=== PATIENT | male | born 1965 | race Caucasian/White ===

== ENCOUNTER → 2016-11-04 | Outpatient (REF) | payer MEDICARE ==
[~2016-11-04] MED LIST: /FENT25PA TD; /ONDA4TA OR; /ONDA4TA PO; /ONDA4TA SL; /PANT40TA PO; ALBU17IN2 IN; ALBU83IN INH; ALBUPOW9 INH; ALBUTEROL INH; DEXALANT PO; DIAZ10TA2 PO; LITH300T11 PO; METO10TA2 OR; METO5TAB2 PO; MORP15TA4 OR; MS C30TA2 OR; No Historical Meds; OXYC-208 PO; PERC5TAB8 OR; PERC5TAB8 PO; PERCOCET PO; PRED10TA2 PO; PRIL20CA OR; PRIL40CA OR; PRIL40CA PO; REGL10TA6 PO; TRAM50TA2 OR; TRAZ50TA2 PO; TUMS500C PO; VENTAER IN; XANA0.25 OR; ZYPR10TA PO
== END ==
LOC: M SMT 16:45
PROVIDERS: ATTEND Urology
DX: Z85.51 Personal history of malignant neoplasm of bladder (principal)

== ENCOUNTER 2017-04-18 12:23 | Emergency (ER) | payer MEDICARE ==
[~2017-04-18] VITALS: Ht 175.3 cm; Wt 77.4 kg
[2017-04-18] MEDS ORDERED: INVE234I IM (12:35)
[2017-04-18] MEDS ORDERED: NS 500 ML IV ONE (13:45)
[2017-04-18] MEDS ORDERED: ONDANSETRON 4MG/2ML VIAL (J2405) IV ONE (13:45)
[2017-04-18] MEDS ORDERED: MORPHINE 2 MG/ML 1ML SYRINGE IV PRN (13:45)
[2017-04-18] MEDS ORDERED: ALPRAZolam 0.25 MG TAB PO ONE (14:00)
[2017-04-18] MEDS ORDERED: IPRATROPIUM 0.5MG/ALBUTEROL 2.5MG INH SOL UD 3ML (DUONEB)(J7620) NEB ONE (14:30)
[2017-04-18 14:34] LABS: BASO # 0.1 K/mm3 (0.0-0.2); BASO % 0.5 % (0.0-1.0); EOS # 0.2 K/mm3 (0.0-0.50); EOS % 1.3 % (0.0-3.0); LARGE UNSTAINED CELL # 0.3 K/mm3 (0.0-0.4); LARGE UNSTAINED CELL % 2.2 % (0.0-4.0); LYMPH # 3.3 K/mm3 (1.5-4.5); LYMPH % 24.7 % (24.0-44.0); MEAN CORPUSCULAR HEMOGLOBIN 33.1 pg (27.0-33.0); MEAN CORPUSCULAR HGB CONC 36.3 g/dl (32.0-36.5); MEAN CORPUSCULAR VOLUME 91.2 fl (80.0-96.0); MONO # 0.7 K/mm3 (0.0-0.8); MONO % 5.4 % (0.0-5.0); PLATELET COUNT, AUTOMATED 334 k/mm3 (150-450); WHITE BLOOD COUNT 12.1 K/mm3 (4.0-10.0)
[2017-04-18 14:48] LABS: INR 1.07
[2017-04-18 14:54] LABS: ALBUMIN/GLOBULIN RATIO 1.08 (1.00-1.93); ALKALINE PHOSPHATASE 91 U/L (45-117); ALT/SGPT 42 U/L (12-78); AMYLASE 45 U/L (25-115); ANION GAP 9 MEQ/L (8-16); AST/SGOT 25 U/L (15-37); BILIRUBIN,DIRECT 0.2 MG/DL (0.0-0.2); BLOOD UREA NITROGEN 30 MG/DL (7-18); CALCIUM LEVEL 10.6 MG/DL (8.5-10.1); CARBON DIOXIDE LEVEL 31 MEQ/L (21-32); CHLORIDE LEVEL 89 MEQ/L (98-107); GLOMERULAR FILTRATION RATE > 60.0 (>60); GLUCOSE, FASTING 103 MG/DL (70-105); POTASSIUM SERUM 3.9 MEQ/L (3.5-5.1); SODIUM LEVEL 129 MEQ/L (136-145); TOTAL PROTEIN 7.7 GM/DL (6.4-8.2)
[2017-04-18 15:44] VITALS: BP 117/71
[2017-04-18] MEDS ORDERED: XANA0.25 PO (15:46)
[2017-04-18] MEDS ORDERED: ZOFR4TAB3 PO (15:46)
[2017-04-19] MEDS ORDERED: PROM50TA4 PO (12:35)
== END 2017-04-18 16:17 | disposition home or self-care (01) ==
LOC: M ED 12:23
DX: F41.9 Anxiety disorder, unspecified (principal); R10.84 Generalized abdominal pain; R11.2 Nausea with vomiting, unspecified; F17.210 Nicotine dependence, cigarettes, uncomplicated
CPT/HCPCS: 80048; 80076; 81001; 82150; 83690; 85025; 85610; 85730; 94640; 96374; 96375; 99283; J2405

== ENCOUNTER 2017-04-19 09:38 | Emergency (ER) | payer MEDICARE ==
[~2017-04-19] VITALS: Ht 175.3 cm; Wt 77.3 kg
[~2017-04-19 09:38] MED LIST changes: +INVE234I IM; +XANA0.25 PO; +ZOFR4TAB3 PO
[2017-04-19] MEDS ORDERED: NS 1,000 ML IV ONE (10:15)
[2017-04-19] MEDS ORDERED: FAMOTIDINE IV BAG 20 MG in APPROPRIATE DILUENT 1 EA IV ONE (10:15)
[2017-04-19] MEDS ORDERED: PROMETHAZINE INJ 25 MG/ML VIAL (J2550) IV ONE (10:15)
[2017-04-19] MEDS ORDERED: IPRATROPIUM 0.5MG/ALBUTEROL 2.5MG INH SOL UD 3ML (DUONEB)(J7620) NEB ONE (10:30)
[2017-04-19 10:34] LABS: BASO % 0.4 % (0.0-1.0); EOS # 0.1 K/mm3 (0.0-0.50); EOS % 1.1 % (0.0-3.0); LARGE UNSTAINED CELL # 0.3 K/mm3 (0.0-0.4); LARGE UNSTAINED CELL % 2.3 % (0.0-4.0); LYMPH # 2.4 K/mm3 (1.5-4.5); MEAN CORPUSCULAR HEMOGLOBIN 32.5 pg (27.0-33.0); MEAN CORPUSCULAR HGB CONC 35.9 g/dl (32.0-36.5); MEAN CORPUSCULAR VOLUME 90.8 fl (80.0-96.0); MONO # 0.7 K/mm3 (0.0-0.8); MONO % 6.6 % (0.0-5.0); NEUTROPHILS # 7.2 K/mm3 (1.8-7.7); NEUTROPHILS % 67.6 % (36.0-66.0); PLATELET COUNT, AUTOMATED 343 k/mm3 (150-450); RED CELL DISTRIBUTION WIDTH 12.5 % (11.5-14.5); WHITE BLOOD COUNT 10.7 K/mm3 (4.0-10.0)
[2017-04-19 10:57] LABS: ALBUMIN 4.1 GM/DL (3.2-5.2); ALBUMIN/GLOBULIN RATIO 1.28 (1.00-1.93); ALKALINE PHOSPHATASE 95 U/L (45-117); ALT/SGPT 39 U/L (12-78); ANION GAP 11 MEQ/L (8-16); AST/SGOT 20 U/L (15-37); BILIRUBIN,DIRECT 0.3 MG/DL (0.0-0.2); BILIRUBIN,TOTAL 1.2 MG/DL (0.2-1.0); BLOOD UREA NITROGEN 24 MG/DL (7-18); CALCIUM LEVEL 10.4 MG/DL (8.5-10.1); CARBON DIOXIDE LEVEL 32 MEQ/L (21-32); CHLORIDE LEVEL 83 MEQ/L (98-107); CREATININE FOR GFR 1.25 MG/DL (0.70-1.30); GLOMERULAR FILTRATION RATE > 60.0 (>60); GLUCOSE, FASTING 111 MG/DL (70-105); POTASSIUM SERUM 3.5 MEQ/L (3.5-5.1); SODIUM LEVEL 126 MEQ/L (136-145); TOTAL PROTEIN 7.3 GM/DL (6.4-8.2)
[2017-04-19] MEDS ORDERED: PROM50TA4 PO (12:35)
--- NOTE | 2017-04-19 12:48 | REP ---
Clinical: Nausea and vomiting. Technique: Real time callahan scale ultrasound examination using curved array transducer. Findings: The liver is increased in echogenicity with poor through transmission suggesting fatty infiltration. Visualized portions of the pancreas are normal. The patient is status post cholecystectomy and the common bile duct is within normal limits at 7.4 mm diameter. The right kidney is normal in reniform shape without hydronephrosis and measures 11.8 x 4.8 x 4.5 cm. No ascites. Impression: Normal post cholecystectomy right upper quadrant ultrasound. Signed by Omar Lee MD 04/19/2017 12:40 P
[2017-04-19 13:52] VITALS: BP 137/92
--- NOTE | 2017-04-19 18:12 | ECGEPIP ---
Stationary ECG Study [facility] - ED Test Date: 2017-04-19 Pat Name: MELINDA DOYLE Department: Room: - Gender: M Dispatch Coordinator: jose antonio : 1965 Requested By: Saige Hull Order Number: [id number] Reading MD: Saige Hull Measurements Intervals Win[place] Rate: 95 P: 74 ND: 157 QRS: 73 QRSD: 97 T: 68 QT: 354 QTc: 445 Interpretive Statements SINUS RHYTHM INCREASED RATE 03/05/12 Electronically Signed On 04-19-2017 18:12:17 EDT by Saige Hull
== END 2017-04-19 13:53 | disposition home or self-care (01) ==
LOC: M ED 10:05
DX: F41.9 Anxiety disorder, unspecified (principal)

== ENCOUNTER 2017-04-21 06:17 | Emergency (ER) | payer MEDICARE ==
[~2017-04-21] VITALS: Ht 175.3 cm; Wt 77.3 kg
[~2017-04-21 06:17] MED LIST changes: +PROM50TA4 PO
[2017-04-21] MEDS ORDERED: TRIMETHOBENZAMIDE HCL INJ 200 MG/2 ML VIAL (J3250) IM ONE (07:30)
[2017-04-21 10:19] VITALS: BP 150/92
== END 2017-04-21 10:34 | disposition home or self-care (01) ==
LOC: EDBD 06:17 → M ED 06:17
DX: F41.9 Anxiety disorder, unspecified (principal); F17.210 Nicotine dependence, cigarettes, uncomplicated
CPT/HCPCS: 96372; 99284; J3250

== ENCOUNTER → 2017-05-13 | Outpatient (CLI) | payer MEDICARE ==
[2017-05-13 17:59] LABS: ALBUMIN 4.2 GM/DL (3.2-5.2); ALBUMIN/GLOBULIN RATIO 1.24 (1.00-1.93); ALKALINE PHOSPHATASE 87 U/L (45-117); ALT/SGPT 44 U/L (12-78); ANION GAP 9 MEQ/L (8-16); AST/SGOT 15 U/L (15-37); BILIRUBIN,DIRECT 0.2 MG/DL (0.0-0.2); BILIRUBIN,TOTAL 0.6 MG/DL (0.2-1.0); BLOOD UREA NITROGEN 3 MG/DL (7-18); CALCIUM LEVEL 10.4 MG/DL (8.5-10.1); CARBON DIOXIDE LEVEL 34 MEQ/L (21-32); CHLORIDE LEVEL 92 MEQ/L (98-107); CREATININE FOR GFR 0.79 MG/DL (0.70-1.30); GLOMERULAR FILTRATION RATE > 60.0 (>60); GLUCOSE, FASTING 107 MG/DL (70-105); POTASSIUM SERUM 3.3 MEQ/L (3.5-5.1); SODIUM LEVEL 135 MEQ/L (136-145); TOTAL PROTEIN 7.6 GM/DL (6.4-8.2)
[2017-05-13 18:54] LABS: BASO % 0.4 % (0.0-1.0); EOS # 0.1 K/mm3 (0.0-0.50); EOS % 0.9 % (0.0-3.0); LYMPH # 2.4 K/mm3 (1.5-4.5); LYMPH % 23.1 % (24.0-44.0); MEAN CORPUSCULAR HEMOGLOBIN 32.3 pg (27.0-33.0); MEAN CORPUSCULAR HGB CONC 34.9 g/dl (32.0-36.5); MEAN CORPUSCULAR VOLUME 92.6 fl (80.0-96.0); MONO # 0.5 K/mm3 (0.0-0.8); NEUTROPHILS # 7.2 K/mm3 (1.8-7.7); NEUTROPHILS % 68.7 % (36.0-66.0); RED CELL DISTRIBUTION WIDTH 12.8 % (11.5-14.5); WHITE BLOOD COUNT 10.5 K/mm3 (4.0-10.0)
== END ==
LOC: M WUC 14:45
PROVIDERS: ATTEND Internal Medicine Gastroenterology
DX: R11.2 Nausea with vomiting, unspecified (principal)

== ENCOUNTER → 2017-05-31 | Outpatient (CLI) | payer MEDICARE ==
--- NOTE | 2017-06-02 10:00 | REP ---
MRCP: Multiple heavily T2-weighted sequences are obtained in the axial and coronal planes with MIP reconstruction images. Comparison made with prior MRCP 11/11/[address] 10/07/2016. Study is somewhat limited due to patient motion. There appears to be mild intrahepatic biliary dilatation. The common bile duct is dilated up to 14 mm. Diameter on the recent CT in September 2016 was 12 mm. There is again abrupt change in caliber at the distal end of the common bile duct. The pancreas duct is not dilated. Maximum diameter is 3 mm. No discrete filling defect is seen in the dilated common bile duct. Patient has had a prior cholecystectomy. No adenopathy is seen. No free fluid is seen in the visualized abdomen. IMPRESSION: Status post cholecystectomy. There is once again evidence of mild intrahepatic biliary dilatation. There is dilatation of the common bile duct up to 14 mm without a discrete filling defect. There is again abrupt change in caliber at the distal end of common bile duct. Current diameter is 14 mm, on the prior CT of 10/07/2016 it was 12 mm. Pancreatic duct is normal in caliber. Signed by Emil Davis MD 06/02/2017 12:49 P
== END ==
LOC: M RAD 08:55
PROVIDERS: ATTEND Internal Medicine Gastroenterology
DX: R11.2 Nausea with vomiting, unspecified (principal)

== ENCOUNTER → 2017-07-21 | Outpatient (REF) | LOC: M LAB 09:46 | PROVIDERS: ATTEND Nurse Practitioner Adult Health | DX: Z02.89 Encounter for other administrative examinations (principal) ==

== ENCOUNTER → 2018-01-19 | Outpatient (CLI) | payer MEDICARE | LOC: M RAD 10:17 | DX: N62 Hypertrophy of breast (principal); N63.0 Unspecified lump in unspecified breast | CPT/HCPCS: 77066 ==

== ENCOUNTER 2018-02-12 04:56 | Emergency (ER) | payer MEDICARE, MEDICAID ==
[2018-02-12] MEDS: NS 1,000 ML IV (06:30)
[2018-02-12] MEDS: METOCLOPRAMIDE INJ 10MG/2ML VIAL (J2765) IV ×2 (06:30)
[2018-02-12] MEDS: KETOROLAC 30 MG/ML VIAL (J1885) IV (06:30)
[2018-02-12] MEDS: GASTROGRAFIN SOLUTION 30ML PO ×2 (07:44→08:14)
[2018-02-12 07:52] LABS: BASO % 0.2 % (0.0-1.0); EOS % 0.2 % (0.0-3.0); HEMATOCRIT 39.8 % (42.0-52.0); HEMOGLOBIN 14.5 g/dl (13.5-17.5); IMMATURE GRANULOCYTE % 0.7 % (0-3.0); LYMPH # 2.5 10^3/uL (1.5-4.5); MEAN CORPUSCULAR HEMOGLOBIN 32.4 pg (27.0-33.0); MEAN CORPUSCULAR HGB CONC 36.4 g/dl (32.0-36.5); MEAN CORPUSCULAR VOLUME 88.8 fl (80.0-96.0); MONO # 1.1 10^3/uL (0.0-0.8); MONO % 6.2 % (0.0-5.0); NEUTROPHILS # 13.1 10^3/uL (1.8-7.7); NEUTROPHILS % 77.7 % (36.0-66.0); PLATELET COUNT, AUTOMATED 358 10^3/uL (150-450); RED BLOOD COUNT 4.48 10^6/uL (4.30-6.10); RED CELL DISTRIBUTION WIDTH 12.5 % (11.5-14.5); WHITE BLOOD COUNT 16.8 10^3/uL (4.0-10.0)
[2018-02-12 08:06] LABS: APPEARANCE, URINE CLEAR (CLEAR); BACTERIA, URINE AUTO NEGATIVE (NEGATIVE); BILIRUBIN, URINE AUTO NEGATIVE (NEGATIVE); BLOOD, URINE BLOOD 2+ (NEGATIVE); COLOR, URINE YELLOW (YELLOW); GLUCOSE, URINE (UA) AUTO 1+ mg/dL (NEGATIVE); KETONE, URINE AUTO NEGATIVE (NEGATIVE); LEUKOCYTE ESTERASE, URINE AUTO NEGATIVE (NEGATIVE); MUCUS, URINE SMALL (NEGATIVE); NITRITE, URINE AUTO NEGATIVE (NEGATIVE); PROTEIN, URINE AUTO NEGATIVE (NEGATIVE); RBC, URINE AUTO 21 /HPF (0-3); SPECIFIC GRAVITY URINE AUTO 1.011 (1.002-1.035); SQUAMOUS EPITHELIAL CELL UR AU 0 /HPF (0-6); UROBILINOGEN, URINE AUTO 0.2 mg/dL (0.0-2.0); WBC, URINE AUTO 3 /HPF (0-3)
[2018-02-12 08:20] LABS: ALBUMIN 3.5 GM/DL (3.2-5.2); ALBUMIN/GLOBULIN RATIO 1.13 (1.00-1.93); ALKALINE PHOSPHATASE 88 U/L (45-117); ALT/SGPT 31 U/L (12-78); ANION GAP 8 MEQ/L (8-16); AST/SGOT 17 U/L (7-37); BILIRUBIN,DIRECT 0.2 MG/DL (0.0-0.2); BILIRUBIN,TOTAL 0.6 MG/DL (0.2-1.0); BLOOD UREA NITROGEN 8 MG/DL (7-18); C REACTIVE PROTEIN QUANTITATIV 0.94 MG/DL (0.00-0.30); CARBON DIOXIDE LEVEL 31 MEQ/L (21-32); CHLORIDE LEVEL 97 MEQ/L (98-107); CREATININE FOR GFR 0.78 MG/DL (0.70-1.30); GAMMA GLUTAMYLTRANSPEPTIDASE 65 U/L (15-85); GLOMERULAR FILTRATION RATE > 60.0 (>56); GLUCOSE, FASTING 120 MG/DL (70-100); LIPASE 110 U/L (73-393); POTASSIUM SERUM 2.9 MEQ/L (3.5-5.1); SODIUM LEVEL 136 MEQ/L (136-145); TOTAL PROTEIN 6.6 GM/DL (6.4-8.2)
[2018-02-12] MEDS ORDERED: KCL 10MEQ/100ML SWI (KRUN) 10 MEQ in APPROPRIATE DILUENT 1 EA IV (08:30)
[2018-02-12] MEDS: KCL 10MEQ/100ML SWI (KRUN) 10 MEQ in APPROPRIATE DILUENT 1 EA IV (08:40)
[2018-02-12] MEDS: POTASSIUM CHLORIDE 10 MEQ SR TABLET PO (08:40)
[2018-02-12] MEDS: NORCO, ANEXSIA 5/325MG TABLET (HYDROcodone/ACETAMINOPHEN) PO (08:42)
[2018-02-12] MEDS ORDERED: ISOVUE-370 76% 100ML VIAL (Q9967) As Ordered (09:45)
[2018-02-12 10:32] LABS: ANION GAP 9 MEQ/L (8-16); BLOOD UREA NITROGEN 7 MG/DL (7-18); CALCIUM LEVEL 8.3 MG/DL (8.5-10.1); CARBON DIOXIDE LEVEL 28 MEQ/L (21-32); CHLORIDE LEVEL 96 MEQ/L (98-107); CREATININE FOR GFR 0.73 MG/DL (0.70-1.30); GLOMERULAR FILTRATION RATE > 60.0 (>56); GLUCOSE, FASTING 101 MG/DL (70-100); POTASSIUM SERUM 3.2 MEQ/L (3.5-5.1); SODIUM LEVEL 133 MEQ/L (136-145)
== END 2018-02-12 11:27 | disposition home or self-care (01) ==
LOC: M ED 04:56
DX: K52.9 Noninfective gastroenteritis and colitis, unspecified (principal); R10.84 Generalized abdominal pain; K57.90 Diverticulosis of intestine, part unspecified, without perforation or abscess without bleeding; K21.9 Gastro-esophageal reflux disease without esophagitis; Z86.73 Personal history of transient ischemic attack (TIA), and cerebral infarction without residual deficits; J44.9 Chronic obstructive pulmonary disease, unspecified; F41.9 Anxiety disorder, unspecified; F32.9 Major depressive disorder, single episode, unspecified; F31.9 Bipolar disorder, unspecified; F17.200 Nicotine dependence, unspecified, uncomplicated; K76.0 Fatty (change of) liver, not elsewhere classified; Z88.1 Allergy status to other antibiotic agents
CPT/HCPCS: Q9963

== ENCOUNTER 2018-03-04 14:25 | Inpatient (IN) | payer MEDICARE, MEDICAID ==
[2018-03-04] MEDS: FOLIC ACID 1 MG TAB PO (09:00)
[2018-03-04] MEDS: MULTIVITAMINS/MINERALS THERAP 1 TAB PO (09:00)
[2018-03-04] MEDS: NICOTINE 14 MG/24 HR TRANSDERMAL TD (09:00)
[2018-03-04] MEDS: THIAMINE 100 MG TAB PO (09:00)
[2018-03-04] MEDS: NS 1,000 ML IV ×2 (16:07→17:08)
[2018-03-04] MEDS: METOCLOPRAMIDE INJ 10MG/2ML VIAL (J2765) IV (16:08)
[2018-03-04 16:12] LABS: BASO # 0.1 10^3/uL (0.0-0.2); BASO % 0.4 % (0.0-1.0); EOS # 0.1 10^3/uL (0.0-0.50); EOS % 0.8 % (0.0-3.0); HEMATOCRIT 43.9 % (42.0-52.0); HEMOGLOBIN 16.2 g/dl (13.5-17.5); IMMATURE GRANULOCYTE % 0.5 % (0-3.0); LYMPH # 4.3 10^3/uL (1.5-4.5); MEAN CORPUSCULAR HEMOGLOBIN 32.2 pg (27.0-33.0); MEAN CORPUSCULAR VOLUME 87.3 fl (80.0-96.0); MONO # 1.2 10^3/uL (0.0-0.8); NEUTROPHILS # 10.8 10^3/uL (1.8-7.7); NEUTROPHILS % 65.3 % (36.0-66.0); PLATELET COUNT, AUTOMATED 441 10^3/uL (150-450); RED BLOOD COUNT 5.03 10^6/uL (4.30-6.10); RED CELL DISTRIBUTION WIDTH 12.1 % (11.5-14.5); WHITE BLOOD COUNT 16.6 10^3/uL (4.0-10.0)
[2018-03-04 16:15] LABS: MEAN CORPUSCULAR HGB CONC 36.9 g/dl (32.0-36.5)
[2018-03-04] MEDS: FAMOTIDINE IV BAG 20 MG in APPROPRIATE DILUENT 1 EA IV (16:25)
[2018-03-04 16:40] LABS: ALBUMIN 4.3 GM/DL (3.2-5.2); ALBUMIN/GLOBULIN RATIO 1.13 (1.00-1.93); ALKALINE PHOSPHATASE 120 U/L (45-117); ALT/SGPT 77 U/L (12-78); ANION GAP 11 MEQ/L (8-16); AST/SGOT 35 U/L (7-37); BILIRUBIN,DIRECT 0.5 MG/DL (0.0-0.2); BILIRUBIN,TOTAL 2.5 MG/DL (0.2-1.0); BLOOD UREA NITROGEN 19 MG/DL (7-18); CALCIUM LEVEL 10.4 MG/DL (8.5-10.1); CARBON DIOXIDE LEVEL 32 MEQ/L (21-32); CHLORIDE LEVEL 80 MEQ/L (98-107); CREATININE FOR GFR 1.35 MG/DL (0.70-1.30); GLOMERULAR FILTRATION RATE 59.6 (>56); GLUCOSE, FASTING 116 MG/DL (70-100); LIPASE 86 U/L (73-393); SODIUM LEVEL 123 MEQ/L (136-145); TOTAL PROTEIN 8.1 GM/DL (6.4-8.2)
[2018-03-04 16:47] LABS: POTASSIUM SERUM 2.9 MEQ/L (3.5-5.1)
[2018-03-04] MEDS: POTASSIUM CHLORIDE 10 MEQ SR TABLET PO (17:22)
[2018-03-04] MEDS: KCL 10MEQ/100ML SWI (KRUN) 10 MEQ in APPROPRIATE DILUENT 1 EA IV ×2 (18:45→20:00)
[2018-03-04] MEDS ORDERED: METOCLOPRAMIDE INJ 10MG/2ML VIAL (J2765) IV (19:45)
[2018-03-04] MEDS: SYMBICORT 160/4.5MCG INHALER 6GM INH (20:00)
[2018-03-04 20:38] LABS: OSMOLALITY URINE 135 MOSM/KG (500-800)
[2018-03-04 20:42] LABS: APPEARANCE, URINE CLEAR (CLEAR); BACTERIA, URINE AUTO NEGATIVE (NEGATIVE); BILIRUBIN, URINE AUTO NEGATIVE (NEGATIVE); BLOOD, URINE BLOOD 2+ (NEGATIVE); COLOR, URINE STRAW (YELLOW); GLUCOSE, URINE (UA) AUTO NEGATIVE (NEGATIVE); KETONE, URINE AUTO NEGATIVE (NEGATIVE); LEUKOCYTE ESTERASE, URINE AUTO NEGATIVE (NEGATIVE); NITRITE, URINE AUTO NEGATIVE (NEGATIVE); PROTEIN, URINE AUTO NEGATIVE (NEGATIVE); RBC, URINE AUTO 2 /HPF (0-3); SPECIFIC GRAVITY URINE AUTO 1.002 (1.002-1.035); SQUAMOUS EPITHELIAL CELL UR AU 0 /HPF (0-6); UROBILINOGEN, URINE AUTO 0.2 mg/dL (0.0-2.0); WBC, URINE AUTO 1 /HPF (0-3)
[2018-03-04 20:45] LABS: INR 1.02; PROTHROMBIN TIME 13.5 SECONDS (12.4-14.5)
[2018-03-04] MEDS ORDERED: ACETAMINOPHEN TAB 650MG DOSE (2X325MG) PO (20:45)
[2018-03-04 20:46] LABS: PARTIAL THROMBOPLASTIN TIME 30.9 SECONDS (26.8-37.9)
[2018-03-04 20:47] LABS: OSMOLALITY SERUM 263 MOSM/KG (275-295)
[2018-03-04 20:54] LABS: ANION GAP 8 MEQ/L (8-16); BLOOD UREA NITROGEN 16 MG/DL (7-18); CARBON DIOXIDE LEVEL 30 MEQ/L (21-32); CHLORIDE LEVEL 92 MEQ/L (98-107); CREATININE FOR GFR 0.91 MG/DL (0.70-1.30); GLOMERULAR FILTRATION RATE > 60.0 (>56); GLUCOSE, FASTING 107 MG/DL (70-100); MAGNESIUM LEVEL 2.2 MG/DL (1.8-2.4); NT-PRO BNP 65 PG/ML (<125)
[2018-03-04 20:59] LABS: GAMMA GLUTAMYLTRANSPEPTIDASE 96 U/L (15-85)
[2018-03-04 21:05] LABS: AMPHETAMINES LEVEL URINE NEGATIVE (NEGATIVE); BARBITURATES URINE NEGATIVE (NEGATIVE); BENZODIAZEPINES URINE NEGATIVE (NEGATIVE); CANNABINOIDS URINE POSITIVE (NEGATIVE); COCAINE METABOLITE URINE NEGATIVE (NEGATIVE); CREATININE,RANDOM URINE 33.5 MG/DL; METHADONE URINE NEGATIVE (NEGATIVE); OPIATES URINE NEGATIVE (NEGATIVE); PHENCYCLIDINE URINE NEGATIVE (NEGATIVE); SODIUM,RANDOM URINE 11 MEQ/L
[2018-03-04 21:07] LABS: SODIUM LEVEL 130 MEQ/L (136-145)
[2018-03-04 21:08] LABS: CALCIUM LEVEL 8.7 MG/DL (8.5-10.1); POTASSIUM SERUM 2.9 MEQ/L (3.5-5.1)
[2018-03-04] MEDS: KCL 40MEQ in NS 1000ML 1,000 ML IV (21:15)
[2018-03-04] MEDS: IPRATROPIUM 0.5MG/ALBUTEROL 2.5MG INH SOL UD 3ML (DUONEB)(J7620) NEB (21:23)
[2018-03-04] MEDS: GI COCKTAIL 50ML BTL(HYOSCYAMINE/MAALOX/LIDOCAINE VISCOUS)(1:3:1) PO (21:26)
[2018-03-04] MEDS: MORPHINE 4 MG/ML 1ML VIAL/SYRINGE (J2270) IV (21:26)
[2018-03-04] MEDS: SUCRALFATE SUSP 1GM/10ML UD PO (21:27)
[2018-03-04] MEDS: ENOXAPARIN 40 MG/0.4 ML SYRINGE (J1650) SC (21:27)
[2018-03-04] MEDS: PANTOPRAZOLE 40MG INJ (PROTONIX) (C9113) IV (21:27)
[2018-03-05] MEDS: ONDANSETRON 4MG/2ML VIAL (J2405) IV (00:03)
[2018-03-05] MEDS: MORPHINE 4 MG/ML 1ML VIAL/SYRINGE (J2270) IV ×2 (01:33→05:27)
[2018-03-05] MEDS: IPRATROPIUM 0.5MG/ALBUTEROL 2.5MG INH SOL UD 3ML (DUONEB)(J7620) NEB ×3 (02:00→08:00)
[2018-03-05 07:21] LABS: BASO # 0.1 10^3/uL (0.0-0.2); BASO % 0.6 % (0.0-1.0); EOS # 0.1 10^3/uL (0.0-0.50); EOS % 0.9 % (0.0-3.0); HEMATOCRIT 37.2 % (42.0-52.0); IMMATURE GRANULOCYTE % 0.6 % (0-3.0); LYMPH # 2.7 10^3/uL (1.5-4.5); LYMPH % 30.5 % (24.0-44.0); MEAN CORPUSCULAR HEMOGLOBIN 31.8 pg (27.0-33.0); MEAN CORPUSCULAR HGB CONC 35.8 g/dl (32.0-36.5); MONO # 0.8 10^3/uL (0.0-0.8); MONO % 8.8 % (0.0-5.0); NEUTROPHILS # 5.1 10^3/uL (1.8-7.7); NEUTROPHILS % 58.6 % (36.0-66.0); PLATELET COUNT, AUTOMATED 345 10^3/uL (150-450); RED BLOOD COUNT 4.18 10^6/uL (4.30-6.10); RED CELL DISTRIBUTION WIDTH 12.3 % (11.5-14.5); WHITE BLOOD COUNT 8.8 10^3/uL (4.0-10.0)
[2018-03-05 07:24] LABS: HEMOGLOBIN 13.3 g/dl (13.5-17.5)
[2018-03-05] MEDS: SUCRALFATE SUSP 1GM/10ML UD PO (07:30)
[2018-03-05 07:42] LABS: ANION GAP 9 MEQ/L (8-16); BLOOD UREA NITROGEN 12 MG/DL (7-18); CALCIUM LEVEL 8.8 MG/DL (8.5-10.1); CARBON DIOXIDE LEVEL 27 MEQ/L (21-32); CHLORIDE LEVEL 95 MEQ/L (98-107); CREATININE FOR GFR 1.01 MG/DL (0.70-1.30); GLOMERULAR FILTRATION RATE > 60.0 (>56); GLUCOSE, FASTING 103 MG/DL (70-100); POTASSIUM SERUM 3.1 MEQ/L (3.5-5.1); SODIUM LEVEL 131 MEQ/L (136-145)
[2018-03-05] MEDS: KCL 40MEQ in NS 1000ML 1,000 ML IV (07:52)
[2018-03-05] MEDS: SYMBICORT 160/4.5MCG INHALER 6GM INH (08:00)
[2018-03-05] MEDS: KCL 10MEQ IN D5/0.45NS 1000ML 1,000 ML IV (08:45)
[2018-03-05] MEDS: NICOTINE 14 MG/24 HR TRANSDERMAL TD (09:00)
[2018-03-05] MEDS: FOLIC ACID 1 MG TAB PO (09:00)
[2018-03-05] MEDS: MULTIVITAMINS/MINERALS THERAP 1 TAB PO (09:00)
[2018-03-05] MEDS: THIAMINE 100 MG TAB PO (09:00)
[2018-03-05] MEDS: POTASSIUM CHLORIDE 10 MEQ SR TABLET PO (09:21)
== END 2018-03-05 09:58 | disposition left against medical advice (07) | DRG 684 ==
LOC: M ED 14:25 → M ED INP 20:25 → M PCU 23:34
DX: N17.9 Acute kidney failure, unspecified (principal); R11.2 Nausea with vomiting, unspecified; F17.210 Nicotine dependence, cigarettes, uncomplicated; F31.9 Bipolar disorder, unspecified; J45.909 Unspecified asthma, uncomplicated; E87.8 Other disorders of electrolyte and fluid balance, not elsewhere classified; F12.90 Cannabis use, unspecified, uncomplicated; Z88.1 Allergy status to other antibiotic agents; Z88.8 Allergy status to other drugs, medicaments and biological substances; Z90.49 Acquired absence of other specified parts of digestive tract; Z85.51 Personal history of malignant neoplasm of bladder

== ENCOUNTER 2018-03-28 15:40 | Inpatient (IN) | payer MEDICARE, MEDICAID ==
[2018-03-28] MEDS: ONDANSETRON 4MG/2ML VIAL (J2405) IV (16:30)
[2018-03-28 16:36] LABS: BASO % 0.3 % (0.0-1.0); EOS # 0.1 10^3/uL (0.0-0.50); HEMATOCRIT 40.8 % (42.0-52.0); HEMOGLOBIN 14.8 g/dl (13.5-17.5); IMMATURE GRANULOCYTE % 0.4 % (0-3.0); LYMPH # 3.8 10^3/uL (1.5-4.5); LYMPH % 28.2 % (24.0-44.0); MEAN CORPUSCULAR HEMOGLOBIN 32.3 pg (27.0-33.0); MEAN CORPUSCULAR HGB CONC 36.3 g/dl (32.0-36.5); MEAN CORPUSCULAR VOLUME 89.1 fl (80.0-96.0); MONO # 0.9 10^3/uL (0.0-0.8); MONO % 6.9 % (0.0-5.0); NEUTROPHILS # 8.5 10^3/uL (1.8-7.7); NEUTROPHILS % 63.2 % (36.0-66.0); PLATELET COUNT, AUTOMATED 430 10^3/uL (150-450); RED BLOOD COUNT 4.58 10^6/uL (4.30-6.10); RED CELL DISTRIBUTION WIDTH 13.1 % (11.5-14.5); WHITE BLOOD COUNT 13.4 10^3/uL (4.0-10.0)
[2018-03-28 16:46] LABS: ALBUMIN/GLOBULIN RATIO 1.14 (1.00-1.93); ALKALINE PHOSPHATASE 94 U/L (45-117); ALT/SGPT 75 U/L (12-78); ANION GAP 11 MEQ/L (8-16); AST/SGOT 37 U/L (7-37); BILIRUBIN,DIRECT 0.3 MG/DL (0.0-0.2); BILIRUBIN,TOTAL 0.9 MG/DL (0.2-1.0); BLOOD UREA NITROGEN 12 MG/DL (7-18); CALCIUM LEVEL 11.1 MG/DL (8.5-10.1); CARBON DIOXIDE LEVEL 32 MEQ/L (21-32); CHLORIDE LEVEL 88 MEQ/L (98-107); CREATININE FOR GFR 1.09 MG/DL (0.70-1.30); GLOMERULAR FILTRATION RATE > 60.0 (>56); GLUCOSE, FASTING 104 MG/DL (70-100); LIPASE 133 U/L (73-393); POTASSIUM SERUM 2.8 MEQ/L (3.5-5.1); SODIUM LEVEL 131 MEQ/L (136-145); TOTAL PROTEIN 7.5 GM/DL (6.4-8.2)
[2018-03-28] MEDS: POTASSIUM CHLORIDE 10% LIQ 20 MEQ/15 ML UDC PO (17:15)
[2018-03-28 17:32] LABS: LACTIC ACID SEPSIS PROTOCOL 2.8 MMOL/L (0.4-2.0)
[2018-03-28] MEDS ORDERED: ISOVUE-370 76% 100ML VIAL (Q9967) As Ordered (17:37)
[2018-03-28] MEDS: NS 1,000 ML IV ×2 (17:45→22:15)
[2018-03-28] MEDS: KCL 10MEQ/100ML SWI (KRUN) 10 MEQ in APPROPRIATE DILUENT 1 EA IV (18:00)
[2018-03-28] MEDS: MORPHINE 2 MG/ML 1ML SYRINGE (J2270) IV (18:15)
[2018-03-28] MEDS: PANTOPRAZOLE 40MG INJ (PROTONIX) (C9113) IV (18:30)
[2018-03-28] MEDS: METOCLOPRAMIDE INJ 10MG/2ML VIAL (J2765) IV (22:15)
[2018-03-28] MEDS ORDERED: ACETAMINOPHEN TAB 650MG DOSE (2X325MG) PO (23:30)
[2018-03-28] MEDS ORDERED: METOCLOPRAMIDE 10 MG TAB PO (23:30)
[2018-03-28] MEDS ORDERED: ONDANSETRON 4MG/2ML VIAL (J2405) IV (23:30)
[2018-03-28] MEDS: MORPHINE 4 MG/ML 1ML VIAL/SYRINGE (J2270) IV (23:30)
[2018-03-29] MEDS: NS 1,000 ML IV (01:02)
[2018-03-29] MEDS: KCL 10MEQ/100ML SWI (KRUN) 10 MEQ in APPROPRIATE DILUENT 1 EA IV ×3 (01:37→03:38)
[2018-03-29] MEDS: IPRATROPIUM 0.5MG/ALBUTEROL 2.5MG INH SOL UD 3ML (DUONEB)(J7620) INH ×2 (01:42→07:52)
[2018-03-29] MEDS: MAG SULF 1GM/100ML (MAG RUN) 1 GM in APPROPRIATE DILUENT 1 EA IV (02:11)
[2018-03-29] MEDS: KCL 40MEQ in NS 1000ML 1,000 ML IV ×2 (03:37→10:46)
[2018-03-29 04:48] LABS: BASO # 0.1 10^3/uL (0.0-0.2); BASO % 0.5 % (0.0-1.0); EOS # 0.2 10^3/uL (0.0-0.50); EOS % 1.6 % (0.0-3.0); HEMATOCRIT 35.2 % (42.0-52.0); IMMATURE GRANULOCYTE % 0.5 % (0-3.0); LYMPH # 4.1 10^3/uL (1.5-4.5); MEAN CORPUSCULAR HEMOGLOBIN 32.3 pg (27.0-33.0); MEAN CORPUSCULAR HGB CONC 35.2 g/dl (32.0-36.5); MEAN CORPUSCULAR VOLUME 91.7 fl (80.0-96.0); MONO # 0.7 10^3/uL (0.0-0.8); MONO % 6.5 % (0.0-5.0); NEUTROPHILS # 5.7 10^3/uL (1.8-7.7); NEUTROPHILS % 52.9 % (36.0-66.0); PLATELET COUNT, AUTOMATED 388 10^3/uL (150-450); RED BLOOD COUNT 3.84 10^6/uL (4.30-6.10); RED CELL DISTRIBUTION WIDTH 13.4 % (11.5-14.5); WHITE BLOOD COUNT 10.7 10^3/uL (4.0-10.0)
[2018-03-29 04:49] LABS: HEMOGLOBIN 12.4 g/dl (13.5-17.5)
[2018-03-29 04:53] LABS: ALBUMIN 2.9 GM/DL (3.2-5.2); ALBUMIN/GLOBULIN RATIO 0.97 (1.00-1.93); ALKALINE PHOSPHATASE 73 U/L (45-117); ALT/SGPT 61 U/L (12-78); ANION GAP 7 MEQ/L (8-16); AST/SGOT 35 U/L (7-37); BILIRUBIN,TOTAL 0.9 MG/DL (0.2-1.0); BLOOD UREA NITROGEN 9 MG/DL (7-18); CALCIUM LEVEL 9.1 MG/DL (8.5-10.1); CARBON DIOXIDE LEVEL 30 MEQ/L (21-32); CHLORIDE LEVEL 97 MEQ/L (98-107); CREATININE FOR GFR 0.64 MG/DL (0.70-1.30); GLOMERULAR FILTRATION RATE > 60.0 (>56); GLUCOSE, FASTING 89 MG/DL (70-100); POTASSIUM SERUM 3.4 MEQ/L (3.5-5.1); SODIUM LEVEL 134 MEQ/L (136-145); TOTAL PROTEIN 5.9 GM/DL (6.4-8.2)
[2018-03-29] MEDS: TIOTROPIUM INHALER/CAPSULE (SPIRIVA) INH (07:53)
[2018-03-29 09:42] LABS: ANION GAP 3 MEQ/L (8-16); BLOOD UREA NITROGEN 10 MG/DL (7-18); CALCIUM LEVEL 8.9 MG/DL (8.5-10.1); CARBON DIOXIDE LEVEL 33 MEQ/L (21-32); CHLORIDE LEVEL 100 MEQ/L (98-107); CREATININE FOR GFR 0.63 MG/DL (0.70-1.30); GLOMERULAR FILTRATION RATE > 60.0 (>56); GLUCOSE, FASTING 95 MG/DL (70-100); POTASSIUM SERUM 4.1 MEQ/L (3.5-5.1); SODIUM LEVEL 136 MEQ/L (136-145)
[2018-03-29] MEDS: ENOXAPARIN 40 MG/0.4 ML SYRINGE (J1650) SC (10:49)
[2018-03-29] MEDS: PANTOPRAZOLE 40MG INJ (PROTONIX) (C9113) IV (10:50)
[2018-03-29] MEDS: NICOTINE 21MG/24HR 1 EA TRANSDERMAL TD (10:54)
[2018-03-29 11:22] LABS: AMPHETAMINES URINE REFLEX NEGATIVE (NEGATIVE); BARBITURATES URINE REFLEX NEGATIVE (NEGATIVE); BENZODIAZEPINES URINE REFLEX NEGATIVE (NEGATIVE); COCAINE METABOLITE URINE REFLE NEGATIVE (NEGATIVE); METHADONE URINE REFLEX NEGATIVE (NEGATIVE); PHENCYCLIDINE URINE REFLEX NEGATIVE (NEGATIVE)
[2018-03-29 11:24] LABS: CANNABINOIDS URINE REFLEX PENDING CONFIRMATION (NEGATIVE); OPIATES URINE REFLEX PENDING CONFIRMATION (NEGATIVE)
[2018-03-30 08:41] LABS: PTH INTACT 58.1 PG/ML (18.5-88.0)
== END 2018-03-29 13:50 | disposition left against medical advice (07) | DRG 392 ==
LOC: M PCU 03-29 00:56 → M ED 15:40 → M ED INP 23:23
DX: R11.2 Nausea with vomiting, unspecified (principal); E87.2 Acidosis; K86.1 Other chronic pancreatitis; E86.0 Dehydration; E87.6 Hypokalemia; E83.52 Hypercalcemia; F31.9 Bipolar disorder, unspecified; F17.210 Nicotine dependence, cigarettes, uncomplicated; J45.909 Unspecified asthma, uncomplicated; K31.89 Other diseases of stomach and duodenum; K86.89 Other specified diseases of pancreas; Z85.51 Personal history of malignant neoplasm of bladder; Z79.899 Other long term (current) drug therapy; Z88.1 Allergy status to other antibiotic agents; Z88.5 Allergy status to narcotic agent; Z90.49 Acquired absence of other specified parts of digestive tract; Z91.5 Personal history of self-harm

== ENCOUNTER 2018-04-03 15:39 | Emergency (ER) | payer MEDICARE, MEDICAID ==
[2018-04-03] MEDS: NS 1,000 ML IV ×2 (16:00→18:11)
[2018-04-03 16:34] LABS: BASO % 0.1 % (0.0-1.0); EOS % 0.1 % (0.0-3.0); HEMATOCRIT 39.7 % (42.0-52.0); HEMOGLOBIN 14.1 g/dl (13.5-17.5); IMMATURE GRANULOCYTE % 0.4 % (0-3.0); LYMPH # 2.2 10^3/uL (1.5-4.5); MEAN CORPUSCULAR HEMOGLOBIN 32.2 pg (27.0-33.0); MEAN CORPUSCULAR HGB CONC 35.5 g/dl (32.0-36.5); MEAN CORPUSCULAR VOLUME 90.6 fl (80.0-96.0); MONO # 0.7 10^3/uL (0.0-0.8); MONO % 4.6 % (0.0-5.0); NEUTROPHILS # 11.7 10^3/uL (1.8-7.7); NEUTROPHILS % 79.8 % (36.0-66.0); PLATELET COUNT, AUTOMATED 453 10^3/uL (150-450); RED BLOOD COUNT 4.38 10^6/uL (4.30-6.10); RED CELL DISTRIBUTION WIDTH 13.2 % (11.5-14.5); WHITE BLOOD COUNT 14.6 10^3/uL (4.0-10.0)
[2018-04-03 16:47] LABS: ALBUMIN 3.8 GM/DL (3.2-5.2); ALBUMIN/GLOBULIN RATIO 1.23 (1.00-1.93); ALKALINE PHOSPHATASE 87 U/L (45-117); ALT/SGPT 55 U/L (12-78); ANION GAP 14 MEQ/L (8-16); AST/SGOT 20 U/L (7-37); BILIRUBIN,DIRECT 0.3 MG/DL (0.0-0.2); BILIRUBIN,TOTAL 0.9 MG/DL (0.2-1.0); BLOOD UREA NITROGEN 12 MG/DL (7-18); CALCIUM LEVEL 10.5 MG/DL (8.5-10.1); CARBON DIOXIDE LEVEL 26 MEQ/L (21-32); CHLORIDE LEVEL 97 MEQ/L (98-107); CREATININE FOR GFR 1.84 MG/DL (0.70-1.30); GLOMERULAR FILTRATION RATE 41.7 (>56); GLUCOSE, FASTING 167 MG/DL (70-100); LIPASE 143 U/L (73-393); POTASSIUM SERUM 3.3 MEQ/L (3.5-5.1); SODIUM LEVEL 137 MEQ/L (136-145); TOTAL PROTEIN 6.9 GM/DL (6.4-8.2)
[2018-04-03] MEDS: MORPHINE 4 MG/ML 1ML VIAL/SYRINGE (J2270) IV (17:10)
[2018-04-03] MEDS: PANTOPRAZOLE 40MG INJ (PROTONIX) (C9113) IV (17:10)
[2018-04-03] MEDS: ONDANSETRON 4MG/2ML VIAL (J2405) IV (17:10)
[2018-04-03 17:54] LABS: LACTIC ACID SEPSIS PROTOCOL 3.1 MMOL/L (0.4-2.0)
[2018-04-03] MEDS: HALOPERIDOL 5 MG/ML VIAL (J1630) IM (19:04)
[2018-04-03] MEDS: diphenhydrAMINE INJ 50MG/ML VIAL (J1200) IV (19:04)
[2018-04-03 20:53] LABS: LACTIC ACID SEPSIS PROTOCOL 1.3 MMOL/L (0.4-2.0)
== END 2018-04-03 22:43 | disposition home or self-care (01) ==
LOC: M ED 15:39
DX: R10.9 Unspecified abdominal pain (principal); G43.A0 Cyclical vomiting, in migraine, not intractable; M54.9 Dorsalgia, unspecified; J45.909 Unspecified asthma, uncomplicated; K57.32 Diverticulitis of large intestine without perforation or abscess without bleeding; Z72.0 Tobacco use; F12.10 Cannabis abuse, uncomplicated; K76.0 Fatty (change of) liver, not elsewhere classified; M51.37 Other intervertebral disc degeneration, lumbosacral region; Z88.1 Allergy status to other antibiotic agents; Z88.5 Allergy status to narcotic agent
CPT/HCPCS: C9113

== ENCOUNTER 2018-04-07 14:30 | Emergency (ER) | payer MEDICARE, MEDICAID ==
[2018-04-07] MEDS: HALOPERIDOL 5 MG/ML VIAL (J1630) IM (15:57)
[2018-04-07] MEDS: diphenhydrAMINE INJ 50MG/ML VIAL (J1200) IM (15:57)
[2018-04-07 16:07] LABS: BASO % 0.3 % (0.0-1.0); EOS # 0.3 10^3/uL (0.0-0.50); EOS % 2.8 % (0.0-3.0); HEMATOCRIT 40.3 % (42.0-52.0); HEMOGLOBIN 14.6 g/dl (13.5-17.5); IMMATURE GRANULOCYTE % 0.4 % (0-3.0); LYMPH # 3.3 10^3/uL (1.5-4.5); LYMPH % 26.9 % (24.0-44.0); MEAN CORPUSCULAR HEMOGLOBIN 32.9 pg (27.0-33.0); MEAN CORPUSCULAR HGB CONC 36.2 g/dl (32.0-36.5); MEAN CORPUSCULAR VOLUME 90.8 fl (80.0-96.0); MONO # 0.8 10^3/uL (0.0-0.8); MONO % 6.7 % (0.0-5.0); NEUTROPHILS # 7.7 10^3/uL (1.8-7.7); NEUTROPHILS % 62.9 % (36.0-66.0); PLATELET COUNT, AUTOMATED 439 10^3/uL (150-450); RED BLOOD COUNT 4.44 10^6/uL (4.30-6.10); RED CELL DISTRIBUTION WIDTH 13.1 % (11.5-14.5); WHITE BLOOD COUNT 12.2 10^3/uL (4.0-10.0)
[2018-04-07 16:36] LABS: ETHYL ALCOHOL (ETHANOL) < 0.003 % (0.000-0.010); SALICYLATE LEVEL < 1.7 MG/DL (5.0-30.0)
[2018-04-07 16:43] LABS: ACETAMINOPHEN LEVEL < 2.0 UG/ML (10.0-30.0)
[2018-04-07 17:42] LABS: AMPHETAMINES LEVEL URINE NEGATIVE (NEGATIVE); BARBITURATES URINE NEGATIVE (NEGATIVE); BENZODIAZEPINES URINE NEGATIVE (NEGATIVE); CANNABINOIDS URINE POSITIVE (NEGATIVE); COCAINE METABOLITE URINE NEGATIVE (NEGATIVE); METHADONE URINE NEGATIVE (NEGATIVE); OPIATES URINE NEGATIVE (NEGATIVE); PHENCYCLIDINE URINE NEGATIVE (NEGATIVE)
[2018-04-07 18:57] LABS: ALBUMIN 3.8 GM/DL (3.2-5.2); ALBUMIN/GLOBULIN RATIO 1.15 (1.00-1.93); ALKALINE PHOSPHATASE 96 U/L (45-117); ALT/SGPT 47 U/L (12-78); ANION GAP 12 MEQ/L (8-16); AST/SGOT 23 U/L (7-37); BILIRUBIN,DIRECT 0.2 MG/DL (0.0-0.2); BLOOD UREA NITROGEN 3 MG/DL (7-18); CALCIUM LEVEL 10.3 MG/DL (8.5-10.1); CARBON DIOXIDE LEVEL 26 MEQ/L (21-32); CHLORIDE LEVEL 100 MEQ/L (98-107); CREATININE FOR GFR 0.65 MG/DL (0.70-1.30); GLOMERULAR FILTRATION RATE > 60.0 (>56); GLUCOSE, FASTING 108 MG/DL (70-100); LIPASE 355 U/L (73-393); POTASSIUM SERUM 3.6 MEQ/L (3.5-5.1); SODIUM LEVEL 138 MEQ/L (136-145); TOTAL PROTEIN 7.1 GM/DL (6.4-8.2)
== END 2018-04-07 19:14 | disposition home or self-care (01) ==
LOC: M ED 14:30
DX: R10.9 Unspecified abdominal pain (principal); G89.29 Other chronic pain; R11.0 Nausea; F31.9 Bipolar disorder, unspecified; F19.10 Other psychoactive substance abuse, uncomplicated; F17.200 Nicotine dependence, unspecified, uncomplicated
CPT/HCPCS: J1200

== ENCOUNTER 2018-04-16 16:12 | Observation (INO) | payer MEDICARE, MEDICAID ==
[2018-04-16] MEDS: NS 1,000 ML IV ×3 (16:52→23:14)
[2018-04-16] MEDS: ONDANSETRON 4MG/2ML VIAL (J2405) IV ×2 (16:53→19:43)
[2018-04-16] MEDS: MORPHINE 4 MG/ML 1ML VIAL/SYRINGE (J2270) IV (16:53)
[2018-04-16 17:06] LABS: BASO % 0.2 % (0.0-1.0); EOS # 0.2 10^3/uL (0.0-0.50); EOS % 1.6 % (0.0-3.0); HEMATOCRIT 44.5 % (42.0-52.0); HEMOGLOBIN 15.7 g/dl (13.5-17.5); IMMATURE GRANULOCYTE % 0.2 % (0-3.0); LYMPH # 2.4 10^3/uL (1.5-4.5); LYMPH % 18.4 % (24.0-44.0); MEAN CORPUSCULAR HEMOGLOBIN 32.7 pg (27.0-33.0); MEAN CORPUSCULAR HGB CONC 35.3 g/dl (32.0-36.5); MEAN CORPUSCULAR VOLUME 92.7 fl (80.0-96.0); MONO # 0.6 10^3/uL (0.0-0.8); NEUTROPHILS # 9.6 10^3/uL (1.8-7.7); NEUTROPHILS % 74.6 % (36.0-66.0); PLATELET COUNT, AUTOMATED 459 10^3/uL (150-450); RED CELL DISTRIBUTION WIDTH 13.4 % (11.5-14.5); WHITE BLOOD COUNT 12.8 10^3/uL (4.0-10.0)
[2018-04-16 17:30] LABS: ALBUMIN 4.2 GM/DL (3.2-5.2); ALKALINE PHOSPHATASE 112 U/L (45-117); ALT/SGPT 44 U/L (12-78); AMYLASE 106 U/L (25-115); ANION GAP 12 MEQ/L (8-16); AST/SGOT 19 U/L (7-37); BILIRUBIN,DIRECT 0.2 MG/DL (0.0-0.2); BILIRUBIN,TOTAL 0.7 MG/DL (0.2-1.0); BLOOD UREA NITROGEN 6 MG/DL (7-18); CALCIUM LEVEL 11.2 MG/DL (8.5-10.1); CARBON DIOXIDE LEVEL 23 MEQ/L (21-32); CHLORIDE LEVEL 104 MEQ/L (98-107); CREATININE FOR GFR 0.95 MG/DL (0.70-1.30); GLOMERULAR FILTRATION RATE > 60.0 (>56); GLUCOSE, FASTING 117 MG/DL (70-100); LIPASE 558 U/L (73-393); POTASSIUM SERUM 3.9 MEQ/L (3.5-5.1); SODIUM LEVEL 139 MEQ/L (136-145); TOTAL PROTEIN 8.4 GM/DL (6.4-8.2)
[2018-04-16] MEDS ORDERED: ISOVUE-370 76% 100ML VIAL (Q9967) As Ordered (17:50)
[2018-04-16] MEDS: HYDROmorphone HCL 1 MG/ML SYRINGE (J1170) IV (17:59)
[2018-04-16 18:03] LABS: LACTIC ACID SEPSIS PROTOCOL 3.2 MMOL/L (0.4-2.0)
[2018-04-16] MEDS ORDERED: ACETAMINOPHEN TAB 650MG DOSE (2X325MG) PO (19:45)
[2018-04-16] MEDS ORDERED: METOCLOPRAMIDE 10 MG TAB PO (19:45)
[2018-04-16] MEDS: PANTOPRAZOLE 40MG INJ (PROTONIX) (C9113) IV (22:09)
[2018-04-16] MEDS: ENOXAPARIN 40 MG/0.4 ML SYRINGE (J1650) SC (22:10)
[2018-04-17] MEDS: ONDANSETRON 4MG/2ML VIAL (J2405) IV (00:24)
[2018-04-17] MEDS: IPRATROPIUM 0.5MG/ALBUTEROL 2.5MG INH SOL UD 3ML (DUONEB)(J7620) INH (01:18)
== END 2018-04-17 02:18 | disposition left against medical advice (07) ==
LOC: M ED 16:12 → M ED INP 19:50 → M PCU 21:25
DX: G43.A0 Cyclical vomiting, in migraine, not intractable (principal); R74.8 Abnormal levels of other serum enzymes; R10.9 Unspecified abdominal pain; J44.9 Chronic obstructive pulmonary disease, unspecified; K21.9 Gastro-esophageal reflux disease without esophagitis; F31.9 Bipolar disorder, unspecified; R63.0 Anorexia; K83.8 Other specified diseases of biliary tract; K57.92 Diverticulitis of intestine, part unspecified, without perforation or abscess without bleeding; M54.9 Dorsalgia, unspecified; F17.200 Nicotine dependence, unspecified, uncomplicated; F12.10 Cannabis abuse, uncomplicated; Z88.1 Allergy status to other antibiotic agents; Z88.5 Allergy status to narcotic agent
CPT/HCPCS: C9113

== ENCOUNTER → 2018-05-01 | Day surgery (SDC) | payer MEDICARE, MEDICAID ==
[~2018-05-01] MED LIST changes: -/FENT25PA TD; -/ONDA4TA OR; -/ONDA4TA PO; -/ONDA4TA SL; -/PANT40TA PO; -ALBU17IN2 IN; -ALBU83IN INH; -ALBUPOW9 INH; -ALBUTEROL INH; -DEXALANT PO; -DIAZ10TA2 PO; -INVE234I IM; +LIDOCAINE 2% INJ 100 MG/5 ML SDV (FOR ANES.) As Ordered; -LITH300T11 PO; -METO10TA2 OR; -METO5TAB2 PO; -MORP15TA4 OR; -MS C30TA2 OR; +NS 1,000 ML IV; -No Historical Meds; -OXYC-208 PO; -PERC5TAB8 OR; -PERC5TAB8 PO; -PERCOCET PO; -PRED10TA2 PO; -PRIL20CA OR; -PRIL40CA OR; -PRIL40CA PO; -PROM50TA4 PO; +PROPOFOL 200 MG/20 ML VIAL As Ordered; -REGL10TA6 PO; -TRAM50TA2 OR; -TRAZ50TA2 PO; -TUMS500C PO; -VENTAER IN; -XANA0.25 OR; -XANA0.25 PO; -ZOFR4TAB3 PO; -ZYPR10TA PO
== END | disposition home or self-care (01) ==
LOC: M OPP 09:57
DX: R11.2 Nausea with vomiting, unspecified (principal); Z53.9 Procedure and treatment not carried out, unspecified reason

== ENCOUNTER 2018-05-19 06:58 | Day surgery (SDC) | payer MEDICARE, MEDICAID ==
[2018-05-19] MEDS ORDERED: CETACAINE SPRAY 5GM As Ordered (07:09)
[2018-05-19] MEDS ORDERED: fentaNYL 100 MCG/2 ML INJECTION (J3010) As Ordered ×2 (07:10→08:14)
[2018-05-19] MEDS: NS 1,000 ML IV (07:12)
[2018-05-19] MEDS ORDERED: MIDAZOLAM INJ 2 MG/2 ML VIAL (J2250) As Ordered ×2 (07:15→08:01)
== END 2018-05-19 09:13 | disposition home or self-care (01) ==
LOC: M OPP 06:58
DX: R63.4 Abnormal weight loss (principal); K64.8 Other hemorrhoids; D12.3 Benign neoplasm of transverse colon; D12.5 Benign neoplasm of sigmoid colon; K57.30 Diverticulosis of large intestine without perforation or abscess without bleeding; R11.10 Vomiting, unspecified; K29.80 Duodenitis without bleeding; K29.70 Gastritis, unspecified, without bleeding; J44.9 Chronic obstructive pulmonary disease, unspecified; F31.2 Bipolar disorder, current episode manic severe with psychotic features; Z79.899 Other long term (current) drug therapy; Z87.891 Personal history of nicotine dependence; Z85.51 Personal history of malignant neoplasm of bladder
CPT/HCPCS: 45385

== ENCOUNTER 2018-07-31 01:58 | Emergency (ER) | payer MEDICARE, MEDICAID ==
[2018-07-31 02:29] LABS: BASO # 0.1 10^3/uL (0.0-0.2); BASO % 0.5 % (0.0-1.0); EOS # 0.3 10^3/uL (0.0-0.50); EOS % 2.4 % (0.0-3.0); HEMATOCRIT 40.6 % (42.0-52.0); HEMOGLOBIN 13.6 g/dl (13.5-17.5); IMMATURE GRANULOCYTE % 0.2 % (0-3.0); LYMPH # 3.9 10^3/uL (1.5-4.5); LYMPH % 34.9 % (24.0-44.0); MEAN CORPUSCULAR HEMOGLOBIN 31.6 pg (27.0-33.0); MEAN CORPUSCULAR HGB CONC 33.5 g/dl (32.0-36.5); MEAN CORPUSCULAR VOLUME 94.2 fl (80.0-96.0); MONO # 0.7 10^3/uL (0.0-0.8); MONO % 6.7 % (0.0-5.0); NEUTROPHILS # 6.1 10^3/uL (1.8-7.7); NEUTROPHILS % 55.3 % (36.0-66.0); PLATELET COUNT, AUTOMATED 416 10^3/uL (150-450); RED BLOOD COUNT 4.31 10^6/uL (4.30-6.10); WHITE BLOOD COUNT 11.1 10^3/uL (4.0-10.0)
[2018-07-31] MEDS: LORazepam 2 MG/ML VIAL (J2060) IV (02:33)
[2018-07-31 02:48] LABS: OSMOLALITY SERUM 289 MOSM/KG (275-295)
[2018-07-31] MEDS: IPRATROPIUM 0.5MG/ALBUTEROL 2.5MG INH SOL UD 3ML (DUONEB)(J7620) NEB (03:00)
[2018-07-31 03:14] LABS: AMPHETAMINES LEVEL URINE NEGATIVE (NEGATIVE); BARBITURATES URINE NEGATIVE (NEGATIVE); BENZODIAZEPINES URINE NEGATIVE (NEGATIVE); CANNABINOIDS URINE POSITIVE (NEGATIVE); COCAINE METABOLITE URINE NEGATIVE (NEGATIVE); METHADONE URINE NEGATIVE (NEGATIVE); OPIATES URINE NEGATIVE (NEGATIVE); PHENCYCLIDINE URINE NEGATIVE (NEGATIVE)
[2018-07-31 03:15] LABS: ALBUMIN 3.5 GM/DL (3.2-5.2); ALKALINE PHOSPHATASE 144 U/L (45-117); ALT/SGPT 26 U/L (12-78); ANION GAP 8 MEQ/L (8-16); AST/SGOT 25 U/L (7-37); BILIRUBIN,DIRECT 0.2 MG/DL (0.0-0.2); BILIRUBIN,TOTAL 0.8 MG/DL (0.2-1.0); BLOOD UREA NITROGEN 11 MG/DL (7-18); CALCIUM LEVEL 8.9 MG/DL (8.5-10.1); CARBON DIOXIDE LEVEL 25 MEQ/L (21-32); CHLORIDE LEVEL 106 MEQ/L (98-107); CPK CREATINE PHOSPHOKINASE 327 U/L (39-308); CREATININE FOR GFR 0.96 MG/DL (0.70-1.30); ETHYL ALCOHOL (ETHANOL) < 0.003 % (0.000-0.010); GLOMERULAR FILTRATION RATE > 60.0 (>56); GLUCOSE, FASTING 118 MG/DL (70-100); MB/CK RELATIVE INDEX 1.53 (< OR =4); POTASSIUM SERUM 3.8 MEQ/L (3.5-5.1); SALICYLATE LEVEL 2.3 MG/DL (5.0-30.0); SODIUM LEVEL 139 MEQ/L (136-145); TOTAL PROTEIN 7.4 GM/DL (6.4-8.2); TROPONIN I < 0.02 NG/ML (< 0.10)
[2018-07-31 03:16] LABS: ACETAMINOPHEN LEVEL < 2.0 UG/ML (10.0-30.0)
[2018-07-31 04:34] LABS: AMMONIA 23 uMOL/L (<32)
[2018-07-31 04:37] LABS: LACTIC ACID SEPSIS PROTOCOL 0.8 MMOL/L (0.4-2.0)
== END 2018-07-31 08:52 | disposition home or self-care (01) ==
LOC: M ED 01:58
DX: F31.9 Bipolar disorder, unspecified (principal); F19.11 Other psychoactive substance abuse, in remission; Z88.1 Allergy status to other antibiotic agents; Z88.5 Allergy status to narcotic agent
CPT/HCPCS: J2060

== ENCOUNTER 2018-08-19 01:33 | Inpatient (IN) | payer MEDICARE ==
[2018-08-19 02:56] LABS: HEMATOCRIT 39.5 % (42.0-52.0); HEMOGLOBIN 13.4 g/dl (13.5-17.5); MEAN CORPUSCULAR HEMOGLOBIN 31.8 pg (27.0-33.0); MEAN CORPUSCULAR HGB CONC 33.9 g/dl (32.0-36.5); MEAN CORPUSCULAR VOLUME 93.8 fl (80.0-96.0); PLATELET COUNT, AUTOMATED 359 10^3/uL (150-450); RED BLOOD COUNT 4.21 10^6/uL (4.30-6.10); RED CELL DISTRIBUTION WIDTH 13.2 % (11.5-14.5); WHITE BLOOD COUNT 12.2 10^3/uL (4.0-10.0)
[2018-08-19 03:31] LABS: ACETAMINOPHEN LEVEL < 2.0 UG/ML (10.0-30.0); ALBUMIN 3.8 GM/DL (3.2-5.2); ALBUMIN/GLOBULIN RATIO 1.27 (1.00-1.93); ALKALINE PHOSPHATASE 159 U/L (45-117); ALT/SGPT 26 U/L (12-78); ANION GAP 8 MEQ/L (8-16); AST/SGOT 32 U/L (7-37); BILIRUBIN,DIRECT 0.1 MG/DL (0.0-0.2); BILIRUBIN,TOTAL 0.5 MG/DL (0.2-1.0); BLOOD UREA NITROGEN 10 MG/DL (7-18); CALCIUM LEVEL 9.5 MG/DL (8.5-10.1); CARBON DIOXIDE LEVEL 25 MEQ/L (21-32); CHLORIDE LEVEL 109 MEQ/L (98-107); CREATININE FOR GFR 0.61 MG/DL (0.70-1.30); ETHYL ALCOHOL (ETHANOL) < 0.003 % (0.000-0.010); GLOMERULAR FILTRATION RATE > 60.0 (>56); GLUCOSE, FASTING 111 MG/DL (70-100); POTASSIUM SERUM 3.9 MEQ/L (3.5-5.1); SALICYLATE LEVEL 2.9 MG/DL (5.0-30.0); SODIUM LEVEL 142 MEQ/L (136-145); TOTAL PROTEIN 6.8 GM/DL (6.4-8.2)
[2018-08-19] MEDS ORDERED: LORazepam 2 MG/ML VIAL (J2060) As Ordered (04:12)
[2018-08-19] MEDS ORDERED: diphenhydrAMINE INJ 50MG/ML VIAL (J1200) As Ordered (04:12)
[2018-08-19] MEDS ORDERED: HALOPERIDOL 5 MG/ML VIAL (J1630) As Ordered (04:12)
[2018-08-19] MEDS: diphenhydrAMINE INJ 50MG/ML VIAL (J1200) IM ×2 (04:36→12:11)
[2018-08-19] MEDS: LORazepam 2 MG/ML VIAL (J2060) IM ×2 (04:36→12:11)
[2018-08-19] MEDS: HALOPERIDOL 5 MG/ML VIAL (J1630) IM (04:36)
[2018-08-19 06:03] LABS: AMPHETAMINES LEVEL URINE NEGATIVE (NEGATIVE); BARBITURATES URINE NEGATIVE (NEGATIVE); BENZODIAZEPINES URINE NEGATIVE (NEGATIVE); CANNABINOIDS URINE POSITIVE (NEGATIVE); COCAINE METABOLITE URINE NEGATIVE (NEGATIVE); METHADONE URINE NEGATIVE (NEGATIVE); OPIATES URINE NEGATIVE (NEGATIVE); PHENCYCLIDINE URINE NEGATIVE (NEGATIVE)
[2018-08-19] MEDS: PANTOPRAZOLE 40MG TAB (PROTONIX) PO (09:00)
[2018-08-19] MEDS: NICOTINE 21MG/24HR 1 EA TRANSDERMAL TD (09:00)
[2018-08-19] MEDS: ALBUTEROL 90 MCG/ACT 8GM HFA INHALER INH ×3 (10:30→23:29)
[2018-08-19] MEDS ORDERED: MOM 30ML SUSPENSION UDC PO (11:30)
[2018-08-19] MEDS: chlorproMAZINE INJ 50MG/2ML AMP (J3230) IM (12:11)
[2018-08-19] MEDS: traZODone 50 MG TAB PO (21:29)
[2018-08-20] MEDS ORDERED: diphenhydrAMINE INJ 50MG/ML VIAL (J1200) As Ordered (00:20)
[2018-08-20] MEDS: diphenhydrAMINE INJ 50MG/ML VIAL (J1200) IM ×2 (00:24→22:59)
[2018-08-20] MEDS: LORazepam 2 MG/ML VIAL (J2060) IM ×2 (00:24→22:59)
[2018-08-20] MEDS: chlorproMAZINE INJ 50MG/2ML AMP (J3230) IM ×3 (00:29→22:59)
[2018-08-20] MEDS: LORazepam 2 MG TAB PO (04:20)
[2018-08-20] MEDS: OLANZapine ORAL DISINTEGRATING TAB 5MG PO (04:20)
[2018-08-20] MEDS: OLANZapine INTRAMUSCULAR 10 MG VIAL (S0166) IM (04:30)
[2018-08-20] MEDS: NICOTINE 21MG/24HR 1 EA TRANSDERMAL TD (09:00)
[2018-08-20] MEDS: PANTOPRAZOLE 40MG TAB (PROTONIX) PO (09:00)
[2018-08-20] MEDS: ALBUTEROL 90 MCG/ACT 8GM HFA INHALER INH (18:07)
[2018-08-21] MEDS: ACETAMINOPHEN TAB 650MG DOSE (2X325MG) PO (05:17)
[2018-08-21 07:24] LABS: HEMATOCRIT 38.8 % (42.0-52.0); HEMOGLOBIN 13.2 g/dl (13.5-17.5); MEAN CORPUSCULAR HEMOGLOBIN 31.6 pg (27.0-33.0); MEAN CORPUSCULAR VOLUME 92.8 fl (80.0-96.0); PLATELET COUNT, AUTOMATED 352 10^3/uL (150-450); RED BLOOD COUNT 4.18 10^6/uL (4.30-6.10); RED CELL DISTRIBUTION WIDTH 13.2 % (11.5-14.5); WHITE BLOOD COUNT 21.6 10^3/uL (4.0-10.0)
[2018-08-21] MEDS ORDERED: ALBUTEROL SULFATE 2.5 MG/0.5 ML INH NEB SOLN INH (08:45)
[2018-08-21] MEDS: PANTOPRAZOLE 40MG TAB (PROTONIX) PO (09:00)
[2018-08-21] MEDS: NICOTINE 21MG/24HR 1 EA TRANSDERMAL TD (09:00)
[2018-08-21] MEDS: OLANZapine ORAL DISINTEGRATING TAB 5MG PO ×2 (09:14→23:59)
[2018-08-21] MEDS: LITHIUM CARBONATE 300 MG CAP PO ×2 (10:10→17:43)
[2018-08-21] MEDS: ACYCLOVIR 5% OINT 15GM TOP ×3 (10:11→17:04)
[2018-08-21 10:12] LABS: ALBUMIN 3.7 GM/DL (3.2-5.2); ALBUMIN/GLOBULIN RATIO 1.19 (1.00-1.93); ALKALINE PHOSPHATASE 142 U/L (45-117); ALT/SGPT 32 U/L (12-78); ANION GAP 11 MEQ/L (8-16); AST/SGOT 70 U/L (7-37); BILIRUBIN,TOTAL 0.7 MG/DL (0.2-1.0); BLOOD UREA NITROGEN 17 MG/DL (7-18); CALCIUM LEVEL 9.8 MG/DL (8.5-10.1); CARBON DIOXIDE LEVEL 23 MEQ/L (21-32); CHLORIDE LEVEL 103 MEQ/L (98-107); CREATININE FOR GFR 0.75 MG/DL (0.70-1.30); GLOMERULAR FILTRATION RATE > 60.0 (>56); GLUCOSE, FASTING 108 MG/DL (70-100); POTASSIUM SERUM 3.8 MEQ/L (3.5-5.1); SODIUM LEVEL 137 MEQ/L (136-145); TOTAL PROTEIN 6.8 GM/DL (6.4-8.2)
[2018-08-21 14:16] LABS: HEPATITIS B SURFACE ANTIGEN NEGATIVE (NEGATIVE)
[2018-08-21 14:36] LABS: SLIDE REVIEW Report; SOURCE PERIPHERAL SMEAR
[2018-08-21 14:44] LABS: HEPATITIS B CORE ANTIBODY IGM NEGATIVE (NEGATIVE); HEPATITIS C VIRUS ABY INDEX < 0.0 INDEX (<0.8)
[2018-08-21 14:46] LABS: HEPATITIS A ANTIBODY IGM NEGATIVE (NEGATIVE)
[2018-08-21 15:45] LABS: KETONE, URINE AUTO RFX NEGATIVE (NEGATIVE); LEUKOCYTE ESTERASE UR AUTO RFX NEGATIVE (NEGATIVE); NITRITE, URINE AUTO RFX NEGATIVE (NEGATIVE); RBC, URINE AUTO RFX 2 /HPF (0-3); SPECIFIC GRAVITY UR AUTO RFX 1.009 (1.002-1.035); SQUAM EPITHELIAL CELL UR AURFX 0 /HPF (0-6); WBC, URINE AUTO RFX 1 /HPF (0-3)
[2018-08-21] MEDS: LORazepam 2 MG TAB PO ×2 (16:16→23:58)
[2018-08-21] MEDS: ALBUTEROL 90 MCG/ACT 8GM HFA INHALER INH (18:57)
[2018-08-21] MEDS: traZODone 50 MG TAB PO (23:58)
[2018-08-22] MEDS: ACYCLOVIR 5% OINT 15GM TOP ×4 (00:03→16:53)
[2018-08-22] MEDS: diphenhydrAMINE INJ 50MG/ML VIAL (J1200) IM (03:51)
[2018-08-22] MEDS: LORazepam 2 MG/ML VIAL (J2060) IM (03:51)
[2018-08-22] MEDS: HALOPERIDOL 5 MG/ML VIAL (J1630) IM (03:51)
[2018-08-22] MEDS: LITHIUM CARBONATE 300 MG CAP PO (08:51)
[2018-08-22] MEDS: OLANZapine ORAL DISINTEGRATING TAB 5MG PO (08:51)
[2018-08-22] MEDS: PANTOPRAZOLE 40MG TAB (PROTONIX) PO (08:51)
[2018-08-22] MEDS: NICOTINE 21MG/24HR 1 EA TRANSDERMAL TD (08:56)
[2018-08-22] MEDS: MAALOX 30 ML SUSP *UDC PO (11:18)
[2018-08-22] MEDS: ONDANSETRON 4 MG ORAL DISINTEGRATING TAB (Q0162 PER 1MG) PO (15:21)
[2018-08-22 15:31] LABS: HEMOGLOBIN 14.1 g/dl (13.5-17.5); MEAN CORPUSCULAR HEMOGLOBIN 31.8 pg (27.0-33.0); MEAN CORPUSCULAR HGB CONC 33.6 g/dl (32.0-36.5); MEAN CORPUSCULAR VOLUME 94.8 fl (80.0-96.0); PLATELET COUNT, AUTOMATED 350 10^3/uL (150-450); RED BLOOD COUNT 4.43 10^6/uL (4.30-6.10); RED CELL DISTRIBUTION WIDTH 13.2 % (11.5-14.5); WHITE BLOOD COUNT 14.6 10^3/uL (4.0-10.0)
[2018-08-22 16:57] LABS: LIPASE 58 U/L (73-393)
[2018-08-23] MEDS: ALBUTEROL 90 MCG/ACT 8GM HFA INHALER INH (07:38)
[2018-08-23] MEDS: NICOTINE 21MG/24HR 1 EA TRANSDERMAL TD (09:00)
[2018-08-23] MEDS: ACYCLOVIR 5% OINT 15GM TOP ×5 (09:00→21:00)
[2018-08-23] MEDS: PANTOPRAZOLE 40MG TAB (PROTONIX) PO (09:00)
[2018-08-23] MEDS: OLANZapine ORAL DISINTEGRATING TAB 5MG PO ×2 (10:00→21:00)
[2018-08-23] MEDS: LITHIUM CARBONATE 300 MG CAP PO ×2 (10:00→17:02)
[2018-08-23 11:29] LABS: HEMATOCRIT 40.4 % (42.0-52.0); HEMOGLOBIN 13.7 g/dl (13.5-17.5); MEAN CORPUSCULAR HEMOGLOBIN 31.8 pg (27.0-33.0); MEAN CORPUSCULAR HGB CONC 33.9 g/dl (32.0-36.5); MEAN CORPUSCULAR VOLUME 93.7 fl (80.0-96.0); PLATELET COUNT, AUTOMATED 401 10^3/uL (150-450); RED BLOOD COUNT 4.31 10^6/uL (4.30-6.10); WHITE BLOOD COUNT 13.1 10^3/uL (4.0-10.0)
[2018-08-23] MEDS: LORazepam 2 MG TAB PO (17:52)
[2018-08-24] MEDS: OLANZapine ORAL DISINTEGRATING TAB 5MG PO ×2 (09:00→21:00)
[2018-08-24] MEDS: NICOTINE 21MG/24HR 1 EA TRANSDERMAL TD (09:00)
[2018-08-24] MEDS: PANTOPRAZOLE 40MG TAB (PROTONIX) PO (09:00)
[2018-08-24] MEDS: LITHIUM CARBONATE 300 MG CAP PO (09:11)
[2018-08-24] MEDS: ACYCLOVIR 5% OINT 15GM TOP ×4 (09:12→21:00)
[2018-08-24] MEDS: LORazepam 2 MG TAB PO ×2 (09:58→15:55)
[2018-08-24] MEDS: LACTOBACILLUS ACIDOPHILUS CAP (BACID) PO ×2 (09:58→17:41)
[2018-08-24] MEDS: LITHIUM CARBONATE 600 MG CAP PO (21:00)
[2018-08-25] MEDS: LORazepam 2 MG TAB PO ×2 (00:03→08:48)
[2018-08-25] MEDS: ALBUTEROL 90 MCG/ACT 8GM HFA INHALER INH ×2 (05:15→10:11)
[2018-08-25 07:15] LABS: HEMATOCRIT 43.3 % (42.0-52.0); HEMOGLOBIN 14.5 g/dl (13.5-17.5); MEAN CORPUSCULAR HEMOGLOBIN 31.4 pg (27.0-33.0); MEAN CORPUSCULAR HGB CONC 33.5 g/dl (32.0-36.5); MEAN CORPUSCULAR VOLUME 93.7 fl (80.0-96.0); PLATELET COUNT, AUTOMATED 431 10^3/uL (150-450); RED BLOOD COUNT 4.62 10^6/uL (4.30-6.10); RED CELL DISTRIBUTION WIDTH 12.8 % (11.5-14.5); WHITE BLOOD COUNT 9.4 10^3/uL (4.0-10.0)
[2018-08-25 07:44] LABS: ALBUMIN 3.7 GM/DL (3.2-5.2); ALBUMIN/GLOBULIN RATIO 1.06 (1.00-1.93); ALKALINE PHOSPHATASE 142 U/L (45-117); ALT/SGPT 33 U/L (12-78); ANION GAP 8 MEQ/L (8-16); AST/SGOT 30 U/L (7-37); BILIRUBIN,TOTAL 0.8 MG/DL (0.2-1.0); BLOOD UREA NITROGEN 14 MG/DL (7-18); CALCIUM LEVEL 10.1 MG/DL (8.5-10.1); CARBON DIOXIDE LEVEL 26 MEQ/L (21-32); CHLORIDE LEVEL 103 MEQ/L (98-107); CREATININE FOR GFR 0.71 MG/DL (0.70-1.30); GLOMERULAR FILTRATION RATE > 60.0 (>56); GLUCOSE, FASTING 121 MG/DL (70-100); POTASSIUM SERUM 4.8 MEQ/L (3.5-5.1); SODIUM LEVEL 137 MEQ/L (136-145); TOTAL PROTEIN 7.2 GM/DL (6.4-8.2)
[2018-08-25] MEDS: LACTOBACILLUS ACIDOPHILUS CAP (BACID) PO ×2 (08:00→17:03)
[2018-08-25] MEDS: LITHIUM CARBONATE 300 MG CAP PO (08:48)
[2018-08-25] MEDS: NICOTINE 21MG/24HR 1 EA TRANSDERMAL TD (08:50)
[2018-08-25] MEDS: PANTOPRAZOLE 40MG TAB (PROTONIX) PO (08:50)
[2018-08-25] MEDS: OLANZapine ORAL DISINTEGRATING TAB 5MG PO ×3 (08:50→21:59)
[2018-08-25] MEDS: ACYCLOVIR 5% OINT 15GM TOP (10:13)
[2018-08-25] MEDS ORDERED: HALOPERIDOL 5 MG TAB PO (10:30)
[2018-08-25] MEDS: HALOPERIDOL 5 MG/ML VIAL (J1630) IM (12:27)
[2018-08-25] MEDS: diphenhydrAMINE INJ 50MG/ML VIAL (J1200) IM (12:27)
[2018-08-25] MEDS ORDERED: HALOPERIDOL 10 MG TAB As Ordered (12:29)
[2018-08-25] MEDS ORDERED: HALOPERIDOL 5 MG/ML VIAL (J1630) As Ordered (12:29)
[2018-08-25] MEDS ORDERED: diphenhydrAMINE INJ 50MG/ML VIAL (J1200) As Ordered (12:30)
[2018-08-25] MEDS: LITHIUM CARBONATE 600 MG CAP PO (21:59)
[2018-08-25] MEDS: diphenhydrAMINE 50 MG CAP PO (22:45)
[2018-08-25] MEDS: traZODone 50 MG TAB PO (23:34)
[2018-08-26] MEDS: LACTOBACILLUS ACIDOPHILUS CAP (BACID) PO ×2 (08:00→18:42)
[2018-08-26] MEDS: LITHIUM CARBONATE 300 MG CAP PO (08:56)
[2018-08-26] MEDS: PANTOPRAZOLE 40MG TAB (PROTONIX) PO (08:57)
[2018-08-26] MEDS: NICOTINE 21MG/24HR 1 EA TRANSDERMAL TD (08:57)
[2018-08-26] MEDS: OLANZapine ORAL DISINTEGRATING TAB 5MG PO ×2 (08:57→21:00)
[2018-08-26] MEDS: ALBUTEROL 90 MCG/ACT 8GM HFA INHALER INH (12:03)
[2018-08-26] MEDS: LITHIUM CARBONATE 600 MG CAP PO (21:33)
[2018-08-27] MEDS: LITHIUM CARBONATE 300 MG CAP PO (08:00)
[2018-08-27] MEDS: LACTOBACILLUS ACIDOPHILUS CAP (BACID) PO ×2 (08:00→17:49)
[2018-08-27] MEDS: PANTOPRAZOLE 40MG TAB (PROTONIX) PO (08:02)
[2018-08-27] MEDS: OLANZapine ORAL DISINTEGRATING TAB 5MG PO ×2 (08:02→21:00)
[2018-08-27] MEDS: NICOTINE 21MG/24HR 1 EA TRANSDERMAL TD (08:02)
[2018-08-27] MEDS: ALBUTEROL 90 MCG/ACT 8GM HFA INHALER INH (16:29)
[2018-08-27] MEDS: LITHIUM CARBONATE 600 MG CAP PO (21:00)
[2018-08-28] MEDS: LACTOBACILLUS ACIDOPHILUS CAP (BACID) PO ×2 (08:00→08:56)
[2018-08-28] MEDS: PANTOPRAZOLE 40MG TAB (PROTONIX) PO (08:13)
[2018-08-28] MEDS: NICOTINE 21MG/24HR 1 EA TRANSDERMAL TD (08:13)
[2018-08-28] MEDS: LITHIUM CARBONATE 300 MG CAP PO (08:55)
[2018-08-28] MEDS: OLANZapine ORAL DISINTEGRATING TAB 5MG PO (08:56)
== END 2018-08-28 12:30 | disposition home or self-care (01) | DRG 885 ==
LOC: M ED 01:33 → M ED INP 11:23 → M PSY 11:54
DX: F25.9 Schizoaffective disorder, unspecified (principal); J45.909 Unspecified asthma, uncomplicated; R11.2 Nausea with vomiting, unspecified; F17.200 Nicotine dependence, unspecified, uncomplicated; Z79.51 Long term (current) use of inhaled steroids; Z79.899 Other long term (current) drug therapy; Z88.1 Allergy status to other antibiotic agents; Z88.5 Allergy status to narcotic agent; Z90.49 Acquired absence of other specified parts of digestive tract; Z85.51 Personal history of malignant neoplasm of bladder

== ENCOUNTER 2018-09-08 12:10 | Emergency (ER) | payer OTHER, MEDICARE ==
[2018-09-08 12:54] LABS: BASO % 0.2 % (0.0-1.0); HEMATOCRIT 43.2 % (42.0-52.0); HEMOGLOBIN 14.8 g/dl (13.5-17.5); IMMATURE GRANULOCYTE % 0.5 % (0-3.0); LYMPH # 1.1 10^3/uL (1.5-4.5); LYMPH % 6.7 % (24.0-44.0); MEAN CORPUSCULAR HEMOGLOBIN 32.2 pg (27.0-33.0); MEAN CORPUSCULAR HGB CONC 34.3 g/dl (32.0-36.5); MEAN CORPUSCULAR VOLUME 94.1 fl (80.0-96.0); MONO # 0.8 10^3/uL (0.0-0.8); MONO % 4.8 % (0.0-5.0); NEUTROPHILS # 14.6 10^3/uL (1.8-7.7); NEUTROPHILS % 87.8 % (36.0-66.0); PLATELET COUNT, AUTOMATED 484 10^3/uL (150-450); RED BLOOD COUNT 4.59 10^6/uL (4.30-6.10); RED CELL DISTRIBUTION WIDTH 13.9 % (11.5-14.5); WHITE BLOOD COUNT 16.6 10^3/uL (4.0-10.0)
[2018-09-08] MEDS: PROMETHAZINE INJ 25 MG/ML VIAL (J2550) IM (13:00)
[2018-09-08 13:24] LABS: ALBUMIN 3.5 GM/DL (3.2-5.2); ALBUMIN/GLOBULIN RATIO 1.03 (1.00-1.93); ALKALINE PHOSPHATASE 159 U/L (45-117); ALT/SGPT 44 U/L (12-78); ANION GAP 10 MEQ/L (8-16); AST/SGOT 31 U/L (7-37); BILIRUBIN,DIRECT 0.3 MG/DL (0.0-0.2); BILIRUBIN,TOTAL 1.1 MG/DL (0.2-1.0); BLOOD UREA NITROGEN 13 MG/DL (7-18); CALCIUM LEVEL 9.6 MG/DL (8.5-10.1); CARBON DIOXIDE LEVEL 28 MEQ/L (21-32); CHLORIDE LEVEL 101 MEQ/L (98-107); CREATININE FOR GFR 0.58 MG/DL (0.70-1.30); GLOMERULAR FILTRATION RATE > 60.0 (>56); GLUCOSE, FASTING 117 MG/DL (70-100); LIPASE 69 U/L (73-393); POTASSIUM SERUM 4.4 MEQ/L (3.5-5.1); SODIUM LEVEL 139 MEQ/L (136-145); TOTAL PROTEIN 6.9 GM/DL (6.4-8.2)
[2018-09-08] MEDS: GI COCKTAIL 50ML BTL(HYOSCYAMINE/MAALOX/LIDOCAINE VISCOUS)(1:3:1) PO (13:45)
[2018-09-08] MEDS: METOCLOPRAMIDE INJ 10MG/2ML VIAL (J2765) IV (14:35)
== END 2018-09-08 14:59 | disposition home or self-care (01) ==
LOC: M ED 12:10
DX: K29.50 Unspecified chronic gastritis without bleeding (principal); F31.9 Bipolar disorder, unspecified; F19.10 Other psychoactive substance abuse, uncomplicated; F17.200 Nicotine dependence, unspecified, uncomplicated; Z88.1 Allergy status to other antibiotic agents; Z88.5 Allergy status to narcotic agent; Z79.899 Other long term (current) drug therapy
CPT/HCPCS: J2765

== ENCOUNTER 2018-11-10 20:36 | Inpatient (IN) | payer MEDICARE, OTHER ==
[~2018-11-10] VITALS: Ht 175.3 cm; Wt 68.2 kg
[~2018-11-10 20:36] MED LIST changes: +/FENT25PA TD; +/ONDA4TA OR; +/ONDA4TA PO; +/ONDA4TA SL; +/PANT40TA PO; +ACET30TAB PO; +ALBU17IN2 IN; +ALBU83IN INH; +ALBUPOW9 INH; +ALBUTEROL INH; +CARB10TACH PO; +CIPR-249 PO; +DEXALANT PO; +DIAZ10TA2 PO; +DIVA250T7; +DIVA500T9 PO; +FLAG500T PO; +INVE234I IM; +IPRA0.00 INH; -LIDOCAINE 2% INJ 100 MG/5 ML SDV (FOR ANES.) As Ordered; +LITH300C PO; +LITH300T11 PO; +LITH600C PO; +METO10TA2 OR; +METO5TAB2 PO; +MORP15TA4 OR; +MS C30TA2 OR; -NS 1,000 ML IV; +No Historical Meds; +ONDA4TAB6 PO; +OXYC-208 PO; +PANT40TA3 PO; +PERC5TAB8 OR; +PERC5TAB8 PO; +PERCOCET PO; +PRED10TA2 PO; +PRIL20CA OR; +PRIL40CA OR; +PRIL40CA PO; +PROM50TA4 PO; -PROPOFOL 200 MG/20 ML VIAL As Ordered; +REGL10TA6 PO; +REGL5TAB2 PO; +TRAM50TA2 OR; +TRAZ50TA2 PO; +TUMS500C PO; +VENTAER IN; +VENTAER INH; +XANA0.25 OR; +XANA0.25 PO; +ZOFR4TAB14 PO; +ZYPR10TA PO
[2018-11-10 21:15] LABS: HEMATOCRIT 38.7 % (42.0-52.0); MEAN CORPUSCULAR HEMOGLOBIN 31.7 pg (27.0-33.0); MEAN CORPUSCULAR HGB CONC 33.6 g/dl (32.0-36.5); MEAN CORPUSCULAR VOLUME 94.4 fl (80.0-96.0); PLATELET COUNT, AUTOMATED 382 10^3/uL (150-450); WHITE BLOOD COUNT 11.5 10^3/uL (4.0-10.0)
[2018-11-10 21:35] LABS: AMPHETAMINES LEVEL URINE NEGATIVE (NEGATIVE); BARBITURATES URINE NEGATIVE (NEGATIVE); BENZODIAZEPINES URINE NEGATIVE (NEGATIVE); CANNABINOIDS URINE POSITIVE (NEGATIVE); COCAINE METABOLITE URINE NEGATIVE (NEGATIVE); METHADONE URINE NEGATIVE (NEGATIVE); OPIATES URINE NEGATIVE (NEGATIVE); PHENCYCLIDINE URINE NEGATIVE (NEGATIVE)
[2018-11-10 21:54] LABS: ACETAMINOPHEN LEVEL < 2.0 UG/ML (10.0-30.0); ALBUMIN 3.9 GM/DL (3.2-5.2); ALT/SGPT 19 U/L (12-78); BILIRUBIN,DIRECT 0.2 MG/DL (0.0-0.2); BILIRUBIN,TOTAL 0.8 MG/DL (0.2-1.0); BLOOD UREA NITROGEN 5 MG/DL (7-18); CALCIUM LEVEL 9.1 MG/DL (8.5-10.1); CARBON DIOXIDE LEVEL 25 MEQ/L (21-32); CHLORIDE LEVEL 105 MEQ/L (98-107); CREATININE FOR GFR 0.75 MG/DL (0.70-1.30); ETHYL ALCOHOL (ETHANOL) < 0.003 % (0.000-0.010); GLOMERULAR FILTRATION RATE > 60.0 (>56); GLUCOSE, FASTING 103 MG/DL (70-100); POTASSIUM SERUM 3.6 MEQ/L (3.5-5.1); SALICYLATE LEVEL 3.2 MG/DL (5.0-30.0); SODIUM LEVEL 139 MEQ/L (136-145); TOTAL PROTEIN 7.1 GM/DL (6.4-8.2)
[2018-11-11] MEDS ORDERED: HALOPERIDOL 5 MG/ML VIAL (J1630) As Ordered ONE (06:49)
[2018-11-11] MEDS ORDERED: diphenhydrAMINE INJ 50MG/ML VIAL (J1200) As Ordered ONE (06:49)
[2018-11-11] MEDS ORDERED: LORazepam 2 MG/ML VIAL (J2060) As Ordered ONE (06:50)
[2018-11-11] MEDS ORDERED: LORazepam 2 MG/ML VIAL (J2060) IM ONE (07:00)
[2018-11-11] MEDS ORDERED: diphenhydrAMINE INJ 50MG/ML VIAL (J1200) IM ONE (07:00)
[2018-11-11] MEDS ORDERED: HALOPERIDOL 5 MG/ML VIAL (J1630) IM ONE (07:00)
[2018-11-11] MEDS ORDERED: traZODone 50 MG TAB PO PRN (13:30)
[2018-11-11] MEDS ORDERED: MOM 30ML SUSPENSION UDC PO PRN (13:30)
[2018-11-11] MEDS ORDERED: MAALOX 30 ML SUSP *UDC PO PRN (13:30)
[2018-11-11] MEDS ORDERED: OLANZapine ORAL DISINTEGRATING TAB 5MG PO PRN (13:30)
[2018-11-11] MEDS ORDERED: ACETAMINOPHEN TAB 650MG DOSE (2X325MG) PO PRN (13:30)
[2018-11-11 13:55] VITALS: BP 117/74
[2018-11-11] MEDS ORDERED: IPRATROPIUM 0.5MG/ALBUTEROL 2.5MG INH SOL UD 3ML (DUONEB)(J7620) NEB PRN (14:30)
[2018-11-11] MEDS: ALBUTEROL 90 MCG/ACT 8GM HFA INHALER INH PRN (15:14)
[2018-11-12] MEDS: ALBUTEROL 90 MCG/ACT 8GM HFA INHALER INH PRN (02:57)
[2018-11-12] MEDS: LORazepam 1 MG TAB PO PRN (02:57)
[2018-11-12 06:47] VITALS: BP 115/59
[2018-11-12] MEDS: OLANZapine ORAL DISINTEGRATING TAB 5MG PO SCH ×2 (09:00→21:00)
[2018-11-12] MEDS: LITHIUM CARBONATE 450 MG **CR** TAB PO SCH ×2 (09:00→21:00)
[2018-11-12] MEDS: TRIAMCINOLONE ACETONIDE 0.025 % 80 GM CREAM TOP SCH ×2 (09:00→21:00)
--- NOTE | 2018-11-12 10:28 | HPEPDOC ---
[facility] Medical History & Physical Date of Admission Nov 11, 2018 History and Physical PCP: JOSEPHINE ATTENDING: Dr. Sasha Royal HPI: 53yoM admitted to [facility] for schizophrenia, being medically examined today. The patient had apparently been brought to the emergency department as per the police department after the patient had attempted to break the gas line in his apartment and wanted to burn his apartment building down. The patient reports no medical complaints today. He is agitated at times and provides limited history. Denies any fevers, chills, weakness, fatigue, TRIVEDI, CP, SOB, cough, palpitations, abdominal pain, N/V/D or changes in bowel or bladder habits. PAST MEDICAL HISTORY: Anxiety Depression Bipolar disorder H/O Polysubstance abuse. History of SI/HI Asthma. Left kidney tumor, status post removal. H/O Bladder cancer. Biliary spasm, had dilation of ampulla and stent placement. PAST SURGICAL HISTORY: Cholecystectomy. Removal of the tumor on the left kidney in 2010. Biliary Stent in 2011. SOCIAL HISTORY: Lives alone. smoker Admits to use of marijuana. Denies ETOH. ROS: As noted in HPI, otherwise 11pt ROS of systems reviewed and unremarkable. PE: GEN: 53 yo M, appears stated age. Well-nourished, well developed. No acute distress. Alert and oriented x 3. Agitated at times. HEENT: Normocephalic, atraumatic. Pupils are equal, round, and reactive to light. Extraocular movements are intact. No nystagmus appreciated. Sclera are nonicteric. Conjunctiva without injection. Nose midline. Nasal turbinates without bogginess. EACs both patent BL. TMs both visualized and callahan with good cone of light, no bulging or erythema. No facial asymmetry. Moist mucous membranes. Dentition poor. Pharynx pink and moist, no cobblestoning. Neck supple, trachea midline. No lymphadenopathy or thyromegaly appreciated. CHEST: Regular rate and rhythm, +S1, +S2 LUNGS: Clear to auscultation bilaterally. No wheezes, rales, or rhonchi. Breathing appears symmetric and easy. Patient is speaking in full sentences. No accessory muscle use. ABD: Round, soft, non-tender, non-distended. +Bowel sounds throughout. No rebound or guarding. No costovertebral angle tenderness. EXT: Pulses 2+ bilaterally dorsalis pedis and radial. No lower extremity edema appreciated. SKIN: [place], dry, warm. Capillary refill <2sec. No rashes. NEURO: Alert and oriented x 3. Cranial nerves III-XII are intact. No focal deficits appreciated. EKG: SINUS RHYTHM SIMILAR TO 04/19/17 Electronically Signed On 03-04-2018 23:13:18 EDT by Mio Dougherty A&P: 53yoM admitted to [facility] for schizophrenia 1. Psych. Plan per Psychiatry. EKG on file. 2. Nicotine dependence. Patch available. 3. Leukocytosis. Patient is afebrile. Asymptomatic. Recheck CBC. 4. Follow up with PCP on discharge. 5. Substance abuse. Withdrawal per psychiatry. Continue with MVI, Thiamine, and Folic Acid supplementation. 6. Poor dentition. No issues currently. Arrange dental appt at discharge. 7. Staff member Alfredo present throughout exam. Vital Signs Vital Signs Date Time Temp Pulse Resp B/P (MAP) Pulse Ox O2 Delivery O2 Flow Rate FiO2 11/12/18 06:47 97.8 101 20 115/59 (77) Room Air 11/11/18 13:55 92 Laboratory Data Labs 24H Item Value Date Time White Blood Count 11.5 10^3/uL H 11/10/182100 Red Blood Count 4.10 10^6/uL L 11/10/182100 Hemoglobin 13.0 g/dl L 11/10/182100 Hematocrit 38.7 % L 11/10/182100 Mean Corpuscular Volume 94.4 fl 11/10/182100 Mean Corpuscular Hemoglobin 31.7 pg 11/10/182100 Mean Corpuscular Hemoglobin Concent 33.6 g/dl 11/10/182100 Red Cell Distribution Width 13.6 % 11/10/182100 Platelet Count 382 10^3/uL 11/10/182100 Sodium Level 139 MEQ/L 11/10/182100 Potassium Level 3.6 MEQ/L 11/10/182100 Chloride Level 105 MEQ/L 11/10/182100 Carbon Dioxide Level 25 MEQ/L 11/10/182100 Anion Gap 9 MEQ/L 11/10/182100 Blood Urea Nitrogen 5 MG/DL L 11/10/182100 Creatinine 0.75 MG/DL 11/10/182100 Glomerular Filtration Rate > 60.0 11/10/182100 Fasting Glucose 103 MG/DL H 11/10/182100 Calcium Level 9.1 MG/DL 11/10/182100 Total Bilirubin 0.8 MG/DL 11/10/182100 Direct Bilirubin 0.2 MG/DL 11/10/182100 Aspartate Amino Transf (AST/SGOT) 19 U/L 11/10/182100 Alanine Aminotransferase (ALT/SGPT) 19 U/L 11/10/182100 Alkaline Phosphatase 186 U/L H 11/10/182100 Total Protein 7.1 GM/DL 11/10/182100 Albumin 3.9 GM/DL 11/10/182100 Albumin/Globulin Ratio .11/10/182100 Thyroid Stimulating Hormone (TSH) 1.830 uIU/ML 11/10/182100 Salicylates Level 3.2 MG/DL L 11/10/182100 Urine Opiates Screen NEGATIVE 11/10/182100 Urine Methadone Screen NEGATIVE 11/10/182100 Acetaminophen Level < 2.0 UG/ML L 11/10/182100 Urine Barbiturates Screen NEGATIVE 11/10/182100 Urine Phencyclidine Screen NEGATIVE 11/10/182100 Urine Amphetamines Screen NEGATIVE 11/10/182100 Urine Benzodiazepines Screen NEGATIVE 11/10/182100 Urine Cocaine Metabolite Screen NEGATIVE 11/10/182100 Urine Cannabinoids Screen POSITIVE H 11/10/182100 Ethyl Alcohol Level < 0.003 % 11/10/182100 Home Medications Scheduled PRN Albuterol Sulfate (Ventolin Hfa) 108 Mcg/Act Aer, 2 PUFFS INH Q4H PRN for SHORTNESS OF BREATH Albuterol/Ipratropium (Ipratropium [place]/Albut 0.5-2.5 (3) mg/3Ml) 1 Jacquelyn Jacquelyn, 1 NEB INH Q4H PRN for SHORTNESS OF BREATH Allergies Coded Allergies: Azithromycin (Verified Adverse Reaction, Mild, N/V, 09/08/18) Clarithromycin (Verified Adverse Reaction, Mild, N/V, 09/08/18) Erythromycin (Verified Adverse Reaction, Mild, N/V, 09/08/18) Tramadol (Unverified Adverse Reaction, Mild, N/V, 09/08/18) Lizbet Friedman Nov 12, 2018 10:28
--- NOTE | 2018-11-12 11:47 | MHHPEPDOC ---
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 Per police in ED, pt has kick in a protion of the wall and moved the stove in his attempts to get to the gas line. Pt's ex-girlfriend called in the ED who stated by has been noncompliant on his medication for weeks, is delusional and psychotic, believes the [place] is following him, attempted to hang himself 2 days ago. In the ED pt demanding to leave stating it was all a misunderstanding. He was rambling, delusional, and agitated. Pt seen today unable to really participate in interview as believes he doesn't need to be here, doesn't need medicine "b/c there's nothing wrong with the papers I'm writing... would you call a genius manic." He is delusional, grandiose, defensive, hostile, manic, hyperverbal, easily agitated, illogical, tangential, paranoid that the police are following me. He states he'll take "zydis" but then states he won't b/c he wants out and nothings wrong with him. Sign right to release. Insight and judgement are extremely poor. Psychiatric Review of Systems Depression (2 or more weeks): denies Juan R (4 or more days of): irritable/elevated mood, expansive mood, grandiosity, decreased need for sleep, talkativity, pressured, flight of ideas, distractibility, goal-directed activities, engages in risky behavior Psychosis: delusions, paranoia, disorganization PTSD: denies Anxiety: situational anxiety, stressor related anxiety Anxiety/ 6 months or more of: restlessness, keyed up, difficulty concentrating, irritability, muscle tension, sleep disturbance Past Psychiatric History Previous Psychiatric Diagnosis: Bipolar d/o with psychosis Previous Psychiatric Admissions: d/c [facility] 08/28/18 for juan r w/psychosis Suicide Attempts: none known Psychiatric Follow-up: [facility] noncompliant. Psychiatric medications: lithium noncompliant Past Medical History Medical Problems pancreatitis, COPD Head Injury: No Seizures: No Hospitalizations: Yes Surgeries: Yes (bladder tumor and rt ridney tumor removal 07/2012) Family Medical/Psychiatric HX Medical Problems unable to assess Psychiatric Disorders: No Addiction: No Suicide Attemps/Completions: No Addiction History nicotine, other (utox pos cannabis) Social History Unable to fully asses as pt currently manic and psychotic, very illogical Childhood: unknown Abuse/Trauma:unknown Current Living Situation: lives in an apt in [place] Education: unknown Employment: disability Social Support: family Legal: none known Marital: single, no kids Mental Status Examination General Appearance: unkempt, disheveled, appears stated age, hospital scubs/clothing Build: average Demeanor: mistrustful, preoccupied, guarded Eye Contact: fair Activity: agitated, anxious, hostile Behavior: uncooperative, resistant, agitated, hyperactive, restless Speech: rapid, pressured Mood: anxious, angry, euphoric, irritable, hypomanic Mood "I'm fine" Affect: labile, incongruent, hostile, disorganized Thought Process: tangential, associative, flight of ideas, racing, derailment Thought Content (Delusions): grandiose, bizarre, denies SI, HI, AVH, paranoia (police keep following me for no reason), delusions Thought Content (Other): preoccupied, obsessional, guarded, ideas of reference, appears paranoid Thought Content (Aggressive): none reported Perception (Hallucinations): none reported Perception (Other): none reported Cognition (Impairment of): attention/concentration, unable to assess Cognition(Intelligence Est.): average Oriented: Awake, Alert, Oriented times three Judgment: Poor Psychosis: Associations, Psychotic Perceptions Diagnoses bipolar d/o mre juan r with psychosis Assessment Pt manic, psychotic, delusional, paranoid, agitated due to medication noncompliance. Initial Treatment Plan 1. Patient was admitted on a 9.39 status. 2. Complete history was obtained. 3. With patients permission, family will be contacted and database will be expanded. 4. Patients medication regimen will be reviewed and changed accordingly. 5. Patient will be provided with protected environment. 6. Patient will be treated with individual, group, and milieu therapies. 7. Patient will receive supportive psych-education. 8. Discharge planning will commence immediately. 9. Outpatient follow-up treatment will be strongly recommended. 10. The initial treatment plan will focus initially on: * Depression. * Risk for suicide. * Substance abuse. 11. zyprexa zydis 5mg qam and 10mg qhs. [place] 450mg bid ESTIMATED LENGTH OF STAY: 7-9 DAYS. TIME SPENT COUNSELING AND COORDINATING INITIAL CARE: 60 minutes. Vital Signs Vital Signs Date Time Temp Pulse Resp B/P (MAP) Pulse Ox O2 Delivery O2 Flow Rate FiO2 11/12/18 06:47 97.8 101 20 115/59 (77) Room Air 11/11/18 13:55 92 Medications Scheduled PRN Albuterol Sulfate (Ventolin Hfa) 108 Mcg/Act Aer, 2 PUFFS INH Q4H PRN for SHORTNESS OF BREATH, (Reported) Albuterol/Ipratropium (Ipratropium [place]/Albut 0.5-2.5 (3) mg/3Ml) 1 Jacquelyn Jacquelyn, 1 NEB INH Q4H PRN for SHORTNESS OF BREATH, (Reported) Allergies Coded Allergies: Azithromycin (Verified Adverse Reaction, Mild, N/V, 09/08/18) Clarithromycin (Verified Adverse Reaction, Mild, N/V, 09/08/18) Erythromycin (Verified Adverse Reaction, Mild, N/V, 09/08/18) Tramadol (Unverified Adverse Reaction, Mild, N/V, 09/08/18) KALLIE HARMAN DO Nov 12, 2018 11:47 am
[2018-11-12] MEDS ORDERED: LORazepam 2 MG/ML VIAL (J2060) IM STA (13:58)
[2018-11-12] MEDS ORDERED: OLANZapine INTRAMUSCULAR 10 MG VIAL (S0166) IM ONE (14:00)
[2018-11-12 18:00] VITALS: BP 109/73
[2018-11-13] MEDS: LORazepam 1 MG TAB PO PRN ×2 (05:24→15:26)
[2018-11-13] MEDS: ALBUTEROL 90 MCG/ACT 8GM HFA INHALER INH PRN (05:30)
[2018-11-13 06:41] VITALS: BP 104/62
[2018-11-13] MEDS: OLANZapine ORAL DISINTEGRATING TAB 5MG PO SCH (08:33)
[2018-11-13] MEDS: TRIAMCINOLONE ACETONIDE 0.025 % 80 GM CREAM TOP SCH ×2 (08:34→21:00)
[2018-11-13] MEDS: LITHIUM CARBONATE 450 MG **CR** TAB PO SCH (08:34)
[2018-11-13] MEDS ORDERED: FLUBLOK(EGG FREE)(QUAD)INFLUENZA VACC 0.5ML SYRINGE (90682)18YRS&OLDER IM ONE (09:00)
--- NOTE | 2018-11-13 09:12 | MHIPNPDOC ---
[facility] Progress Note Progress Note DATE OF SERVICE: 11/13/18 HISTORY: Patient is a 53 -year-old , male, with a history of juan r, psychosis, agitation who was admitted after police were called to pt's apt b/c pt was attempting to break the gas line in it b/c he wanted to burn the building down and everyone in it. Per police in ED, pt has kick in a protion of the wall and moved the stove in his attempts to get to the gas line. Pt's ex-girlfriend called in the ED who stated by has been noncompliant on his medication for weeks, is delusional and psychotic, believes the [place] is following him, attempted to hang himself 2 days ago. In the ED pt demanding to leave stating it was all a misunderstanding. He was rambling, delusional, and agitated. Pt seen today unable to really participate in interview as believes he doesn't need to be here, doesn't need medicine "b/c there's nothing wrong with the papers I'm writing... would you call a genius manic." He is delusional, g randiose, defensive, hostile, manic, hyperverbal, easily agitated, illogical, tangential, paranoid that the police are following me. He states he'll take "zydis" but then states he won't b/c he wants out and nothings wrong with him. Sign right to release. Insight and judgement are extremely poor. VITAL SIGNS: See below. NEW TEST RESULTS: See below. CURRENT MEDICATIONS: See below. MENTAL STATUS EXAMINATION: General Appearance: unkempt, disheveled, appears stated age, hospital scr ubs/clothing Build: average Demeanor: mistrustful, preoccupied, guarded Eye Contact: fair Activity: anxious, Behavior: cooperative Speech: rapid, pressured Mood: anxious, manic Mood "better" Affect: calmer but reactive, manic Thought Process: tangential, associative, flight of ideas, racing, derailment Thought Content (Delusions): grandiose, bizarre, denies SI, HI, AVH, paranoia (police keep following me for no reason), delusions Thought Content (Other): preoccupied, obsessional, guarded, ideas of reference, appears paranoid Thought Content (Aggressive): none reported Perception (Hallucinations): none reported Perception (Other): none reported Cognition (Impairment of): attention/concentration, unable to assess Cognition(Intelligence Est.): average Oriented: Awake, Alert, Oriented times three Judgment: Poor Psychosis: Associations, Psychotic Perceptions DIAGNOSES: 1. bipolar d/o mre juan r with psychosis ASSESSMENT:Pt seen and states he took his meds this morning and notices he's feeling better. Per med rec pt did take his zyprexa and lithiuim ordered. Appe ars to be beneficial for him too as is no longer agitated, defensive, aggressive. States he slept last night with was beneficial for him. Pt continues to be delusional, paranoid, talking about past events and finally realizing their meaning now with plan to resolve them. Talking of belief he knows people are invading his life so he does things to get them to react and show themselves. Won't say who put has a history of believing [place] and police following him. Did talk about his son and his mother that he really seems to care for. He remains manic, tangential, hyperverbal, and reactive. Endorsed visual hallucinations of seeing a bike in various places with associated belief that it means something relating to his past. Feels he is tolerating his medica tions and they're beneficial. He is attending groups and finding them helpful. He denies SI/HI. Pt feels safe here. MANAGEMENT PLAN: continue current treatment. Medications: zyprexa zydis 5mg qam and 10mg qhs [place] 450mg bid TIME SPENT: 30 minutes. Vital Signs Vital Signs Date Time Temp Pulse Resp B/P (MAP) Pulse Ox O2 Delivery O2 Flow Rate FiO2 11/13/18 06:41 98.9 79 16 104/62 (76) 11/12/18 06:47 Room Air 11/11/18 13:55 92 Current Medications Current Medications Acetaminophen (Tylenol Tab) 650 mg Q6HP PRN PO HEADACHE or DISCOMFORT; Start 11/11/18 at 13:30 Al Hydrox/Mg Hydrox/Simethicone (Mylanta) 30 ml Q4HP PRN PO HEARTBURN /INDIGESTION; Start 11/11/18 at 13:30 Albuterol Sulfate (Proventil, Ventolin Hfa) 2 puff Q4HP PRN INH SHORTNESS OF BREATH Last administered on 11/13/18at 05:30; Start 11/11/18 at 14:30 Albuterol/ Ipratropium (Duoneb (Ipr 0.5mg/Alb 2.5mg)) 3 ml Q4HP PRN NEB SOB/WHEEZING; Start 11/11/18 at 14:30 Home Med (Med Rec Complete!) ASDIRECTED XX ; Start 11/11/18 at 12:45; Stop 11/11/18 at 13:00; Status DC [place] Carbonate (Eskalith-Cr) 450 mg BID PO Last administered on 11/13/18 08:34; Start 11/12/18 at 09:00 Lorazepam (Ativan) 1 mg Q6HP PRN PO ANXIETY/AGITATION Last administered on 11/13/18 05:24; Start 11/11/18 at 13:30 Lorazepam (Ativan) 2 mg NOW STAT IM Last administered on 11/12/18at 14:16; Start 11/12/18 at 13:58; Stop 11/12/18 at 14:04; Status DC Magnesium Hydroxide (Milk Of Magnesia) 30 ml DAILYPRN PRN PO CONSTIPATION; Start 11/11/18 at 13:30 Olanzapine (ZyPREXA ZYDIS) 5 mg DAILY PO Last administered on 11/13/18at 08:33; Start 11/12/18 at 09:00 Olanzapine (ZyPREXA ZYDIS) 5 mg Q4HP PRN PO AGITATION; Start 11/11/18 at 13:30 Olanzapine (ZyPREXA ZYDIS) 10 mg QHS PO ; Start 11/12/18 at 21:00 Trazodone HCl (Desyrel) 50 mg QHSP PRN PO INSOMNIA; Start 11/11/18 at 13:30 Triamcinolone Acetonide (Kenalog 0.025% Cream) apply to hands b/l x 7 d... BID TOP Last administered on 11/13/18at 08:34; Start 11/12/18 at 09:00; Stop 11/18/18 at 21:01 Allergies Coded Allergies: Azithromycin (Verified Adverse Reaction, Mild, N/V, 09/08/18) Clarithromycin (Verified Adverse Reaction, Mild, N/V, 09/08/18) Erythromycin (Verified Adverse Reaction, Mild, N/V, 09/08/18) Tramadol (Unverified Adverse Reaction, Mild, N/V, 09/08/18) KALLIE HARMAN DO Nov 13, 2018 9:12 am
[2018-11-13] MEDS ORDERED: OLANZapine INTRAMUSCULAR 10 MG VIAL (S0166) IM ONE (10:00)
[2018-11-13] MEDS ORDERED: LORazepam 2 MG/ML VIAL (J2060) IM ONE (10:00)
[2018-11-13 18:22] VITALS: BP 121/72
[2018-11-14] MEDS: LITHIUM CARBONATE 450 MG **CR** TAB PO SCH ×3 (00:09→23:18)
[2018-11-14] MEDS: OLANZapine ORAL DISINTEGRATING TAB 5MG PO SCH ×3 (00:10→21:00)
[2018-11-14] MEDS: LORazepam 1 MG TAB PO PRN ×2 (01:13→13:59)
[2018-11-14 06:14] VITALS: BP 124/72
[2018-11-14] MEDS: TRIAMCINOLONE ACETONIDE 0.025 % 80 GM CREAM TOP SCH ×2 (08:47→21:00)
[2018-11-14 18:00] VITALS: BP 118/72
--- NOTE | 2018-11-14 22:28 | MHIPNPDOC ---
[facility] Progress Note Progress Note DATE OF SERVICE: 11/14/18 HISTORY: Patient is a 53 -year-old , male, with a history of juan r, psychosis, agitation who was admitted after police were called to pt's apt b/c pt was attempting to break the gas line in it b/c he wanted to burn the building down and everyone in it. Per police in ED, pt has kick in a protion of the wall and moved the stove in his attempts to get to the gas line. Pt's ex-girlfriend called in the ED who stated by has been noncompliant on his medication for weeks, is delusional and psychotic, believes the [employer] is following him, attempted to hang himself 2 days ago. In the ED pt demanding to leave stating it was all a misunderstanding. He was rambling, delusional, and agitated. Pt seen today unable to really participate in interview as believes he doesn't need to be here, doesn't need medicine "b/c there's nothing wrong with the papers I'm writing... would you call a genius manic." He is delusional, g randiose, defensive, hostile, manic, hyperverbal, easily agitated, illogical, tangential, paranoid that the police are following me. He states he'll take "zydis" but then states he won't b/c he wants out and nothings wrong with him. Sign right to release. Insight and judgement are extremely poor. VITAL SIGNS: See below. NEW TEST RESULTS: See below. CURRENT MEDICATIONS: See below. MENTAL STATUS EXAMINATION: General Appearance: unkempt, disheveled, appears stated age, hospital scr ubs/clothing Build: average Demeanor: guarded, mistrustful Eye Contact: fair Activity: anxious, Behavior: cooperative Speech: rapid, pressured Mood: irritable, anxious Mood "fine" Affect: calmer but reactive, manic Thought Process: tangential, associative, flight of ideas, racing, derailment Thought Content (Delusions): bizarre and paranoid delusions Thought Content (Other): preoccupied, obsessional, guarded, ideas of reference, appears paranoid Thought Content (Aggressive): none reported Perception (Hallucinations): none reported Perception (Other): none reported Cognition (Impairment of): attention/concentration, unable to assess Cognition(Intelligence Est.): average Oriented: Awake, Alert, Oriented times three Judgment: Poor Psychosis: Associations, Psychotic Perceptions DIAGNOSES: 1. bipolar d/o mre juan r with psychosis ASSESSMENT: Patient has been seen in the unit, walking in the hallways, looking guarded, although less than he was yesterday. Today he has not been seen as aggressive as he was yesterday, has not been yelling at other patients but refused to me because he said that he didn't want to leave the group because he was working on "[employer]". Will continue to monitor. MANAGEMENT PLAN: continue current treatment as per Dr. Ya Medications: zyprexa zydis 5mg qam and 10mg qhs [place] 450mg bid TIME SPENT: 30 minutes. Vital Signs Vital Signs Date Time Temp Pulse Resp B/P (MAP) Pulse Ox O2 Delivery O2 Flow Rate FiO2 11/14/18 18:00 97.8 78 18 118/72 (87) 11/12/18 06:47 Room Air 11/11/18 13:55 92 Current Medications Current Medications Acetaminophen (Tylenol Tab) 650 mg Q6HP PRN PO HEADACHE or DISCOMFORT; Start 11/11/18 at 13:30 Al Hydrox/Mg Hydrox/Simethicone (Mylanta) 30 ml Q4HP PRN PO HEARTBURN/INDIGESTION; Start 11/11/18 at 13:30 Albuterol Sulfate (Proventil, Ventolin Hfa) 2 puff Q4HP PRN INH SHORTNESS OF BREATH Last administered on 11/13/18at 05:30; Start 11/11/18 at 14:30 Albuterol/ Ipratropium (Duoneb (Ipr 0.5mg/Alb 2.5mg)) 3 ml Q4HP PRN NEB SOB/WHEEZING; Start 11/11/18 at 14:30 Home Med (Med Rec Complete!) ASDIRECTED XX ; Start 11/11/18 at 12:45; Stop 11/11/18 at 13:00; Status DC [place] Carbonate (Eskalith-Cr) 450 mg BID PO Last administered on 11/14/18at 08:46; Start 11/12/18 at 09:00 Lorazepam (Ativan) 1 mg Q6HP PRN PO ANXIETY/AGITATION Last administered on 11/14/18at 13:59; Start 11/11/18 at 13:30 Lorazepam (Ativan) 2 mg NOW STAT IM Last administered on 11/12/18at 14:16; Start 11/12/18 at 13:58; Stop 11/12/18 at 14:04; Status DC Magnesium Hydroxide (Milk Of Magnesia) 30 ml DAILYPRN PRN PO CONSTIPATION; Start 11/11/18 at 13:30 Olanzapine (ZyPREXA ZYDIS) 5 mg DAILY PO Last administered on 11/14/18at 08:46; Start 11/12/18 at 09:00 Olanzapine (ZyPREXA ZYDIS) 5 mg Q4HP PRN PO AGITATION; Start 11/11/18 at 13:30 Olanzapine (ZyPREXA ZYDIS) 10 mg QHS PO Last administered on 11/14/18at 00:10; Start 11/12/18 at 21:00 Trazodone HCl (Desyrel) 50 mg QHSP PRN PO INSOMNIA; Start 11/11/18 at 13:30 Triamcinolone Acetonide (Kenalog 0.025% Cream) apply to hands b/l x 7 d... BID TOP Last administered on 11/14/18at 08:47; Start 11/12/18 at 09:00; Stop 11/18/18 at 21:01 Allergies Coded Allergies: Azithromycin (Verified Adverse Reaction, Mild, N/V, 09/08/18) Clarithromycin (Verified Adverse Reaction, Mild, N/V, 09/08/18) Erythromycin (Verified Adverse Reaction, Mild, N/V, 09/08/18) Tramadol (Unverified Adverse Reaction, Mild, N/V, 09/08/18) IBIS PABON MD Nov 14, 2018 22:28
[2018-11-15] MEDS: LORazepam 1 MG TAB PO PRN ×2 (04:50→11:59)
[2018-11-15 06:33] VITALS: BP 136/66
[2018-11-15] MEDS: TRIAMCINOLONE ACETONIDE 0.025 % 80 GM CREAM TOP SCH ×2 (09:00→21:00)
[2018-11-15] MEDS: OLANZapine ORAL DISINTEGRATING TAB 5MG PO SCH (09:04)
[2018-11-15] MEDS: LITHIUM CARBONATE 450 MG **CR** TAB PO SCH (09:04)
--- NOTE | 2018-11-15 13:25 | MHIPNPDOC ---
[facility] Progress Note Progress Note DATE OF SERVICE: 11/15/18 HISTORY: Patient is a 53 -year-old , male, with a history of juan r, psychosis, agitation who was admitted after police were called to pt's apt b/c pt was attempting to break the gas line in it b/c he wanted to burn the building down and everyone in it. Per police in ED, pt has kick in a protion of the wall and moved the stove in his attempts to get to the gas line. Pt's ex-girlfriend called in the ED who stated by has been noncompliant on his medication for weeks, is delusional and psychotic, believes the [place] is following him, attempted to hang himself 2 days ago. In the ED pt demanding to leave stating it was all a misunderstanding. He was rambling, delusional, and agitated. Pt seen today unable to really participate in interview as believes he doesn't need to be here, doesn't need medicine "b/c there's nothing wrong with the papers I'm writing... would you call a genius manic." He is delusional, g randiose, defensive, hostile, manic, hyperverbal, easily agitated, illogical, tangential, paranoid that the police are following me. He states he'll take "zydis" but then states he won't b/c he wants out and nothings wrong with him. Sign right to release. Insight and judgement are extremely poor. VITAL SIGNS: See below. NEW TEST RESULTS: See below. CURRENT MEDICATIONS: See below. MENTAL STATUS EXAMINATION: General Appearance: unkempt, disheveled, appears stated age, hospital scr ubs/clothing Build: average Demeanor: guarded, paranoid, uncooperative, mistrustful Eye Contact: fair Activity: anxious, angry, irritable Behavior: uncooperative Speech: rapid, pressured, loud Mood: irritable, anxious, angry Affect: manic, angry, irritable, anxious Thought Process: tangential, associative, flight of ideas, racing, derailment Thought Content (Delusions): bizarre and paranoid delusions Thought Content (Other): preoccupied, obsessional, guarded, ideas of reference, appears paranoid Thought Content (Aggressive): none reported Perception (Hallucinations): none reported Perception (Other): none reported Cognition (Impairment of): attention/concentration, unable to assess Cognition(Intelligence Est.): average Oriented: Awake, Alert, Oriented times three Judgment: Poor Psychosis: Associations, Psychotic Perceptions DIAGNOSES: 1. bipolar d/o mre juan r with psychosis ASSESSMENT: Patient is being loud today, paces the hallways yelling. He is loud and profane, tires to intimidate staff and patients. Refusing some of his medications. The medication nurse tried to convince him to take his Zyprexa but he refused, however he accepted to take his Ativan. I went to the [facility] nd tried to talk to him. At that moment he dropped the sugar, the creamer, etc., by turning upside down the container. I approached him and asked him to speak with me, he didn't answer. I asked him how was he feeling and he answered: "Please don't ask me that question once again, I'm not going to answer." I persevered and asked if I could do something to make him feel better and he remained silent, looked the other way and ignored me. MANAGEMENT PLAN: continue current treatment as per Dr. Ya Medications: zyprexa zydis 5mg qam and 10mg qhs [place] 450mg bid TIME SPENT: 30 minutes. Vital Signs Vital Signs Date Time Temp Pulse Resp B/P (MAP) Pulse Ox O2 Delivery O2 Flow Rate FiO2 11/15/18 06:33 97.4 63 20 136/66 (89) Room Air 11/11/18 13:55 92 Current Medications Current Medications Acetaminophen (Tylenol Tab) 650 mg Q6HP PRN PO HEADACHE or DISCOMFORT; Start 11/11/18 at 13:30 Al Hydrox/Mg Hydrox/Simethicone (Mylanta) 30 ml Q4HP PRN PO HEARTBURN/INDIGESTION; Start 11/11/18 at 13:30 Albuterol Sulfate (Proventil, Ventolin Hfa) 2 puff Q4HP PRN INH SHORTNESS OF BREATH Last administered on 11/13/18at 05:30; Start 11/11/18 at 14:30 Albuterol/ Ipratropium (Duoneb (Ipr 0.5mg/Alb 2.5mg)) 3 ml Q4HP PRN NEB SOB/WHEEZING; Start 11/11/18 at 14:30 Home Med (Med Rec Complete!) ASDIRECTED XX ; Start 11/11/18 at 12:45; Stop 11/11/18 at 13:00; Status DC [place] Carbonate (Eskalith-Cr) 450 mg BID PO Last administered on 11/15/18at 09:04; Start 11/12/18 at 09:00 Lorazepam (Ativan) 1 mg Q6HP PRN PO ANXIETY/AGITATION Last administered on 11/15/18at 11:59; Start 11/11/18 at 13:30 Lorazepam (Ativan) 2 mg NOW STAT IM Last administered on 11/12/18at 14:16; Start 11/12/18 at 13:58; Stop 11/12/18 at 14:04; Status DC Magnesium Hydroxide (Milk Of Magnesia) 30 ml DAILYPRN PRN PO CONSTIPATION; Start 11/11/18 at 13:30 Olanzapine (ZyPREXA ZYDIS) 5 mg DAILY PO Last administered on 11/15/18at 09:04; Start 11/12/18 at 09:00 Olanzapine (ZyPREXA ZYDIS) 5 mg Q4HP PRN PO AGITATION; Start 11/11/18 at 13:30 Olanzapine (ZyPREXA ZYDIS) 10 mg QHS PO Last administered on 11/14/18at 21:00; Start 11/12/18 at 21:00 Trazodone HCl (Desyrel) 50 mg QHSP PRN PO INSOMNIA; Start 11/11/18 at 13:30 Triamcinolone Acetonide (Kenalog 0.025% Cream) apply to hands b/l x 7 d... BID TOP Last administered on 11/14/18at 08:47; Start 11/12/18 at 09:00; Stop 11/18/18 at 21:01 Allergies Coded Allergies: Azithromycin (Verified Adverse Reaction, Mild, N/V, 09/08/18) Clarithromycin (Verified Adverse Reaction, Mild, N/V, 09/08/18) Erythromycin (Verified Adverse Reaction, Mild, N/V, 09/08/18) Tramadol (Unverified Adverse Reaction, Mild, N/V, 09/08/18) IBIS PABON MD Nov 15, 2018 13:25
[2018-11-16] MEDS: LITHIUM CARBONATE 450 MG **CR** TAB PO SCH ×3 (02:51→21:25)
[2018-11-16] MEDS: OLANZapine ORAL DISINTEGRATING TAB 5MG PO SCH ×3 (02:52→21:25)
[2018-11-16] MEDS: ALBUTEROL 90 MCG/ACT 8GM HFA INHALER INH PRN (02:55)
[2018-11-16] MEDS: LORazepam 1 MG TAB PO PRN ×2 (04:03→10:28)
[2018-11-16 06:00] VITALS: BP_SYST 122; BP_SYST 123; BP_DIAS 69; BP_DIAS 74
[2018-11-16] MEDS: BENZTROPINE 1 MG TAB PO SCH ×2 (09:00→21:00)
[2018-11-16] MEDS: TRIAMCINOLONE ACETONIDE 0.025 % 80 GM CREAM TOP SCH ×3 (09:00→21:00)
--- NOTE | 2018-11-16 10:16 | MHIPNPDOC ---
[facility] Progress Note Progress Note DATE OF SERVICE: 11/16/18 HISTORY: Patient is a 53 -year-old , male, with a history of juan r, psychosis, agitation who was admitted after police were called to pt's apt b/c pt was attempting to break the gas line in it b/c he wanted to burn the building down and everyone in it. Per police in ED, pt has kick in a protion of the wall and moved the stove in his attempts to get to the gas line. Pt's ex-girlfriend called in the ED who stated by has been noncompliant on his medication for weeks, is delusional and psychotic, believes the [place] is following him, attempted to hang himself 2 days ago. In the ED pt demanding to leave stating it was all a misunderstanding. He was rambling, delusional, and agitated. Pt seen today unable to really participate in interview as believes he doesn't need to be here, doesn't need medicine "b/c there's nothing wrong with the papers I'm writing... would you call a genius manic." He is delusional, g randiose, defensive, hostile, manic, hyperverbal, easily agitated, illogical, tangential, paranoid that the police are following me. He states he'll take "zydis" but then states he won't b/c he wants out and nothings wrong with him. Sign right to release. Insight and judgement are extremely poor. VITAL SIGNS: See below. NEW TEST RESULTS: See below. CURRENT MEDICATIONS: See below. MENTAL STATUS EXAMINATION: General Appearance: unkempt, disheveled, appears stated age, hospital scr ubs/clothing Build: average Demeanor: guarded, paranoid, cooperative, mistrustful Eye Contact: fair Activity: irritable, defensive, angry not being discharged today Behavior: cooperative Speech: pressured, loud Mood: irritable, anxious, angry Affect: less manic, angry, irritable, anxious Thought Process: tangential, associative, flight of ideas, racing, derailment, paranoid stating he wants to go in front of a car carder (just b/c) and have his story put on record regarding what the FBI and police are doing to him. Won't go into detail as to what that is. Thought Content (Delusions): bizarre and paranoid delusions Thought Content (Other): preoccupied, obsessional, guarded, ideas of reference, appears paranoid Thought Content (Aggressive): none reported Perception (Hallucinations): none reported Perception (Other): none reported Cognition (Impairment of): attention/concentration, unable to assess Cognition(Intelligence Est.): average Oriented: Awake, Alert, Oriented times three Judgment: Poor Psychosis: Associations, Psychotic Perceptions DIAGNOSES: 1. bipolar d/o mre juan r with psychosis ASSESSMENT: Patient seen in office today asking if he can be discharged. Per Dr. Neely, pt was loud, paces the hallways yelling, trying to intimidate staff and patients, refusing some of his medications. Pt states he's doing fine and wants to go home today. Attempted to discuss pt's reason's for admission (attempt to get to gas pipes in building to blow it up with residents in it) and doesn't want to discuss, states the police are making up stories about him and are going to "put me thru this shit the rest of my life" b/c they have some vendetta against him. He's paranoid stating he wants to go in front of a car carder (just b/c) and have his story put on record regarding what the FBI and police are doing to him. Won't go into detail as to what that is.He remains delusional with poor insight and judgement. He is more calm and cooperative when seen today though. He has not taken his medication yet and is encouraged to do so if he wants to be discharged soon once psychosis and juan r are improved. Will start prolixin bid for psychosis with plan to initiat prolixin decanoate for compliance once d/c as pt has a history of noncompliance with meds and treatment. Will give cogentin 1mg bid for eps. MANAGEMENT PLAN: continue current plan. Start Prolixin and cogentin. Medications: zyprexa zydis 5mg qam and 10mg qhs prolixin 5mg bid [place] 450mg bid cogentin 1mg bid TIME SPENT: 30 minutes Vital Signs Vital Signs Date Time Temp Pulse Resp B/P (MAP) Pulse Ox O2 Delivery O2 Flow Rate FiO2 11/16/18 06:00 99.6 85 18 122/69 (86) Room Air 11/11/18 13:55 92 Current Medications Current Medications Acetaminophen (Tylenol Tab) 650 mg Q6HP PRN PO HEADACHE or DISCOMFORT; Start 11/11/18 at 13:30 Al Hydrox/Mg Hydrox/Simethicone (Mylanta) 30 ml Q4HP PRN PO HEARTBURN/INDIGE STION; Start 11/11/18 at 13:30 Albuterol Sulfate (Proventil, Ventolin Hfa) 2 puff Q4HP PRN INH SHORTNESS OF BREATH Last administered on 11/16/18at 02:55; Start 11/11/18 at 14:30 Albuterol/ Ipratropium (Duoneb (Ipr 0.5mg/Alb 2.5mg)) 3 ml Q4HP PRN NEB SOB/W HEEZING; Start 11/11/18 at 14:30 Home Med (Med Rec Complete!) ASDIRECTED XX ; Start 11/11/18 at 12:45; Stop 11/11/18 at 13:00; Status DC [place] Carbonate (Eskalith-Cr) 450 mg BID PO Last administered on 11/16/18at 09:36; Start 11/12/18 at 09:00 Lorazepam (Ativan) 1 mg Q6HP PRN PO ANXIETY/AGITATION Last administered on 11/16/18at 04:03; Start 11/11/18 at 13:30 Lorazepam (Ativan) 2 mg NOW STAT IM Last administered on 11/12/18at 14:16; Start 11/12/18 at 13:58; Stop 11/12/18 at 14:04; Status DC Magnesium Hydroxide (Milk Of Magnesia) 30 ml DAILYPRN PRN PO CONSTIPATION; Start 11/11/18 at 13:30 Olanzapine (ZyPREXA ZYDIS) 5 mg DAILY PO Last administered on 11/16/18at 09:36; Start 11/12/18 at 09:00 Olanzapine (ZyPREXA ZYDIS) 5 mg Q4HP PRN PO AGITATION; Start 11/11/18 at 13:30 Olanzapine (ZyPREXA ZYDIS) 10 mg QHS PO Last administered on 11/16/18at 02:52; Start 11/12/18 at 21:00 Trazodone HCl (Desyrel) 50 mg QHSP PRN PO INSOMNIA; Start 11/11/18 at 13:30 Triamcinolone Acetonide (Kenalog 0.025% Cream) apply to hands b/l x 7 d... BID TOP Last administered on 11/14/18at 08:47; Start 11/12/18 at 09:00; Stop 11/18/18 at 21:01 Allergies Coded Allergies: Azithromycin (Verified Adverse Reaction, Mild, N/V, 09/08/18) Clarithromycin (Verified Adverse Reaction, Mild, N/V, 09/08/18) Erythromycin (Verified Adverse Reaction, Mild, N/V, 09/08/18) Tramadol (Unverified Adverse Reaction, Mild, N/V, 09/08/18) KALLIE HARMAN DO Nov 16, 2018 10:16 am
[2018-11-17] MEDS: ALBUTEROL 90 MCG/ACT 8GM HFA INHALER INH PRN (03:59)
[2018-11-17] MEDS: LORazepam 1 MG TAB PO PRN (03:59)
[2018-11-17 06:46] VITALS: BP 125/78
[2018-11-17] MEDS: TRIAMCINOLONE ACETONIDE 0.025 % 80 GM CREAM TOP SCH ×2 (09:00→22:08)
[2018-11-17] MEDS: BENZTROPINE 1 MG TAB PO SCH ×2 (09:00→22:08)
[2018-11-17] MEDS: LITHIUM CARBONATE 450 MG **CR** TAB PO SCH ×2 (09:38→22:06)
[2018-11-17] MEDS: OLANZapine ORAL DISINTEGRATING TAB 5MG PO SCH ×2 (09:38→22:07)
--- NOTE | 2018-11-17 10:05 | MHIPNPDOC ---
[facility] Progress Note Progress Note DATE OF SERVICE: 11/17/18 HISTORY:Patient is a 53 -year-old , male, with a history of juan r, psychosis, agitation who was admitted after police were called to pt's apt b/c pt was attempting to break the gas line in it b/c he wanted to burn the building down and everyone in it. Per police in ED, pt has kick in a protion of the wall and moved the stove in his attempts to get to the gas line. Pt's ex-girlfriend called in the ED who stated by has been noncompliant on his medication for weeks, is delusional and psychotic, believes the [place] is following him, attempted to hang himself 2 days ago. In the ED pt demanding to leave stating it was all a misunderstanding. He was rambling, delusional, and agitated. Pt seen today unable to really participate in interview as believes he doesn't need to be here, doesn't need medicine "b/c there's nothing wrong with the papers I'm writing... would you call a genius manic." He is delusional, gr andiose, defensive, hostile, manic, hyperverbal, easily agitated, illogical, tangential, paranoid that the police are following me. He states he'll take "zydis" but then states he won't b/c he wants out and nothings wrong with him. Sign right to release. Insight and judgement are extremely poor. VITAL SIGNS: See below. NEW TEST RESULTS: See below. CURRENT MEDICATIONS: See below. MENTAL STATUS EXAMINATION: General Appearance: unkempt, disheveled, appears stated age, hospital scru bs/clothing Build: average Demeanor: guarded, paranoid, cooperative, mistrustful Eye Contact: fair Activity: irritable, defensive, angry not being discharged today Behavior: cooperative Speech: pressured, loud Mood: irritable, anxious, angry Affect: less manic, angry, irritable, anxious Thought Process: tangential, associative, flight of ideas, racing, derailment, paranoid stating he wants to go in front of a bus and trolley inspecting dispatcher (just b/c) and have his story put on record regarding what the FBI and police are doing to him. Won't go into detail as to what that is. Thought Content (Delusions): bizarre and paranoid delusions Thought Content (Other): preoccupied, obsessional, guarded, ideas of reference, appears paranoid Thought Content (Aggressive): none reported Perception (Hallucinations): none reported Perception (Other): none reported Cognition (Impairment of): attention/concentration, unable to assess Cognition(Intelligence Est.): average Oriented: Awake, Alert, Oriented times three Judgment: Poor Psychosis: Associations, Psychotic Perceptions DIAGNOSES: 1. bipolar d/o mre juan r with psychosis ASSESSMENT: Patient seen in office today asking if he can be discharged again today. Pt states he's doing fine and wants to go home today. States he has a "fixed delusion" regarding the police and FBI being after him, telling lies about him and knows meds won't help that. Agreed with pt stating that fixed delusions are difficult to treat with medicine but explained to pt he has not always had this delusion to this degree and that in the past when he was here the delusion/paranoia/bizarre/dangerous behavior improved with medication. Pt did not take his prolixin this am and encouraged to take it so as he could be given prolixin decanoate with tolerance of oral for compliance as he's routinely noncompliant on his meds after d/c. Pt agreed to take prolixin oral and decanoate. Per yesterday's note: "Attempted to discuss pt's reason's for admission (attempt to get to gas pipes in building to blow it up with residents in it) and doesn't want to discuss, states the police are making up stories about him and are going to "put me thru this shit the rest of my life" b/c they have some vendetta against him. He's paranoid stating he wants to go in front of a bus and trolley inspecting dispatcher (just b/c) and have his story put on record regarding what the FBI and police are doing to him. Won't go into detail as to what that is.He remains delusional with poor insight and judgement." He is more calm and cooperative when seen today, less tangential and demanding. Took in zyprexa and lithium this am.. Tolerating and feels they're beneficial. Denies eps. MANAGEMENT PLAN: continue current plan. Give prolixin dec for compliance. [place] level today Medications: zyprexa zydis 5mg qam and 10mg qhs prolixin 5mg bid [place] 450mg bid cogentin 1mg bid prolixin dec 50mg im q28d TIME SPENT: 30 minutes Vital Signs Vital Signs Date Time Temp Pulse Resp B/P (MAP) Pulse Ox O2 Delivery O2 Flow Rate FiO2 11/17/18 06:46 98.2 80 18 125/78 (94) 11/16/18 06:00 Room Air 11/11/18 13:55 92 Laboratory Data 24H Labs Laboratory Tests 2 11/16/18 10:35: [place] Level 0.58L Current Medications Current Medications Acetaminophen (Tylenol Tab) 650 mg Q6HP PRN PO HEADACHE or DISCOMFORT; Start 11/11/18 at 13:30 Al Hydrox/Mg Hydrox/Simethicone (Mylanta) 30 ml Q4HP PRN PO HEARTBURN/INDIGESTION; Start 11/11/18 at 13:30 Albuterol Sulfate (Proventil, Ventolin Hfa) 2 puff Q4HP PRN INH SHORTNESS OF BREATH Last administered on 11/17/18at 03:59; Start 11/11/18 at 14:30 Albuterol/ Ipratropium (Duoneb (Ipr 0.5mg/Alb 2.5mg)) 3 ml Q4HP PRN NEB SOB/WHEEZING; Start 11/11/18 at 14:30 Benztropine Mesylate (Cogentin) 1 mg BID PO ; Start 11/16/18 at 09:00 Fluphenazine HCl (Prolixin) 5 mg BID PO Last administered on 11/17/18at 09:49; Start 11/16/18 at 09:00 Home Med (Med Rec Complete!) ASDIRECTED XX ; Start 11/11/18 at 12:45; Stop 11/11/18 at 13:00; Status DC [place] Carbonate (Eskalith-Cr) 450 mg BID PO Last administered on 11/17/18at 09:38; Start 11/12/18 at 09:00 Lorazepam (Ativan) 1 mg Q6HP PRN PO ANXIETY/AGITATION Last administered on 11/17/18at 03:59; Start 11/11/18 at 13:30 Lorazepam (Ativan) 2 mg NOW STAT IM Last administered on 11/12/18at 14:16; Start 11/12/18 at 13:58; Stop 11/12/18 at 14:04; Status DC Magnesium Hydroxide (Milk Of Magnesia) 30 ml DAILYPRN PRN PO CONSTIPATION; Start 11/11/18 at 13:30 Olanzapine (ZyPREXA ZYDIS) 5 mg DAILY PO Last administered on 11/17/18at 09:38; Start 11/12/18 at 09:00 Olanzapine (ZyPREXA ZYDIS) 5 mg Q4HP PRN PO AGITATION; Start 11/11/18 at 13:30 Olanzapine (ZyPREXA ZYDIS) 10 mg QHS PO Last administered on 11/16/18at 21:25; Start 11/12/18 at 21:00 Trazodone HCl (Desyrel) 50 mg QHSP PRN PO INSOMNIA; Start 11/11/18 at 13:30 Triamcinolone Acetonide (Kenalog 0.025% Cream) apply to hands b/l x 7 d... BID TOP Last administered on 11/16/18at 11:44; Start 11/12/18 at 09:00; Stop 11/18/18 at 21:01 Allergies Coded Allergies: Azithromycin (Verified Adverse Reaction, Mild, N/V, 09/08/18) Clarithromycin (Verified Adverse Reaction, Mild, N/V, 09/08/18) Erythromycin (Verified Adverse Reaction, Mild, N/V, 09/08/18) Tramadol (Unverified Adverse Reaction, Mild, N/V, 09/08/18) KALLIE HARMAN DO Nov 17, 2018 10:05 am
[2018-11-17] MEDS ORDERED: fluPHENAZine DECAN 25MG/ML 5ML VIAL (J2680) IM SCH (12:00)
[2018-11-17 18:00] VITALS: BP 106/53
[2018-11-18 06:49] VITALS: BP 119/72
[2018-11-18] MEDS: BENZTROPINE 1 MG TAB PO SCH ×2 (09:00→21:00)
[2018-11-18] MEDS: OLANZapine ORAL DISINTEGRATING TAB 5MG PO SCH ×2 (09:00→21:00)
[2018-11-18] MEDS: TRIAMCINOLONE ACETONIDE 0.025 % 80 GM CREAM TOP SCH ×3 (09:00→21:00)
[2018-11-18] MEDS: LORazepam 1 MG TAB PO PRN ×2 (09:23→16:16)
[2018-11-18] MEDS: LITHIUM CARBONATE 300 MG **CR** TAB PO SCH ×2 (09:23→21:00)
[2018-11-18] MEDS: ALBUTEROL 90 MCG/ACT 8GM HFA INHALER INH PRN (09:24)
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
[2018-11-19 06:58] VITALS: BP 132/88
[2018-11-19] MEDS: LITHIUM CARBONATE 300 MG **CR** TAB PO SCH (08:45)
[2018-11-19] MEDS: OLANZapine ORAL DISINTEGRATING TAB 5MG PO SCH (08:45)
[2018-11-19] MEDS: BENZTROPINE 1 MG TAB PO SCH (08:45)
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
[2018-11-19] MEDS ORDERED: LITH1TAB PO (09:04)
[2018-11-19] MEDS ORDERED: TRAZO50TA PO (09:04)
[2018-11-19] MEDS ORDERED: FLUP25VL IM (09:04)
[2018-11-19] MEDS ORDERED: ZYPR10TA PO (09:04)
[2018-11-19] MEDS ORDERED: ZYPR5TAB2 PO (09:04)
== END 2018-11-19 11:05 | disposition home or self-care (01) | DRG 885 ==
LOC: M ED 20:36 → M ED INP 11-11 13:22 → M PSY 11-11 13:49
PROVIDERS: ADMIT Psychiatry & Neurology Psychiatry; ATTEND Psychiatry & Neurology Psychiatry
DX: F30.2 Manic episode, severe with psychotic symptoms (principal); F17.200 Nicotine dependence, unspecified, uncomplicated; Z91.14 Patient's other noncompliance with medication regimen; Z79.899 Other long term (current) drug therapy; Z88.1 Allergy status to other antibiotic agents; Z88.5 Allergy status to narcotic agent; J45.909 Unspecified asthma, uncomplicated; Z85.51 Personal history of malignant neoplasm of bladder

== ENCOUNTER 2018-11-27 07:04 | Emergency (ER) | payer MEDICARE ==
[~2018-11-27] VITALS: Ht 175.3 cm; Wt 67.4 kg
[~2018-11-27 07:04] MED LIST changes: +FLUP25VL IM; +LITH1TAB PO; +TRAZO50TA PO; +ZYPR5TAB2 PO
[2018-11-27] MEDS ORDERED: OLAN10TA2 (07:14)
[2018-11-27] MEDS ORDERED: TRAZ-160 (07:14)
[2018-11-27] MEDS ORDERED: OLAN5TAB (07:14)
[2018-11-27] MEDS: IPRATROPIUM 0.5MG/ALBUTEROL 2.5MG INH SOL UD 3ML (DUONEB)(J7620) NEB SCH ×2 (08:14→08:29)
[2018-11-27] MEDS ORDERED: ADV250INH INH (08:52)
[2018-11-27] MEDS ORDERED: IPRA0.00 NEB (08:52)
[2018-11-27 09:15] VITALS: BP 140/70
== END 2018-11-27 09:19 | disposition home or self-care (01) ==
LOC: M ED 07:04
DX: Z76.0 Encounter for issue of repeat prescription (principal); J44.9 Chronic obstructive pulmonary disease, unspecified; J45.909 Unspecified asthma, uncomplicated; Z87.01 Personal history of pneumonia (recurrent); Z72.0 Tobacco use; K21.9 Gastro-esophageal reflux disease without esophagitis; K57.30 Diverticulosis of large intestine without perforation or abscess without bleeding; M54.9 Dorsalgia, unspecified; F41.9 Anxiety disorder, unspecified; F32.9 Major depressive disorder, single episode, unspecified; Z79.899 Other long term (current) drug therapy; Z88.0 Allergy status to penicillin; Z88.1 Allergy status to other antibiotic agents; Z88.5 Allergy status to narcotic agent

== ENCOUNTER 2018-11-29 12:55 | Emergency (ER) | payer MEDICARE ==
[~2018-11-29] VITALS: Ht 175.3 cm; Wt 67.4 kg
[~2018-11-29 12:55] MED LIST changes: +ADV250INH INH; +IPRA0.00 NEB; +OLAN10TA2; +OLAN5TAB; +TRAZ-160
[2018-11-29 13:26] LABS: HEMATOCRIT 42.1 % (42.0-52.0); HEMOGLOBIN 13.7 g/dl (13.5-17.5); MEAN CORPUSCULAR HEMOGLOBIN 31.1 pg (27.0-33.0); MEAN CORPUSCULAR HGB CONC 32.5 g/dl (32.0-36.5); MEAN CORPUSCULAR VOLUME 95.7 fl (80.0-96.0); PLATELET COUNT, AUTOMATED 429 10^3/uL (150-450); WHITE BLOOD COUNT 11.8 10^3/uL (4.0-10.0)
[2018-11-29 13:49] LABS: AMPHETAMINES LEVEL URINE NEGATIVE (NEGATIVE); BARBITURATES URINE NEGATIVE (NEGATIVE); BENZODIAZEPINES URINE NEGATIVE (NEGATIVE); CANNABINOIDS URINE POSITIVE (NEGATIVE); COCAINE METABOLITE URINE NEGATIVE (NEGATIVE); METHADONE URINE NEGATIVE (NEGATIVE); OPIATES URINE NEGATIVE (NEGATIVE); PHENCYCLIDINE URINE NEGATIVE (NEGATIVE)
[2018-11-29 14:09] LABS: ACETAMINOPHEN LEVEL < 2.0 UG/ML (10.0-30.0); ALBUMIN 3.9 GM/DL (3.2-5.2); ALT/SGPT 26 U/L (12-78); BILIRUBIN,DIRECT 0.2 MG/DL (0.0-0.2); BILIRUBIN,TOTAL 0.8 MG/DL (0.2-1.0); BLOOD UREA NITROGEN 7 MG/DL (7-18); CARBON DIOXIDE LEVEL 24 MEQ/L (21-32); CHLORIDE LEVEL 110 MEQ/L (98-107); CREATININE FOR GFR 0.68 MG/DL (0.70-1.30); ETHYL ALCOHOL (ETHANOL) 0.172 % (0.000-0.010); GLOMERULAR FILTRATION RATE > 60.0 (>56); GLUCOSE, FASTING 86 MG/DL (70-100); LITHIUM LEVEL 0.61 MEQ/L (0.60-1.20); POTASSIUM SERUM 3.9 MEQ/L (3.5-5.1); SALICYLATE LEVEL 3.5 MG/DL (5.0-30.0); SODIUM LEVEL 141 MEQ/L (136-145); TOTAL PROTEIN 7.2 GM/DL (6.4-8.2)
[2018-11-29] MEDS ORDERED: HALOPERIDOL 5 MG/ML VIAL (J1630) IM ONE (19:00)
[2018-11-29] MEDS ORDERED: diphenhydrAMINE INJ 50MG/ML VIAL (J1200) IM ONE (19:00)
[2018-11-29] MEDS ORDERED: LORazepam 2 MG/ML VIAL (J2060) IM ONE (19:00)
[2018-11-30] MEDS ORDERED: chlorproMAZINE INJ 50MG/2ML AMP (J3230) IM ONE (06:00)
[2018-11-30] MEDS ORDERED: diphenhydrAMINE INJ 50MG/ML VIAL (J1200) IM ONE (06:00)
[2018-11-30 12:26] VITALS: BP 105/71
== END 2018-11-30 12:28 | disposition home or self-care (01) ==
LOC: M ED 12:55
DX: Z04.6 Encounter for general psychiatric examination, requested by authority (principal); F31.9 Bipolar disorder, unspecified; F20.9 Schizophrenia, unspecified; F17.200 Nicotine dependence, unspecified, uncomplicated; Z79.899 Other long term (current) drug therapy
CPT/HCPCS: 80048; 80076; 80178; 80307; 84443; 85027; 96372; 99285; G0480; J1200; J1630; J2060; J3230

== ENCOUNTER 2018-12-23 11:59 | Emergency (ER) | payer MEDICARE ==
[~2018-12-23] VITALS: Ht 175.3 cm; Wt 67.5 kg
[2018-12-23 12:00] VITALS: BP 129/81
[2018-12-23] MEDS ORDERED: LIDO1SOL7 PO (12:35)
[2018-12-23] MEDS ORDERED: IBUP-1022 PO (12:35)
== END 2018-12-23 12:38 | disposition home or self-care (01) ==
LOC: M ED 11:59
DX: K08.89 Other specified disorders of teeth and supporting structures (principal); J44.9 Chronic obstructive pulmonary disease, unspecified; Z88.1 Allergy status to other antibiotic agents; Z88.5 Allergy status to narcotic agent; F17.210 Nicotine dependence, cigarettes, uncomplicated

== ENCOUNTER 2019-02-08 12:57 | Emergency (ER) | payer MEDICARE ==
[~2019-02-08] VITALS: Ht 175.3 cm; Wt 63.6 kg
[~2019-02-08 12:57] MED LIST changes: -/FENT25PA TD; -/ONDA4TA OR; -/ONDA4TA PO; -/ONDA4TA SL; -/PANT40TA PO; +ACET-716 PO; -ACET30TAB PO; +FENT1DIS14 TD; +IBUP-1022 PO; +LIDO1SOL8 PO; +ONDA-1 OR; +ONDA-1 PO; +ONDA-1 SL; +OXYC1TAB23 PO; -PERCOCET PO; +PROT1TAB2 PO
[2019-02-08] MEDS ORDERED: CEFD1CAP8 (13:07)
[2019-02-08] MEDS ORDERED: PRED10TA2 (13:07)
[2019-02-08] MEDS ORDERED: ALBUTEROL 90 MCG/ACT 8GM HFA INHALER INH ONE (15:30)
[2019-02-08] MEDS ORDERED: IPRATROPIUM 0.5MG/ALBUTEROL 2.5MG INH SOL UD 3ML (DUONEB)(J7620) NEB SCH (15:30)
[2019-02-08 16:17] VITALS: BP 125/90
[2019-02-08] MEDS ORDERED: HYDR1CRE93 TOP (16:18)
[2019-02-08] MEDS ORDERED: TESS100C PO (16:18)
[2019-02-08] MEDS ORDERED: XERE5CRE TOP (16:18)
[2019-02-08] MEDS ORDERED: PRED20TA PO (16:19)
== END 2019-02-08 16:35 | disposition home or self-care (01) ==
LOC: M ED 12:57
DX: R06.9 Unspecified abnormalities of breathing (principal); J40 Bronchitis, not specified as acute or chronic; B00.1 Herpesviral vesicular dermatitis; H61.23 Impacted cerumen, bilateral; J44.9 Chronic obstructive pulmonary disease, unspecified; F31.9 Bipolar disorder, unspecified; F19.10 Other psychoactive substance abuse, uncomplicated; F17.200 Nicotine dependence, unspecified, uncomplicated; Z79.52 Long term (current) use of systemic steroids; Z79.2 Long term (current) use of antibiotics; Z88.1 Allergy status to other antibiotic agents; Z88.5 Allergy status to narcotic agent

== ENCOUNTER 2019-03-28 04:25 | Emergency (ER) | payer MEDICARE ==
[~2019-03-28] VITALS: Ht 175.3 cm; Wt 65.9 kg
[2019-03-28 04:25] VITALS: BP 118/83
[~2019-03-28 04:25] MED LIST changes: +CEFD1CAP8; +HYDR1CRE93 TOP; +PRED10TA2; +PRED20TA PO; +TESS100C PO; -TRAZ-160; +TRAZ-252; +TRAZ1TAB10 PO; -TRAZO50TA PO; +XERE5CRE TOP
[2019-03-28] MEDS ORDERED: LATU1TAB PO ×2 (04:36→04:39)
[2019-03-28] MEDS ORDERED: VENTAER INH (04:36)
[2019-03-28] MEDS ORDERED: LITH600C PO (04:36)
[2019-03-28] MEDS ORDERED: LITH300C PO (04:39)
== END 2019-03-28 04:51 | disposition home or self-care (01) ==
LOC: M ED 04:25
DX: Z76.0 Encounter for issue of repeat prescription (principal); F31.9 Bipolar disorder, unspecified; Z96.89 Presence of other specified functional implants; Z72.0 Tobacco use; Z79.899 Other long term (current) drug therapy; Z88.1 Allergy status to other antibiotic agents; Z88.5 Allergy status to narcotic agent

== ENCOUNTER 2019-04-10 06:11 | Emergency (ER) | payer MEDICARE ==
[~2019-04-10] VITALS: Ht 175.3 cm; Wt 65.9 kg
[~2019-04-10 06:11] MED LIST changes: +LATU1TAB PO
[2019-04-10 06:12] VITALS: BP 129/67
[2019-04-10] MEDS ORDERED: NAPR-837 PO (07:13)
[2019-04-10] MEDS ORDERED: NAPROXEN 250 MG TAB PO ONE (07:15)
--- NOTE | 2019-04-10 08:11 | REP ---
Left ankle four views: There is soft tissue edema laterally. Mineralization and joint spaces are normal. There is no fracture or dislocation. There are no calcifications or foreign bodies. Impression: Soft tissue edema laterally. No fracture. Electronically Signed by Emil Cardoso MD 04/10/2019 08:02 A
[2019-04-28] MEDS ORDERED: LATU1TAB PO (11:50)
[2019-04-28] MEDS ORDERED: BACT800T5 PO (15:59)
== END 2019-04-10 07:21 | disposition home or self-care (01) ==
LOC: M ED 06:11
DX: S93.402A Sprain of unspecified ligament of left ankle, initial encounter (principal); X50.9XXA Other and unspecified overexertion or strenuous movements or postures, initial encounter; Y92.89 Other specified places as the place of occurrence of the external cause; F31.9 Bipolar disorder, unspecified; Z79.899 Other long term (current) drug therapy; Z88.1 Allergy status to other antibiotic agents; Z88.5 Allergy status to narcotic agent

== ENCOUNTER 2019-04-29 16:30 | Emergency (ER) | payer MEDICARE ==
[~2019-04-29] VITALS: Ht 175.3 cm; Wt 65.9 kg
[~2019-04-29 16:30] MED LIST changes: +BACT800T5 PO; +NAPR-837 PO
[2019-04-29] MEDS ORDERED: IPRATROPIUM 0.5MG/ALBUTEROL 2.5MG INH SOL UD 3ML (DUONEB)(J7620) NEB ONE (17:00)
[2019-04-29 17:13] LABS: HEMATOCRIT 36.9 % (42.0-52.0); HEMOGLOBIN 12.2 g/dl (13.5-17.5); MEAN CORPUSCULAR HEMOGLOBIN 31.4 pg (27.0-33.0); MEAN CORPUSCULAR HGB CONC 33.1 g/dl (32.0-36.5); MEAN CORPUSCULAR VOLUME 95.1 fl (80.0-96.0); PLATELET COUNT, AUTOMATED 392 10^3/uL (150-450); RED BLOOD COUNT 3.88 10^6/uL (4.30-6.10); WHITE BLOOD COUNT 10.6 10^3/uL (4.0-10.0)
[2019-04-29 17:44] LABS: ACETAMINOPHEN LEVEL < 2.0 UG/ML (10.0-30.0); ALBUMIN 3.7 GM/DL (3.2-5.2); ALT/SGPT 20 U/L (12-78); BILIRUBIN,DIRECT 0.2 MG/DL (0.0-0.2); BILIRUBIN,TOTAL 0.6 MG/DL (0.2-1.0); BLOOD UREA NITROGEN 11 MG/DL (7-18); CALCIUM LEVEL 9.2 MG/DL (8.5-10.1); CARBON DIOXIDE LEVEL 26 MEQ/L (21-32); CHLORIDE LEVEL 106 MEQ/L (98-107); CREATININE FOR GFR 0.86 MG/DL (0.70-1.30); ETHYL ALCOHOL (ETHANOL) 0.004 % (0.000-0.010); GLOMERULAR FILTRATION RATE > 60.0 (>56); GLUCOSE, FASTING 86 MG/DL (70-100); LITHIUM LEVEL < 0.20 MEQ/L (0.60-1.20); POTASSIUM SERUM 4.1 MEQ/L (3.5-5.1); SALICYLATE LEVEL 3.8 MG/DL (5.0-30.0); SODIUM LEVEL 137 MEQ/L (136-145); TOTAL PROTEIN 6.9 GM/DL (6.4-8.2)
[2019-04-29 17:48] LABS: AMPHETAMINES LEVEL URINE NEGATIVE (NEGATIVE); BARBITURATES URINE NEGATIVE (NEGATIVE); BENZODIAZEPINES URINE NEGATIVE (NEGATIVE); CANNABINOIDS URINE POSITIVE (NEGATIVE); COCAINE METABOLITE URINE NEGATIVE (NEGATIVE); METHADONE URINE NEGATIVE (NEGATIVE); OPIATES URINE NEGATIVE (NEGATIVE); PHENCYCLIDINE URINE NEGATIVE (NEGATIVE)
[2019-04-29] MEDS ORDERED: LURASIDONE 20 MG TAB (LATUDA) PO ONE (19:45)
[2019-04-29] MEDS ORDERED: LITHIUM CARBONATE 600 MG CAP PO ONE (19:45)
[2019-04-29] MEDS ORDERED: LATU1TAB PO (19:48)
[2019-04-29] MEDS ORDERED: LITH600C PO (19:48)
[2019-04-29 20:15] VITALS: BP 131/70
== END 2019-04-29 20:21 | disposition home or self-care (01) ==
LOC: M ED 16:30
DX: Z91.14 Patient's other noncompliance with medication regimen (principal); J45.909 Unspecified asthma, uncomplicated; Z79.899 Other long term (current) drug therapy; Z88.1 Allergy status to other antibiotic agents; Z88.5 Allergy status to narcotic agent; Z88.8 Allergy status to other drugs, medicaments and biological substances
CPT/HCPCS: 80048; 80076; 80178; 80307; 84443; 85027; 94640; 99284; G0480

== ENCOUNTER 2019-04-30 16:50 | Emergency (ER) | payer MEDICARE ==
[~2019-04-30] VITALS: Ht 175.3 cm; Wt 65.9 kg
[2019-04-30 17:38] LABS: HEMATOCRIT 41.6 % (42.0-52.0); HEMOGLOBIN 13.9 g/dl (13.5-17.5); MEAN CORPUSCULAR HEMOGLOBIN 32.6 pg (27.0-33.0); MEAN CORPUSCULAR HGB CONC 33.4 g/dl (32.0-36.5); MEAN CORPUSCULAR VOLUME 97.7 fl (80.0-96.0); PLATELET COUNT, AUTOMATED 385 10^3/uL (150-450); RED BLOOD COUNT 4.26 10^6/uL (4.30-6.10); WHITE BLOOD COUNT 11.9 10^3/uL (4.0-10.0)
[2019-04-30 18:07] LABS: AMPHETAMINES LEVEL URINE NEGATIVE (NEGATIVE); BARBITURATES URINE NEGATIVE (NEGATIVE); BENZODIAZEPINES URINE NEGATIVE (NEGATIVE); CANNABINOIDS URINE POSITIVE (NEGATIVE); COCAINE METABOLITE URINE NEGATIVE (NEGATIVE); METHADONE URINE NEGATIVE (NEGATIVE); OPIATES URINE NEGATIVE (NEGATIVE); PHENCYCLIDINE URINE NEGATIVE (NEGATIVE)
[2019-04-30 18:15] LABS: ACETAMINOPHEN LEVEL < 2.0 UG/ML (10.0-30.0); ALT/SGPT 23 U/L (12-78); BILIRUBIN,DIRECT 0.3 MG/DL (0.0-0.2); BLOOD UREA NITROGEN 9 MG/DL (7-18); CALCIUM LEVEL 9.9 MG/DL (8.5-10.1); CARBON DIOXIDE LEVEL 27 MEQ/L (21-32); CHLORIDE LEVEL 106 MEQ/L (98-107); ETHYL ALCOHOL (ETHANOL) < 0.003 % (0.000-0.010); GLOMERULAR FILTRATION RATE > 60.0 (>56); GLUCOSE, FASTING 78 MG/DL (70-100); POTASSIUM SERUM 4.2 MEQ/L (3.5-5.1); SALICYLATE LEVEL 3.2 MG/DL (5.0-30.0); SODIUM LEVEL 138 MEQ/L (136-145); TOTAL PROTEIN 7.5 GM/DL (6.4-8.2)
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
[2019-04-30] MEDS ORDERED: diphenhydrAMINE INJ 50MG/ML VIAL (J1200) IM ONE (19:00)
[2019-04-30] MEDS ORDERED: LORazepam 2 MG/ML VIAL (J2060) IM ONE (19:00)
[2019-04-30] MEDS ORDERED: HALOPERIDOL 5 MG/ML VIAL (J1630) IM ONE (19:00)
[2019-04-30] MEDS ORDERED: LORazepam 2 MG TAB PO ONE (23:15)
[2019-05-01 02:35] VITALS: BP 102/62
--- NOTE | 2019-05-01 06:58 | ECGEPIP ---
[facility] Test Date: 2019-04-30 Pat Name: MELINDA DOYLE Department: Room: - Gender: Male Protocol Manager: geraldine : 1965 Requested By: CRISTY Brooks Order Number: [id number] Reading MD: Amina Barrett Measurements Intervals [place] Rate: 65 P: 70 MA: 163 QRS: 78 QRSD: 96 T: 65 QT: 406 QTc: 425 Interpretive Statements SINUS RHYTHM STABLE C/W 03/04/18 Electronically Signed on 05-01-2019 6:58:01 EDT by Amina Barrett
== END 2019-05-01 02:43 ==
LOC: M ED 16:50
DX: F29 Unspecified psychosis not due to a substance or known physiological condition (principal); F31.9 Bipolar disorder, unspecified; F41.9 Anxiety disorder, unspecified; F20.9 Schizophrenia, unspecified; Z79.899 Other long term (current) drug therapy; Z88.1 Allergy status to other antibiotic agents; Z88.5 Allergy status to narcotic agent; F17.210 Nicotine dependence, cigarettes, uncomplicated
CPT/HCPCS: 80048; 80076; 80307; 84443; 85027; 93005; 96372; 99285; G0480; J1200; J1630; J2060

== ENCOUNTER 2019-05-24 12:46 | Inpatient (IN) | payer MEDICARE ==
[~2019-05-24] VITALS: Ht 175.3 cm; Wt 69.4 kg
[2019-05-24] MEDS ORDERED: LITH1TAB PO (12:59)
[2019-05-24 14:13] LABS: HEMATOCRIT 42.4 % (42.0-52.0); HEMOGLOBIN 14.1 g/dl (13.5-17.5); MEAN CORPUSCULAR HEMOGLOBIN 32.5 pg (27.0-33.0); MEAN CORPUSCULAR HGB CONC 33.3 g/dl (32.0-36.5); MEAN CORPUSCULAR VOLUME 97.7 fl (80.0-96.0); PLATELET COUNT, AUTOMATED 380 10^3/uL (150-450); RED BLOOD COUNT 4.34 10^6/uL (4.30-6.10)
[2019-05-24 14:28] LABS: AMPHETAMINES LEVEL URINE POSITIVE (NEGATIVE); BARBITURATES URINE NEGATIVE (NEGATIVE); BENZODIAZEPINES URINE NEGATIVE (NEGATIVE); CANNABINOIDS URINE POSITIVE (NEGATIVE); COCAINE METABOLITE URINE NEGATIVE (NEGATIVE); METHADONE URINE NEGATIVE (NEGATIVE); OPIATES URINE NEGATIVE (NEGATIVE); PHENCYCLIDINE URINE NEGATIVE (NEGATIVE)
[2019-05-24 14:38] LABS: ACETAMINOPHEN LEVEL < 2.0 UG/ML (10.0-30.0); ALBUMIN 3.9 GM/DL (3.2-5.2); ALT/SGPT 30 U/L (12-78); BILIRUBIN,DIRECT 0.2 MG/DL (0.0-0.2); BILIRUBIN,TOTAL 0.8 MG/DL (0.2-1.0); BLOOD UREA NITROGEN 14 MG/DL (7-18); CALCIUM LEVEL 9.3 MG/DL (8.5-10.1); CARBON DIOXIDE LEVEL 28 MEQ/L (21-32); CHLORIDE LEVEL 108 MEQ/L (98-107); CREATININE FOR GFR 0.78 MG/DL (0.70-1.30); ETHYL ALCOHOL (ETHANOL) < 0.003 % (0.000-0.010); GLOMERULAR FILTRATION RATE > 60.0 (>56); GLUCOSE, FASTING 93 MG/DL (70-100); POTASSIUM SERUM 4.2 MEQ/L (3.5-5.1); SALICYLATE LEVEL 2.4 MG/DL (5.0-30.0); SODIUM LEVEL 140 MEQ/L (136-145); TOTAL PROTEIN 7.3 GM/DL (6.4-8.2)
[2019-05-24] MEDS ORDERED: LATU1TAB PO (15:10)
[2019-05-24 15:17] LABS: LITHIUM LEVEL 0.54 MEQ/L (0.60-1.20)
[2019-05-24] MEDS ORDERED: ALBUTEROL SULFATE 2.5 MG/0.5 ML INH NEB SOLN NEB ONE (15:45)
[2019-05-24] MEDS ORDERED: LORazepam 2 MG/ML VIAL (J2060) IM STA (17:13)
[2019-05-24] MEDS ORDERED: HALOPERIDOL 5 MG/ML VIAL (J1630) IM STA (17:13)
[2019-05-24] MEDS ORDERED: MAALOX 30 ML SUSP *UDC PO PRN (17:15)
[2019-05-24] MEDS ORDERED: traZODone 50 MG TAB PO PRN (17:15)
[2019-05-24] MEDS ORDERED: MOM 30ML SUSPENSION UDC PO PRN (17:15)
[2019-05-24] MEDS ORDERED: diphenhydrAMINE INJ 50MG/ML VIAL (J1200) IV ONE (17:15)
[2019-05-24] MEDS ORDERED: haloperidoL 5 MG TAB PO STA (19:18)
[2019-05-24] MEDS ORDERED: diphenhydrAMINE 50 MG CAP PO STA (19:18)
[2019-05-24] MEDS ORDERED: LORazepam 2 MG TAB PO STA (19:18)
[2019-05-24 20:26] VITALS: BP 126/72
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
[2019-05-24] MEDS ORDERED: haloperidoL 5 MG TAB PO PRN (23:30)
[2019-05-25] MEDS: chlorproMAZINE 25 MG TAB (Q0161) PO SCH ×3 (09:00→21:00)
[2019-05-25] MEDS: ALBUTEROL 90 MCG/ACT 8GM HFA INHALER INH PRN (10:27)
[2019-05-25] MEDS: LITHIUM CARBONATE 300 MG **CR** TAB PO SCH ×2 (10:45→21:11)
[2019-05-25] MEDS ORDERED: chlorproMAZINE 25 MG TAB (Q0161) PO PRN (10:45)
[2019-05-25] MEDS: LORazepam 2 MG TAB PO PRN (12:10)
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
[2019-05-25] MEDS: COMBIVENT RESPIMAT 100-20MCG INHALER 4GM INH SCH (16:00)
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
[2019-05-25 18:00] VITALS: BP 140/85
[2019-05-25] MEDS: PALIPERIDONE 3 MG ER TAB (INVEGA) PO SCH (21:00)
[2019-05-25] MEDS: LURASIDONE 20 MG TAB (LATUDA) PO SCH (21:12)
[2019-05-26] MEDS: LORazepam 2 MG TAB PO PRN ×3 (00:42→13:46)
[2019-05-26] MEDS: ALBUTEROL 90 MCG/ACT 8GM HFA INHALER INH PRN ×2 (00:44→07:48)
[2019-05-26] MEDS: COMBIVENT RESPIMAT 100-20MCG INHALER 4GM INH SCH ×2 (00:44→07:51)
[2019-05-26] MEDS: LITHIUM CARBONATE 300 MG **CR** TAB PO SCH ×2 (07:48→22:00)
[2019-05-26] MEDS: chlorproMAZINE 25 MG TAB (Q0161) PO SCH ×3 (08:11→22:00)
--- NOTE | 2019-05-26 09:47 | IPNPDOC ---
Text Note Date of Service The patient was seen on 05/26/19. NOTE Subjective: denies chest pain, denies SOB, states he usually uses albuterol only 4 times a day Objective GENERAL: NAD SKIN : Warm, dry intact HEENT: Atraumatic, normocephalic, PERRL, moist mucous membrane CARDIOVASCULAR: Regular rate and rhythm, S1S2, no JVD, no edema, distal pulses + palpable RESP: CTAB, no accessory muscle use noted ABDOMEN: BS+ non distended non tender MS: no joint deformities NEURO: Alert and oriented x 3, CN2-12 grossly intact PSYCH:no anxiety or agitation Assessment/Plan Asthma -chest x-ray ordered for posterior wheezes declined by patient -exam is normal today -continue Albuterol inhaler QID Nicotine dependence -Counseling and management by primary team Polysubstance abuse -Management per primary team Schizophrenia -With homicidal ideation and extreme agitation -Management per primary team VS,Fishbone, I+O VS, Fishbone, I+O Vital Signs Date Time Temp Pulse Resp B/P (MAP) Pulse Ox O2 Delivery O2 Flow Rate FiO2 05/25/19 18:00 98.9 80 16 140/85 (103) 05/25/19 10:30 Room Air 05/24/19 20:26 95 TELLO PIERRE May 26, 2019 09:47
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
[2019-05-26 10:53] LABS: HEPATITIS B SURFACE ANTIGEN NEGATIVE (NEGATIVE)
[2019-05-26 11:21] LABS: HEPATITIS C VIRUS ABY INDEX 0.1 INDEX (<0.8)
[2019-05-26 11:22] LABS: HEPATITIS B CORE ANTIBODY IGM NEGATIVE (NEGATIVE)
[2019-05-26 11:34] LABS: HEPATITIS A ANTIBODY IGM NEGATIVE (NEGATIVE)
[2019-05-26] MEDS: ALBUTEROL 90 MCG/ACT 8GM HFA INHALER INH SCH ×4 (12:00→22:00)
[2019-05-26 18:00] VITALS: BP 111/71
[2019-05-26] MEDS: LURASIDONE 20 MG TAB (LATUDA) PO SCH (22:00)
[2019-05-26] MEDS: PALIPERIDONE 3 MG ER TAB (INVEGA) PO SCH (22:00)
[2019-05-27] MEDS: ALBUTEROL 90 MCG/ACT 8GM HFA INHALER INH PRN (05:56)
[2019-05-27 06:18] VITALS: BP 151/76
[2019-05-27] MEDS: LITHIUM CARBONATE 300 MG **CR** TAB PO SCH ×2 (10:04→23:32)
[2019-05-27] MEDS: chlorproMAZINE 25 MG TAB (Q0161) PO SCH ×2 (10:04→15:05)
[2019-05-27] MEDS: ALBUTEROL 90 MCG/ACT 8GM HFA INHALER INH SCH ×5 (10:04→23:32)
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
[2019-05-27] MEDS: LURASIDONE 20 MG TAB (LATUDA) PO SCH (23:32)
[2019-05-28 06:45] VITALS: BP 109/59
[2019-05-28] MEDS: LITHIUM CARBONATE 300 MG **CR** TAB PO SCH ×2 (08:19→22:06)
[2019-05-28] MEDS: ALBUTEROL 90 MCG/ACT 8GM HFA INHALER INH SCH ×6 (08:19→22:02)
[2019-05-28] MEDS: ACETAMINOPHEN TAB 650MG DOSE (2X325MG) PO PRN (12:01)
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
[2019-05-28 18:10] VITALS: BP 124/70
[2019-05-28] MEDS ORDERED: LITHIUM CARBONATE 600 MG CAP PO SCH (21:00)
[2019-05-28] MEDS: LURASIDONE 20 MG TAB (LATUDA) PO SCH (22:03)
[2019-05-29] MEDS: ALBUTEROL 90 MCG/ACT 8GM HFA INHALER INH PRN (05:14)
[2019-05-29 05:55] VITALS: BP 164/118
[2019-05-29] MEDS: ACETAMINOPHEN TAB 650MG DOSE (2X325MG) PO PRN ×2 (06:40→17:27)
[2019-05-29 06:50] VITALS: BP 144/72
[2019-05-29 07:05] VITALS: BP 140/76
[2019-05-29] MEDS: ALBUTEROL 90 MCG/ACT 8GM HFA INHALER INH SCH ×4 (08:56→20:00)
[2019-05-29] MEDS: LITHIUM CARBONATE 300 MG **CR** TAB PO SCH ×2 (08:56→21:29)
[2019-05-29 13:41] VITALS: BP 140/76
[2019-05-29 18:00] VITALS: BP 127/80
[2019-05-29] MEDS: LURASIDONE 20 MG TAB (LATUDA) PO SCH (21:30)
[2019-05-30] MEDS: ALBUTEROL 90 MCG/ACT 8GM HFA INHALER INH PRN (05:06)
[2019-05-30 06:37] VITALS: BP 127/62
[2019-05-30] MEDS: ALBUTEROL 90 MCG/ACT 8GM HFA INHALER INH SCH ×4 (08:26→20:00)
[2019-05-30] MEDS: LITHIUM CARBONATE 300 MG **CR** TAB PO SCH ×2 (08:27→21:00)
[2019-05-30] MEDS: ACETAMINOPHEN TAB 650MG DOSE (2X325MG) PO PRN (12:04)
[2019-05-30 14:12] VITALS: BP 127/62
[2019-05-30 18:00] VITALS: BP 134/62
[2019-05-30 20:54] VITALS: BP 134/62
[2019-05-30] MEDS: LURASIDONE 20 MG TAB (LATUDA) PO SCH (21:00)
[2019-05-31] MEDS: ALBUTEROL 90 MCG/ACT 8GM HFA INHALER INH PRN (05:34)
[2019-05-31] MEDS: ACETAMINOPHEN TAB 650MG DOSE (2X325MG) PO PRN (06:13)
[2019-05-31 06:50] VITALS: BP 108/70
[2019-05-31] MEDS: LITHIUM CARBONATE 300 MG **CR** TAB PO SCH ×2 (09:06→21:00)
[2019-05-31] MEDS: ALBUTEROL 90 MCG/ACT 8GM HFA INHALER INH SCH ×4 (09:07→20:00)
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
[2019-05-31] MEDS: LORazepam 2 MG TAB PO PRN (12:06)
[2019-05-31] MEDS ORDERED: LORazepam 2 MG TAB PO PRN (12:15)
[2019-05-31 18:18] VITALS: BP 118/73
[2019-05-31] MEDS: LURASIDONE 20 MG TAB (LATUDA) PO SCH (21:00)
[2019-06-01 06:48] VITALS: BP 117/62
[2019-06-01] MEDS: ALBUTEROL 90 MCG/ACT 8GM HFA INHALER INH SCH ×5 (08:00→20:00)
[2019-06-01] MEDS: LITHIUM CARBONATE 300 MG **CR** TAB PO SCH ×2 (08:43→21:00)
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
[2019-06-01] MEDS ORDERED: PALIPERIDONE PALMITATE 234MG/1.5ML INJ (INVEGA)(J2426)(FREE PSY INPT ONLY) IM ONE (15:30)
[2019-06-01] MEDS: ACETAMINOPHEN TAB 650MG DOSE (2X325MG) PO PRN (17:06)
[2019-06-01 17:53] VITALS: BP 116/63
[2019-06-01 18:00] VITALS: BP 116/63
[2019-06-02 06:54] VITALS: BP 104/53
[2019-06-02] MEDS: ALBUTEROL 90 MCG/ACT 8GM HFA INHALER INH SCH ×4 (07:12→20:00)
[2019-06-02] MEDS: ACETAMINOPHEN TAB 650MG DOSE (2X325MG) PO PRN (07:12)
[2019-06-02] MEDS: LITHIUM CARBONATE 300 MG **CR** TAB PO SCH (09:00)
[2019-06-02] MEDS: **PENDING PPD ENTRY XX SCH (09:00)
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
[2019-06-02 18:00] VITALS: BP 115/61
[2019-06-02] MEDS: ALBUTEROL 90 MCG/ACT 8GM HFA INHALER INH PRN (21:34)
[2019-06-03 06:39] VITALS: BP 94/54
[2019-06-03] MEDS: ALBUTEROL 90 MCG/ACT 8GM HFA INHALER INH PRN ×2 (06:43→22:57)
[2019-06-03] MEDS: ACETAMINOPHEN TAB 650MG DOSE (2X325MG) PO PRN ×2 (06:45→17:42)
[2019-06-03] MEDS: ALBUTEROL 90 MCG/ACT 8GM HFA INHALER INH SCH ×4 (08:00→20:00)
[2019-06-03] MEDS: **PENDING PPD ENTRY XX SCH (09:00)
[2019-06-03] MEDS: LORazepam 2 MG TAB PO PRN (12:16)
[2019-06-03 18:00] VITALS: BP 109/62
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
[2019-06-04] MEDS: ACETAMINOPHEN TAB 650MG DOSE (2X325MG) PO PRN (06:00)
[2019-06-04 06:11] VITALS: BP 132/65
[2019-06-04] MEDS: ALBUTEROL 90 MCG/ACT 8GM HFA INHALER INH SCH ×5 (08:00→20:00)
[2019-06-04] MEDS ORDERED: PALIPERIDONE PALMITATE 156MG/1ML INJ(INVEGA)(J2426)(FREE PSY INPT ONLY) IM ONE (08:00)
[2019-06-04] MEDS ORDERED: PPD DOCUMENTATION ENTRY MISC XX SCH (10:00)
[2019-06-04] MEDS ORDERED: TUBERCULIN PPD 5 UNITS/0.1 ML ID ONE ×2 (12:00→14:00)
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
[2019-06-04] MEDS: ALBUTEROL 90 MCG/ACT 8GM HFA INHALER INH PRN (14:32)
[2019-06-04 18:13] VITALS: BP 133/75
[2019-06-04] MEDS: diphenhydrAMINE 50 MG CAP PO PRN (20:53)
[2019-06-04] MEDS: LORazepam 2 MG TAB PO PRN (20:55)
[2019-06-05] MEDS ORDERED: QUEtiapine FUMARATE 50 MG TAB PO ONE (01:30)
[2019-06-05] MEDS: LORazepam 2 MG TAB PO PRN (02:05)
[2019-06-05 06:00] VITALS: BP 99/71
[2019-06-05] MEDS: ACETAMINOPHEN TAB 650MG DOSE (2X325MG) PO PRN (06:39)
[2019-06-05] MEDS: ALBUTEROL 90 MCG/ACT 8GM HFA INHALER INH SCH ×4 (08:00→20:00)
--- NOTE | 2019-06-05 16:13 | ECGEPIP ---
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 NO SIGNIFICANT CHANGES BUT NOW SLOWER HEART RATE Electronically Signed on 06-05-2019 16:13:46 EDT by Zay Lewis
[2019-06-05 18:03] VITALS: BP 102/58
[2019-06-06] MEDS: ALBUTEROL 90 MCG/ACT 8GM HFA INHALER INH PRN ×2 (04:06→14:10)
[2019-06-06] MEDS: ACETAMINOPHEN TAB 650MG DOSE (2X325MG) PO PRN (06:22)
[2019-06-06 06:52] VITALS: BP 134/82
[2019-06-06] MEDS: ALBUTEROL 90 MCG/ACT 8GM HFA INHALER INH SCH ×4 (08:00→19:32)
[2019-06-06] MEDS ORDERED: PPD DOCUMENTATION ENTRY MISC XX ONE (12:00)
[2019-06-06 18:45] VITALS: BP 145/77
[2019-06-07] MEDS: ALBUTEROL 90 MCG/ACT 8GM HFA INHALER INH PRN (05:48)
[2019-06-07 06:42] VITALS: BP 145/57
[2019-06-07] MEDS: ALBUTEROL 90 MCG/ACT 8GM HFA INHALER INH SCH ×5 (08:51→20:45)
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
[2019-06-07] MEDS: BACTRIM 160MG/800MG DS TAB PO SCH ×2 (10:55→20:43)
[2019-06-07 15:58] VITALS: BP 131/77
[2019-06-07] MEDS: ACETAMINOPHEN TAB 650MG DOSE (2X325MG) PO PRN (16:53)
--- NOTE | 2019-06-07 20:46 | IPN ---
DATE: 06/07/2019 He is a 54-year-old male on the inpatient mental health unit for unspecified psychotic behavior. He requested to be seen for followup on a perirectal abscess he was diagnosed with in April. Nurse Asha and the sitter were present for the exam. He states he had taken an antibiotic; it was better, but he wanted it followed up. He has been afebrile. He states he has moved his bowels without difficulty. He has no pain in the area. OBJECTIVE: The patient is alert and oriented times three. Pupils equal and reactive to light. Pharynx: Tongue and gums pink and moist. Tongue is midline. Neck is supple without lymphadenopathy. Chest is clear to auscultation. Heart is regular. Abdomen: Benign. Bowel sounds are positive. Perianal area has a very small swollen area near the rectum. Slightly reddened, no drainage. Extremities: No cyanosis, clubbing or edema. Peripheral pulses equal and palpable bilaterally. IMPRESSION/PLAN: Perirectal abscess, very small. Will give Bactrim DS one by mouth twice a day for 7 days. If it does not resolve, the patient will need referral for surgical consult. Will monitor closely. Psychiatric plan per psychiatry.
[2019-06-08] MEDS: ALBUTEROL 90 MCG/ACT 8GM HFA INHALER INH PRN (05:34)
[2019-06-08] MEDS: ACETAMINOPHEN TAB 650MG DOSE (2X325MG) PO PRN (05:58)
[2019-06-08 06:46] VITALS: BP 117/72
[2019-06-08] MEDS: ALBUTEROL 90 MCG/ACT 8GM HFA INHALER INH SCH ×4 (08:59→20:00)
[2019-06-08] MEDS: BACTRIM 160MG/800MG DS TAB PO SCH (08:59)
[2019-06-08 16:38] VITALS: BP 120/72
[2019-06-09] MEDS: ALBUTEROL 90 MCG/ACT 8GM HFA INHALER INH PRN (02:24)
[2019-06-09] MEDS: BACTRIM 160MG/800MG DS TAB PO SCH ×3 (02:30→21:13)
[2019-06-09 06:48] VITALS: BP 133/81
[2019-06-09] MEDS: ALBUTEROL 90 MCG/ACT 8GM HFA INHALER INH SCH ×4 (08:35→21:16)
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
[2019-06-09 18:00] VITALS: BP 132/80
[2019-06-10] MEDS: ALBUTEROL 90 MCG/ACT 8GM HFA INHALER INH PRN ×2 (03:23→17:40)
[2019-06-10 06:49] VITALS: BP 127/69
[2019-06-10] MEDS: ALBUTEROL 90 MCG/ACT 8GM HFA INHALER INH SCH ×4 (09:14→20:00)
[2019-06-10] MEDS: BACTRIM 160MG/800MG DS TAB PO SCH ×2 (09:14→20:16)
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
[2019-06-10 18:00] VITALS: BP 133/74
[2019-06-10] MEDS ORDERED: LORazepam 2 MG TAB PO STA (18:56)
[2019-06-10] MEDS ORDERED: diphenhydrAMINE 50 MG CAP PO STA (18:56)
[2019-06-11] MEDS: ALBUTEROL 90 MCG/ACT 8GM HFA INHALER INH PRN (05:47)
[2019-06-11] MEDS: BACTRIM 160MG/800MG DS TAB PO SCH ×3 (08:57→22:04)
[2019-06-11] MEDS: ALBUTEROL 90 MCG/ACT 8GM HFA INHALER INH SCH ×5 (08:57→20:00)
[2019-06-11] MEDS: ACETAMINOPHEN TAB 650MG DOSE (2X325MG) PO PRN (09:08)
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
[2019-06-11 18:33] VITALS: BP 114/65
[2019-06-12] MEDS: ALBUTEROL 90 MCG/ACT 8GM HFA INHALER INH PRN (04:05)
[2019-06-12 06:43] VITALS: BP 138/87
[2019-06-12] MEDS: ALBUTEROL 90 MCG/ACT 8GM HFA INHALER INH SCH ×4 (08:33→20:21)
[2019-06-12] MEDS: BACTRIM 160MG/800MG DS TAB PO SCH ×2 (08:33→20:21)
[2019-06-12] MEDS: ACETAMINOPHEN TAB 650MG DOSE (2X325MG) PO PRN (11:14)
[2019-06-12] MEDS: diphenhydrAMINE 50 MG CAP PO PRN (11:26)
[2019-06-12] MEDS: BENZTROPINE 0.5 MG TAB PO SCH ×2 (12:18→20:21)
[2019-06-12 18:00] VITALS: BP 131/67
[2019-06-13] MEDS: ALBUTEROL 90 MCG/ACT 8GM HFA INHALER INH PRN (05:11)
[2019-06-13 06:49] VITALS: BP 137/79
[2019-06-13] MEDS: ALBUTEROL 90 MCG/ACT 8GM HFA INHALER INH SCH ×4 (07:30→21:21)
[2019-06-13] MEDS: BACTRIM 160MG/800MG DS TAB PO SCH ×2 (08:57→21:21)
[2019-06-13] MEDS: BENZTROPINE 0.5 MG TAB PO SCH (08:57)
[2019-06-13] MEDS: BENZTROPINE 1 MG TAB PO SCH (17:04)
[2019-06-13 18:00] VITALS: BP 127/66
[2019-06-14] VITALS (7 sets, daily range): BP systolic 105–121; BP diastolic 63–80
[2019-06-14] MEDS: BENZTROPINE 1 MG TAB PO SCH (06:17)
[2019-06-14] MEDS: ALBUTEROL 90 MCG/ACT 8GM HFA INHALER INH SCH ×2 (08:00→10:58)
[2019-06-14] MEDS ORDERED: diphenhydrAMINE INJ 50MG/ML VIAL (J1200) IM ONE (10:45)
[2019-06-14] MEDS ORDERED: HALOPERIDOL 5 MG/ML VIAL (J1630) IM ONE (10:45)
[2019-06-14] MEDS ORDERED: LORazepam 2 MG/ML VIAL (J2060) IM ONE (10:45)
[2019-06-14] MEDS ORDERED: INVE156I IM (11:48)
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
== END 2019-06-14 13:15 | disposition home or self-care (01) | DRG 885 ==
LOC: M ED 12:46 → M ED INP 17:15 → M PSY 19:53
PROVIDERS: ADMIT Psychiatry & Neurology Addiction Medicine; ATTEND Psychiatry & Neurology Addiction Medicine
DX: F25.0 Schizoaffective disorder, bipolar type (principal); F15.20 Other stimulant dependence, uncomplicated; K61.1 Rectal abscess; F12.20 Cannabis dependence, uncomplicated; J45.909 Unspecified asthma, uncomplicated; F60.2 Antisocial personality disorder; F17.210 Nicotine dependence, cigarettes, uncomplicated; Z79.899 Other long term (current) drug therapy; Z88.1 Allergy status to other antibiotic agents; Z88.5 Allergy status to narcotic agent; Z85.51 Personal history of malignant neoplasm of bladder; Z90.49 Acquired absence of other specified parts of digestive tract; Z76.5 Malingerer [conscious simulation]

== ENCOUNTER 2019-08-26 12:21 | Emergency (ER) | payer MEDICARE ==
[~2019-08-26] VITALS: Ht 175.3 cm; Wt 68.2 kg
[~2019-08-26 12:21] MED LIST changes: +INVE156I IM
[2019-08-26 13:56] LABS: HEMATOCRIT 40.1 % (42.0-52.0); HEMOGLOBIN 13.1 g/dl (13.5-17.5); MEAN CORPUSCULAR HGB CONC 32.7 g/dl (32.0-36.5); MEAN CORPUSCULAR VOLUME 97.8 fl (80.0-96.0); PLATELET COUNT, AUTOMATED 362 10^3/uL (150-450); WHITE BLOOD COUNT 9.1 10^3/uL (4.0-10.0)
[2019-08-26 14:21] LABS: AMPHETAMINES LEVEL URINE NEGATIVE (NEGATIVE); BARBITURATES URINE NEGATIVE (NEGATIVE); BENZODIAZEPINES URINE NEGATIVE (NEGATIVE); CANNABINOIDS URINE POSITIVE (NEGATIVE); COCAINE METABOLITE URINE NEGATIVE (NEGATIVE); METHADONE URINE NEGATIVE (NEGATIVE); OPIATES URINE NEGATIVE (NEGATIVE); PHENCYCLIDINE URINE NEGATIVE (NEGATIVE)
[2019-08-26 14:29] LABS: ACETAMINOPHEN LEVEL < 2.0 UG/ML (10.0-30.0); ALBUMIN 3.9 GM/DL (3.2-5.2); ALT/SGPT 26 U/L (12-78); BILIRUBIN,DIRECT 0.1 MG/DL (0.0-0.2); BILIRUBIN,TOTAL 0.5 MG/DL (0.2-1.0); BLOOD UREA NITROGEN 8 MG/DL (7-18); CALCIUM LEVEL 9.4 MG/DL (8.5-10.1); CARBON DIOXIDE LEVEL 29 MEQ/L (21-32); CHLORIDE LEVEL 107 MEQ/L (98-107); CREATININE FOR GFR 0.82 MG/DL (0.70-1.30); ETHYL ALCOHOL (ETHANOL) < 0.003 % (0.000-0.010); GLOMERULAR FILTRATION RATE > 60.0 (>56); GLUCOSE, FASTING 128 MG/DL (70-100); POTASSIUM SERUM 4.1 MEQ/L (3.5-5.1); SALICYLATE LEVEL 2.9 MG/DL (5.0-30.0); SODIUM LEVEL 143 MEQ/L (136-145); TOTAL PROTEIN 7.6 GM/DL (6.4-8.2)
[2019-08-26] MEDS ORDERED: PALIPERIDONE PALMITATE 156MG/1ML INJ(INVEGA)(J2426)(FREE PSY INPT ONLY) IM ONE (15:00)
[2019-08-26] MEDS ORDERED: BENZ2TAB5 PO (15:03)
[2019-08-26 15:18] VITALS: BP 168/87
== END 2019-08-26 15:20 | disposition home or self-care (01) ==
LOC: M ED 12:21
DX: Z04.6 Encounter for general psychiatric examination, requested by authority (principal); F99 Mental disorder, not otherwise specified; J44.9 Chronic obstructive pulmonary disease, unspecified; F17.210 Nicotine dependence, cigarettes, uncomplicated; Z88.1 Allergy status to other antibiotic agents; Z88.8 Allergy status to other drugs, medicaments and biological substances; Z79.899 Other long term (current) drug therapy; Z91.14 Patient's other noncompliance with medication regimen
CPT/HCPCS: 80048; 80076; 80307; 84443; 85027; 96372; 99284; G0480; J2426

== ENCOUNTER 2020-01-24 10:08 | Inpatient (IN) | payer MEDICARE ==
[~2020-01-24] VITALS: Ht 175.3 cm; Wt 66.1 kg
[~2020-01-24 10:08] MED LIST changes: +BENZ2TAB5 PO; -LIDO1SOL8 PO; +LIDO2SOL17 PO
[2020-01-24 10:52] LABS: BASO # 0.1 10^3/uL (0.0-0.2); BASO % 0.2 % (0.0-1.0); EOS % 0.1 % (0.0-3.0); HEMATOCRIT 45.3 % (42.0-52.0); LYMPH # 1.5 10^3/uL (1.5-5.0); LYMPH % 6.4 % (24.0-44.0); MEAN CORPUSCULAR HEMOGLOBIN 31.8 pg (27.0-33.0); MEAN CORPUSCULAR VOLUME 84.8 fl (80.0-96.0); MONO # 1.9 10^3/uL (0.0-0.8); MONO % 8.4 % (0.0-5.0); NEUTROPHILS # 18.9 10^3/uL (1.5-8.5); NEUTROPHILS % 83.8 % (36.0-66.0); PLATELET COUNT, AUTOMATED 459 10^3/uL (150-450); RED BLOOD COUNT 5.34 10^6/uL (4.30-6.10); WHITE BLOOD COUNT 22.6 10^3/uL (4.0-10.0)
[2020-01-24 10:53] LABS: MEAN CORPUSCULAR HGB CONC 37.5 g/dl (32.0-36.5)
[2020-01-24] MEDS ORDERED: IPRATROPIUM 0.5MG/ALBUTEROL 2.5MG INH SOL UD 3ML (DUONEB)(J7620) NEB PRN ×2 (11:00→13:30)
[2020-01-24] MEDS ORDERED: methylPREDNISolone INJ 125 MG/2 ML VIAL (J2930) IV ONE (11:00)
--- NOTE | 2020-01-24 11:57 | REP ---
REASON: Cough and dyspnea. FINDINGS: The technique utilized in obtaining the radiograph has magnified the cardiac silhouette and accentuated the interstitial markings. The superior mediastinal structures are midline. The cardiac silhouette is unremarkable in size, shape, and position. The diaphragmatic surfaces of the lungs are regular, and the costophrenic angles are clear. The pulmonary hollins are clear. The imaged osseous structures are intact. IMPRESSION: There is no acute cardiopulmonary disease. Electronically Signed by Chance Abarca DO 01/24/2020 12:05 P
[2020-01-24 11:58] LABS: ALT/SGPT 80 U/L (12-78); BILIRUBIN,DIRECT 0.4 MG/DL (0.0-0.2); BILIRUBIN,TOTAL 2.4 MG/DL (0.2-1.0); BLOOD UREA NITROGEN 119 MG/DL (7-18); CALCIUM LEVEL 9.1 MG/DL (8.5-10.1); CARBON DIOXIDE LEVEL 31 MEQ/L (21-32); CHLORIDE LEVEL 60 MEQ/L (98-107); CK-MB VALUE MASS 39.9 NG/ML (<3.6); CPK CREATINE PHOSPHOKINASE 2499 U/L (39-308); CREATININE FOR GFR 5.97 MG/DL (0.70-1.30); GLOMERULAR FILTRATION RATE 10.6 (>56); GLUCOSE, FASTING 116 MG/DL (70-100); POTASSIUM SERUM 4.6 MEQ/L (3.5-5.1); SODIUM LEVEL 106 MEQ/L (136-145); TOTAL PROTEIN 9.1 GM/DL (6.4-8.2); TROPONIN I < 0.02 NG/ML (< 0.10)
[2020-01-24] MEDS ORDERED: COMBIVENT RESPIMAT 100-20MCG INHALER 4GM INH ONE (12:00)
[2020-01-24] MEDS ORDERED: NS 1,000 ML IV ONE (12:15)
[2020-01-24] MEDS ORDERED: ACETAMINOPHEN TAB 650MG DOSE (2X325MG) PO ONE (12:15)
[2020-01-24] MEDS ORDERED: ACETAMINOPHEN TAB 650MG DOSE (2X325MG) PO PRN (12:45)
[2020-01-24 12:58] LABS: ACETAMINOPHEN LEVEL < 2.0 UG/ML (10.0-30.0); ALT/SGPT 74 U/L (12-78); BILIRUBIN,DIRECT 0.5 MG/DL (0.0-0.2); BILIRUBIN,TOTAL 2.1 MG/DL (0.2-1.0); BLOOD UREA NITROGEN 118 MG/DL (7-18); CALCIUM LEVEL 9.2 MG/DL (8.5-10.1); CARBON DIOXIDE LEVEL 31 MEQ/L (21-32); CHLORIDE LEVEL 60 MEQ/L (98-107); CREATININE FOR GFR 5.85 MG/DL (0.70-1.30); ETHYL ALCOHOL (ETHANOL) < 0.003 % (0.000-0.010); GLOMERULAR FILTRATION RATE 10.9 (>56); GLUCOSE, FASTING 117 MG/DL (70-100); POTASSIUM SERUM 4.6 MEQ/L (3.5-5.1); SALICYLATE LEVEL < 1.7 MG/DL (5.0-30.0); SODIUM LEVEL 107 MEQ/L (136-145)
[2020-01-24 13:16] LABS: OSMOLALITY URINE 324 MOSM/KG (500-800)
[2020-01-24 13:43] LABS: AMPHETAMINES LEVEL URINE NEGATIVE (NEGATIVE); BARBITURATES URINE NEGATIVE (NEGATIVE); BENZODIAZEPINES URINE NEGATIVE (NEGATIVE); CANNABINOIDS URINE NEGATIVE (NEGATIVE); COCAINE METABOLITE URINE NEGATIVE (NEGATIVE); CREATININE,RANDOM URINE 72.7 MG/DL; METHADONE URINE NEGATIVE (NEGATIVE); OPIATES URINE NEGATIVE (NEGATIVE); PHENCYCLIDINE URINE NEGATIVE (NEGATIVE); SODIUM,RANDOM URINE < 10 MEQ/L
[2020-01-24 14:36] LABS: INR 0.99; PROTHROMBIN TIME 12.8 SECONDS (11.8-14.0)
[2020-01-24] MEDS ORDERED: BENZ-52 PO (14:41)
[2020-01-24] MEDS ORDERED: INVE156I IM (14:42)
[2020-01-24] MEDS ORDERED: COMBIVENT RESPIMAT 100-20MCG INHALER 4GM INH PRN (14:45)
[2020-01-24 15:05] VITALS: BP 131/81
[2020-01-24 15:06] LABS: FREE T4 1.67 NG/DL (0.76-1.46); THYROID STIMULATING HORMONE 0.545 uIU/ML (0.358-3.740)
[2020-01-24] MEDS: NS 1,000 ML IV SCH ×2 (15:57→20:33)
[2020-01-24] MEDS ORDERED: IPRATROPIUM 0.5MG/ALBUTEROL 2.5MG INH SOL UD 3ML (DUONEB)(J7620) NEB SCH (16:00)
[2020-01-24] MEDS: COMBIVENT RESPIMAT 100-20MCG INHALER 4GM INH SCH (16:17)
[2020-01-24] MEDS: MAALOX 30 ML SUSP *UDC PO PRN (16:35)
[2020-01-24] MEDS: predniSONE 20 MG TAB PO SCH (17:28)
[2020-01-24 17:39] LABS: BLOOD UREA NITROGEN 123 MG/DL (7-18); CALCIUM LEVEL 8.9 MG/DL (8.5-10.1); CARBON DIOXIDE LEVEL 32 MEQ/L (21-32); CHLORIDE LEVEL 62 MEQ/L (98-107); CK-MB VALUE MASS 25.1 NG/ML (<3.6); CPK CREATINE PHOSPHOKINASE 1647 U/L (39-308); CREATININE FOR GFR 5.73 MG/DL (0.70-1.30); GLOMERULAR FILTRATION RATE 11.1 (>56); GLUCOSE, FASTING 160 MG/DL (70-100); MB/CK RELATIVE INDEX 1.52 (< OR =4); POTASSIUM SERUM 4.6 MEQ/L (3.5-5.1); SODIUM LEVEL 107 MEQ/L (136-145); TROPONIN I < 0.02 NG/ML (< 0.10)
--- NOTE | 2020-01-24 18:45 | CR ---
DATE OF CONSULTATION: 01/24/2020 NEPHROLOGY CONSULTATION FOR: Dr. Babita Mattson REASON FOR CONSULTATION: Acute renal failure and severe hyponatremia. HISTORY OF PRESENT ILLNESS: Mr. Caballero is a 54-year-old gentleman with significant psych issues. He has been admitted with psychosis multiple times. He was brought to the emergency room today with complaints of cough and shortness of breath. He was found to have acute renal failure with BUN 119 and creatinine 5.97. His sodium level was 106. Apparently he did have some diarrhea and vomiting a few days ago. He is not known to have any history of diabetes or hypertension. His prior admissions have been mostly due to psychosis and suicidal issues. PAST MEDICAL AND SURGICAL HISTORY: Significant for psychosis and multiple admissions for the same reason. MEDICATIONS: His home medications included benztropine 1 mg tablet twice a day and Invega injection 156 mg once a month. ALLERGIES: The patient has allergy to ERYTHROMYCIN, TRAMADOL, AZITHROMYCIN. PERSONAL AND SOCIAL HISTORY: The patient has a history of psychosis and noncompliance. FAMILY HISTORY: Noncontributory for this admission. Apparently there is no other family members sick with diarrhea or respiratory symptoms. REVIEW OF SYSTEMS: The patient denies any fever or chills. He reports some diarrhea, which has now resolved. Ears, nose and throat are unremarkable. Cardiovascular system is negative for chest pain, dyspnea or leg edema. Respiratory system is significant for cough. Gastrointestinal (GI) system is as per history of present illness. Genitourinary () system is negative for dysuria or hematuria. Musculoskeletal system is negative for any leg edema or arthritis. Psychosocial system is significant for psychosis and multiple admissions for same problems. Neurological system is negative for seizures or stroke. Skin is negative for rash or ulcers. PHYSICAL EXAMINATION: Temperature is 97.4 degrees Fahrenheit, heart rate 107 per minute and respiratory rate 20 per minute. Blood pressure 135/74 mmHg and oxygen saturation is 90%. His head is atraumatic. Neck: Supple and without jugular venous distention (JVD) or thyroid enlargement. Heart sounds are regular and lungs sound clear to auscultation. Abdomen: Soft and nontender. Bowel sounds are normal. Extremities: Without any cyanosis or clubbing. Skin is without any rash or ulcers. Neurologically, he is awake and without a focal deficit. LABORATORY DATA: Sodium 106, potassium 4.6, chloride 60, CO2 31, BUN 119 and creatinine 5.97. A repeat sodium was 107 and another one is again 107 at 4:40 p.m. today. His chloride is 62, BUN 123 and creatinine 5.73. Glucose is 160 and calcium 8.9. Initial CPK was 2499 and a repeat CPK is 1647. Urine osmolarity is 324 and urine sodium is less than 10. Toxicology showed salicylates less than 1.7 and acetaminophen less than 2.0. Otherwise his toxicology screen was negative. Chest x-ray done in the emergency room was reported negative for any infiltrate or effusion. PROBLEMS: 1. Acute renal failure. Most likely prerenal azotemia, and the patient is being hydrated with IV fluid. In view of severe hyponatremia, we should avoid giving him excess amount of sodium containing fluids. He can be hydrated with half-normal saline in addition to normal saline that he is already receiving at 80 mL per hour. His electrolytes will need to be checked frequently. 2. Hyponatremia. Sodium level remains at 107. He is getting IV normal saline at 80 mL per hour. He is hemodynamically stable and will continue with current IV fluid until his electrolytes are repeated again in 4 hours. Then, we will consider to adjust his normal saline and consider other IV fluids if needed. The patient is without any symptoms at present, and I would hold off on any use of hypertonic saline. Thank you for involving me in the care of your patient. I will follow him along with you.
[2020-01-24] MEDS ORDERED: methylPREDNISolone INJ 125 MG/2 ML VIAL (J2930) IV SCH (19:00)
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
[2020-01-24 20:00] VITALS: BP 141/72
[2020-01-24] MEDS: BENZTROPINE 1 MG TAB PO SCH (20:31)
[2020-01-24 20:39] LABS: CALCIUM LEVEL 8.8 MG/DL (8.5-10.1); CREATININE FOR GFR 5.32 MG/DL (0.70-1.30); GLOMERULAR FILTRATION RATE 12.1 (>56); POTASSIUM SERUM 5.1 MEQ/L (3.5-5.1)
[2020-01-25] VITALS: BP 145/74
[2020-01-25] MEDS: COMBIVENT RESPIMAT 100-20MCG INHALER 4GM INH SCH ×2 (00:49→08:31)
[2020-01-25 01:03] LABS: BLOOD UREA NITROGEN 110 MG/DL (7-18); CALCIUM LEVEL 8.6 MG/DL (8.5-10.1); CARBON DIOXIDE LEVEL 30 MEQ/L (21-32); CHLORIDE LEVEL 69 MEQ/L (98-107); CPK CREATINE PHOSPHOKINASE 1062 U/L (39-308); CREATININE FOR GFR 4.83 MG/DL (0.70-1.30); GLOMERULAR FILTRATION RATE 13.6 (>56); GLUCOSE, FASTING 147 MG/DL (70-100); MB/CK RELATIVE INDEX 1.51 (< OR =4); POTASSIUM SERUM 4.6 MEQ/L (3.5-5.1); SODIUM LEVEL 112 MEQ/L (136-145); TROPONIN I < 0.02 NG/ML (< 0.10)
[2020-01-25 04:00] VITALS: BP 142/70
[2020-01-25 04:49] LABS: HEMATOCRIT 39.8 % (42.0-52.0); MEAN CORPUSCULAR HEMOGLOBIN 31.5 pg (27.0-33.0); MEAN CORPUSCULAR HGB CONC 36.4 g/dl (32.0-36.5); MEAN CORPUSCULAR VOLUME 86.3 fl (80.0-96.0); PLATELET COUNT, AUTOMATED 385 10^3/uL (150-450); RED BLOOD COUNT 4.61 10^6/uL (4.30-6.10); WHITE BLOOD COUNT 15.7 10^3/uL (4.0-10.0)
[2020-01-25 05:00] LABS: HEMOGLOBIN 14.5 g/dl (13.5-17.5)
[2020-01-25 05:10] LABS: CALCIUM LEVEL 8.2 MG/DL (8.5-10.1); CREATININE FOR GFR 4.23 MG/DL (0.70-1.30); GLOMERULAR FILTRATION RATE 15.8 (>56)
[2020-01-25] MEDS: MAALOX 30 ML SUSP *UDC PO PRN (05:27)
[2020-01-25 08:15] VITALS: BP 134/85
[2020-01-25] MEDS: predniSONE 20 MG TAB PO SCH (08:26)
[2020-01-25] MEDS: BENZTROPINE 1 MG TAB PO SCH (08:26)
--- NOTE | 2020-01-25 08:29 | ECGEPIP ---
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
--- NOTE | 2020-01-25 08:30 | ECGEPIP ---
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
[2020-01-25] MEDS ORDERED: FAMOTIDINE 20 MG TAB PO SCH (09:00)
[2020-01-25] MEDS ORDERED: VENTAER INH (13:40)
--- NOTE | 2020-01-25 21:13 | IPNPDOC ---
Date Seen The patient was seen on 01/25/20. Progress Note 01/25/20 I was informed by RN via Vocera text that patient is getting aggressive and threatening to leave AMA; he had also pulled out his IV. I came to the floor to assess the patient, discuss risks of leaving (including ) and benefits of staying, in hopes that he would stay. Upon arrival to the floor, I was notified that the patient had already AMA and refused to wait until I arrived, despite multiple attempts by nursing staff. VS, I&O, 24H, Fishbone Vital Signs/I&O Vital Signs Date Time Temp Pulse Resp B/P (MAP) Pulse Ox O2 Delivery O2 Flow Rate FiO2 01/25/20 08:15 96.8 90 18 134/85 (101) 92 Room Air I&O- Last 24 Hours up to 6 AM 01/25/20 06:00 Intake Total 2630 ml Output Total 2050 ml Balance 580 ml Laboratory Data 24H LABS Laboratory Tests 2 01/25/20 00:16: Anion Gap 13, Glomerular Filtration Rate 13.6L, Calcium Level 8.6, Total Creatine Kinase 1062H, Creatine Kinase MB 16.0H, Creatine Kinase MB Relative Index 1.51, Troponin I < 0.02 01/25/20 04:16: Anion Gap 12, Glomerular Filtration Rate 15.8L, Calcium Level 8.2L, Nucleated Red Blood Cells % (auto) 0.0 CBC/BMP Laboratory Tests 01/25/20 00:16 01/25/20 04:16 Microbiology Microbiology 01/24/20 Coronavirus COVID-19 PCR (KAREN), Received Pending 01/24/20 Respiratory Panel (PCR) - Final, Complete 01/24/20 Blood Culture - Preliminary, Resulted No growth after 24 hours . All specim... RAZIA BEATTY MD Jan 25, 2020 21:13
== END 2020-01-25 09:06 | disposition left against medical advice (07) | DRG 683 ==
LOC: M ED 10:08 → EDBD 10:08 → M ED INP 13:45 → ENRESERV 14:03 → M PCU 15:04
PROVIDERS: ADMIT Internal Medicine; ATTEND Internal Medicine
DX: N17.9 Acute kidney failure, unspecified (principal); E87.1 Hypo-osmolality and hyponatremia; J44.1 Chronic obstructive pulmonary disease with (acute) exacerbation; F25.9 Schizoaffective disorder, unspecified; F15.10 Other stimulant abuse, uncomplicated; F12.10 Cannabis abuse, uncomplicated; K52.9 Noninfective gastroenteritis and colitis, unspecified; R45.6 Violent behavior; R74.0 Nonspecific elevation of levels of transaminase and lactic acid dehydrogenase [LDH]; F60.2 Antisocial personality disorder; F17.200 Nicotine dependence, unspecified, uncomplicated; Z88.1 Allergy status to other antibiotic agents; Z88.5 Allergy status to narcotic agent; Z79.899 Other long term (current) drug therapy; Z91.14 Patient's other noncompliance with medication regimen

== ENCOUNTER 2020-01-25 13:20 | Emergency (ER) | payer MEDICARE ==
[~2020-01-25] VITALS: Ht 175.3 cm; Wt 70.5 kg
[~2020-01-25 13:20] MED LIST changes: +BENZ-52 PO
[2020-01-25] MEDS ORDERED: PALIPERIDONE PALMITATE 156MG/1ML INJ(INVEGA)(FREE PSY INPT ONLY) IM ONE (13:30)
[2020-01-25 13:35] VITALS: BP 141/101
[2020-01-25] MEDS ORDERED: VENTAER INH (13:40)
== END 2020-01-25 14:19 | disposition home or self-care (01) ==
LOC: M ED 13:20
DX: Z76.0 Encounter for issue of repeat prescription (principal); F31.9 Bipolar disorder, unspecified; Z79.899 Other long term (current) drug therapy; Z88.1 Allergy status to other antibiotic agents; Z88.5 Allergy status to narcotic agent; F17.210 Nicotine dependence, cigarettes, uncomplicated
CPT/HCPCS: 96372; 99283; J2426

== ENCOUNTER 2020-02-11 12:06 | Inpatient (IN) | payer MEDICARE ==
[~2020-02-11] VITALS: Ht 175.3 cm; Wt 72.4 kg
[2020-02-11] MEDS ORDERED: MORPHINE 4 MG/ML 1ML VIAL/SYRINGE (J2270) IV ONE (12:45)
[2020-02-11] MEDS ORDERED: PROMETHAZINE INJ 25 MG/ML VIAL (J2550) IV ONE (12:45)
[2020-02-11] MEDS ORDERED: NS 1,000 ML IV ONE (12:45)
[2020-02-11 13:14] LABS: BASO % 0.2 % (0.0-1.0); HEMATOCRIT 44.1 % (42.0-52.0); HEMOGLOBIN 15.9 g/dl (13.5-17.5); LYMPH # 1.4 10^3/uL (1.5-5.0); LYMPH % 8.5 % (24.0-44.0); MEAN CORPUSCULAR HEMOGLOBIN 31.3 pg (27.0-33.0); MEAN CORPUSCULAR HGB CONC 36.1 g/dl (32.0-36.5); MEAN CORPUSCULAR VOLUME 86.8 fl (80.0-96.0); MONO # 1.4 10^3/uL (0.0-0.8); MONO % 8.6 % (0.0-5.0); NEUTROPHILS # 13.2 10^3/uL (1.5-8.5); NEUTROPHILS % 81.8 % (36.0-66.0); PLATELET COUNT, AUTOMATED 368 10^3/uL (150-450); RED BLOOD COUNT 5.08 10^6/uL (4.30-6.10); WHITE BLOOD COUNT 16.1 10^3/uL (4.0-10.0)
[2020-02-11 13:29] LABS: ALBUMIN 4.6 GM/DL (3.2-5.2); ALT/SGPT 37 U/L (12-78); BILIRUBIN,DIRECT 0.3 MG/DL (0.0-0.2); BILIRUBIN,TOTAL 1.5 MG/DL (0.2-1.0); BLOOD UREA NITROGEN 50 MG/DL (7-18); CALCIUM LEVEL 10.3 MG/DL (8.5-10.1); CARBON DIOXIDE LEVEL 27 MEQ/L (21-32); CHLORIDE LEVEL 77 MEQ/L (98-107); CK-MB VALUE MASS 5.1 NG/ML (<3.6); CPK CREATINE PHOSPHOKINASE 285 U/L (39-308); CREATININE FOR GFR 3.22 MG/DL (0.70-1.30); FREE T4 1.76 NG/DL (0.76-1.46); GLOMERULAR FILTRATION RATE 21.7 (>56); GLUCOSE, FASTING 122 MG/DL (70-100); LIPASE 190 U/L (73-393); MAGNESIUM LEVEL 2.1 MG/DL (1.8-2.4); MB/CK RELATIVE INDEX 1.79 (< OR =4); POTASSIUM SERUM 3.8 MEQ/L (3.5-5.1); SODIUM LEVEL 121 MEQ/L (136-145); TOTAL PROTEIN 8.7 GM/DL (6.4-8.2); TROPONIN I < 0.02 NG/ML (< 0.10)
[2020-02-11] MEDS ORDERED: NS 980 ML in IV 1 EA IV ONE (13:45)
[2020-02-11] MEDS ORDERED: PIPERACILLIN/TAZOBACTAM SOD 4.5 GM in D5W MINI-BAG PLUS 50 ML IV ONE (13:45)
[2020-02-11] MEDS ORDERED: ONDANSETRON 4MG/2ML VIAL As Ordered ONE (13:48)
[2020-02-11] MEDS ORDERED: ONDANSETRON 4MG/2ML VIAL IV ONE (14:00)
[2020-02-11 14:03] LABS: ETHYL ALCOHOL (ETHANOL) < 0.003 % (0.000-0.010)
--- NOTE | 2020-02-11 14:07 | ECGEPIP ---
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
[2020-02-11] MEDS ORDERED: MOM 30ML SUSPENSION UDC PO PRN (15:00)
[2020-02-11] MEDS ORDERED: ACETAMINOPHEN TAB 650MG DOSE (2X325MG) PO PRN (15:00)
[2020-02-11 15:15] LABS: OSMOLALITY SERUM 270 MOSM/KG (275-295)
--- NOTE | 2020-02-11 15:49 | HPEPDOC ---
General Date of Admission Feb 11, 2020 at 14:58 Date of Service: Feb 11, 2020 Chief Complaint The patient is a 54-year-old male admitted with a reason for visit of Hyponatremia,Nausea And Vomiting. 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 Patient reports the vomiting began approximately 3 days prior and has not stopped since. He has been averaging 5-7 episodes of vomiting per day. Due to his excessive vomiting, patient has been feeling very weak and dehydrated. He reports that he has syncopized approximately 4 times after getting up from a hot bath. He reports not taking any medications for his symptoms. He states that he has nonspecific stomach pain is well and describes it as a stretching sensation in his abdomen. He says that they are associated with some chills but denies any recent fevers. He denies any recent travel history or sick contacts. Patient reports no chest pain, short of breath, leg swelling. Patient states his last bowel movement was approximately 5 days prior and was normal. Denies any dysuria. Given his symptoms he decided to come to the ER for further evaluation. Upon ER evaluation, patient found to be hyponatremic although improved from prior admission. He was also found to be in acute renal failure L similar to his last admission as well. Patient to be admitted for I abnormalities, renal issues, intractable nausea and vomiting. Home Medications Scheduled Paliperidone Palmitate (Invega Sustenna) 156 Mg/1 Ml Syringe, 156 MG IM QMONTH, (Reported) Allergies Coded Allergies: azithromycin (Verified Adverse Reaction, Mild, N/V, 04/30/19) clarithromycin (Verified Adverse Reaction, Mild, N/V, 04/30/19) erythromycin base (Verified Adverse Reaction, Mild, N/V, 04/30/19) tramadol (Verified Adverse Reaction, Mild, N/V, 04/30/19) Past Medical History Medical History Bipolar disorder, probably stenosis, multiple bouts of pancreatitis, COPD Surgical History Hernia repair Family History Mother from lung cancer and emphysema Father from cardiovascular issues Social History * Smoker: current smoker, greater than 1 pack/day (approximate 1.5 packs per day for the past 30 years) Alcohol: Denies Drugs: marijuana (smokes approximately 2-3 joints per day) Recent Travel/Sick Contacts: Denies: Recent travel, Recent sick contacts Psychosocial History: Bipolar, Mood disorder NOS Currently lives alone in his apartment. He is on disability. A-FIB/CHADSVASC A-FIB History Current/History of A-Fib/PAF?: No Review of Systems Constitutional: Reports: Chills, Weakness, Fatigue; Denies: Fever, Night Sweats Eyes: Denies: Pain, Vision change ENT: Reports: Sore Throat; Denies: Head Aches, Ear Pain, Dysphagia Skin: Denies: Rash, Lesions, Jaundice, Bruising Pulmonary: Denies: Dyspnea, Cough, Pleuritic Chest Pain Cardiovascular: Reports: Lt Headedness; Denies: Chest Pain, Palpitations, Orthopnea, Edema Gastrointestinal: Reports: Nausea, Vomiting, Abdominal Pain; Denies: Diarrhea, Constipation, Melena Genitourinary: Denies: Dysuria, Frequency Hematologic: Denies: Bruising Musculoskeletal: Reports: Back Pain; Denies: Neck Pain Neurological: Denies: Weakness, Numbness, Incoordination, Change in speech, Confusion Psych: Reports: Mood Normal; Denies: Depression, Thoughts of Self Harm, Thoughts of Harming Other, Other Psych Physical Examination General Exam: Positive: Alert, Cooperative, Mild Distress, Other (white male appears stated age. Unkempt. Answers all questions appropriately. Found to be slightly shivering.) Eye Exam: Positive: PERRLA (equal round reactive to light appear to be approximately 3-4 mm in size), Conjunctiva & lids normal, EOMI; Negative: Sclera icteric ENT Exam: Positive: Atraumatic, Tongue Midline; Negative: Mucous membr. moist/pink (oral mucosa is dry) Neck Exam: Positive: Supple; Negative: JVD Chest Exam: Positive: Normal air movement, Wheezing (faint bibasal wheezing appreciated both lung hollins) Heart Exam: Positive: Rate Normal, Tachycardic, Regular Rhythm, Normal S1, Normal S2; Negative: Murmurs Abdomen Exam: Positive: Normal bowel sounds, Soft, Tenderness (minimal tenderness in right upper quadrant); Negative: Hepatospenomegaly, Mass Extremity Exam: Positive: Normal pulses; Negative: Clubbing, Cyanosis, Edema Skin Exam: Positive: Nl turgor and temperature; Negative: Rash Neuro Exam: Positive: Normal Speech, Strength at 5/5 X4 ext, Normal Tone, Sensation Intact, Cranial Nerves 3-12 NL Psych Exam: Positive: Mental status NL, Mood NL, Oriented x 3; Negative: Anxiety Vital Signs Vital Signs Date Time Temp Pulse Resp B/P (MAP) Pulse Ox O2 Delivery O2 Flow Rate FiO2 02/11/20 14:40 89 125/73 (90) 90 128/82 (97) 02/11/20 14:16 18 98 Room Air 02/11/20 13:33 97.3 Laboratory Data Labs 24H Laboratory Tests 2 02/11/20 12:41: Immature Granulocyte % (Auto) 0.9, Neutrophils (%) (Auto) 81.8H, Lymphocytes (%) (Auto) 8.5L, Monocytes (%) (Auto) 8.6H, Eosinophils (%) (Auto) 0.0, Basophils (%) (Auto) 0.2, Neutrophils # (Auto) 13.2H, Lymphocytes # (Auto) 1.4L, Monocytes # (Auto) 1.4H, Eosinophils # (Auto) 0.0, Basophils # (Auto) 0.0, Nucleated Red Blood Cells % (auto) 0.0, Anion Gap 17H, Glomerular Filtration Rate 21.7L, Osmolality 270L, Lactic Acid Level 2.2*H, Calcium Level 10.3H, Magnesium Level 2 .1, Total Bilirubin 1.5H, Direct Bilirubin 0.3H, Aspartate Amino Transf (AST/SGOT) 17, Alanine Aminotransferase (ALT/SGPT) 37, Alkaline Phosphatase 153H, Total Creatine Kinase 285, Creatine Kinase MB 5.1H, Creatine Kinase MB Relative Index 1.79, Troponin I < 0.02, Total Protein 8.7H, Albumin 4.6, Al bumin/Globulin Ratio 1.12, Lipase 190, Thyroid Stimulating Hormone (TSH) 4.260H, Free Thyroxine 1.76H, Ethyl Alcohol Level < 0.003 CBC/BMP Laboratory Tests 02/11/20 12:41 Microbiology Microbiology 02/11/20 Blood Culture, Received Pending 02/11/20 Blood Culture, Received Pending RAD Interpretation STUDY: CT abdomen pelvis Rad Actions: Wet Read Reviewed, Films Reviewed RAD Interpretation: Normal Assessment/Plan 54-year-old male with past medical history of multiple psych issues and pancreatitis presents with intractable nausea and vomiting for the past several days. Patient is to be clinically dehydrated exam and lab work shows that he is hyponatremic. Currently labwork reveals slightly elevated white count 16 which may be reactive. We'll admit patient for further evaluation of hyponatremia as urine studies are still pending. Patient received 2 L of fluid in the ER. Patient's renal function also has not improved over the past month. We suspect that he may be due to his dehydration but further studies are still pending. To be admitted for fluid resuscitation, monitoring of renal function, and correcti on of electrolytes Plan / VTE VTE Prophylaxis Ordered?: Yes Plan Plan Hyponatremia Patient appears to be in a hypovolemic state. ER did not obtain osmolarity of serum and or urine. Patient received 2 L fluid bolus in the ER. We'll repeat labs at approximately 8 PM tonight and see if sodium level has increased. - Follow up urine studies - urine sodium, urine creatinine, urine osmolarity - Follow-up serum osmolarity - Ensure correction is no faster than 8-10 meq o over 24 hours - Hold off on IV fluids until p.m. labs return Syncope likely 2/2 dehydration Patient reports multiple episodes of syncope after getting up. Currently orthostatic negative in the ER after 2 L of fluid were given. EKG shows no arrhythmias. Given patient's history of hyponatremia and intractable vomiting, likely due to dehydrated state. - Monitor for now - Continue with IV hydration as needed as well as by mouth intake Intractable nausea and vomiting likely secondary to gastroenteritis, less likely pancreatitis CT abdomen pelvis reveals no gross abnormalities. Patient does have a white count likely reactive due to constant vomiting. Will continue with supportive care, fluids. - Start clear liquid diet and advance as tolerated - Zofran when necessary - IV fluids when appropriate - Encourage by mouth intake - Pain control with Tylenol and morphine Acute kidney injury Patient's baseline creatinine approximately 4 months prior was normal for age. It is now above 3 for the past month. Likely to be prerenal in cause due to patient's dehydration and persistent vomiting, however labs are still pending at this time. - Follow-up urine studies for FeNa - Continue with IV fluids when appropriate - Avoid nephrotoxic medication and dose medications for reduced GFR - BMP daily to monitor renal function - Follow-up renal ultrasound Bipolar disorder Patient reports mood has been stable. States that he is compliant with his psych iatric medications. Denies any episodes of juan r or depression at this time. - Continue with home psychiatric medications - invega injections monthly - Follow up urine drug screen COPD, undiagnosed Patient does not report any formal COPD diagnosis in the past. However he has a [id number] smoking history. Currently wheezing at this time. - Continue with albuterol BID standing for now - can increase as needed - Supplemental oxygen to maintain saturation greater than 88% if needed - nicotine patch if patient requests IVF: Initiate Diet: Continue Current Activity: Continue Current Medications: Replete Electrolytes IV, Replete Electrolytes PO Diagnostics: Check Labs, Repeat Labs in AM Anticipated Discharge: Home CRISTIAN LANE MD Feb 11, 2020 15:49
[2020-02-11 16:06] VITALS: BP 140/89
[2020-02-11] MEDS: MORPHINE 2 MG/ML 1ML VIAL (J2270) IV PRN (18:19)
[2020-02-11] MEDS: ALBUTEROL 90 MCG/ACT 8GM HFA INHALER INH SCH (19:47)
[2020-02-11 20:25] LABS: CALCIUM LEVEL 9.3 MG/DL (8.5-10.1); CREATININE FOR GFR 2.5 MG/DL (0.70-1.30); POTASSIUM SERUM 3.3 MEQ/L (3.5-5.1)
[2020-02-11] MEDS: DOCUSATE SODIUM 100 MG CAP PO SCH (21:42)
[2020-02-11] MEDS: HEPARIN SOD (PORCINE) 5000UNITS/ML VIAL (J1644 PER 1000UNITS) SC SCH (21:42)
[2020-02-11 22:00] VITALS: BP 133/88
[2020-02-12 00:33] LABS: CALCIUM LEVEL 9.7 MG/DL (8.5-10.1); CREATININE FOR GFR 1.99 MG/DL (0.70-1.30); GLOMERULAR FILTRATION RATE 37.8 (>56); POTASSIUM SERUM 3.4 MEQ/L (3.5-5.1)
[2020-02-12] MEDS: MORPHINE 2 MG/ML 1ML VIAL (J2270) IV PRN ×3 (03:23→23:21)
[2020-02-12 04:45] LABS: HEMATOCRIT 39.6 % (42.0-52.0); MEAN CORPUSCULAR HEMOGLOBIN 31.5 pg (27.0-33.0); MEAN CORPUSCULAR HGB CONC 35.4 g/dl (32.0-36.5); MEAN CORPUSCULAR VOLUME 89.2 fl (80.0-96.0); PLATELET COUNT, AUTOMATED 334 10^3/uL (150-450); RED BLOOD COUNT 4.44 10^6/uL (4.30-6.10); WHITE BLOOD COUNT 16.1 10^3/uL (4.0-10.0)
[2020-02-12 05:24] LABS: ALBUMIN 3.8 GM/DL (3.2-5.2); BILIRUBIN,TOTAL 1.1 MG/DL (0.2-1.0); CALCIUM LEVEL 9.7 MG/DL (8.5-10.1); CREATININE FOR GFR 1.44 MG/DL (0.70-1.30); GLOMERULAR FILTRATION RATE 54.8 (>56); MAGNESIUM LEVEL 2.5 MG/DL (1.8-2.4); POTASSIUM SERUM 3.4 MEQ/L (3.5-5.1); TOTAL PROTEIN 7.4 GM/DL (6.4-8.2)
[2020-02-12] MEDS: NS 1,000 ML IV SCH ×2 (05:58→19:45)
[2020-02-12 06:00] VITALS: BP 129/85
[2020-02-12] MEDS: ALBUTEROL 90 MCG/ACT 8GM HFA INHALER INH SCH (07:23)
--- NOTE | 2020-02-12 07:37 | REP ---
CT ABDOMEN AND PELVIS WITHOUT CONTRAST: CT abdomen and pelvis performed without IV or oral contrast. Sagittal and coronal reconstruction images are performed. Comparison made with a prior study of 08/23/2018. Visualized lung bases demonstrate no infiltrate. There is a small hiatal hernia. No gross liver abnormality is seen. The patient has had a prior cholecystectomy. There is expected prominence of the common bile duct. The spleen is normal in size. The adrenal glands are normal. No gross pancreatic abnormality is seen. The kidneys are grossly unremarkable. The patient has had prior right renal surgery with postsurgical changes posteriorly of the right kidney. There is no nephrolithiasis and no evidence of hydroureteronephrosis. There is mild atherosclerotic calcification without aneurysm. There is no adenopathy. There is no free air or free fluid. There are multiple scattered diverticula of the colon without acute diverticulitis. The appendix is normal. No pelvic mass is seen. Urinary bladder is mildly distended and grossly unremarkable. There are mild degenerative changes of the spine. There is an old mild compression deformity of L1, which is stable. IMPRESSION: No acute abnormalities. Sigmoid diverticulosis without acute diverticulitis. Normal appendix. No free air or free fluid. No evidence of bowel obstruction. Electronically Signed by Emil Davis MD 02/12/2020 09:46 A
--- NOTE | 2020-02-12 08:43 | REP ---
REASON: History of acute renal failure. No priors for comparison. Previous CT scan of the abdomen and pelvis was obtained earlier today and was within normal limits. FINDINGS: Multiple ultrasonographic images of the right kidney show the right kidney to measure 10.7 x 5.8 x 4.4 cm. The renal cortical echotexture is unremarkable. There are no masses. There is good corticomedullary differentiation. There is no hydronephrosis. There are no perinephric fluid collections. Multiple ultrasonographic images of the left kidney show the left kidney to measure 12.1 x 5.4 x 5.7. The renal cortical echotexture is unremarkable. There are no masses. There is good corticomedullary differentiation. There is no hydronephrosis. There are no perinephric fluid collections. Doppler of the urinary bladder was obtained for the purpose of assessing for urojet phenomena at the UV junction bilaterally, which was identified. IMPRESSION: Unremarkable renal ultrasonography. Electronically Signed by Chance Abarca DO 02/14/2020 07:53 A
--- NOTE | 2020-02-12 09:10 | PHACANCOPD ---
PHARMACY VANCOMYCIN DOSING Pt Demographics Demographics Patient Age:54 , Weight:72.400 , Gender: male Adjusted Body Weight Date: 02/12/20, Adjusted Body Weight: Kg Events Past 24 Hours Events Past 24 Hours: YES: Change in CrCl, Elevation in WBC; NO: Dialysis, Diuretic Therapy, Fever, Pending Diagnostics, Pending Procedures, Other Vancomycin Vancomycin indication: g+ cocci bc, r/o endocarditis Vancomycin Target Ranges: 15-20 mcg/ml Vancomycin Load Y/N: Yes Load Dose Date Time Vancomycin Load Dose: 1000mg Date: 02/11 Time: 10:00 Vancomycin Dose Date: 02/12/20. Current Vancomycin Dose: [1g IV q12h @12] Intermittent Dosing?: No Labs Labs Item Value Date Time White Blood Count 16.1 10^3/uL H 02/11/20 1241 White Blood Count 16.1 10^3/uL H 02/12/20 0431 Creatinine 3.22 MG/DL H 02/11/20 1241 Creatinine 1.99 MG/DL H 02/11/20 2332 Creatinine 1.44 MG/DL H 02/12/20 0431 Micro Microbiology 02/11/20 Blood Culture, Received Pending 02/11/20 Blood Culture - Preliminary, Resulted Creatinine Clearance Date:02/12/20. Creatinine Clearance: [~60 ml/min, improving]. Pending Labs Vanco trough scheduled 02/12 @11:00 Assessment and Plan Maintaining Current Dose?: Yes Reason for dose change: No Dose Change Pharmacist Note Pharmacist Note Date: 02/12/20. Pharmacist note: pt has been started on vancomycin for a g+ cocci blood culture, repeat blood culture is pending. WBCs have been elevated, was initially dehydrated on admission, SCr has been improving with fluids. He has not been on vancomycin at our facility in the past. I have started him on vancomycin 1g this morning, followed by 1g IV q12h to begin ~2 hours after the first dose. I have a trough scheduled for tomorrow morning. We will continue to monitor and make adjustments as necessary. Sincere Shepherd Pharm.D. Feb 12, 2020 09:10
[2020-02-12] MEDS: DOCUSATE SODIUM 100 MG CAP PO SCH ×3 (09:20→21:00)
[2020-02-12] MEDS: HEPARIN SOD (PORCINE) 5000UNITS/ML VIAL (J1644 PER 1000UNITS) SC SCH ×2 (09:20→20:18)
[2020-02-12 09:47] LABS: BLOOD UREA NITROGEN 37 MG/DL (7-18); CALCIUM LEVEL 9.3 MG/DL (8.5-10.1); CARBON DIOXIDE LEVEL 33 MEQ/L (21-32); CHLORIDE LEVEL 85 MEQ/L (98-107); CREATININE FOR GFR 1.08 MG/DL (0.70-1.30); GLOMERULAR FILTRATION RATE > 60.0 (>56); GLUCOSE, FASTING 112 MG/DL (70-100); SODIUM LEVEL 127 MEQ/L (136-145)
[2020-02-12] MEDS: ALBUTEROL 90 MCG/ACT 8GM HFA INHALER INH PRN ×2 (09:59→17:15)
[2020-02-12] MEDS ORDERED: VANCOMYCIN HCL 1,000 MG, VIAL MATE ADAPTER 1 EACH in D5W 250 ML IV ONE (10:00)
--- NOTE | 2020-02-12 10:06 | REP ---
CHEST SINGLE VIEW: There is no evidence of acute infiltrate. No pleural effusion is seen. The heart is normal in size. The mediastinal silhouette is unremarkable. The visualized osseous structures are intact. IMPRESSION: No acute pulmonary disease. Electronically Signed by Emil Davis MD 02/12/2020 10:20 A
[2020-02-12] MEDS: POTASSIUM CHLORIDE 10 MEQ SR TABLET PO SCH ×2 (11:19→17:56)
--- NOTE | 2020-02-12 11:38 | IPNPDOC ---
Subjective Date Seen The patient was seen on 02/12/20. Subjective Chief Complaint/HPI Patient seen and examined at bedside this morning. Patient reports that he slept well and is feeling better at this morning. She denies any recent fevers, chills, short of breath, chest pain, abdominal pain, nausea, vomiting. He did report that he did feel somewhat cold but wasn't described as chills. He does still feel weak. Patient admits to using IV drugs this morning. He states that he last injected methamphetamine approximately one month prior when his symptoms to start. Patient was informed that he is bacteremic positive with gram-positive cocci. All questions were answered at bedside. Other systems 10 point review of systems negative except for what is stated above in subjective Objective Physical Examination General Exam: Positive: Alert, Cooperative, No Acute Distress, Other (unkempt white male who appears stated age. More relaxed today) Eye Exam: Positive: PERRLA (equal round reactive to light appear to be approximately 3-4 mm in size), Conjunctiva & lids normal, EOMI; Negative: Sclera icteric ENT Exam: Positive: Atraumatic, Tongue Midline; Negative: Mucous membr. moist/pink (oral mucosa is dry) Neck Exam: Positive: Supple; Negative: JVD Chest Exam: Positive: Normal air movement, Wheezing (faint bibasal wheezing appreciated both lung hollins) Heart Exam: Positive: Rate Normal, Tachycardic, Regular Rhythm, Normal S1, Normal S2; Negative: Murmurs Abdomen Exam: Positive: Normal bowel sounds, Soft, Tenderness (minimal tenderness in right upper quadrant); Negative: Hepatospenomegaly, Mass Extremity Exam: Positive: Normal pulses; Negative: Clubbing, Cyanosis, Edema Skin Exam: Positive: Nl turgor and temperature; Negative: Rash Neuro Exam: Positive: Normal Speech, Strength at 5/5 X4 ext, Normal Tone, Sensation Intact, Cranial Nerves 3-12 NL Psych Exam: Positive: Mental status NL, Mood NL, Oriented x 3; Negative: Anxiety Assessment /Plan Assessment 54-year-old male initially admitted from [facility] now thought to be bacteremic with gram-positive cocci in clusters. Patient with using IV drugs approximately one month prior and states that his symptoms began around that time. Patient was started on vancomycin 1 g every 12 hours with pharmacy to adjust dosing as needed. Echocardiogram has been ordered and will follow with ID consult on Friday. Patient still has elevated white count but has been afebrile here. We'll continue with current treatment plan. Hyponatremia has been resolving and is well as his acute renal failure. Creatinine is now near bas cornelius. Plan/VTE VTE Prophylaxis Ordered?: Yes Plan IVF: Continue Diet: Continue Current Activity: Continue Current Medications: Start Antibiotics Hyponatremia - improving Patient presents with hypotonic hyponatremia and was dehydrated. Currently resolving with IV fluids. Urine studies were not obtained by nursing staff. Still pending at this time. - Follow up urine studies - urine sodium, urine creatinine, urine osmolarityty - Ensure correction is no faster than 8-10 meq o over 24 hours - Continue with normal saline 80 mL per hour Gram-positive bacteremia likely due to IV drug use First of the blood cultures came back with gram-positive cocci and clusters. Patient finally admits to using IV drugs approximately one month prior. Physical exam does reveal multiple track marin which appear fresh however. - Start vancomycin 1 g every 12, pharmacy to dose to keep trough between 15-20 - Urgent TTE with follow-up ARAM if needed - Will call ID consult on Friday - Obtain ESR, CRP daily Syncope likely 2/2 dehydration Patient reports multiple episodes of syncope after getting up. Currently orthostatic negative in the ER after 2 L of fluid were given. EKG shows no arrhythmias. Given patient's history of hyponatremia and intractable vomiting, likely due to dehydrated state. - Monitor for now - Continue with IV hydration as needed as well as by mouth intake Intractable nausea and vomiting likely secondary to gastroenteritis, less likely pancreatitis - resolved CT abdomen pelvis reveals no gross abnormalities. Patient has no further episodes of vomiting or nausea at this time. -Advance diet as tolerated - Zofran when necessary - IV fluids when appropriate - Encourage by mouth intake - Pain control with Tylenol and morphine Acute kidney injury - resolved Renal injury improved with IV fluids alone. Likely prerenal given the circumstances - Continue with IV fluids when appropriate - Avoid nephrotoxic medication and dose medications for reduced GFR - BMP daily to monitor renal function Bipolar disorder Patient reports mood has been stable. States that he is compliant with his psychiatric medications. Denies any episodes of juan r or depression at this time. - Continue with home psychiatric medications - invega injections monthly - Follow up urine drug screen COPD, undiagnosed Patient does not report any formal COPD diagnosis in the past. However he has a 96-[id number]-deot smoking history. Currently wheezing at this time. - Continue with albuterol PRN - Supplemental oxygen to maintain saturation greater than 88% if needed - nicotine patch if patient requests VS, I&O, 24H, [place] Vital Signs/I&O Vital Signs Date Time Temp Pulse Resp B/P (MAP) Pulse Ox O2 Delivery O2 Flow Rate FiO2 02/12/20 06:00 98.7 101 17 129/85 (100) 97 Room Air I&O- Last 24 Hours up to 6 AM 02/12/20 05:59 Intake Total 3920 ml Balance 3920 ml Laboratory Data 24H LABS Laboratory Tests 2 02/11/20 12:41: Immature Granulocyte % (Auto) 0.9, Neutrophils (%) (Auto) 81.8H, Lymphocytes (%) (Auto) 8.5L, Monocytes (%) (Auto) 8.6H, Eosinophils (%) (Auto) 0.0, Basophils (%) (Auto) 0.2, Neutrophils # (Auto) 13.2H, Lymphocytes # (Auto) 1.4L, Monocytes # (Auto) 1.4H, Eosinophils # (Auto) 0.0, Basophils # (Auto) 0.0, Nucleated Red Blood Cells % (auto) 0.0, Anion Gap 17H, Glomerular Filtration Rate 21.7L, Osmolality 270L, Lactic Acid Level 2.2*H, Calcium Level 10.3H, Magnesium Level 2.1, Total Bilirubin 1.5H, Direct Bilirubin 0.3H, Aspartate Amino Transf (AST/SGOT) 17, Alanine Aminotransferase (ALT/SGPT) 37, Alkaline Phosphatase 153H, Total Creatine Kinase 285, Creatine Kinase MB 5.1H, Creatine Kinase MB Relative Index 1.79, Troponin I < 0.02, Total Protein 8.7H, Albumin 4.6, Albumin/Globulin Ratio 1.12, Lipase 190, Thyroid Stimulating Hormone (TSH) 4.260H, Free Thyroxine 1.76H, Ethyl Alcohol Level < 0.003 02/11/20 16:15: Osmolality 283 02/11/20 18:05: Lactic Acid Followup at 4 Hours 1.6 02/11/20 19:47: Anion Gap 11, Glomerular Filtration Rate 29.0L, Calcium Level 9.3 02/11/20 23:32: Anion Gap 11, Glomerular Filtration Rate 37.8L, Calcium Level 9.7 02/12/20 04:31: Anion Gap 10, Glomerular Filtration Rate 54.8L, Calcium Level 9.7, Nucleated Red Blood Cells % (auto) 0.0, Magnesium Level 2.5H, Total Bilirubin 1.1H, Aspartate Amino Transf (AST/SGOT) 16, Alanine Aminotransferase (ALT/SGPT) 31, Alkaline Phosphatase 128H, Total Protein 7.4, Albumin 3.8, Albumin/Globulin Ratio 1.06 02/12/20 09:03: Anion Gap 9, Glomerular Filtration Rate > 60.0, Calcium Level 9.3 CBC/BMP Laboratory Tests 02/11/20 12:41 02/11/20 19:47 02/11/20 23:32 02/12/20 04:31 02/12/20 09:03 Microbiology Microbiology 02/11/20 Blood Culture, Received Pending 02/11/20 Blood Culture - Preliminary, Resulted CRISTIAN LANE MD Feb 12, 2020 11:38
[2020-02-12] MEDS: VANCOMYCIN HCL 1,000 MG, VIAL MATE ADAPTER 1 EACH in D5W 250 ML IV SCH ×2 (12:38→23:20)
[2020-02-12 13:24] LABS: CREATININE,RANDOM URINE 86.6 MG/DL
[2020-02-12 13:25] LABS: AMPHETAMINES LEVEL URINE NEGATIVE (NEGATIVE); BARBITURATES URINE NEGATIVE (NEGATIVE); BENZODIAZEPINES URINE NEGATIVE (NEGATIVE); CANNABINOIDS URINE POSITIVE (NEGATIVE); COCAINE METABOLITE URINE NEGATIVE (NEGATIVE); METHADONE URINE NEGATIVE (NEGATIVE); OPIATES URINE POSITIVE (NEGATIVE); PHENCYCLIDINE URINE NEGATIVE (NEGATIVE)
[2020-02-12 14:00] VITALS: BP 127/84
[2020-02-12] MEDS: MAALOX 30 ML SUSP *UDC PO PRN (17:55)
[2020-02-12] MEDS: ONDANSETRON 4MG/2ML VIAL IV PRN (17:55)
[2020-02-12 22:00] VITALS: BP 137/82
[2020-02-13 06:00] VITALS: BP 130/81
[2020-02-13 06:07] LABS: HEMATOCRIT 36.9 % (42.0-52.0); HEMOGLOBIN 12.7 g/dl (13.5-17.5); MEAN CORPUSCULAR HEMOGLOBIN 31.4 pg (27.0-33.0); MEAN CORPUSCULAR HGB CONC 34.4 g/dl (32.0-36.5); MEAN CORPUSCULAR VOLUME 91.3 fl (80.0-96.0); PLATELET COUNT, AUTOMATED 287 10^3/uL (150-450); RED BLOOD COUNT 4.04 10^6/uL (4.30-6.10); WHITE BLOOD COUNT 7.5 10^3/uL (4.0-10.0)
[2020-02-13 06:33] LABS: ALBUMIN 3.1 GM/DL (3.2-5.2); ALT/SGPT 27 U/L (12-78); BILIRUBIN,TOTAL 1.3 MG/DL (0.2-1.0); BLOOD UREA NITROGEN 16 MG/DL (7-18); CARBON DIOXIDE LEVEL 33 MEQ/L (21-32); CHLORIDE LEVEL 89 MEQ/L (98-107); CREATININE FOR GFR 0.72 MG/DL (0.70-1.30); GLOMERULAR FILTRATION RATE > 60.0 (>56); GLUCOSE, FASTING 103 MG/DL (70-100); MAGNESIUM LEVEL 2.4 MG/DL (1.8-2.4); POTASSIUM SERUM 3.4 MEQ/L (3.5-5.1); SODIUM LEVEL 128 MEQ/L (136-145); TOTAL PROTEIN 6.5 GM/DL (6.4-8.2)
--- NOTE | 2020-02-13 07:08 | ECHO ---
DATE OF SERVICE: 02/12/2020 DATE OF : 1965 AGE: 54 REFERRING PROVIDER: Dr. Glenroy Abrams REASON FOR STUDY: Sepsis due to gram positive bacteremia. MEASUREMENTS 2-D Measurements: IVS: 0.8 cm LV: 4.5 cm LVPW: 0.9 cm LA: 2.7 cm Aorta: 3.4 cm IVC: 1.2 cm Doppler Measurements: Mitral E: 0.39 Mitral A: 0.47 Ratio: 0.8 Peak velocity across the aortic valve: 0.9 m/s Peak velocity across the LVOT: 0.74 m/s 2-D COMMENTS: 1. Normal left ventricular size, wall thickness, and normal global left ventricular systolic function. The estimated global left ventricular systolic ejection fraction is 60-65%. 2. Normal left atrium. 3. Normal right atrium and right ventricle. 4. The atrial septum appeared to be normal without evidence of defect or shunt. 5. Normal aortic root. 6. A small pericardial effusion was noted around the heart, no evidence of cardiac tamponade. 7. Mildly calcified aortic valve with normal leaflet excursion. The mitral valve leaflet motion appeared to be normal, but not well visualized. The tricuspid valve also was not well visualized, but motion seemed to be normal. The pulmonic valve was not visualized. The proximal pulmonary artery branches were not visualized. 8. The inferior vena cava was normal in size, central venous pressure is most likely normal. DOPPLER: No significant valvular abnormalities detected. Abnormal relaxation pattern was noted across the mitral valve leaflets as well as the mitral valve annulus consistent with features of grade 1 left ventricular diastolic dysfunction. IMPRESSION: 1. Normal global left ventricular systolic function. There are some features of left ventricular diastolic dysfunction manifested by abnormal relaxation. 2. Aortic valve sclerosis without stenosis or aortic regurgitation. 3. A small pericardial effusion was noted, no evidence of cardiac tamponade. 4. Cardiac valves were not well visualized. If bacterial endocarditis is suspected, to proceed with a transesophageal echocardiogram. [facility]
[2020-02-13] MEDS: HEPARIN SOD (PORCINE) 5000UNITS/ML VIAL (J1644 PER 1000UNITS) SC SCH ×2 (09:00→20:06)
[2020-02-13] MEDS: DOCUSATE SODIUM 100 MG CAP PO SCH ×2 (09:00→20:06)
[2020-02-13] MEDS: NS 1,000 ML IV SCH ×3 (09:06→20:06)
[2020-02-13] MEDS: MORPHINE 2 MG/ML 1ML VIAL (J2270) IV PRN ×2 (11:06→19:29)
[2020-02-13] MEDS: VANCOMYCIN HCL 1,000 MG, VIAL MATE ADAPTER 1 EACH in D5W 250 ML IV SCH ×2 (12:21→20:06)
[2020-02-13] MEDS: ALBUTEROL 90 MCG/ACT 8GM HFA INHALER INH PRN ×2 (13:14→17:51)
[2020-02-13 14:00] VITALS: BP 128/80
--- NOTE | 2020-02-13 14:34 | IPNPDOC ---
Subjective Date Seen The patient was seen on 02/13/20. Subjective Chief Complaint/HPI Patient seen and examined episode this morning. Currently states that he does not feel well and is still having some stomach discomfort. Patient denies any recent fevers, chills, night sweats, she was of breath, chest pain, palpitations, nausea, vomiting. All patient's questions regarding his condition were discussed at bedside and addressed. Patient has no further complaints at this time. Other systems 10 point review systems is negative except for what is stated above in the subjective Objective Physical Examination General Exam: Positive: Alert, Cooperative, No Acute Distress, Other (unkempt white male who appears stated age. More relaxed today) Eye Exam: Positive: PERRLA (equal round reactive to light appear to be approximately 3-4 mm in size), Conjunctiva & lids normal, EOMI; Negative: Sclera icteric ENT Exam: Positive: Atraumatic, Mucous membr. moist/pink, Tongue Midline Neck Exam: Positive: Supple; Negative: JVD Chest Exam: Positive: Normal air movement, Wheezing (faint bibasal wheezing appreciated both lung hollins) Heart Exam: Positive: Rate Normal, Tachycardic, Regular Rhythm, Normal S1, Normal S2; Negative: Murmurs Abdomen Exam: Positive: Normal bowel sounds, Soft, Tenderness (minimal tenderness in right upper quadrant); Negative: Hepatospenomegaly, Mass Extremity Exam: Positive: Normal pulses; Negative: Clubbing, Cyanosis, Edema Skin Exam: Positive: Nl turgor and temperature; Negative: Rash Neuro Exam: Positive: Normal Speech, Strength at 5/5 X4 ext, Normal Tone, Sensation Intact, Cranial Nerves 3-12 NL Psych Exam: Positive: Mental status NL, Mood NL, Oriented x 3; Negative: Anxiety Assessment /Plan Assessment 54-year-old male initially admitted for hyponatremia and dehydration now thought to be bacteremic with gram-positive cocci in clusters in 1 bottle. Patient with using IV drugs approximately one month prior and states that his symptoms began around that time. Second blood culture was negative to date however she could mean that the first bottle was a contaminant. However, patient's white count defervesced with initiation of antibiotics. He remains afebrile. Renal function is now at baseline and patient's hyponatremia is slowly resolving as well. Follow up with ID tomorrow morning regarding patient's treatment plan. echocardiogram did not show any vegetations. Plan/VTE VTE Prophylaxis Ordered?: Yes Plan IVF: Continue Diet: Continue Current Activity: Continue Current Medications: Start Antibiotics Diagnostics: Check Labs Hyponatremia - improving Patient presents with hypotonic hyponatremia and was dehydrated. Currently resolving with IV fluids. - Ensure correction is no faster than 8-10 meq o over 24 hours - PO intake encouraged and fluids have been discontinued Gram-positive bacteremia likely due to IV drug use First of the blood cultures came back with gram-positive cocci and clusters. Patient finally admits to using IV drugs approximately one month prior. Physical exam does reveal multiple track marin which appear fresh however. Second set of blood cultures however was negative. First set may have been possible contaminant? TTE did not show vegetations -Continue vancomycin 1 g every 12, pharmacy to dose to keep trough between 15-20 - Will call ID consult on Friday - Obtain ESR, CRP daily Syncope likely 2/2 dehydration - resolved Patient reports multiple episodes of syncope after getting up. Currently orthostatic negative in the ER after 2 L of fluid were given. EKG shows no arrhythmias. Given patient's history of hyponatremia and intractable vomiting, likely due to dehydrated state. - Monitor for now - Continue with IV hydration as needed as well as by mouth intake Intractable nausea and vomiting likely secondary to gastroenteritis, less likely pancreatitis - resolved CT abdomen pelvis reveals no gross abnormalities. Patient has no further episodes of vomiting or nausea at this time. -Advance diet as tolerated - Zofran when necessary - IV fluids when appropriate - Encourage by mouth intake - Pain control with Tylenol and morphine Acute kidney injury - resolved Renal injury improved with IV fluids alone. Likely prerenal given the circumstances - Continue with IV fluids when appropriate - Avoid nephrotoxic medication and dose medications for reduced GFR - BMP daily to monitor renal function Bipolar disorder Patient reports mood has been stable. States that he is compliant with his psychiatric medications. Denies any episodes of juan r or depression at this time. - Continue with home psychiatric medications - invega injections monthly COPD, undiagnosed Patient does not report any formal COPD diagnosis in the past. However he has a [id number] smoking history. Currently wheezing at this time. - Continue with albuterol PRN - Supplemental oxygen to maintain saturation greater than 88% if needed - nicotine patch if patient requests VS, I&O, 24H, Fishbone Vital Signs/I&O Vital Signs Date Time Temp Pulse Resp B/P (MAP) Pulse Ox O2 Delivery O2 Flow Rate FiO2 02/13/20 11:16 18 02/13/20 06:00 98.5 90 130/81 (97) 98 Room Air I&O- Last 24 Hours up to 6 AM 02/13/20 05:59 Intake Total 4980 ml Output Total 400 ml Balance 4580 ml Laboratory Data 24H LABS Laboratory Tests 2 02/13/20 05:18: Nucleated Red Blood Cells % (auto) 0.0, Anion Gap 6L, Glomerular Filtration Rate > 60.0, Calcium Level 9.0, Magnesium Level 2.4, Total Bilirubin 1.3H, Aspartate Amino Transf (AST/SGOT) 12, Alanine Aminotransferase (ALT/SGPT) 27, Alkaline Phosphatase 119H, Total Protein 6.5, Albumin 3.1L, Albumin/Globulin Ratio 0.91L 02/13/20 10:58: Vancomycin Level Trough 10.5 CBC/BMP Laboratory Tests 02/13/20 05:18 Microbiology Microbiology 02/11/20 Blood Culture - Preliminary, Resulted No Growth after 48 hours. All Specime... 02/11/20 Blood Culture - Preliminary, Resulted CRISTIAN LANE MD Feb 13, 2020 14:34
[2020-02-13] MEDS: ONDANSETRON 4MG/2ML VIAL IV PRN (19:28)
[2020-02-13] MEDS: ALBUTEROL 90 MCG/ACT 8GM HFA INHALER INH SCH (19:53)
[2020-02-13] MEDS: MAALOX 30 ML SUSP *UDC PO PRN (21:59)
[2020-02-13 22:00] VITALS: BP 127/89
[2020-02-14] MEDS: MORPHINE 2 MG/ML 1ML VIAL (J2270) IV PRN ×3 (03:31→20:22)
[2020-02-14] MEDS: VANCOMYCIN HCL 1,000 MG, VIAL MATE ADAPTER 1 EACH in D5W 250 ML IV SCH (03:32)
[2020-02-14 05:52] LABS: HEMATOCRIT 34.8 % (42.0-52.0); HEMOGLOBIN 12.2 g/dl (13.5-17.5); MEAN CORPUSCULAR HEMOGLOBIN 31.9 pg (27.0-33.0); MEAN CORPUSCULAR HGB CONC 35.1 g/dl (32.0-36.5); MEAN CORPUSCULAR VOLUME 90.9 fl (80.0-96.0); PLATELET COUNT, AUTOMATED 294 10^3/uL (150-450); RED BLOOD COUNT 3.83 10^6/uL (4.30-6.10); WHITE BLOOD COUNT 6.8 10^3/uL (4.0-10.0)
[2020-02-14 06:00] VITALS: BP 128/78
[2020-02-14] MEDS ORDERED: ALBUTEROL SULFATE 2.5 MG/0.5 ML INH NEB SOLN NEB ONE (06:15)
[2020-02-14 06:18] LABS: ALT/SGPT 28 U/L (12-78); BILIRUBIN,TOTAL 1.1 MG/DL (0.2-1.0); BLOOD UREA NITROGEN 9 MG/DL (7-18); CALCIUM LEVEL 9.1 MG/DL (8.5-10.1); CARBON DIOXIDE LEVEL 31 MEQ/L (21-32); CHLORIDE LEVEL 93 MEQ/L (98-107); CREATININE FOR GFR 0.54 MG/DL (0.70-1.30); GLOMERULAR FILTRATION RATE > 60.0 (>56); GLUCOSE, FASTING 100 MG/DL (70-100); MAGNESIUM LEVEL 2.1 MG/DL (1.8-2.4); POTASSIUM SERUM 3.4 MEQ/L (3.5-5.1); SODIUM LEVEL 129 MEQ/L (136-145)
[2020-02-14] MEDS ORDERED: POTASSIUM CHLORIDE 10 MEQ SR TABLET PO ONE (07:15)
[2020-02-14] MEDS ORDERED: MAALOX 30 ML SUSP *UDC PO ONE (08:00)
[2020-02-14] MEDS: ALBUTEROL 90 MCG/ACT 8GM HFA INHALER INH SCH ×2 (08:00→11:55)
[2020-02-14] MEDS: DOCUSATE SODIUM 100 MG CAP PO SCH ×2 (09:12→20:30)
[2020-02-14] MEDS: HEPARIN SOD (PORCINE) 5000UNITS/ML VIAL (J1644 PER 1000UNITS) SC SCH ×2 (09:12→20:21)
[2020-02-14 10:46] LABS: HEPATITIS B SURFACE ANTIBODY NEGATIVE (POSITIVE); HEPATITIS B SURFACE ANTIGEN NEGATIVE (NEGATIVE); HEPATITIS C VIRUS ABY INDEX 0.1 INDEX (<0.8); HIV 1&2 SCREEN CENTAUR NEGATIVE (NEGATIVE)
--- NOTE | 2020-02-14 10:49 | IPNPDOC ---
Subjective Date Seen The patient was seen on 02/14/20. Subjective Chief Complaint/HPI Patient seen and examined at bedside this morning. Patient reports that he is feeling much better today compared to yesterday. She denies any further abdominal pain or malaise. He states that he has been tolerating a liquid diet and would like some solid food starting today. Denies any recent fevers, chills, shortness of breath, chest pain, abdominal pain, nausea, vomiting, tarry diarrhea. All questions regarding patient's current plan of care were discussed at bedside. Patient has no complaints at this time. Other systems 10 point review of systems was negative except for what stated above in the subjective Objective Physical Examination General Exam: Positive: Alert, Cooperative, No Acute Distress Eye Exam: Positive: PERRLA, Conjunctiva & lids normal, EOMI; Negative: Sclera icteric ENT Exam: Positive: Atraumatic, Mucous membr. moist/pink, Tongue Midline Neck Exam: Positive: Supple; Negative: JVD Chest Exam: Positive: Normal air movement, Wheezing (faint bibasal wheezing appreciated both lung hollins) Heart Exam: Positive: Rate Normal, Tachycardic, Regular Rhythm, Normal S1, Normal S2; Negative: Murmurs Abdomen Exam: Positive: Normal bowel sounds, Soft; Negative: Tenderness, Hepatospenomegaly, Mass Extremity Exam: Positive: Normal pulses; Negative: Clubbing, Cyanosis, Edema Skin Exam: Positive: Nl turgor and temperature; Negative: Rash Neuro Exam: Positive: Normal Speech, Strength at 5/5 X4 ext, Normal Tone, Sensation Intact, Cranial Nerves 3-12 NL Psych Exam: Positive: Mental status NL, Mood NL, Oriented x 3; Negative: Anxiety Assessment /Plan Assessment 54-year-old male initially admitted for hyponatremia and dehydration now thought to be bacteremic with gram-positive cocci in clusters in 1 bottle. Cultures are growing staph warneri and hominis which are coagulase negative staph. ID consult was called this morning and will evaluate. Patient's white count has defervesced with vancomycin therapy. Rest of patient's electrolyte abnormalities are also improving in terms of his hyponatremia. Renal function is back to baseline. Plan/VTE VTE Prophylaxis Ordered?: Yes Plan IVF: Continue Diet: Continue Current Activity: Continue Current Medications: Start Antibiotics Diagnostics: Check Labs Hyponatremia - improving Patient presents with hypotonic hyponatremia and was dehydrated. Currently r esolving with IV fluids. - Ensure correction is no faster than 8-10 meq o over 24 hours - PO intake encouraged and fluids have been discontinued Gram-positive bacteremia likely due to IV drug use Coagulase negative staph infection x1 bottle First of the blood cultures came back with gram-positive cocci and clusters. Patient finally admits to using IV drugs approximately one month prior. Physical exam does reveal multiple track marin which appear fresh however. Second set of blood cultures however was negative. First set may have been possible contaminant? TTE did not show vegetations Cultures showing coagulase-negative staph species. ID consult was called with repeat cultures to be drawn today. Will follow ID recommendations once given. -Continue vancomycin 1 g every 12, pharmacy to dose to keep trough between 15-20 -Follow-up ID consult - Obtain ESR, CRP daily COPD, undiagnosed Patient does not report any formal COPD diagnosis in the past. However he has a [id number] smoking history. Currently wheezing at this time. -Albuterol standing with duo nebs as needed - Supplemental oxygen to maintain saturation greater than 88% if needed - nicotine patch if patient requests Syncope likely 2/2 dehydration - resolved Patient reports multiple episodes of syncope after getting up. Currently orthostatic negative in the ER after 2 L of fluid were given. EKG shows no arrhythmias. Given patient's history of hyponatremia and intractable vomiting, likely due to dehydrated state. - Monitor for now - Continue with IV hydration as needed as well as by mouth intake Intractable nausea and vomiting likely secondary to gastroenteritis, less likely pancreatitis - resolved CT abdomen pelvis reveals no gross abnormalities. Patient has no further episodes of vomiting or nausea at this time. -Advance diet as tolerated - Zofran when necessary - IV fluids when appropriate - Encourage by mouth intake - Pain control with Tylenol and morphine Acute kidney injury - resolved Renal injury improved with IV fluids alone. Likely prerenal given the circumstances - Continue with IV fluids when appropriate - Avoid nephrotoxic medication and dose medications for reduced GFR - BMP daily to monitor renal function Bipolar disorder Patient reports mood has been stable. States that he is compliant with his psychiatric medications. Denies any episodes of juan r or depression at this time. - Continue with home psychiatric medications - invega injections monthly VS, I&O, 24H, Fishbone Vital Signs/I&O Vital Signs Date Time Temp Pulse Resp B/P (MAP) Pulse Ox O2 Delivery O2 Flow Rate FiO2 4/27/20 06:00 98.7 89 17 128/78 (95) 96 Room Air I&O- Last 24 Hours up to 6 AM 02/14/20 05:59 Intake Total 3920 ml Output Total 2050 ml Balance 1870 ml Laboratory Data 24H LABS Laboratory Tests 2 02/13/20 10:58: Vancomycin Level Trough 10.5 02/14/20 05:14: 02/14/20 05:16: Nucleated Red Blood Cells % (auto) 0.0, Anion Gap 5L, Glomerular Filtration Rate > 60.0, Calcium Level 9.1, Magnesium Level 2.1, Total Bilirubin 1.1H, Aspartate Amino Transf (AST/SGOT) 16, Alanine Aminotransferase (ALT/SGPT) 28, Alkaline Phosphatase 108, Total Protein 6.0L, Albumin 3.0L, Albumin/Globulin Ratio 1.00 CBC/BMP Laboratory Tests 02/14/20 05:16 Microbiology Microbiology 02/11/20 Blood Culture - Preliminary, Resulted No Growth after 48 hours. All Specime... 02/11/20 Blood Culture - Final, Complete Staphylococcus Warneri Staphylococcus Hominis Ssp Fei CRISTIAN LANE MD Feb 14, 2020 10:49
[2020-02-14 14:00] VITALS: BP 127/78
[2020-02-14] MEDS: IPRATROPIUM 0.5MG/ALBUTEROL 2.5MG INH SOL UD 3ML (DUONEB)(J7620) NEB SCH ×2 (14:02→19:37)
[2020-02-14] MEDS ORDERED: ALBUTEROL SULFATE 2.5 MG/0.5 ML INH NEB SOLN NEB SCH (16:00)
--- NOTE | 2020-02-14 18:00 | CR ---
DATE OF CONSULTATION: 02/14/2020 We were asked to see Mr. Dvaid Caballero for a positive blood culture and concern for bacteremia. HISTORY OF PRESENT ILLNESS: David Caballero reported to the emergency room on 02/11/2020 due to a 3-day history of intractable vomiting. He states he had experienced 6-8 episodes of vomiting a day and was unable to keep any food or liquid down during those 3 days. He also notes feeling very weak and passing out multiple times throughout those 3 days. He also describes generalized abdominal pain and bloating in his abdomen. He endorses chills but denies any fevers. 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 He states he presented to the emergency department because his symptoms were not resolving, and he was feeling very weak. He denied any episodes of diarrhea, chest pain, shortness of breath, coughing. Upon evaluation in the emergency room, he was found to be hyponatremic. He was previously admitted on 01/24/2020 for hyponatremia but left against medical advice (AMA) from that admission. Patient was admitted to the hospital on 02/11/2020 for hyponatremia and acute kidney injury. He was given two liters of IV fluids in the emergency department and started on maintenance IV fluid for correction of the hyponatremia, no faster than 10 mEq over 24 hours. His hyponatremia and acute kidney injury (FLAVIO) have improved since admission, although he still remains somewhat hyponatremic. He was also found to have wheezing despite no known history of chronic obstructive pulmonary disease (COPD) or asthma. This has been treated with as needed albuterol inhalers and nebulizers. His intractable nausea and vomiting have improved, and his diet has been advanced. He is eating a regular diet as of this morning without any recurrent nausea or vomiting, although he says his appetite is still somewhat decreased. On initial evaluation, blood cultures were also drawn for concern of infection. One blood culture drawn on 02/11/2020 has grown Staphylococcus warneri and Staphylococcus hominis species. A second blood culture drawn on 02/11/2020 is negative after 72 hours. Patient initially denied intravenous (IV) drug use on admission, although his urine drug screen was positive for opiates and cannabis. He now admits only to using IV amphetamines about a month ago. REVIEW OF SYSTEMS: A 10-point review of systems was completed and negative other than described in the history of the present illness above. PAST MEDICAL HISTORY: 1. Duodenal papillary stenosis. 2. Bipolar disorder. 3. Recurrent pancreatitis. 4. Tobacco abuse. 5. IV drug abuse. PAST SURGICAL HISTORY: Hernia repair. FAMILY MEDICAL HISTORY: Mother from lung cancer. Father from coronary artery disease. SOCIAL HISTORY: Smokes one pack per day of cigarettes for the past 30 years. Denies any alcohol use. Smokes marijuana 2-3 joints a day. Admits to history of IV braden use, stating last use was 1 month ago. Lives alone in his apartment. HOME MEDICATIONS: - Invega intramuscularly (IM) once a month. ALLERGIES: AZITHROMYCIN, CLARITHROMYCIN, ERYTHROMYCIN, TRAMADOL (all listed as causing nausea and vomiting). PHYSICAL EXAMINATION: Vital signs: Temperature is 98.7 oral, heart rate 88, respiratory rate 19, blood pressure 127/78, pulse oximetry 94% on room air. General: Patient appears alert and comfortable, sitting up in bed, in no acute distress. HEENT: Normocephalic, atraumatic. Sclerae anicteric. Moist mucous membranes. Neck: Supple, no lymphadenopathy. Lungs: Bibasilar wheezing appreciated bilaterally. Equal air entry bilaterally. Cardiac: Regular rate and rhythm. Normal S1 and S2. No murmurs, rubs or gallops appreciated. Abdomen: Soft, nontender, nondistended. No hepatosplenomegaly noted. Bowel sounds present. Skin: No rash or lesions noted. Extremities: Pulses 2+ in radial and dorsalis pedis arteries. No edema, cyanosis, or clubbing. Neurologic: Alert and oriented. No focal deficits appreciated. Psychiatric: Normal mood and affect. LABORATORY DATA: White blood cell count 6.8, hemoglobin 12.2, hematocrit 34.8, platelet count 294. Sodium 129, potassium 3.4, chloride 93, carbon dioxide 31, BUN 9, creatinine 0.54, glucose 100, calcium 9.1, magnesium 2.1, total bilirubin 1.1, AST 16, ALT 28, alkaline phosphatase 108, total protein 6.0, albumin 3.0. Hepatitis B surface antigen negative. Hepatitis B surface antibody negative. Hepatitis B core IgG pending. Hepatitis A antibody pending. Hepatitis C antibody index negative. HIV negative. Microbiology: One blood culture drawn on 02/11/2020 positive for Staphylococcus warneri and Staphylococcus hominis species. One blood culture drawn on 02/11/2020 negative at 72 hours[address] IMAGING: CT of the abdomen and pelvis on 02/11/2020 shows no acute abnormalities, sigmoid diverticulosis without acute diverticulitis, normal appendix, no free air or free fluid. No evidence of bowel obstruction. Renal ultrasound on 02/11/2020: Unremarkable renal ultrasound. Chest x-ray on 02/12/2020: No acute pulmonary disease. IMPRESSION: 1. Single positive blood culture for Staphylococcus warneri and Staphylococcus hominis species, likely contamination considering two organisms in a single culture with a negative culture drawn 20 minutes after. Patient has been on vancomycin for one day for coverage. 2. History of IV drug abuse. Hepatitis C and HIV testing were negative. Hepatitis B and hepatitis A labs remain pending. The patient is not immunized against hepatitis B. Will need to complete immunization. PLAN: Stop vancomycin this morning. Will repeat blood culture tomorrow morning. Will need hepatitis B vaccination, hepatitis A immunity status pending.
[2020-02-14 22:00] VITALS: BP 128/76
[2020-02-15] MEDS: IPRATROPIUM 0.5MG/ALBUTEROL 2.5MG INH SOL UD 3ML (DUONEB)(J7620) NEB SCH (01:11)
[2020-02-15] MEDS ORDERED: KETOROLAC TROMETHAMINE 10 MG TAB PO PRN (02:30)
[2020-02-15] MEDS ORDERED: LIDOCAINE 5% (LIDODERM) PATCH TD ONE (02:30)
[2020-02-15 06:36] LABS: HEPATITIS A IgG TOTAL Negative (Negative); HEPATITIS B CORE ANTIBODY IGG Negative (Negative)
[2020-02-15] MEDS ORDERED: **NOTE PATIENT COMMENT** MISC XX ONE (14:30)
== END 2020-02-15 03:01 | disposition left against medical advice (07) | DRG 683 ==
LOC: M ED 12:06 → M ED INP 14:58 → ENRESERV 15:28 → M MSPAV 16:05
PROVIDERS: ADMIT Internal Medicine; ATTEND Internal Medicine
DX: N17.9 Acute kidney failure, unspecified (principal); E87.1 Hypo-osmolality and hyponatremia; K31.5 Obstruction of duodenum; K86.1 Other chronic pancreatitis; K52.9 Noninfective gastroenteritis and colitis, unspecified; J44.9 Chronic obstructive pulmonary disease, unspecified; F17.210 Nicotine dependence, cigarettes, uncomplicated; R55 Syncope and collapse; F12.10 Cannabis abuse, uncomplicated; F15.10 Other stimulant abuse, uncomplicated; E86.0 Dehydration; F31.9 Bipolar disorder, unspecified; Z79.899 Other long term (current) drug therapy; Z88.1 Allergy status to other antibiotic agents; Z88.5 Allergy status to narcotic agent

== ENCOUNTER → 2020-02-22 | Outpatient (REF) | payer MEDICARE, MEDICAID ==
[2020-02-22 19:01] LABS: BASO # 0.1 10^3/uL (0.0-0.2); BASO % 0.5 % (0.0-1.0); EOS # 0.2 10^3/uL (0.0-0.5); EOS % 1.6 % (0.0-3.0); HEMATOCRIT 36.1 % (42.0-52.0); HEMOGLOBIN 12.3 g/dl (13.5-17.5); LYMPH # 3.7 10^3/uL (1.5-5.0); LYMPH % 26.1 % (24.0-44.0); MEAN CORPUSCULAR HEMOGLOBIN 31.9 pg (27.0-33.0); MEAN CORPUSCULAR HGB CONC 34.1 g/dl (32.0-36.5); MEAN CORPUSCULAR VOLUME 93.8 fl (80.0-96.0); MONO # 0.9 10^3/uL (0.0-0.8); NEUTROPHILS # 8.9 10^3/uL (1.5-8.5); NEUTROPHILS % 63.4 % (36.0-66.0); PLATELET COUNT, AUTOMATED 549 10^3/uL (150-450); RED BLOOD COUNT 3.85 10^6/uL (4.30-6.10); WHITE BLOOD COUNT 14.1 10^3/uL (4.0-10.0)
[2020-02-22 19:03] LABS: ALBUMIN 3.8 GM/DL (3.2-5.2); ALT/SGPT 39 U/L (12-78); BILIRUBIN,TOTAL 0.3 MG/DL (0.2-1.0); BLOOD UREA NITROGEN 12 MG/DL (7-18); CARBON DIOXIDE LEVEL 26 MEQ/L (21-32); CHLORIDE LEVEL 106 MEQ/L (98-107); CREATININE FOR GFR 0.71 MG/DL (0.70-1.30); GLOMERULAR FILTRATION RATE > 60.0 (>56); GLUCOSE, FASTING 103 MG/DL (70-100); POTASSIUM SERUM 3.9 MEQ/L (3.5-5.1); SODIUM LEVEL 139 MEQ/L (136-145); TOTAL PROTEIN 7.1 GM/DL (6.4-8.2)
== END ==
LOC: M LAB REF 18:12
PROVIDERS: ATTEND Nurse Practitioner Family
DX: R11.2 Nausea with vomiting, unspecified (principal); E87.6 Hypokalemia; E87.1 Hypo-osmolality and hyponatremia

== ENCOUNTER 2020-03-12 12:33 | Inpatient (IN) | payer MEDICARE, MEDICAID ==
[~2020-03-12] VITALS: Ht 175.3 cm; Wt 67.3 kg
[2020-03-12] MEDS ORDERED: KETOROLAC 30 MG/ML 1ML VIAL IV ONE (13:00)
[2020-03-12] MEDS ORDERED: NS 1,000 ML IV ONE (13:00)
[2020-03-12] MEDS ORDERED: PANTOPRAZOLE 40MG VIAL (C9113 PER 1) IV ONE (13:00)
[2020-03-12] MEDS ORDERED: ONDANSETRON 4MG/2ML VIAL IV ONE (13:00)
[2020-03-12 13:11] LABS: BASO % 0.2 % (0.0-1.0); HEMATOCRIT 47.3 % (42.0-52.0); HEMOGLOBIN 16.8 g/dl (13.5-17.5); LYMPH # 1.5 10^3/uL (1.5-5.0); LYMPH % 8.2 % (24.0-44.0); MEAN CORPUSCULAR HEMOGLOBIN 31.6 pg (27.0-33.0); MEAN CORPUSCULAR HGB CONC 35.5 g/dl (32.0-36.5); MEAN CORPUSCULAR VOLUME 88.9 fl (80.0-96.0); MONO # 1.1 10^3/uL (0.0-0.8); MONO % 5.7 % (0.0-5.0); NEUTROPHILS # 15.7 10^3/uL (1.5-8.5); NEUTROPHILS % 85.4 % (36.0-66.0); PLATELET COUNT, AUTOMATED 528 10^3/uL (150-450); RED BLOOD COUNT 5.32 10^6/uL (4.30-6.10); WHITE BLOOD COUNT 18.4 10^3/uL (4.0-10.0)
[2020-03-12 13:37] LABS: ALBUMIN 4.9 GM/DL (3.2-5.2); ALT/SGPT 24 U/L (12-78); BILIRUBIN,DIRECT 0.2 MG/DL (0.0-0.2); BILIRUBIN,TOTAL 0.9 MG/DL (0.2-1.0); BLOOD UREA NITROGEN 46 MG/DL (7-18); CALCIUM LEVEL 11.8 MG/DL (8.5-10.1); CARBON DIOXIDE LEVEL 30 MEQ/L (21-32); CHLORIDE LEVEL 77 MEQ/L (98-107); CREATININE FOR GFR 4.99 MG/DL (0.70-1.30); ETHYL ALCOHOL (ETHANOL) < 0.003 % (0.000-0.010); GLOMERULAR FILTRATION RATE 13.1 (>56); GLUCOSE, FASTING 168 MG/DL (70-100); LIPASE 159 U/L (73-393); POTASSIUM SERUM 3.8 MEQ/L (3.5-5.1); SODIUM LEVEL 127 MEQ/L (136-145); TOTAL PROTEIN 9.8 GM/DL (6.4-8.2)
[2020-03-12] MEDS ORDERED: MOM 30ML SUSPENSION UDC PO PRN (14:15)
[2020-03-12] MEDS ORDERED: ACETAMINOPHEN TAB 650MG DOSE (2X325MG) PO PRN (14:15)
[2020-03-12] MEDS ORDERED: NS 1,000 ML IV SCH (14:30)
[2020-03-12] MEDS ORDERED: ONDANSETRON 4MG/2ML VIAL IV PRN (14:45)
[2020-03-12] MEDS ORDERED: MORPHINE 4 MG/ML 1ML VIAL/SYRINGE (J2270) IV ONE (15:00)
[2020-03-12] MEDS: NS 1,000 ML IV SCH ×2 (15:32→23:09)
--- NOTE | 2020-03-12 15:39 | HPEPDOC ---
General Date of Admission March 12, 2020 at 14:07 Date of Service: March 12, 2020 Chief Complaint The patient is a 54-year-old male admitted with a reason for visit of Acute Kidney Failure. Source: Patient, Old records Exam Limitations: No limitations Timing/Duration: Day(s) (3) Severity: Severe Associated Symptoms: Unobtainable History of Present Illness Pt is a 54 year old male who was brought to the [facility] ED by EMS after he had been found laying in his driveway. Reportedly he has been having abdominal pain, nausea and vomiting for 2-3 days now. The pain is constant, 10/10 at its worst and he hasn't been able to keep any food or fluid down. 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 Pt verbalized to me that he wants to be a DNR/DNI. Home Medications Scheduled Paliperidone Palmitate (Invega Sustenna) 156 Mg/1 Ml Syringe, 156 MG IM QMONTH, (Reported) Scheduled PRN [duo nebs] , for SHORTNESS OF BREATH, (Reported) Allergies Coded Allergies: azithromycin (Verified Adverse Reaction, Mild, N/V, 04/30/19) clarithromycin (Verified Adverse Reaction, Mild, N/V, 04/30/19) erythromycin base (Verified Adverse Reaction, Mild, N/V, 04/30/19) tramadol (Verified Adverse Reaction, Mild, N/V, 04/30/19) Past Medical History Medical History History of Pancreatitis Duodenal Papillomatosis COPD Bipolar Disorder Surgical History Hernia repair Family History Significant Family History: Cancer (Mother (dec.) - Lung Ca and Emphysema ), Heart disease Father (sep) - CV disease Social History * Smoker: current smoker (1.5 PPD for 30 years ) Alcohol: Denies Drugs: marijuana A-FIB/CHADSVASC A-FIB History Current/History of A-Fib/PAF?: No Current PO Anticoag Therapy: No Review of Systems Constitutional: Reports: Malaise, Weakness; Denies: Chills, Fever, Night Sweats ENT: Denies: Head Aches Skin: Denies: Rash Pulmonary: Denies: Dyspnea, Cough Cardiovascular: Denies: Chest Pain, Palpitations, Orthopnea, Paroxysmal Noc. Dyspnea, Lt Headedness Gastrointestinal: Reports: Nausea, Vomiting, Abdominal Pain, Diarrhea; Denies: Melena Genitourinary: Denies: Dysuria, Retention Neurological: Denies: Weakness, Numbness, Change in speech, Confusion Psych: Reports: Mood Normal, Depression; Denies: Memory Issues Physical Examination General Exam: Positive: Alert, Mild Distress ( position in bed ) Eye Exam: Positive: PERRLA, Conjunctiva & lids normal; Negative: Sclera icteric ENT Exam: Positive: Atraumatic, Pharynx Normal Neck Exam: Positive: Supple; Negative: thyromegaly Chest Exam: Positive: Clear to auscultation, Normal air movement Heart Exam: Positive: Rate Normal, Regular Rhythm, Normal S1, Normal S2; Negative: Murmurs, Rubs Telemetry: Positive: No significant arrhythmia Abdomen Exam: Positive: BS Hypoactive, Soft, Tenderness (diffuse); Negative: Hepatospenomegaly, Mass Extremity Exam: Positive: Normal pulses; Negative: Clubbing, Cyanosis, Edema, Tenderness, Swelling Skin Exam: Positive: Nl turgor and temperature Neuro Exam: Positive: Normal Speech, Cranial Nerves 3-12 NL Psych Exam: Positive: Mood NL Vital Signs Vital Signs Date Time Temp Pulse Resp B/P (MAP) Pulse Ox O2 Delivery O2 Flow Rate FiO2 03/12/20 14:00 91 18 146/86 (106) 100 Room Air 03/12/20 13:52 97.8 Laboratory Data Labs 24H Laboratory Tests 2 03/12/20 13:03: Immature Granulocyte % (Auto) 0.5, Neutrophils (%) (Auto) 85.4H, Lymphocytes (%) (Auto) 8.2L, Monocytes (%) (Auto) 5.7H, Eosinophils (%) (Auto) 0.0, Basophils (%) (Auto) 0.2, Neutrophils # (Auto) 15.7H, Lymphocytes # (Auto) 1.5, Monocytes # (Auto) 1.1H, Eosinophils # (Auto) 0.0, Basophils # (Auto) 0.0, Nucleated Red Blood Cells % (auto) 0.0, Anion Gap 20H, Glomerular Filtration Rate 13.1L, Calcium Level 11.8H, Total Bilirubin 0.9, Direct Bilirubin 0.2, Aspartate Amino Transf (AST/SGOT) 12, Alanine Aminotransferase (ALT/SGPT) 24, Alkaline Phosphatase 155H, Total Protein 9.8H, Albumin 4.9, Albumin/Globulin Ratio 1.0, Lipase 159, Ethyl Alcohol Level < 0.003 CBC/BMP Laboratory Tests 03/12/20 13:03 Assessment/Plan Pt is a 54 year old male who was brought to the [facility] ED by EMS after he had been found laying in his driveway. Reportedly he has been having abdominal pain, nausea and vomiting for 2-3 days now. The pain is constant, 10/10 at its worst and he hasn't been able to keep any food or fluid down. 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 Pt has a PMHx which includes: History of Pancreatitis, Duodenal Papillomatosis, COPD, Bipolar Disorder 1. Acute Renal Failure - Cr at baseline appears to be <1.1 - likely pre-renal secondary to dehydration from poor PO intake, vomiting and diarrhea. - Pending - urine FeNa - Pt has received 1 L NS bolus in the ED; second started. Reduced flow to 80mls due to hyponatremia - BMP daily - Nephrology consult if no improvement in renal functions on repeat BMP. 2. Hyponatremia - likely chronic, 2/2 dehydration from poor PO intake vomiting and diarrhea - pt is asymptomatic - Pending - Urine FeNa studies and serum osmolarity - Avoid giving excess saline while correcting; second fluid bolus from ED d/c. NS at 80mls with repeat BMP and assessment of electrolytes 3. Severe abdominal pain, nausea and vomiting - Elevated white count with stable VS; likely inflammation from pain and vomiting. - Lipase within normal limits - non-con CT abdomen/pelvis - pending - supportive care to include gentle hydration/pain control/strict bowel rest with clear fluid diet/antiemetics IV prn 4. Bipolar Disorder - Pt currently stable and reportedly compliant with his outpt Invega injections - Not currently due 5. COPD - needs referral for formal assessment and treatment - currently asymptomatic 6. Nicotine dependence - Nicotine patches if requested Plan / VTE VTE Prophylaxis Ordered?: Yes (Heparin ) Attending Note Attending Note - Patient was seen and examined at the bedside by myself - Patient reported his abdominal pain was improving - Physical with some epigastric tenderness - Labs reveal Leukocytosis, Elevated Cr from baseline, Hyponatremia - Will c/w IV fluid hydration and symptomatic control with pain medications and antiemetics - Repeat lab work to ensure a non-rapid rise of Na - If renal function fails to improve will consider consultation with Nephrology LORENA EASON PA-C March 12, 2020 15:39 TORREY ADAM MD March 12, 2020 21:25
[2020-03-12 15:50] VITALS: BP 142/83
[2020-03-12 20:11] LABS: ALBUMIN 3.8 GM/DL (3.2-5.2); BILIRUBIN,TOTAL 0.7 MG/DL (0.2-1.0); CALCIUM LEVEL 10.2 MG/DL (8.5-10.1); CREATININE FOR GFR 3.25 MG/DL (0.70-1.30); GLOMERULAR FILTRATION RATE 21.4 (>56); POTASSIUM SERUM 3.3 MEQ/L (3.5-5.1); TOTAL PROTEIN 8.2 GM/DL (6.4-8.2)
[2020-03-12] MEDS ORDERED: IPRATROPIUM 0.5MG/ALBUTEROL 2.5MG INH SOL UD 3ML (DUONEB)(J7620) NEB PRN (20:45)
[2020-03-12] MEDS ORDERED: DUO (20:52)
[2020-03-12] MEDS ORDERED: HEPARIN SOD (PORCINE) 5000UNITS/ML VIAL (J1644 PER 1000UNITS) SC SCH (21:00)
[2020-03-12 22:00] VITALS: BP 137/83
[2020-03-13 05:00] VITALS: BP 134/82
--- NOTE | 2020-03-14 10:14 | REP ---
CT ABDOMEN AND PELVIS WITHOUT CONTRAST: COMPARISON: 02/11/2020 CT abdomen and pelvis performed without oral or IV contrast. Sagittal and coronary reconstruction images are performed. There is no acute infiltrate in the visualized lung bases. There is a small hiatal hernia. The liver is grossly unremarkable. There is evidence of prior cholecystectomy with expected prominence of the common bile duct. Spleen is normal in size. Adrenal glands demonstrate no mass. Pancreas is grossly unremarkable. Postsurgical change is seen along the cortical surface of the posterior right kidney. There is no renal, ureteral or bladder calculus and no hydroureteronephrosis. There is no abdominal aortic aneurysm. There is no adenopathy. There is no free air or free fluid. There is no bowel wall thickening or inflammation. There is colonic diverticulosis without evidence of acute diverticulitis. The appendix is normal. There is no pelvic mass. Urinary bladder is mildly distended and grossly unremarkable. Once again, there are mild degenerative changes of the spine with an old compression deformity of L1, which is stable. IMPRESSION: No acute findings as discussed in detail above. Electronically Signed by Emil Davis MD 03/14/2020 01:38 P
--- NOTE | 2020-03-14 10:42 | REP ---
CHEST SINGLE VIEW: There is no evidence of acute infiltrate. No pleural effusion is seen. The heart is normal in size. The mediastinal silhouette is unremarkable. The visualized osseous structures are intact. IMPRESSION: No acute pulmonary disease. Electronically Signed by Emil Davis MD 03/14/2020 01:40 P
== END 2020-03-13 05:30 | disposition left against medical advice (07) | DRG 683 ==
LOC: M ED 12:33 → M ED INP 14:07 → ENRESERV 14:57 → M MS5PR 15:41
PROVIDERS: ADMIT Internal Medicine; ATTEND Internal Medicine
DX: N17.9 Acute kidney failure, unspecified (principal); E87.1 Hypo-osmolality and hyponatremia; F31.9 Bipolar disorder, unspecified; J44.9 Chronic obstructive pulmonary disease, unspecified; F17.200 Nicotine dependence, unspecified, uncomplicated; R11.2 Nausea with vomiting, unspecified; Z66 Do not resuscitate; Z88.1 Allergy status to other antibiotic agents; Z88.5 Allergy status to narcotic agent; Z79.899 Other long term (current) drug therapy

== ENCOUNTER 2020-03-15 09:29 | Emergency (ER) | payer MEDICARE, MEDICAID ==
[~2020-03-15 09:29] MED LIST changes: +DUO
[2020-03-15] MEDS ORDERED: NS 1,000 ML IV ONE (10:15)
[2020-03-15 10:35] LABS: BASO % 0.2 % (0.0-1.0); EOS % 0.3 % (0.0-3.0); HEMOGLOBIN 13.8 g/dl (13.5-17.5); LYMPH # 2.5 10^3/uL (1.5-5.0); LYMPH % 18.5 % (24.0-44.0); MEAN CORPUSCULAR HEMOGLOBIN 31.9 pg (27.0-33.0); MEAN CORPUSCULAR HGB CONC 35.4 g/dl (32.0-36.5); MEAN CORPUSCULAR VOLUME 90.1 fl (80.0-96.0); MONO # 1.1 10^3/uL (0.0-0.8); MONO % 8.5 % (0.0-5.0); NEUTROPHILS # 9.5 10^3/uL (1.5-8.5); NEUTROPHILS % 71.8 % (36.0-66.0); PLATELET COUNT, AUTOMATED 468 10^3/uL (150-450); RED BLOOD COUNT 4.33 10^6/uL (4.30-6.10); WHITE BLOOD COUNT 13.2 10^3/uL (4.0-10.0)
[2020-03-15 11:07] LABS: ALBUMIN 3.8 GM/DL (3.2-5.2); BILIRUBIN,DIRECT 0.4 MG/DL (0.0-0.2); BILIRUBIN,TOTAL 1.5 MG/DL (0.2-1.0); TOTAL PROTEIN 7.5 GM/DL (6.4-8.2)
--- NOTE | 2020-03-15 12:14 | REP ---
ABDOMEN: Two views of the abdomen are performed. There is no evidence of small bowel obstruction. Moderate fecal material is seen in the transverse and right colon. No significantly dilated bowel loops are seen. Metallic clips are seen in the right upper quadrant. There are mild degenerative changes of the spine. IMPRESSION: Moderate fecal material transverse and right colon. No evidence of small bowel obstruction. Electronically Signed by Emil Davis MD 03/15/2020 12:24 P
--- NOTE | 2020-03-15 12:19 | REP ---
RIGHT UPPER QUADRANT SONOGRAPHY: HISTORY: Right upper quadrant pain. Elevated bilirubin. FINDINGS: Scanning through right upper quadrant of the abdomen is performed. The gallbladder surgically absent. Common bile duct is normal post cholecystectomy measured at 0.7 cm. The pancreas is obscured by abdominal gas. No focal liver lesion is seen. There is no evidence of ascites or right renal abnormality. The right kidney measures 11.1 x 4.9 x 4.3 cm. IMPRESSION: Gallbladder surgically removed. Pancreas is obscured by abdominal gas. Otherwise negative right upper quadrant sonography. Normal CBD 0.7 cm. Electronically Signed by Efe Cheney MD 03/15/2020 12:37 P
[2020-03-15 12:47] VITALS: BP 119/83
== END 2020-03-15 12:54 | disposition home or self-care (01) ==
LOC: M ED 09:29 → EDBD 09:29 → M ED 12:54
DX: E86.0 Dehydration (principal); R10.9 Unspecified abdominal pain; R11.10 Vomiting, unspecified; F31.9 Bipolar disorder, unspecified; Z90.49 Acquired absence of other specified parts of digestive tract; Z88.1 Allergy status to other antibiotic agents; Z88.6 Allergy status to analgesic agent

== ENCOUNTER → 2020-04-03 | Outpatient (CLI) | payer MEDICARE, MEDICAID ==
[~2020-04-03] MED LIST changes: +ZOFR4TAB16 PO; +comment
--- NOTE | 2020-04-03 13:55 | REP ---
DIGITAL DIAGNOSTIC BILATERAL MAMMOGRAPHY WITH CAD, 3-D TOMOGRAPHY, AND BILATERAL BREAST SONOGRAPHY: HISTORY: Male patient with history of unspecified lump in the subareolar region of the left breast. The patient reports a left breast lump times 3 months. Comparison mammography January 19, 2018. The comparison study was performed for a palpable lump in the right breast. The prior imaging showed evidence of gynecomastia. MAMMOGRAPHIC FINDINGS: CC and MLO views of each breast were obtained. A skin marker is affixed to the skin at the site of the palpable lump on the left and this projects in the subareolar region in the upper outer quadrant. Gynecomastia pattern is seen bilaterally more pronounced on the left than previously. There is subareolar breast fibroglandular tissue on the right, slightly less pronounced than on the prior study. The changes appear roughly symmetric today. No evidence of adenopathy, spiculation, microcalcification, or worrisome skin change is seen on either side. SONOGRAPHIC FINDINGS: Bilateral subareolar scanning demonstrates heterogeneous fibroglandular background echotexture consistent with gynecomastia. At approximate 12-o'clock position where the patient reports a palpable lump, this same heterogeneous fibroglandular appearance is seen. No sonographic features of mass or architectural distortion is seen. There is no evidence of cyst. IMPRESSION: BIRADS 2: BI-RADS/ACR category 2 mammogram. Benign Findings. BIRADS category 2 benign imaging findings. Findings consistent with gynecomastia again seen more pronounced on the left today than previously. Somewhat regressed on the right compared to previous. Clinical followup is advised. This mammogram was interpreted with the aid of an FDA-approved computer-aided detection system. The patient states that she/he has not had a clinical breast exam in over a year. The patient letter being requested is M2, male patient.
== END ==
LOC: M WHC 10:46
PROVIDERS: ATTEND Family Medicine Addiction Medicine
DX: N63.42 Unspecified lump in left breast, subareolar (principal)
CPT/HCPCS: 76642; 77066; G0279

== ENCOUNTER 2020-04-09 05:46 | Observation (INO) | payer MEDICARE, MEDICAID ==
[~2020-04-09] VITALS: Ht 175.3 cm; Wt 70.3 kg
[~2020-04-09 05:46] MED LIST changes: -ZOFR4TAB16 PO; -comment
[2020-04-09] MEDS ORDERED: NS 1,000 ML IV ONE ×2 (06:15→07:30)
[2020-04-09] MEDS ORDERED: ONDANSETRON 4MG/2ML VIAL IV ONE (06:15)
[2020-04-09] MEDS ORDERED: MORPHINE 4 MG/ML 1ML VIAL/SYRINGE (J2270) IV ONE ×2 (06:30→09:00)
[2020-04-09 06:49] LABS: BASO % 0.2 % (0.0-1.0); HEMATOCRIT 52.2 % (42.0-52.0); HEMOGLOBIN 17.8 g/dl (13.5-17.5); LYMPH # 1.4 10^3/uL (1.5-5.0); LYMPH % 8.4 % (24.0-44.0); MEAN CORPUSCULAR HEMOGLOBIN 32.2 pg (27.0-33.0); MEAN CORPUSCULAR HGB CONC 34.1 g/dl (32.0-36.5); MEAN CORPUSCULAR VOLUME 94.4 fl (80.0-96.0); MONO # 0.3 10^3/uL (0.0-0.8); MONO % 1.8 % (0.0-5.0); NEUTROPHILS # 15.1 10^3/uL (1.5-8.5); PLATELET COUNT, AUTOMATED 431 10^3/uL (150-450); RED BLOOD COUNT 5.53 10^6/uL (4.30-6.10)
[2020-04-09 07:16] LABS: VENOUS BASE EXCESS -3.7 (-2.0-2.0); VENOUS HCO3 22.6 MEQ/L (23.0-27.0); VENOUS O2 SATURATION 59.5 % (60.0-80.0); VENOUS PARTIAL PRESSURE O2 33.3 mmHg (30.0-50.0); VENOUS PH 7.318 UNITS (7.330-7.430); VENOUS STANDARD HCO3 20.4 MEQ/L; VENOUS TOTAL CO2 23.9 MEQ/L (24.0-28.0)
[2020-04-09 07:30] LABS: ACETONE/KETONE 1.36 MG/DL (<2.81); ALBUMIN 5.1 GM/DL (3.2-5.2); BILIRUBIN,DIRECT 0.2 MG/DL (0.0-0.2); BILIRUBIN,TOTAL 0.8 MG/DL (0.2-1.0); TOTAL PROTEIN 9.6 GM/DL (6.4-8.2)
--- NOTE | 2020-04-09 07:56 | REPVR ---
PROCEDURE INFORMATION: Exam: CT Abdomen And Pelvis Without Contrast Exam date and time: 04/09/2020 6:51 AM Age: 54 years old Clinical indication: Nausea and vomiting; Abdominal pain; Additional info: Diffuse abd pain, n, v TECHNIQUE: Imaging protocol: Computed tomography of the abdomen and pelvis without contrast. Radiation optimization: All CT scans at this facility use at least one of these dose optimization techniques: automated exposure control; mA and/or kV adjustment per patient size (includes targeted exams where dose is matched to clinical indication); or iterative reconstruction. COMPARISON: CT ABD PELVIS W/O CONTRAST 03/12/2020 3:01 PM FINDINGS: Lungs: Mild dependent atelectasis. Pleural space: Small right pleural effusion. Liver: No mass. Gallbladder and bile ducts: Cholecystectomy changes. Mild intrahepatic and pronounced extrahepatic biliary ductal dilation with the common bile duct measuring 18 mm, perhaps secondary to cholecystectomy state. Pancreas: Similar small area of hypoattenuation within the pancreatic body, likely some incidental interdigitating fat. Spleen: No splenomegaly. Adrenals: No mass. Kidneys and ureters: Unchanged linear and nodular superficial hyperattenuation along the inferior aspect of the right kidney, perhaps from a previous surgery. No hydronephrosis or renal calculi. Stomach and bowel: There is again extensive colonic diverticulosis, with areas of colonic wall thickening without inflammation. Appendix: No evidence of appendicitis. Intraperitoneal space: No free air. No significant fluid collection. Vasculature: Mild aortic and branch vessel atherosclerosis. Lymph nodes: No enlarged lymph nodes. Bladder: There is thickening of the urinary bladder bailey likely from chronic outlet obstruction. Reproductive: Mildly enlarged prostate. Bones/joints: No acute fracture. Bony fragmentation with cortication between the posterior spinous processes of T12 and L1, likely from old injury. Multiple vertebral body Schmorl's nodes and chronic appearing mild compression deformities. Soft tissues: Unremarkable. IMPRESSION: 1. No acute intra-abdominal abnormality. 2. Small right pleural effusion. 3. Extensive colonic diverticulosis with areas of colonic wall thickening. Recommend correlation with age-appropriate colon cancer screening. No evidence of active diverticulitis. 4. Thickening of the urinary bladder wall likely secondary to chronic outlet obstruction given the prostate enlargement. 5. Similar pronounced extrahepatic biliary dilation, likely secondary to post cholecystectomy state although greater than would be expected. Electronically signed by: Abdoul Kiran On 04/09/2020 07:56:21 AM
[2020-04-09 08:16] LABS: ETHYL ALCOHOL (ETHANOL) 0.003 % (0.000-0.010)
[2020-04-09] MEDS ORDERED: comment (08:27)
[2020-04-09 08:59] LABS: BASO % 0.1 % (0.0-1.0); HEMATOCRIT 46.4 % (42.0-52.0); HEMOGLOBIN 15.9 g/dl (13.5-17.5); LYMPH # 1.5 10^3/uL (1.5-5.0); LYMPH % 8.7 % (24.0-44.0); MEAN CORPUSCULAR HEMOGLOBIN 31.5 pg (27.0-33.0); MEAN CORPUSCULAR HGB CONC 34.3 g/dl (32.0-36.5); MEAN CORPUSCULAR VOLUME 91.9 fl (80.0-96.0); MONO # 0.5 10^3/uL (0.0-0.8); NEUTROPHILS # 15.3 10^3/uL (1.5-8.5); NEUTROPHILS % 87.5 % (36.0-66.0); PLATELET COUNT, AUTOMATED 384 10^3/uL (150-450); RED BLOOD COUNT 5.05 10^6/uL (4.30-6.10); WHITE BLOOD COUNT 17.5 10^3/uL (4.0-10.0)
[2020-04-09 09:25] LABS: CALCIUM LEVEL 11.3 MG/DL (8.5-10.1); CREATININE FOR GFR 2.2 MG/DL (0.70-1.30); GLOMERULAR FILTRATION RATE 33.6 (>56); POTASSIUM SERUM 3.8 MEQ/L (3.5-5.1)
[2020-04-09] MEDS ORDERED: MORPHINE 4 MG/ML 1ML VIAL/SYRINGE (J2270) IV PRN (09:30)
[2020-04-09] MEDS ORDERED: MORPHINE 2 MG/ML 1ML VIAL (J2270) IV PRN ×2 (09:30→13:30)
[2020-04-09] MEDS ORDERED: ACETAMINOPHEN TAB 650MG DOSE (2X325MG) PO PRN (09:30)
[2020-04-09] MEDS ORDERED: ONDANSETRON 4MG/2ML VIAL IV PRN (09:30)
[2020-04-09] MEDS ORDERED: PANTOPRAZOLE 40MG TAB (PROTONIX) PO ONE (10:00)
[2020-04-09] MEDS: MORPHINE 4 MG/ML 1ML VIAL/SYRINGE (J2270) IV PRN ×3 (10:36→21:09)
[2020-04-09 10:49] LABS: AMPHETAMINES LEVEL URINE NEGATIVE (NEGATIVE); BARBITURATES URINE NEGATIVE (NEGATIVE); BENZODIAZEPINES URINE NEGATIVE (NEGATIVE); CANNABINOIDS URINE POSITIVE (NEGATIVE); COCAINE METABOLITE URINE NEGATIVE (NEGATIVE); METHADONE URINE NEGATIVE (NEGATIVE); OPIATES URINE POSITIVE (NEGATIVE); PHENCYCLIDINE URINE NEGATIVE (NEGATIVE)
[2020-04-09 11:00] VITALS: BP 116/75
[2020-04-09] MEDS ORDERED: HALOPERIDOL 5MG/ML VIAL (J1630 PER 1) IV ONE (11:00)
[2020-04-09] MEDS: PANTOPRAZOLE 40MG VIAL (C9113 PER 1) IV SCH (11:16)
[2020-04-09] MEDS: NS 1,000 ML IV SCH ×2 (11:17→21:09)
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
[2020-04-09] MEDS ORDERED: MAALOX 30 ML SUSP *UDC PO PRN (13:15)
[2020-04-09] MEDS: IPRATROPIUM 0.5MG/ALBUTEROL 2.5MG INH SOL UD 3ML (DUONEB) NEB PRN (13:32)
[2020-04-09 14:00] VITALS: BP 116/75
[2020-04-09 22:00] VITALS: BP 115/74
[2020-04-10] MEDS: NS 1,000 ML IV SCH ×2 (02:00→08:33)
[2020-04-10] MEDS: MORPHINE 4 MG/ML 1ML VIAL/SYRINGE (J2270) IV PRN ×2 (03:13→08:32)
[2020-04-10] MEDS: IPRATROPIUM 0.5MG/ALBUTEROL 2.5MG INH SOL UD 3ML (DUONEB) NEB PRN (05:40)
[2020-04-10 05:54] LABS: HEMATOCRIT 37.9 % (42.0-52.0); HEMOGLOBIN 12.9 g/dl (13.5-17.5); MEAN CORPUSCULAR HEMOGLOBIN 32.1 pg (27.0-33.0); MEAN CORPUSCULAR VOLUME 94.3 fl (80.0-96.0); PLATELET COUNT, AUTOMATED 312 10^3/uL (150-450); RED BLOOD COUNT 4.02 10^6/uL (4.30-6.10); WHITE BLOOD COUNT 10.1 10^3/uL (4.0-10.0)
[2020-04-10 06:00] VITALS: BP 101/64
[2020-04-10 06:18] LABS: BLOOD UREA NITROGEN 20 MG/DL (7-18); CARBON DIOXIDE LEVEL 27 MEQ/L (21-32); CHLORIDE LEVEL 101 MEQ/L (98-107); CREATININE FOR GFR 0.68 MG/DL (0.70-1.30); GLOMERULAR FILTRATION RATE > 60.0 (>56); GLUCOSE, FASTING 89 MG/DL (70-100); POTASSIUM SERUM 3.7 MEQ/L (3.5-5.1); SODIUM LEVEL 134 MEQ/L (136-145)
[2020-04-10] MEDS: PANTOPRAZOLE 40MG VIAL (C9113 PER 1) IV SCH (08:32)
[2020-04-10] MEDS: ENOXAPARIN 40MG/0.4ML SYRINGE (J1650 PER 10MG) SC SCH ×2 (08:32→08:37)
[2020-04-10] MEDS ORDERED: ZOFR4TAB16 PO (10:55)
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
[2020-04-11] MEDS ORDERED: NAPR-837 PO (16:15)
== END 2020-04-10 11:03 | disposition left against medical advice (07) ==
LOC: M ED 05:46 → EDBD 05:46 → M ED INP 05:47 → ENRESERV 09:42 → M MSPAV 10:44
PROVIDERS: ADMIT Student in an Organized Health Care Education/Training Program; ATTEND Student in an Organized Health Care Education/Training Program
DX: R11.15 Cyclical vomiting syndrome unrelated to migraine (principal); N17.9 Acute kidney failure, unspecified; D72.829 Elevated white blood cell count, unspecified; E87.2 Acidosis; F19.11 Other psychoactive substance abuse, in remission; F17.218 Nicotine dependence, cigarettes, with other nicotine-induced disorders; F12.10 Cannabis abuse, uncomplicated; F31.9 Bipolar disorder, unspecified; J45.909 Unspecified asthma, uncomplicated; K31.89 Other diseases of stomach and duodenum; Z88.1 Allergy status to other antibiotic agents; Z88.5 Allergy status to narcotic agent; Z79.899 Other long term (current) drug therapy
CPT/HCPCS: 36415; 74176; 80047; 80048; 80076; 80307; 81001; 82010; 82803; 83605; 83690; 85025; 85027; 93041; 94640; 96361; 96374; 96375; 96376; 99285; C9113; G0378; G0480; J2270; J2405

== ENCOUNTER 2020-04-11 14:54 | Emergency (ER) | payer MEDICARE, MEDICAID ==
[~2020-04-11 14:54] MED LIST changes: +ZOFR4TAB16 PO; +comment
[2020-04-11 15:15] VITALS: BP 111/61
[2020-04-11] MEDS ORDERED: NS 1,000 ML IV ONE (15:15)
[2020-04-11] MEDS: PROMETHAZINE INJ 25 MG/ML VIAL (J2550) IV ONE ×2 (15:34→15:50)
[2020-04-11] MEDS: KETOROLAC 30 MG/ML 1ML VIAL IV ONE ×2 (15:34→15:50)
[2020-04-11 15:35] LABS: BASO % 0.2 % (0.0-1.0); EOS # 0.2 10^3/uL (0.0-0.5); EOS % 2.1 % (0.0-3.0); HEMATOCRIT 35.3 % (42.0-52.0); HEMOGLOBIN 12.1 g/dl (13.5-17.5); LYMPH # 2.8 10^3/uL (1.5-5.0); LYMPH % 32.2 % (24.0-44.0); MEAN CORPUSCULAR HEMOGLOBIN 32.4 pg (27.0-33.0); MEAN CORPUSCULAR HGB CONC 34.3 g/dl (32.0-36.5); MEAN CORPUSCULAR VOLUME 94.6 fl (80.0-96.0); MONO # 0.7 10^3/uL (0.0-0.8); MONO % 7.7 % (0.0-5.0); NEUTROPHILS # 4.9 10^3/uL (1.5-8.5); NEUTROPHILS % 57.6 % (36.0-66.0); PLATELET COUNT, AUTOMATED 312 10^3/uL (150-450); RED BLOOD COUNT 3.73 10^6/uL (4.30-6.10); WHITE BLOOD COUNT 8.6 10^3/uL (4.0-10.0)
[2020-04-11 16:03] LABS: ALBUMIN 3.2 GM/DL (3.2-5.2); ALT/SGPT 18 U/L (12-78); BILIRUBIN,DIRECT 0.1 MG/DL (0.0-0.2); BILIRUBIN,TOTAL 0.5 MG/DL (0.2-1.0); BLOOD UREA NITROGEN 10 MG/DL (7-18); CALCIUM LEVEL 9.3 MG/DL (8.5-10.1); CARBON DIOXIDE LEVEL 27 MEQ/L (21-32); CHLORIDE LEVEL 106 MEQ/L (98-107); GLOMERULAR FILTRATION RATE > 60.0 (>56); GLUCOSE, FASTING 92 MG/DL (70-100); LIPASE 94 U/L (73-393); POTASSIUM SERUM 4.2 MEQ/L (3.5-5.1); SODIUM LEVEL 137 MEQ/L (136-145); TOTAL PROTEIN 6.2 GM/DL (6.4-8.2)
[2020-04-11] MEDS ORDERED: NAPR-837 PO (16:15)
== END 2020-04-11 16:26 | disposition home or self-care (01) ==
LOC: M ED 14:54 → EDBD 14:54 → M ED 16:26
DX: R10.9 Unspecified abdominal pain (principal); F15.10 Other stimulant abuse, uncomplicated; Z87.19 Personal history of other diseases of the digestive system; Z85.51 Personal history of malignant neoplasm of bladder; Z79.899 Other long term (current) drug therapy; Z88.1 Allergy status to other antibiotic agents; Z88.5 Allergy status to narcotic agent; F17.210 Nicotine dependence, cigarettes, uncomplicated

== ENCOUNTER → 2020-04-19 | Outpatient (CLI) | payer MEDICARE, MEDICAID ==
[~2020-04-19] MED LIST changes: +PROHANCE 279.3MG/ML 15ML VIAL As Ordered ONE
--- NOTE | 2020-04-19 09:43 | REP ---
MRI STUDY OF THE ABDOMEN AND LIVER WITHOUT AND WITH INTRAVENOUS CONTRAST: HISTORY: Disease of the biliary tract. Elevated enzymes. COMPARISON: Abdomen CT study April 09, 2020 and August 23, 2018. Gadolinium enhancement dose is 15 mL of intravenous ProHance. MR TECHNIQUE: Axial and coronal imaging planes utilized. T1- and T2-weighted sequences include spin-echo, fast spin echo, in and [id number], and dynamically acquired post contrast imaging. MRI FINDINGS: There is no evidence of focal liver lesion or spleen lesion. The liver and spleen are normal in size homogeneous in texture. The gallbladder surgically absent. The common bile duct is mildly dilated post cholecystectomy as on multiple previous CT studies. CBD diameter is 12 mm today. No evidence of choledocholithiasis or pancreatic mass lesion is seen. The main pancreatic duct measures 4 mm and is considered mildly dilated as well. No pancreatic mass or cyst is seen. No peripancreatic edema is appreciated. There is postoperative scarring adjacent to the posterior surface of the right kidney. The patient is status post partial nephrectomy. Left kidney is unremarkable. Postcontrast images show no vascular abnormality. No hypervascular lesion is seen in the liver or pancreas. There is no evidence of ascites. No adrenal abnormality is observed. IMPRESSION: Mild stable extrahepatic biliary ductal dilation post cholecystectomy, CBD 12 mm. Mildly dilated main pancreatic duct is also seen unchanged. Postoperative changes adjacent to the right kidney. Otherwise negative. Electronically Signed by Efe Cheney MD 04/19/2020 10:54 A
== END ==
LOC: M RAD 07:29
PROVIDERS: ATTEND Internal Medicine Gastroenterology
DX: K83.8 Other specified diseases of biliary tract (principal); Z90.49 Acquired absence of other specified parts of digestive tract
CPT/HCPCS: 74183; A9576

== ENCOUNTER 2020-07-18 08:28 | Emergency (ER) | payer MEDICARE, MEDICAID ==
[~2020-07-18] VITALS: Ht 175.3 cm; Wt 72.7 kg
[~2020-07-18 08:28] MED LIST changes: +PANT40TA29 PO; -PANT40TA3 PO; -PROHANCE 279.3MG/ML 15ML VIAL As Ordered ONE
[2020-07-18] MEDS ORDERED: IPRA0.00 (08:39)
[2020-07-18 08:41] VITALS: BP 121/79
[2020-07-18] MEDS ORDERED: NS 1,000 ML IV ONE ×2 (08:45→13:00)
[2020-07-18] MEDS ORDERED: METOCLOPRAMIDE INJ 10MG/2ML VIAL (J2765 PER 1) IV ONE (08:45)
[2020-07-18] MEDS ORDERED: METOCLOPRAMIDE 10 MG TAB PO ONE (09:30)
[2020-07-18 09:34] LABS: ALBUMIN 3.7 GM/DL (3.2-5.2); ALT/SGPT 23 U/L (12-78); BILIRUBIN,DIRECT 0.1 MG/DL (0.0-0.2); BILIRUBIN,TOTAL 0.4 MG/DL (0.2-1.0); BLOOD UREA NITROGEN 14 MG/DL (7-18); CARBON DIOXIDE LEVEL 26 MEQ/L (21-32); CHLORIDE LEVEL 104 MEQ/L (98-107); CREATININE FOR GFR 0.88 MG/DL (0.70-1.30); GLOMERULAR FILTRATION RATE > 60.0 (>56); GLUCOSE, FASTING 122 MG/DL (70-100); LIPASE 221 U/L (73-393); POTASSIUM SERUM 4.3 MEQ/L (3.5-5.1); SODIUM LEVEL 135 MEQ/L (136-145); TOTAL PROTEIN 7.3 GM/DL (6.4-8.2)
[2020-07-18] MEDS ORDERED: PROMETHAZINE INJ 25 MG/ML VIAL (J2550) IM ONE (10:00)
[2020-07-18] MEDS ORDERED: ONDANSETRON 4 MG ORAL DISINTEGRATING TAB PO ONE (11:15)
[2020-07-18] MEDS ORDERED: HALOPERIDOL 5MG/ML VIAL (J1630 PER 1) IM STA (11:18)
[2020-07-18] MEDS ORDERED: CAPSAICIN 0.025% CR 60 GM TOP ONE (13:00)
--- NOTE | 2020-07-18 17:16 | ECGEPIP ---
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
== END 2020-07-18 14:28 | disposition home or self-care (01) ==
LOC: M ED 08:28 → EDBD 08:28 → M ED 14:28
DX: R11.2 Nausea with vomiting, unspecified (principal); R94.31 Abnormal electrocardiogram [ECG] [EKG]; J98.9 Respiratory disorder, unspecified; F31.9 Bipolar disorder, unspecified; F17.200 Nicotine dependence, unspecified, uncomplicated; Z79.899 Other long term (current) drug therapy; Z88.1 Allergy status to other antibiotic agents; Z88.5 Allergy status to narcotic agent
CPT/HCPCS: 80048; 80076; 83690; 93005; 96360; 96372; 99284; J1630; Q0162

== ENCOUNTER 2021-01-09 18:37 | Inpatient (IN) | payer MEDICARE, MEDICAID ==
[~2021-01-09] VITALS: Ht 175.3 cm; Wt 70.8 kg
[~2021-01-09 18:37] MED LIST changes: +IPRA0.00
[2021-01-09] MEDS ORDERED: ONDANSETRON 4MG/2ML VIAL IV ONE (20:20)
[2021-01-09] MEDS ORDERED: NS 1,000 ML IV ONE (20:20)
[2021-01-09] MEDS ORDERED: KETOROLAC 30 MG/ML 1ML VIAL IV ONE (20:20)
[2021-01-09] MEDS ORDERED: MAALOX 30 ML SUSP *UDC PO ONE (20:35)
[2021-01-09 20:59] LABS: BASO % 0.2 % (0.0-1.0); EOS % 0.1 % (0.0-3.0); HEMATOCRIT 49.4 % (42.0-52.0); HEMOGLOBIN 16.6 g/dl (13.5-17.5); LYMPH # 1.8 10^3/uL (1.5-5.0); LYMPH % 10.9 % (24.0-44.0); MEAN CORPUSCULAR HEMOGLOBIN 30.8 pg (27.0-33.0); MEAN CORPUSCULAR HGB CONC 33.6 g/dl (32.0-36.5); MEAN CORPUSCULAR VOLUME 91.7 fl (80.0-96.0); MONO # 0.8 10^3/uL (0.0-0.8); MONO % 5.1 % (2.0-8.0); NEUTROPHILS # 13.7 10^3/uL (1.5-8.5); NEUTROPHILS % 83.3 % (36.0-66.0); PLATELET COUNT, AUTOMATED 427 10^3/uL (150-450); RED BLOOD COUNT 5.39 10^6/uL (4.30-6.10); WHITE BLOOD COUNT 16.4 10^3/uL (4.0-10.0)
[2021-01-09] MEDS ORDERED: ISOVUE-370 76% 100ML VIAL As Ordered ONE (21:10)
[2021-01-09 21:28] LABS: ALBUMIN 4.1 GM/DL (3.2-5.2); ALT/SGPT 31 U/L (12-78); BILIRUBIN,DIRECT < 0.1 MG/DL (0.0-0.2); BILIRUBIN,TOTAL 0.8 MG/DL (0.2-1.0); CK-MB VALUE MASS 1.9 NG/ML (<3.6); CPK CREATINE PHOSPHOKINASE 212 U/L (39-308); ETHYL ALCOHOL (ETHANOL) < 0.003 % (0.000-0.010); LIPASE 51 U/L (73-393); TOTAL PROTEIN 8.8 GM/DL (6.4-8.2); TROPONIN I < 0.02 NG/ML (< 0.10)
--- NOTE | 2021-01-09 22:29 | REPVR ---
PROCEDURE INFORMATION: Exam: CT Abdomen And Pelvis With Contrast Exam date and time: 01/09/2021 9:47 PM Age: 55 years old Clinical indication: Abdominal pain; Generalized; Additional info: Epigastric pain TECHNIQUE: Imaging protocol: Computed tomography of the abdomen and pelvis with contrast. Radiation optimization: All CT scans at this facility use at least one of these dose optimization techniques: automated exposure control; mA and/or kV adjustment per patient size (includes targeted exams where dose is matched to clinical indication); or iterative reconstruction. Contrast material: ISOVUE 370; Contrast volume: 100 ml; Contrast route: INTRAVENOUS (IV); COMPARISON: 1. CT ABD PELVIS W/O CONTRAST 2020-04-09 07:[address] ABD PELVIS W/O CONTRAST 2020-03-12 15:01 FINDINGS: Mediastinal space: Mild gastro-esophageal thickening. Question distal esophagitis. Liver: Normal. No mass. Gallbladder and bile ducts: Cholecystectomy clips in the right upper quadrant. There is a mild, expected degree of intrahepatic and common bile duct dilation. Pancreas: Pancreatic body 5 mm unchanged hypodensity, possibly small pancreatic cystic lesion or cystic neoplasm versus pseudocyst, or intercalated fat. Spleen: Normal. No splenomegaly. Adrenal glands: Normal. No mass. Kidneys and ureters: Normal. No hydronephrosis. Stomach and bowel: Moderate colonic diverticulosis without acute inflammatory changes. Appendix: No evidence of appendicitis. Intraperitoneal space: Unremarkable. No free air. No significant fluid collection. Vasculature: Unremarkable. No abdominal aortic aneurysm. Lymph nodes: Unremarkable. No enlarged lymph nodes. Urinary bladder: Unremarkable as visualized. Reproductive: Unremarkable as visualized. Bones/joints: Moderate L4-L5 stenosis. Moderate lumbar spondylosis. Soft tissues: Unremarkable. IMPRESSION: 1. No significant change. No specific cause for symptoms. 2. Moderate colonic diverticulosis without acute inflammatory changes. 3. Pancreatic body 5 mm unchanged hypodensity, possibly small pancreatic cystic lesion or cystic neoplasm versus pseudocyst, or intercalated fat. 4. Mild gastro-esophageal thickening. Question distal esophagitis. Electronically signed by: Ramon Barraza On 01/09/2021 22:29:37 PM
[2021-01-09] MEDS ORDERED: METOCLOPRAMIDE INJ 10MG/2ML VIAL (J2765 PER 1) IV ONE (23:05)
[2021-01-10] MEDS ORDERED: IPRA0.00 INH (02:01)
[2021-01-10 02:07] LABS: RSV AMPLIFICATION NEGATIVE (NEGATIVE)
[2021-01-10] MEDS ORDERED: ONDANSETRON 4MG/2ML VIAL IV PRN (02:10)
[2021-01-10 02:12] LABS: AMPHETAMINES LEVEL URINE POSITIVE (NEGATIVE); BARBITURATES URINE NEGATIVE (NEGATIVE); BENZODIAZEPINES URINE NEGATIVE (NEGATIVE); CANNABINOIDS URINE POSITIVE (NEGATIVE); COCAINE METABOLITE URINE NEGATIVE (NEGATIVE); METHADONE URINE NEGATIVE (NEGATIVE); OPIATES URINE NEGATIVE (NEGATIVE); PHENCYCLIDINE URINE NEGATIVE (NEGATIVE)
--- NOTE | 2021-01-10 02:13 | HPEPDOC ---
[facility] Medical History & Physical Date of Admission Jan 10, 2021 Date of Service: Jan 10, 2021 Attending Physician: BRIDGET STOKES MD History and Physical TIME OF SERVICE: 238am CHIEF COMPLAINT: abdominal pain HISTORY OF PRESENT ILLNESS: This 55 yr old M has been admitted to the hospital multiple times for recurrent n/v. Today he presents w c/o mid, 7/10 non-radiating abdominal pain for a few days that is associated with non-blood vomit. He denies having f/c/d and last smoked THC a few days ago. He reports coming in today bc he cant keep anything down, but per his RN in the ER the pt keeps eating and asking for food. 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 Marijuana use, previous IV meth use. Denies alcohol. FAMILY HISTORY: Mother- lung cancer / Father- prostate cancer ALLERGIES: Please see below. HOME MEDICATIONS: Please see below. PHYSICAL EXAMINATION: Vital Signs Date Time Temp Pulse Resp B/P (MAP) Pulse Ox O2 Delivery O2 Flow Rate FiO2 01/09/21 18:49 97.0 24 136/86 (103) 97 Room Air 01/09/21 19:01 96 GENERAL APPEARANCE: slim build / well developed /NAD CARDIOVASCULAR: RRR/NMRG LUNGS: CTAB on RA ABDOMEN: flat / soft / no bray turners sign MUSCULOSKELETAL: NCAT / LIBIA x 4 INTEGUMENT: not jaundice or flushed NEUROLOGICAL: speech not dysarthric PSYCHIATRIC: A&O x 3 /able to understand and follow commands LABORATORY DATA: 01/09/21 20:46 Immature Granulocyte % (Auto) 0.4, Neutrophils (%) (Auto) 83.3H, Lymphocytes (%) (Auto) 10.9L, Monocytes (%) (Auto) 5.1, Eosinophils (%) (Auto) 0.1, Basophils (%) (Auto) 0.2, Neutrophils # (Auto) 13.7H, Lymphocytes # (Auto) 1.8, Monocytes # (Auto) 0.8, Eosinophils # (Auto) 0.0, Basophils # (Auto) 0.0, Nucleated Red Blood Cells % (auto) 0.0, Lactic Acid Level 1.3, Total Bilirubin 0.8, Direct Bilirubin < 0.1, Aspartate Amino Transf (AST/SGOT) 49H, Alanine Aminotransferase (ALT/SGPT) 31, Alkaline Phosphatase 164H, Total Creatine Kinase 212, Creatine Kinase MB 1.9, Creatine Kinase MB Relative Index 0.90, Troponin I < 0.02, Total Protein 8.8H, Albumin 4.1, Albumin/Globulin Ratio 0.9, Lipase 51L, Ethyl Alcohol Level < 0.003 01/09/21 20:54: POC Glucose (Misc Panel) 139H, POC Sodium (Misc Panel) 129L, POC Potassium (Misc Panel) 5.0, POC Chloride (Misc Panel) 87L, POC Total CO2 (Misc Panel) 39.0H, POC Blood Urea Nitrogen (Misc Panel 37H, POC Ionized Calcium (Misc Panel) 4.7, POC Creatinine (Misc Panel) 0.9, POC Hematocrit (Misc Panel) 51.0 01/10/21 01:06: Urine Opiates Screen NEGATIVE, Urine Methadone Screen NEGATIVE, Urine Barbiturates Screen NEGATIVE, Urine Phencyclidine Screen NEGATIVE, Urine Amphetamines Screen POSITIVEH, Urine Benzodiazepines Screen NEGATIVE, Urine Cocaine Metabolite Screen NEGATIVE, Urine Cannabinoids Screen POSITIVEH 01/10/21 01:35: Urine Color YELLOW, Urine Appearance HAZY, Urine pH 7.0, Urine Specific [place] 1.048, Urine Protein 1+H, Urine Glucose (UA) NEGATIVE, Urine Ketones NEGATIVE, Urine Blood 2+H, Urine Nitrite NEGATIVE, Urine Bilirubin NEGATIVE, Urine Urobilinogen 0.2, Urine Leukocyte Esterase NEGATIVE, Urine WBC (Auto) 0, Urine RBC (Auto) 35H, Urine Hyaline Casts (Auto) 0, Urine Bacteria (Auto) NEGATIVE, Urine Squamous Epithelial Cells 0, Urine Amorphous Sediment SMALLH, Urine Mucus (Auto) SMALL, Urine Sperm (Auto) IMAGING: CT abd/pelvis IMPRESSION: 1. No significant change. No specific cause for symptoms. 2. Moderate colonic diverticulosis without acute inflammatory changes. 3. Pancreatic body 5 mm unchanged hypodensity, possibly small pancreatic cystic lesion or cystic neoplasm versus pseudocyst, or intercalated fat. 4. Mild gastro-esophageal thickening. Question distal esophagitis. MICROBIOLOGY: Coronavirus (COVID-19)(PCR) NEGATIVE, Influenza Type A (RT-PCR) NEGATIVE, Influenza Type B (RT-PCR) NEGATIVE, Respiratory Syncytial Virus (PCR) NEGATIVE ASSESSMENT: Mr. 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 PLAN: 1 N/V & Abd pain Cause TBD Plan: admit to medical floor / NPO / Zofran / toradol for pain / request record from [facility] (he was referred GI in [place] for endoscopy and further workup but I am not sure if he has followed up) 2. Possible distal esophagitis Plan: carafate/ PPI / day time team may consider GI consult 3. SIRS Possibly due to GI infection vs reactive Plan; monitor vitals / f/u blood cx / ceftriaxone IV 4. Transaminitis Hep panel 2019 neg Plan: trend LFTs 5 Hyponatremia Likely hypovolemic Currently asymptomatic Plan: monitor Is and Os in case he develops auto-diuresis / frequent neurochecks / f/u Uosmo, serum osmol and Claritza prior to giving additional fluids / f/u BMP q6H 6. Asthma Plan: duonebs DVT px w SCDs Dispo: home after at least 2 midnights stay Home Medications Scheduled Paliperidone Palmitate (Invega Sustenna) 156 Mg/1 Ml Syringe, 156 MG IM QMONTH Scheduled PRN Ipratropium/Albuterol Sulfate (Iprat-Albut 0.5-3(2.5) mg/3 ml) 3 Ml Ampul.neb, 3 ML INH Q4H PRN for SHORTNESS OF BREATH Allergies Coded Allergies: azithromycin (Verified Adverse Reaction, Mild, N/V, 04/30/19) clarithromycin (Verified Adverse Reaction, Mild, N/V, 04/30/19) erythromycin base (Verified Adverse Reaction, Mild, N/V, 04/30/19) tramadol (Verified Adverse Reaction, Mild, N/V, 04/30/19) A-FIB/CHADSVASC A-FIB History Current/History of A-Fib/PAF?: No Current PO Anticoag Therapy: No BRIDGET STOKES MD Jan 10, 2021 02:13
[2021-01-10 02:26] LABS: OSMOLALITY URINE 811 MOSM/KG (50-1400)
[2021-01-10 02:29] LABS: OSMOLALITY SERUM 283 MOSM/KG (275-295)
[2021-01-10 02:40] LABS: SODIUM,RANDOM URINE 19 MEQ/L
[2021-01-10 04:30] VITALS: BP 119/74
[2021-01-10] MEDS ORDERED: RAMELTEON 8 MG TAB (ROZEREM) PO PRN (06:00)
[2021-01-10] MEDS: IPRATROPIUM 0.5MG/ALBUTEROL 2.5MG INH SOL UD 3ML (DUONEB) INH PRN ×2 (06:10→17:55)
[2021-01-10 06:46] LABS: HEMATOCRIT 44.3 % (42.0-52.0); HEMOGLOBIN 15.4 g/dl (13.5-17.5); MEAN CORPUSCULAR HEMOGLOBIN 31.4 pg (27.0-33.0); MEAN CORPUSCULAR HGB CONC 34.8 g/dl (32.0-36.5); MEAN CORPUSCULAR VOLUME 90.4 fl (80.0-96.0); PLATELET COUNT, AUTOMATED 417 10^3/uL (150-450)
[2021-01-10] MEDS: KETOROLAC 30 MG/ML 1ML VIAL IV SCH ×3 (07:00→23:00)
[2021-01-10 07:14] LABS: ALBUMIN 3.7 GM/DL (3.2-5.2); ALT/SGPT 24 U/L (12-78); BILIRUBIN,TOTAL 0.6 MG/DL (0.2-1.0); BLOOD UREA NITROGEN 18 MG/DL (7-18); CALCIUM LEVEL 10.2 MG/DL (8.5-10.1); CARBON DIOXIDE LEVEL 34 MEQ/L (21-32); CHLORIDE LEVEL 89 MEQ/L (98-107); CREATININE FOR GFR 0.74 MG/DL (0.70-1.30); GLOMERULAR FILTRATION RATE > 60.0 (>56); GLUCOSE, FASTING 114 MG/DL (70-100); POTASSIUM SERUM 3.3 MEQ/L (3.5-5.1); SODIUM LEVEL 130 MEQ/L (136-145); TOTAL PROTEIN 7.6 GM/DL (6.4-8.2)
--- NOTE | 2021-01-10 08:02 | ECGEPIP ---
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
[2021-01-10] MEDS: PANTOPRAZOLE 40MG VIAL (C9113 PER 1) IV SCH (08:11)
[2021-01-10] MEDS: SUCRALFATE 1 GM TAB PO SCH ×2 (08:11→21:00)
[2021-01-10] MEDS: cefTRIAXone SOD 1 GM in D5W MINI-BAG PLUS 50 ML IV SCH (08:13)
[2021-01-10] MEDS ORDERED: POTASSIUM CHLORIDE 10 MEQ SR TABLET PO ONE (09:00)
[2021-01-10 09:08] LABS: NT-PRO BNP 59 PG/ML (<125)
--- NOTE | 2021-01-10 09:30 | REP ---
INDICATION: low O2 COMPARISON: 03/12/2020. TECHNIQUE: PA/Lateral FINDINGS: Lungs: Clear, no infiltrate. Heart: Normal in size. Mediastinum: Mediastinal silhouette unremarkable. Pleural angles: Unremarkable.. Bones and soft tissues: Unremarkable. IMPRESSION: No acute pulmonary disease. <Electronically signed by Emil Davis > 01/10/21 0918
[2021-01-10] MEDS: NS 1,000 ML IV SCH ×3 (09:33→23:13)
[2021-01-10 14:00] VITALS: BP 147/90
[2021-01-10 20:34] VITALS: BP 121/65
[2021-01-11 05:44] VITALS: BP 128/70
[2021-01-11] MEDS: IPRATROPIUM 0.5MG/ALBUTEROL 2.5MG INH SOL UD 3ML (DUONEB) INH PRN (06:14)
[2021-01-11 06:30] LABS: HEMATOCRIT 41.9 % (42.0-52.0); MEAN CORPUSCULAR HEMOGLOBIN 30.7 pg (27.0-33.0); MEAN CORPUSCULAR HGB CONC 33.4 g/dl (32.0-36.5); MEAN CORPUSCULAR VOLUME 91.9 fl (80.0-96.0); PLATELET COUNT, AUTOMATED 361 10^3/uL (150-450); RED BLOOD COUNT 4.56 10^6/uL (4.30-6.10)
[2021-01-11] MEDS: KETOROLAC 30 MG/ML 1ML VIAL IV SCH (07:00)
[2021-01-11 07:01] LABS: ALBUMIN 3.4 GM/DL (3.2-5.2); ALT/SGPT 20 U/L (12-78); BILIRUBIN,TOTAL 0.7 MG/DL (0.2-1.0); BLOOD UREA NITROGEN 15 MG/DL (7-18); CALCIUM LEVEL 9.5 MG/DL (8.5-10.1); CARBON DIOXIDE LEVEL 31 MEQ/L (21-32); CHLORIDE LEVEL 97 MEQ/L (98-107); CREATININE FOR GFR 0.57 MG/DL (0.70-1.30); GLOMERULAR FILTRATION RATE > 60.0 (>56); GLUCOSE, FASTING 109 MG/DL (70-100); POTASSIUM SERUM 3.8 MEQ/L (3.5-5.1); SODIUM LEVEL 134 MEQ/L (136-145); TOTAL PROTEIN 6.7 GM/DL (6.4-8.2)
[2021-01-11] MEDS: cefTRIAXone SOD 1 GM in D5W MINI-BAG PLUS 50 ML IV SCH (08:15)
[2021-01-11] MEDS: PANTOPRAZOLE 40MG VIAL (C9113 PER 1) IV SCH (08:15)
[2021-01-11] MEDS: SUCRALFATE 1 GM TAB PO SCH (08:19)
[2021-01-11] MEDS ORDERED: PROTPAK PO (14:28)
--- NOTE | 2021-01-11 14:32 | DS.PDOC ---
Discharge Summary General Date of Admission Jan 10, 2021 at 02:10 Date of Discharge 01/11/21 Attending Physician: Ambika Esteban MD Discharge Summary HISTORY OF PRESENT ILLNESS: This 55 yr old M with PMH below has been admitted to the hospital multiple times for recurrent n/v. Today he presents w c/o mid, 7/10 non-radiating abdominal pain for a few days that is associated with non-blood vomit. He denies having f/c/d and last smoked THC a few days ago. He states he gets like this when he "overeats" or eats fatty foods with his known hx of duodenal papillomatosis. He reports coming in today bc he cant keep anything down, but per his RN in the ER the pt keeps eating and asking for food. WBC showed to be 20K, CT abd/pelvis: 1. No significant change. No specific cause for symptoms. 2. Moderate colonic diverticulosis without acute inflammatory changes. 3. Pancreatic body 5 mm unchanged hypodensity, possibly small pancreatic cystic lesion or cystic neoplasm versus pseudocyst, or intercalated fat. 4. Mild gastro-esophageal thickening. Question distal esophagitis. He was admitted for intractable n/v with abdominal pain 2/2 to unknown etiology HOSPITAL COURSE: During hospital stay, patient was treated with IV fluids, kept nothing by mouth overnight. The patient had resolved nausea and vomiting by the next morning. He initially agreed to a CT with contrast with pancreatic protocol to look further into the abnormal pancreatic findings from initial CT abdomen and pelvis. Later he changed his mind and refused the more specific CT. His diet was advanced and he tolerated this well. By 01/11/21 patient's labs looked to be much improved, he had resolved symptoms of concern. He was discharged to follow up with his PCP, GI specialist to further evaluate his chronic and possibly acute abdominal issues. Would recommend CT abd/pelvis with pancreatic protocol as o/p to look into these abnormal findings further. He was made aware of this. He had no acute complaints at time of discharge. 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 Marijuana use, previous IV meth use. Denies alcohol. FAMILY HISTORY: Mother- lung cancer / Father- prostate cancer ALLERGIES: Please see below. DISCHARGE MEDICATIONS: Please see below. PHYSICAL EXAMINATION: Vital Signs: PLEASE SEE BELOW GENERAL APPEARANCE: NAD, resting comfortably in bed. slim build / well developed /NAD CARDIOVASCULAR: RRR/NMRG LUNGS: CTAB on RA ABDOMEN: flat / soft / no organomegaly MUSCULOSKELETAL: NCAT / LIBIA x 4 INTEGUMENT: not jaundice or flushed NEUROLOGICAL: speech not dysarthric PSYCHIATRIC: A&O x 3 /able to understand and follow commands LABORATORY DATA: Please see below IMAGING: CT abd/pelvis : 1. No significant change. No specific cause for symptoms. 2. Moderate colonic diverticulosis without acute inflammatory changes. 3. Pancreatic body 5 mm unchanged hypodensity, possibly small pancreatic cystic lesion or cystic neoplasm versus pseudocyst, or intercalated fat. 4. Mild gastro-esophageal thickening. Question distal esophagitis. MICROBIOLOGY: Coronavirus (COVID-19)(PCR) NEGATIVE, Influenza Type A (RT-PCR) NEGATIVE, Influenza Type B (RT-PCR) NEGATIVE, Respiratory Syncytial Virus (PCR) NEGATIVE Bcx NG ASSESSMENT: Mr. Caballero is a 55 yr old w a hx of duodenal papillomatosis resulting in multipl e episodes of pancreatitis, bladder/kidney lesion s/p resection, Bipolar disorder, Asthma, biliary spasm, IVDU & THC use who presented w c/o n/v and abdominal pain of unclear cause. PLAN: N/V & Abd pain Llikely 2/2 to biliary spasm vs. duodenal papillomatosis- resolved. -Admits to overeating which often causes n/v with current issues above -CT abd/pelvis above -F/u with PCP after discharge, hydrate throughout day 120 ounces water daily, small meals. -Records were attempted to be requested from [facility];however, it was told to us that he has not been seen in >7 years and records were not readily available but in storage. -If he does not follow with GI as he told us he does, would recommend GI referral by PCP Pancreatic body 5 mm unchanged hypodensity, possibly small pancreatic cystic lesion or cystic neoplasm versus pseudocyst, or intercalated fat. -Recommended CT ab/pelvis with pancreatic protocol but patient refused. -Would suggest to get as o/p after discharge. Possible distal esophagitis -PPI o/p -F/u with PCP Asthma -Stable -C/w home meds Resolved issues: SIRS transaminitis Disposition: D/c home today with f/u with PCP, recommend GI referral if he does not follow regularly with GI and CT abd/pelvis with pancreatic protocol. TIME SPENT ON DISCHARGE: 35 minutes. Vital Signs/I&Os Vital Signs Date Time Temp Pulse Resp B/P (MAP) Pulse Ox O2 Delivery O2 Flow Rate FiO2 01/11/21 08:01 97 Room Air 01/11/21 05:44 97.9 90 16 128/70 (89) I&O- Last 24 Hours up to 6 AM 01/11/21 06:00 Intake Total 240 ml Balance 240 ml Laboratory Data Labs 24H Laboratory Tests 2 01/11/21 05:52: Nucleated Red Blood Cells % (auto) 0.0, Anion Gap 6L, Glomerular Filtration Rate > 60.0, Calcium Level 9.5, Total Bilirubin 0.7, Aspartate Amino Transf (AST/SGOT) 11, Alanine Aminotransferase (ALT/SGPT) 20, Alkaline Phosphatase 138H , Total Protein 6.7, Albumin 3.4, Albumin/Globulin Ratio 1.0 CBC/BMP Laboratory Tests 01/11/21 05:52 Microbiology Microbiology 01/10/21 Blood Culture - Preliminary, Resulted No growth after 24 hours . All specim... 01/10/21 Blood Culture - Preliminary, Resulted No growth after 24 hours . All specim... Discharge Medications Scheduled Paliperidone Palmitate (Invega Sustenna) 156 Mg/1 Ml Syringe, 156 MG IM QMONTH, (Reported) Scheduled PRN Ipratropium/Albuterol Sulfate (Iprat-Albut 0.5-3(2.5) mg/3 ml) 3 Ml Ampul.neb, 3 ML INH Q4H PRN for SHORTNESS OF BREATH, (Reported) Allergies Coded Allergies: azithromycin (Verified Adverse Reaction, Mild, N/V, 04/30/19) clarithromycin (Verified Adverse Reaction, Mild, N/V, 04/30/19) erythromycin base (Verified Adverse Reaction, Mild, N/V, 04/30/19) tramadol (Verified Adverse Reaction, Mild, N/V, 04/30/19) Ambika Esteban MD Jan 11, 2021 14:32
== END 2021-01-11 08:55 | disposition home or self-care (01) | DRG 445 ==
LOC: EDBD 18:37 → M ED 18:37 → M ED INP 01-10 02:10 → ENRESERV 01-10 03:59 → M MS5PR 01-10 04:45
PROVIDERS: ADMIT Internal Medicine; ATTEND Internal Medicine
DX: K83.8 Other specified diseases of biliary tract (principal); E87.1 Hypo-osmolality and hyponatremia; R10.9 Unspecified abdominal pain; F17.200 Nicotine dependence, unspecified, uncomplicated; D13.2 Benign neoplasm of duodenum; F31.9 Bipolar disorder, unspecified; R74.01 Elevation of levels of liver transaminase levels; J45.909 Unspecified asthma, uncomplicated; K20.90 Esophagitis, unspecified without bleeding; Z20.822 Contact with and (suspected) exposure to COVID-19; Z79.899 Other long term (current) drug therapy; Z88.1 Allergy status to other antibiotic agents; Z88.5 Allergy status to narcotic agent; R11.2 Nausea with vomiting, unspecified

== ENCOUNTER 2021-08-28 03:20 | Emergency (ER) | payer MEDICARE, MEDICAID, OTHER ==
[~2021-08-28] VITALS: Ht 175.3 cm; Wt 77.5 kg
[2021-08-28 03:20] VITALS: BP 109/73
[~2021-08-28 03:20] MED LIST changes: -HYDR1CRE93 TOP; +HYDR28CR33 TOP; -OLAN10TA2; +OLAN1TAB16; +OLAN1TAB20; -OLAN5TAB; +PROTPAK PO
--- OUTSIDE RECORDS SUMMARY | 2021-08-28 03:25 | CCD | Continuity of Care Document ---
Author Author TAMMI BIRCH, David DONOVAN Organization Unknown Address [address] [facility] [address] [place] [address] Phone [phone] Care Team Providers Care Miniature Model Maker Name Role Phone Miguelina Swanson M.D. AUTM [phone] Carlos Galaviz AUTM [phone] Viridiana Leger AUTM [phone] Problems Description No Active Problems Social History Type Date Description Comments Sex Unknown ETOH Use Denies alcohol use Tobacco Use Start: Unknown Smokes 1 Pack A Day Allergies, Adverse Reactions, Alerts Active Allergies Criticality Reaction | Severity Comments Date Tramadol Unable to assess criticality 04/20/2018 antibiotics Unable to assess criticality 04/20/2018 Medications Active Medications SIG Qnty Indications Ordering Provide r Date Invega Sustenna 156mg/ml Alesha Once Monthly Unknown Ipratropium [place]/Albuterol Sulfate 0.5-2.5(3)mg/3ML Solution 1 vial via neb q4 hours Unk nown Proair HFA 108(90Base) mcg/Act Aer osol 2 puffs four times a day as needed Unknown Immunizations Description No Information Available Vital Signs Date Vital Result Comment 07/10/2021 10:27am BP Systolic 128 mmHg BP Diastolic 83 mmHg Heart Rate 91 /min Height 69 inches 5'9" Weight 177.38 lb BMI (Body Mass Index) 26.2 kg/m2 [place] Body Weight 160 lb Weight 80.457 kg BSA (Body Surface Area) 1.96 m2 04/20/2018 9:54am BP Systolic 105 mmHg BP Diastolic 67 mmHg Height 69 inches 5'9" Weight 152.00 lb BMI (Body Mass Index) 22.4 kg/m2 [place] Body Weight 160 lb Weight 68.947 kg BSA (Body Surface Area) 1.84 m2 Results Description No Information Available Procedures Description No Information Available Medical Devices Description No Information Available Encounters Description No Information Available Assessments Description No Information Available Plan of Treatment No Information Available Functional Status Description No Information Available Mental Status Description No Information Available Referrals Refer to Dr Reason for Referral Status Appt Date Doug Bello MD [facility] Created [address] [place] [id number] [phone]
--- OUTSIDE RECORDS SUMMARY | 2021-08-28 03:25 | CCD ---
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 Mill Operator Name Role Phone Viridiana Leger Unavailable Unavailable Allergies Code Code System Name Reaction Severity Status Onset NKDA Medications Name Status Start Date Stop Date albuterol sulfate HFA 90 mcg/actuation a erosol inhaler INHALE 2 PUFFS BY MOUTH FOUR TIMES DAILY NEEDED FOR WHEEZING OR SHORTNESS OF BREATH Active Not available benztropine 1 mg tablet TAKE ONE TABLET BY MOUTH TWICE DAILY Completed ibuprofen 600 mg tablet TAKE 1 TABLET BY MOUTH EVERY 8 HOURS NEEDED FOR PAIN OR RIGHT KNEE PAIN Active Not available Invega Sustenna 156 mg/mL intramuscular syringe Active Not available ipratropium 0.5 mg-albuterol 3 mg (2.5 m g base)/3 mL nebulization soln inhale contents of ONE vial via NEBULIZER EVERY 4 HOURS NEEDED Active Not available ondansetron HCl 4 mg tablet TAKE ONE TABLET BY MOUTH EVERY SIX HOURS NEEDED FOR NAUSEA Completed 01/16/2021 pantoprazole 40 mg tablet,delayed release Completed 01/16/2021 sertraline 50 mg tablet Completed 01/17/20 21 Symbicort 160 mcg-4.5 mcg/actuation HFA aerosol inhaler Complete d 01/16/2021 Problems Name Status Onset Date Source Malignant Tumor of Urinary Bladder Active 03/26/2018 History Mixed Bipolar I Disorder in Full Remission Active 03/26 History Obstruction of Duodenum Active 03/26/2018 History Abdominal Pain Unknown 03/26/2018 History Endocrine/metabolic Screening Unknown 03/26/2018 Hi story Screening Procedure Unknown 03/26/2018 History Evaluation Procedure Unknown 03/26/2018 History 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 History Schizoaffective Disorder Active 10/30/2018 History 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 Unknown 0 12/24/2018 History Acute Bronchitis Unknown 02/05/2019 History Rectal Abscess Active 12/15/2019 History Lump of Subareolar Area of Left Breast Active 0 History Hypo-osmolality and or Hyponatremia Unknown 02/22/2020 History Hypokalemia Unknown 02/22/2020 History Nausea and Vomiting Unknown 02/22/2020 History Elevated Blood-pressure Reading without Diagnosis of Hyperte nsion Active 02/22/2020 History Chronic Obstructive Lung Disease Active 05/15/2020 History Wheezing Unknown 05/15/2020 History Mass of Pancreas Active 01/16/2021 Diverticulosis of Colon Active 01/16/2021 Procedures Notes: bile duct stent, Results Lab Results None recorded. Past Encounters 06/20/2021 Tobacco User; Furuncle of Buttock Viridiana Leger, [employer]ACH-[facility]: [address] [place] [address], Ph. 12/28/2020 SARS-CoV-2 Vaccination Alfredo Herr MD: [address] [place] [address], Ph. Social History Tobacco Smoking Status Heavy Tobacco Smoker (1 pack per a da y) Vaccine List Vaccine Type COVID-19, mRNA, LNP-S, PF, 100 mcg/0.5 m L dose .5 mL Plan of Care Patient Instructions We have made a referral for you today, W e will contact you to set this up. P Reminders Provider Appointments None recorded. Lab None recorded. Referral None recorded. Procedures None recorded. Surgeries None recorded. Imaging None recorded. Vitals 06/20/2021 04:20PM ESTABLISHED [id number] Height Weight BMI Blood Pressure 69 in 180 lbs 6 oz 26.6 kg/m2 125/80 mm[Hg] 05/15/2020 Height Weight BMI Blood Pressure 69 in 157 lbs 6.4 oz 23.33 kg/m2 101/69 mm[Hg ] 02/22/2020 Height Weight BMI Blood Pressure 69 in 147 lbs 6.08 oz 21.84 kg/m2 146/76 mm[H g] 12/15/2019 Height Weight BMI Blood Pressure 69 in 154 lbs 22.82 kg/m2 104/72 mm[Hg] 02/05/2019 Height Weight BMI Blood Pressure 69 in 139 lbs 2.08 oz 20.62 kg/m2 113/75 mm[H g] 10/30/2018 Height Weight BMI Blood Pressure 69 in 146 lbs 6.4 oz 21.70 kg/m2 123/80 mm[Hg ]
--- OUTSIDE RECORDS SUMMARY | 2021-08-28 03:25 | CCD | Continuity of Care Document ---
Author Author TAMMI BIRHC, David DONOVAN Organization Unknown Address [address] [facility] [address] [place] [address] Phone [phone] Care Team Providers Care Senior Information Security Consultant Name Role Phone Miguelina Swanson M.D. AUTM [phone] Carlos Galaviz AUTM [phone] Viridiana Leger AUTM Problems Description No Active Problems Social History [...] Sustenna 156mg/ml Alesha Once Monthly Unknown Ipratropium [place]/Albuterol Sulfate 0.5-2.5(3)mg/3ML Solution 1 vial via neb [...] lb BMI (Body Mass Index) 26.2 kg/m2 [place] Body Weight 160 lb Weight 80.457 kg BSA (Body Surface Area) 1.96 m2 04/20/2018 9:54am BP Systolic 105 mmHg BP Diastolic 67 mmHg Height 69 inches 5'9" Weight 152.00 lb BMI (Body Mass Index) 22.4 kg/m2 [place] Body Weight 160 lb Weight 68.947 kg BSA (Body Surface Area) 1.84 m2 Results Description No Information Available Procedures Date Code Description Status 07/10/2021 [address]8796 Office/Outpatient Established Lo w MDM 20-29 Min Completed Medical Devices Description No Information Available Encounters Type Date Location Provider Dx Diagnosis Office Visit 07/10/2021 10:15a [facility] Yassine Bello MD K61.0 Anal abscess Assessments Date Code Description Provider 07/10/2021 K61.0 Perianal abscess Doug perry MD Plan of Treatment 07/10/2021 - Doug Blelo MD* K61.0 Perianal abscess* Comments:* 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 My exam I do not see any active drainage. I do not see any persiste nt abscess. He may have had an incompletely drained abscess that would not go away. He has not had any formal drainage done. At this point I do not see anything evidence that we will need exam under anesthesia or surgical drainage. He is advised that he can call us and return if he has recurrence of symptoms we could examine him when he has active drainage or symptoms.Follow-up as needed. Functional Status Description No Information Available Mental Status Description No Information Available Referrals Refer to Reason for Referral Status Appt Doug Bello MD [facility] Created [address] [phone]
--- OUTSIDE RECORDS SUMMARY | 2021-08-28 03:26 | CCD ---
Author Author [facility] Organization [facility] Address Unknown Phone Unavailable Care Team Providers Care Performance Test Engineer Name Role Phone NO, PCP Unavailable Unavailable Todd Herr MD Unavailable Unavailable Todd Herr MD Unavailable Unavailable Todd Herr MD Unavailable Unavailable Todd Herr MD Unavailable Unavailable Todd Herr MD Unavailable Unavailable Todd Herr MD Unavailable Unavailable Todd Herr MD Unavailable Unavailable Todd Herr MD Unavailable Unavailable Todd Herr MD Unavailable Unavailable Todd Herr MD Unavailable Unavailable Todd Herr MD Unavailable Unavailable Todd Herr MD Unavailable Unavailable Todd Herr MD Unavailable Unavailable Todd Herr MD Unavailable Unavailable Todd Herr MD Unavailable Unavailable Todd Herr MD Unavailable Unavailable Todd Herr MD Unavailable Unavailable Todd Herr MD Unavailable Unavailable Todd Herr MD Unavailable Unavailable Todd Herr MD Unavailable Unavailable Todd Herr MD Unavailable Unavailable Todd Herr MD Unavailable Unavailable Todd Herr MD Unavailable Unavailable Todd Herr MD Unavailable Unavailable Todd Herr MD Unavailable Unavailable Todd Herr MD Unavailable Unavailable Todd Herr MD Unavailable Unavailable Todd Herr MD Unavailable Unavailable Todd Herr MD Unavailable Unavailable Todd Herr MD Unavailable Unavailable Todd Herr MD Unavailable Unavailable Todd Herr MD Unavailable Unavailable Todd Herr MD Unavailable Unavailable oTdd Herr MD Unavailable Unavailable Todd Herr MD Unavailable Unavailable Todd Herr MD Unavailable Unavailable Todd Herr MD Unavailable Unavailable Todd Herr MD Unavailable Unavailable Todd Herr MD Unavailable Unavailable Tdod Herr MD Unavailable Unavailable Todd Herr MD Unavailable Unavailable Todd Herr MD Unavailable Unavailable Todd Herr MD Unavailable Unavailable Todd Herr MD Unavailable Unavailable Todd Herr MD Unavailable Unavailable Todd Herr MD Unavailable Unavailable Todd Herr MD Unavailable Unavailable Todd Herr MD Unavailable Unavailable Todd Herr MD Unavailable Unavailable Todd Herr MD Unavailable Unavailable Todd Herr MD Unavailable Unavailable Todd Herr MD Unavailable Unavailable Todd Herr MD Unavailable Unavailable Todd Herr MD Unavailable Unavailable Todd Herr MD Unavailable Unavailable Todd Herr MD Unavailable Unavailable Todd Herr MD Unavailable Unavailable Todd Herr MD Unavailable Unavailable Todd Herr MD Unavailable Unavailable Todd Herr MD Unavailable Unavailable Todd Herr MD Unavailable Unavailable Todd Herr MD Unavailable Unavailable Todd Herr MD Unavailable Unavailable Todd Herr MD Unavailable Unavailable Todd Herr MD Unavailable Unavailable Todd Herr MD Unavailable Unavailable Todd Herr MD Unavailable Unavailable Todd Herr MD Unavailable Unavailable Todd Herr MD Unavailable Unavailable Todd Herr MD Unavailable Unavailable Todd Herr MD Unavailable Unavailable Todd eHrr MD Unavailable Unavailable Todd Herr MD Unavailable Unavailable Todd Herr MD Unavailable Unavailable Todd Herr MD Unavailable Unavailable Todd Herr MD Unavailable Unavailable Todd Herr MD Unavailable Unavailable Todd Herr MD Unavailable Unavailable Todd Herr MD Unavailable Unavailable Todd Herr MD Unavailable Unavailable Todd Herr MD Unavailable Unavailable Todd Herr MD Unavailable Unavailable Todd Herr MD Unavailable Unavailable Todd Herr MD Unavailable Unavailable Todd Herr MD Unavailable Unavailable Todd Herr MD Unavailable Unavailable Todd Herr MD Unavailable Unavailable Todd Herr MD Unavailable Unavailable Todd Herr MD Unavailable Unavailable Todd Herr MD Unavailable Unavailable Todd Herr MD Unavailable Unavailable Todd Herr MD Unavailable Unavailable Todd Herr MD Unavailable Unavailable Díaz, R Seth MEAT HOSTESS Unavailable Unavailable Díaz, R Seth MEAT HOSTESS Unavailable Unavailable Díaz, R Seth MEAT HOSTESS Unavailable Unavailable Rae Stephens Unavailable GoutremAida gomez Unavailable Arsen, A Viridiana CLAIM TECHNICIAN Unavailable Unavailable Arsen, A Viridinaa CLAIM TECHNICIAN Unavailable Unavailable Arsen, A Viridiana CLAIM TECHNICIAN Unavailable Unavailable Arsen, A Viridiana CLAIM TECHNICIAN Unavailable Unavailable Arsen, A Viridiana CLAIM TECHNICIAN Unavailable Unavailable Arsen, A Viridiana CLAIM TECHNICIAN Unavailable Unavailable Arsen, A Viridiana CLAIM TECHNICIAN Unavailable Unavailable Arsen, A Viridiana CLAIM TECHNICIAN Unavailable Unavailable [place], A Viridiana CLAIM TECHNICIAN Unavailable Unavailable [place], A Viridiana CLAIM TECHNICIAN Unavailable Unavailable [place], A Viridiana CLAIM TECHNICIAN Unavailable Unavailable [place], A Viridiana CLAIM TECHNICIAN Unavailable Unavailable [place], A Viridiana CLAIM TECHNICIAN Unavailable Unavailable [place], A Viridiana CLAIM TECHNICIAN Unavailable Unavailable [place], A Viridiana CLAIM TECHNICIAN Unavailable Unavailable [place], A Viridiana CLAIM TECHNICIAN Unavailable Unavailable [place], A Viridiana CLAIM TECHNICIAN Unavailable Unavailable [place], A Viridiana CLAIM TECHNICIAN Unavailable Unavailable [place], A Viridiana CLAIM TECHNICIAN Unavailable Unavailable [place], A Viridiana CLAIM TECHNICIAN Unavailable Unavailable [place], A Viridiana CLAIM TECHNICIAN Unavailable Unavailable [place], A Viridiana CLAIM TECHNICIAN Unavailable Unavailable [place], A Viridiana CLAIM TECHNICIAN Unavailable Unavailable [place], A Viridiana CLAIM TECHNICIAN Unavailable Unavailable [place], A Viridiana CLAIM TECHNICIAN Unavailable Unavailable [place], A Viridiana CLAIM TECHNICIAN Unavailable Unavailable [place], A Viridiana CLAIM TECHNICIAN Unavailable Unavailable [place], A Viridiana CLAIM TECHNICIAN Unavailable Unavailable [place], A Viridiana CLAIM TECHNICIAN Unavailable Unavailable [place], A Viridiana CLAIM TECHNICIAN Unavailable Unavailable [place], A Viridiana CLAIM TECHNICIAN Unavailable Unavailable Rotella, Yadi Unavailable Unavailable Sun, Jacek DO Unavailable Unavailable Sun, Jacek DO Unavailable Unavailable Sun, Jacek DO Unavailable Unavailable Sun, Jacek DO Unavailable Unavailable Sun, Jacek DO Unavailable Unavailable Sun, Jacek DO Unavailable Unavailable Sun, Jacek DO Unavailable Unavailable Sun, Jacek DO Unavailable Unavailable Sun, Jacek DO Unavailable Unavailable Sun, Jacek DO Unavailable Unavailable Sun, Jacek DO Unavailable Unavailable Sun, Jacek DO Unavailable Unavailable Sun, Jacek DO Unavailable Unavailable Sun, Jacek DO Unavailable Unavailable Sun, Jacek DO Unavailable Unavailable Sun, Jacek DO Unavailable Unavailable Sun, Jacek DO Unavailable Unavailable Sun, Jacek DO Unavailable Unavailable Sun, Jacek DO Unavailable Unavailable Sun, Jacek DO Unavailable Unavailable Sun, Jacek DO Unavailable Unavailable Sun, Jacek DO Unavailable Unavailable Sun, Jacek DO Unavailable Unavailable Sun, Jacek DO Unavailable Unavailable Sun, Jacek DO Unavailable Unavailable Sun, Jacek DO Unavailable Unavailable Sun, Jacek DO Unavailable Unavailable Sun, Jacek DO Unavailable Unavailable Sun, Jacek DO Unavailable Unavailable Sun, Jacek DO Unavailable Unavailable Sun, Jacek DO Unavailable Unavailable Sun, Jacek DO Unavailable Unavailable Sun, Jacek DO Unavailable Unavailable Sun, Jacek DO Unavailable Unavailable Sun, Jacek DO Unavailable Unavailable Sun, Jacek DO Unavailable Unavailable Sun, Jacek DO Unavailable Unavailable Sun, Jacek DO Unavailable Unavailable Sun, Jacek DO Unavailable Unavailable Sun, Jacek DO Unavailable Unavailable Sun, Jacek DO Unavailable Unavailable Sun, Jacek DO Unavailable Unavailable Sun, Jacek DO Unavailable Unavailable Sun, Jacek DO Unavailable Unavailable Sun, Jacek DO Unavailable Unavailable Sun, Jacek DO Unavailable Unavailable Sun, Jacek DO Unavailable Unavailable Sun, Jacek DO Unavailable Unavailable Sun, Jacek DO Unavailable Unavailable Sun, Jacek DO Unavailable Unavailable Sun, Jacek DO Unavailable Unavailable Sun, Jacek DO Unavailable Unavailable Sun, Jacek DO Unavailable Unavailable Sun, Jacek DO Unavailable Unavailable Sun, Jacek DO Unavailable Unavailable Sun, Jacek DO Unavailable Unavailable Sun, Jacek DO Unavailable Unavailable Sun, Jacek DO Unavailable Unavailable Sun, Jacek DO Unavailable Unavailable Sun, Jacek DO Unavailable Unavailable Sun, Jacek DO Unavailable Unavailable Sun, Jacek DO Unavailable Unavailable Sun, Jacek DO Unavailable Unavailable Sun, Jacek DO Unavailable Unavailable Sun, Jacek DO Unavailable Unavailable Sun, Jacek DO Unavailable Unavailable Laura ORTIZ MD Unavailable Unavailable Laura ORTIZ MD Unavailable Unavailable Laura ORTIZ MD Unavailable Unavailable Laura ORTIZ MD Unavailable Unavailable Laura ORTIZ MD Unavailable Unavailable Laura ORTIZ MD Unavailable Unavailable Laura ORTIZ MD Unavailable Unavailable Laura ORTIZ MD Unavailable Unavailable Laura ORTIZ MD Unavailable Unavailable Laura ORTIZ MD Unavailable Unavailable Laura ORTIZ MD Unavailable Unavailable Laura ORTIZ MD Unavailable Unavailable Laura ORTIZ MD Unavailable Unavailable Laura ORTIZ MD Unavailable Unavailable Laura ORTIZ MD Unavailable Unavailable Laura ORTIZ MD Unavailable Unavailable Laura ORTIZ MD Unavailable Unavailable Buffy CADENA MD Unavailable Unavailable Buffy CADENA MD Unavailable Unavailable Buffy CADENA MD Unavailable Unavailable Buffy CADENA MD Unavailable Unavailable Buffy CADENA MD Unavailable Unavailable Buffy CADENA MD Unavailable Unavailable Buffy CADENA MD Unavailable Unavailable Buffy CADENA MD Unavailable Unavailable Buffy CADENA MD Unavailable Unavailable BARAYUGA, Buffy DONOVAN MD Unavailable Unavailable BARAYUGA, Buffy DONOVAN MD Unavailable Unavailable BARAYUGA, Buffy DONOVAN MD Unavailable Unavailable BARAYUGA, Buffy DONOVAN MD Unavailable Unavailable BARAYUGA, Buffy ODNOVAN MD Unavailable Unavailable BARAYUGA, Buffy DONOVAN MD Unavailable Unavailable BARAYUGA, Buffy DONOVAN MD Unavailable Unavailable BARAYUGA, Buffy DONOVAN MD Unavailable Unavailable BARAYUGA, Buffy DONOVAN MD Unavailable Unavailable BARAYUGA, Buffy DONOVAN MD Unavailable Unavailable BARAYUGA, Buffy DONOVAN MD Unavailable Unavailable BARAYUGA, Buffy DONOVAN MD Unavailable Unavailable BARAYUGA, Buffy DONOVAN MD Unavailable Unavailable BARAYUGA, Buffy DONOVAN MD Unavailable Unavailable BARAYUGA, Buffy DONOVAN MD Unavailable Unavailable BARAYUGA, Buffy DONOVAN MD Unavailable Unavailable BARAYUGA, Buffy DONOVAN MD Unavailable Unavailable BARAYUGA, Buffy DONOVAN MD Unavailable Unavailable BARAYUGA, Buffy DONOVAN MD Unavailable Unavailable BARAYUGA, Buffy DONOVAN MD Unavailable Unavailable BARAYUGA, Buffy DONOVAN MD Unavailable Unavailable BARAYUGA, Buffy DONOVAN MD Unavailable Unavailable BARAYUGA, Buffy DONOVAN MD Unavailable Unavailable BARAYUGA, Buffy DONOVAN MD Unavailable Unavailable BARAYUGA, Buffy DONOVAN MD Unavailable Unavailable BARAYUGA, Buffy DONOVAN MD Unavailable Unavailable Neeru Cho Unavailable ALIASES , ORGANIZATION NPI Unavailable Unavailable ALIASES , ORGANIZATION NPI Unavailable Unavailable ALIASES , ORGANIZATION NPI Unavailable Unavailable ALIASES , ORGANIZATION NPI Unavailable Unavailable ALIASES , ORGANIZATION NPI Unavailable Unavailable ALIASES , ORGANIZATION NPI Unavailable Unavailable ALIASES , ORGANIZATION NPI Unavailable Unavailable ALIASES , ORGANIZATION NPI Unavailable Unavailable ALIASES , ORGANIZATION NPI Unavailable Unavailable ALIASES , ORGANIZATION NPI Unavailable Unavailable ALIASES , ORGANIZATION NPI Unavailable Unavailable ALIASES , ORGANIZATION NPI Unavailable Unavailable ALIASES , ORGANIZATION NPI Unavailable Unavailable ALIASES , ORGANIZATION NPI Unavailable Unavailable ALIASES , ORGANIZATION NPI Unavailable Unavailable ALIASES , ORGANIZATION NPI Unavailable Unavailable ALIASES , ORGANIZATION NPI Unavailable Unavailable ALIASES , ORGANIZATION NPI Unavailable Unavailable ALIASES , ORGANIZATION NPI Unavailable Unavailable ALIASES , ORGANIZATION NPI Unavailable Unavailable ALIASES , ORGANIZATION NPI Unavailable Unavailable ALIASES , ORGANIZATION NPI Unavailable Unavailable ALIASES , ORGANIZATION NPI Unavailable Unavailable ALIASES , ORGANIZATION NPI Unavailable Unavailable ALIASES , ORGANIZATION NPI Unavailable Unavailable ALIASES , ORGANIZATION NPI Unavailable Unavailable ALIASES , ORGANIZATION NPI Unavailable Unavailable ALIASES , ORGANIZATION NPI Unavailable Unavailable ALIASES , ORGANIZATION NPI Unavailable Unavailable ALIASES , ORGANIZATION NPI Unavailable Unavailable ALIASES , ORGANIZATION NPI Unavailable Unavailable ALIASES , ORGANIZATION NPI Unavailable Unavailable ALIASES , ORGANIZATION NPI Unavailable Unavailable ALIASES , ORGANIZATION NPI Unavailable Unavailable ALIASES , ORGANIZATION NPI Unavailable Unavailable ALIASES , ORGANIZATION NPI Unavailable Unavailable ALIASES , ORGANIZATION NPI Unavailable Unavailable ALIASES , ORGANIZATION NPI Unavailable Unavailable ALIASES , ORGANIZATION NPI Unavailable Unavailable ALIASES , ORGANIZATION NPI Unavailable Unavailable ALIASES , ORGANIZATION NPI Unavailable Unavailable ALIASES , ORGANIZATION NPI Unavailable Unavailable ALIASES , ORGANIZATION NPI Unavailable Unavailable ALIASES , ORGANIZATION NPI Unavailable Unavailable ALIASES , ORGANIZATION NPI Unavailable Unavailable ALIASES , ORGANIZATION NPI Unavailable Unavailable ALIASES , ORGANIZATION NPI Unavailable Unavailable ALIASES , ORGANIZATION NPI Unavailable Unavailable ALIASES , ORGANIZATION NPI Unavailable Unavailable ALIASES , ORGANIZATION NPI Unavailable Unavailable ALIASES , ORGANIZATION NPI Unavailable Unavailable ALIASES , ORGANIZATION NPI Unavailable Unavailable ALIASES , ORGANIZATION NPI Unavailable Unavailable ALIASES , ORGANIZATION NPI Unavailable Unavailable ALIASES , ORGANIZATION NPI Unavailable Unavailable ALIASES , ORGANIZATION NPI Unavailable Unavailable ALIASES , ORGANIZATION NPI Unavailable Unavailable ALIASES , ORGANIZATION NPI Unavailable Unavailable ALIASES , ORGANIZATION NPI Unavailable Unavailable ALIASES , ORGANIZATION NPI Unavailable Unavailable ALIASES , ORGANIZATION NPI Unavailable Unavailable ALIASES , ORGANIZATION NPI Unavailable Unavailable ALIASES , ORGANIZATION NPI Unavailable Unavailable ALIASES , ORGANIZATION NPI Unavailable Unavailable ALIASES , ORGANIZATION NPI Unavailable Unavailable ALIASES , ORGANIZATION NPI Unavailable Unavailable ALIASES , ORGANIZATION NPI Unavailable Unavailable ALIASES , ORGANIZATION NPI Unavailable Unavailable ALIASES , ORGANIZATION NPI Unavailable Unavailable ALIASES , ORGANIZATION NPI Unavailable Unavailable ALIASES , ORGANIZATION NPI Unavailable Unavailable ALIASES , ORGANIZATION NPI Unavailable Unavailable ALIASES , ORGANIZATION NPI Unavailable Unavailable ALIASES , ORGANIZATION NPI Unavailable Unavailable ALIASES , ORGANIZATION NPI Unavailable Unavailable [place], A Viridiana CLAIM TECHNICIAN Unavailable Unavailable [place], A Viridiana CLAIM TECHNICIAN Unavailable Unavailable [place], A Viridiana CLAIM TECHNICIAN Unavailable Unavailable [place], A Viridiana CLAIM TECHNICIAN Unavailable Unavailable [place], A Viridiana CLAIM TECHNICIAN Unavailable Unavailable [place], A Viridiana CLAIM TECHNICIAN Unavailable Unavailable [place], A Viridiana CLAIM TECHNICIAN Unavailable Unavailable [place], A Viridiana CLAIM TECHNICIAN Unavailable Unavailable [place], A Viridiana CLAIM TECHNICIAN Unavailable Unavailable [place], A Viridiana CLAIM TECHNICIAN Unavailable Unavailable [place], A Viridiana CLAIM TECHNICIAN Unavailable Unavailable [place], A Viridiana CLAIM TECHNICIAN Unavailable Unavailable [place], A Viridiana CLAIM TECHNICIAN Unavailable Unavailable [place], A Viridiana CLAIM TECHNICIAN Unavailable Unavailable [place], A Viridiana CLAIM TECHNICIAN Unavailable Unavailable [place], A Viridiana CLAIM TECHNICIAN Unavailable Unavailable [place], A Viridiana CLAIM TECHNICIAN Unavailable Unavailable [place], A Viridiana CLAIM TECHNICIAN Unavailable Unavailable [place], A Viridiana CLAIM TECHNICIAN Unavailable Unavailable Arsen, A Viridiana CLAIM TECHNICIAN Unavailable Unavailable Arsen, A Viridiana CLAIM TECHNICIAN Unavailable Unavailable Arsen, A Viridiana CLAIM TECHNICIAN Unavailable Unavailable Arsen, A Viridiana CLAIM TECHNICIAN Unavailable Unavailable Arsen, A Viridiana CLAIM TECHNICIAN Unavailable Unavailable Arsen, A Viridiana CLAIM TECHNICIAN Unavailable Unavailable Arsen, A Viridiana CLAIM TECHNICIAN Unavailable Unavailable Arsen, A Viridiana CLAIM TECHNICIAN Unavailable Unavailable Arsen, A Viridiana CLAIM TECHNICIAN Unavailable Unavailable Arsen, A Viridiana CLAIM TECHNICIAN Unavailable Unavailable Arsen, A Viridiana CLAIM TECHNICIAN Unavailable Unavailable Arsen, A Viridiana CLAIM TECHNICIAN Unavailable Unavailable Trinh, Ivana Unavailable Abarca, Felicia Unavailable Alguire, Susan Unavailable TURRIN, FRANCIE Unavailable Unavailable TURRIN, FRANCIE Unavailable Unavailable TURRIN, FRANCIE Unavailable Unavailable TURRIN, FRANCIE Unavailable Unavailable Stacie, K Joseline PMH-MEAT HOSTESS Unavailable Unavailable Warren, K Joseline PMH-MEAT HOSTESS Unavailable Unavailable Warren, K Joseline PMH-MEAT HOSTESS Unavailable Unavailable Stacie, K Joseline PMH-MEAT HOSTESS Unavailable Unavailable Stacie, K Joseline PMH-MEAT HOSTESS Unavailable Unavailable Warren, K Joseline PMH-MEAT HOSTESS Unavailable Unavailable Warren, K Joseline PMH-MEAT HOSTESS Unavailable Unavailable Warren, K Joseline PMH-MEAT HOSTESS Unavailable Unavailable Re-disclosure Warning The records that you are about to access may contain information from federally-assisted alcohol or drug abuse programs. If such information is present, then the following federally mandated warning applies: This information has been disclosed to you from records protected by federal confidentiality rules (42 CFR part 2). The federal rules prohibit you from making any further disclosure of this information unless further disclosure is expressly permitted by the written consent of the person to whom it pertains or as otherwise permitted by 42 CFR part 2. A general authorization for the release of medical or other information is NOT sufficient for this purpose. The Federal rules restrict any use of the information to criminally investigate or prosecute any alcohol or drug abuse patient.The records that you are about to access may contain highly sensitive health information, the redisclosure of which is protected by Article 27-F of the [place] State Public Health law. If you continue you may have access to information: Regarding HIV / AIDS; Provided by facilities licensed or operated by the [facility] Office of Mental Health; or Provided by the [facility] Office for People With Developmental Disabilities. If such information is present, then the following [facility] mandated warning applies: This information has been disclosed to you from confidential records which are protected by state law. State law prohibits you from making any further disclosure of this information without the specific written consent of the person to whom it pertains, or as otherwise permitted by law. Any unauthorized further disclosure in violation of state law may result in a fine or usp sentence or both. A general authorization for the release of medical or other information is NOT sufficient authorization for further disc losure. Allergies and Adverse Reactions Type Description Substance Reaction Status Data Source(s ) Propensity to adverse reactions NO KNOWN ALLERGIES NO KNOWN ALLERGIES [facility] Allergy to substance Allergy to substance Allergy to substance [place] ([facility]) Family History Family Member Name Family Member Gender Family Member Status Date o f Status Description Data Source(s) Unknown Unknown Problem [facility] ([facility], ) Unknown Unknown Problem [facility] ([facility]) Encounters Encounter Providers Location Date Indications Data Source(s ) Outpatient Attender: VENUS Hernandez/Macario/Tomi/ Irvin 07/10/2021 10:15:00 AM EDT [facility] SHIVANI Hernandez-BC: [address] [place] [address], Ph. Attender: Viridiana PARRISH [facility] Medical 06/20/2021 12:00:00 AM EDT [facility] ([facility]) Emergency Attender: FRANCIE Laddant: PCP NO 06/18/2021 04:02:00 PM EDT - 06/18/2021 07:08:00 PM EDT [facility] Patient discharged. Psychiatric Diagnostic Evaluation (Non-Medical) Attender: Remy López [facility] 05/09/2021 02:00:00 AM EDT - 05/09/2021 02:00:00 AM EDT [facility] ([facility]) Injectable Psychotropic Medication Administration (Inj ection Only) Attender: Yadi Leal [facility] 05/09/2021 01:45:00 AM EDT - 05/09/2021 01:45:00 AM EDT [facility] ([facility]) Attender: Yadi Leal 05/09/2021 12:00:00 AM EDT [facility] ([facility]) Attender: Aida López 05/09/2021 12:00:0 0 AM EDT [facility] ([facility]) Brief Individual Psychotherapy - 30 min Attender: Rae barraza [facility] 03/07/2021 02:00:00 AM EDT - 03/07/2021 02:00:00 AM EDT [facility] ([facility]) Attender: Rae Stephens 03/07/2021 12:00:00 AM E DT [facility] ([facility]) Outpatient Attender: Seth Díaz NP [facility] 03/01/2021 08:00:00 AM EDT - 03/01/2021 08:00:00 AM EDT [facility] ([facility]) Attender: Seth Díaz NP 03/01/2021 12:00:00 AM EDT [facility] ([facility]) Telemed Diagnostic Eval Attender: Seth Díaz NP [facility] 01/30/2021 08:00:00 AM EDT - 01/30/2021 08:00:00 AM EDT [facility] ([facility]) Attender: Seth Díaz NP 01/30/2021 12:00:00 AM EDT [facility] ([facility]) Injectable Medication Administration w/ Monitoring & E ducation Attender: Susan Hamilton [facility] 01/05/2021 09:30:00 AM EDT - 01/05/2021 09:30:00 AM EDT [facility] ([facility]) Attender: Susan Hamilton 01/05/2021 12:00:00 AM EDT [facility] ([facility]) Marcelo Herr MD: [address] [place] [id number], Ph. Attender: Marcelo Herr MD [facility] Medical 12/28/2020 12:00:00 AM EST [facility] ([facility]) Marcelo Herr MD: [address] [place] [address], Ph. Attender: Marcelo Herr MD [facility] Medical 12/28/2020 12:00:00 AM EST [facility] ([facility]) Extended Individual Psychotherapy - 45 min Attender: Oralia dominguez [facility] 12/15/2020 09:00:00 AM EST - 12/15/2020 09:00:00 AM EST [facility] ([facility]) Attender: Ivana Trinh 12/15/2020 12:00:00 AM EST [facility] ([facility]) Outpatient Attender: Joseline Quinones [facility] 12/14/2020 09:15:00 AM EST - 12/14/2020 09:15:00 AM EST [facility] ([facility]) Attender: Joseline Quinones [facility] 12/14/2020 12: 00:00 AM EST [facility] ([facility]) [id number]"Psychotherapy Attender: Ivana Trinh [facility] 12/08/2020 09:00:00 AM EST - 12/08/2020 09:00:00 AM EST [facility] ([facility]) Attender: Ivana Trinh 12/08/2020 12:00:00 AM EST [facility] ([facility]) [id number]"Psychotherapy Attender: Ivana Trinh [facility] 11/28/2020 01:00:00 AM EST - 11/28/2020 01:00:00 AM EST [facility] ([facility]) Attender: Ivana Trinh 11/28/2020 12:00:00 AM EST [facility] ([facility]) Injectable Medication Administration w/ Monitoring & E ducation Attender: Neeru Cho [facility] 11/24/2020 12:30:00 PM EST - 11/24/2020 12:30:00 PM EST [facility] ([facility]) Attender: Neeru Cho 11/24/2020 12:00:00 AM EST [facility] ([facility]) Outpatient Attender: Joseline Quinones [facility] 11/08/2020 01:00:00 AM EST - 11/08/2020 01:00:00 AM EST [facility] Healthcare) Attender: Joseline Quinones [facility] 11/08/2020 12: 00:00 AM EST [facility] ([facility]) Injectable Medication Administration w/ Monitoring & E ducation Attender: ORGANIZATION NPI ALIASES [facility] 10/27/2020 01:00: 00 AM EST - 10/27/2020 01:00:00 AM EST [facility] ([facility]) Attender: ORGANIZATION NPI ALIASES * 10/27/2020 12:00:00 AM EST [facility] ([facility]) [id number]"Psychotherapy Attender: Ivana Trinh [facility] 10/26/2020 10:00:00 AM EST - 10/26/2020 10:00:00 AM EST [facility] ([facility]) Attender: Ivana Trinh 10/26/2020 12:00:00 AM EST [facility] ([facility]) Extended Individual Psychotherapy - 45 min [facility] 10/25/2020 07:00:00 AM EST - 10/25/2020 07:00:00 AM EST [facility] ([facility]) Attender: Ivana Trinh 10/25/2020 12:00:00 AM EST [facility] ([facility]) Brief Individual Psychotherapy - 30 min Attender: Ivana deutsch [facility] 10/10/2020 11:30:00 AM EST - 10/10/2020 11:30:00 AM EST [facility] ([facility]) Attender: Ivana Trinh 10/10/2020 12:00:00 AM EST [facility] ([facility]) Injectable Psychotropic Medication Administration (Inj ection Only) Attender: Yadi Leal [facility] 10/04/2020 03:00:00 AM EST - 10/04/2020 03:00:00 AM EST [facility] ([facility]) Extended Individual Psychotherapy - 45 min Attender: Oralia Branchoza [facility] 10/04/2020 02:00:00 AM EST - 10/04/2020 02:00:00 AM EST [facility] ([facility]) Attender: Yadi Leal 10/04/2020 12:00:00 AM EST [facility] ([facility]) Attender: Ivana Trinh 10/04/2020 12:00:00 AM EST [facility] ([facility]) Attender: Ivana Trinh 10/02/2020 12:00:00 AM EST [facility] ([facility]) Outpatient Attender: MARCELO ORTIZ MD [facility] 09/28/2020 04:30:00 AM EST - 09/28/2020 04:30:00 AM EST [facility] ([facility]) Attender: Ivana Trinh 09/28/2020 12:00:00 AM EST [facility] ([facility]) Attender: MARCELO ORTIZ MD 09/28/2020 12:00:00 A M EST [facility] ([facility]) [id number]"Psychotherapy Attender: Ivana Trinh [facility] 09/18/2020 11:00:00 AM EST - 09/18/2020 11:00:00 AM EST [facility] ([facility]) Brief Individual Psychotherapy - 30 min Attender: Ivana deutsch [facility] 08/30/2020 12:00:00 PM EST - 08/30/2020 12:00:00 PM EST [facility] ([facility]) Attender: Ivana Trinh 08/30/2020 12:00:00 AM EST [facility] ([facility]) Extended Individual Psychotherapy - 45 min Attender: Oralia alberto [facility] 08/25/2020 09:00:00 AM EST - 08/25/2020 09:00:00 AM EST [facility] ([facility]) Extended Individual Psychotherapy - 45 min Attender: Oralia dominguez [facility] 08/25/2020 01:15:00 AM EST - 08/25/2020 01:15:00 AM EST [facility] ([facility]) Injectable Medication Administration w/ Monitoring & E ducation Attender: Felicia Abarca [facility] 08/25/2020 01:00:00 AM EST - 08/25/2020 01:00:00 AM EST [facility] ([facility]) Attender: Felicia Abarca 08/25/2020 12:00:00 AM EST [facility] ([facility]) Attender: Ivana Trinh 08/25/2020 12:00:00 AM EST [facility] ([facility]) [id number] 30" Psychotherapy Attender: Ivana Trinh [facility] 08/18/2020 09:00:00 AM EDT - 08/18/2020 09:00:00 AM EDT [facility] ([facility]) Attender: Ivana Trinh 08/18/2020 12:00:00 AM EDT [facility] ([facility]) Outpatient Referrer: Jacek Man DO MOB-MOB.PAT 08/04/2020 12:06:42 PM EDT - 08/04/2020 12:06:54 PM EDT [facility] Outpatient Attender: Jacek Lloyderrer: Jacek Man DO MOB-M OB.PAT 08/04/2020 12:00:00 AM EDT - 08/04/2020 11:40:36 AM EDT [facility] [id number]"Psychotherapy Attender: Ivana Trinh [facility] 08/03/2020 11:00:00 AM EDT - 08/03/2020 11:00:00 AM EDT [facility] ([facility]) Injectable Medication Administration w/ Monitoring & E ducation Attender: Felicia Abarca [facility] 08/03/2020 10:45:00 AM EDT - 08/03/2020 10:45:00 AM EDT [facility] ([facility]) Attender: Ivana Trinh 08/03/2020 12:00:00 AM EDT [facility] ([facility]) Attender: Felicia Abarca 08/03/2020 12:00:00 AM EDT [facility] ([facility]) Outpatient Attender: Viridiana BUTCHERP FP 07/27/2020 11:3 5:03 AM EDT [facility] Extended Individual Psychotherapy - 45 min Attender: Oralia dominguez Trinh [facility] 07/26/2020 12:00:00 PM EDT - 07/26/2020 12:00:00 PM EDT [facility] ([facility]) Attender: Ivana Trinh 07/26/2020 12:00:00 AM EDT [facility] ([facility]) Brief Individual Psychotherapy - 20 min Attender: Ivana deutsch [facility] 07/21/2020 08:30:00 AM EDT - 07/21/2020 08:30:00 AM EDT [facility] ([facility]) Attender: Ivana Trinh 07/21/2020 12:00:00 AM EDT [facility] ([facility]) Outpatient Attender: Jacek Man DOAdmitter: Jacek Man DO ES1-S J.EU 07/14/2020 11:53:[address] [facility] Injectable Medication Administration w/ Monitoring & E ducation Attender: Felicia Abarca [facility] 07/14/2020 09:30:00 AM EDT - 07/14/2020 09:30:00 AM EDT [facility] ([facility]) Extended Individual Psychotherapy - 45 min Attender: Oralia Trinh [facility] 07/14/2020 09:00:00 AM EDT - 07/14/2020 09:00:00 AM EDT [facility] ([facility]) Attender: Ivanasamuel Trinh 07/14/2020 12:00:00 AM EDT [facility] ([facility]) Attender: Felicia Tevin 07/14/2020 12:00:00 AM EDT [facility] ([facility]) Brief Individual Psychotherapy - 30 min Attender: vIana deutsch [facility] 07/07/2020 09:00:00 AM EDT - 07/07/2020 09:00:00 AM EDT [facility] ([facility]) Attender: Ivanasamuel Trinh 07/07/2020 12:00:00 AM EDT [facility] ([facility]) Extended Individual Psychotherapy - 45 min Attender: Oralia Trinh [facility] 06/30/2020 09:00:00 AM EDT - 06/30/2020 09:00:00 AM EDT [facility] ([facility]) Attender: Ivana Trinh 06/30/2020 12:00:00 AM EDT [facility] ([facility]) Outpatient [address] [address] 36[employer] Team 08/18/2019 03:30:00 PM EDT - 04/06/2021 11:00:00 AM EDT [facility] ([facility]) Discharge cancelled. Disregard status an d discharged date. Functional Status Immunizations Vaccine Date Status Description Data Source(s) COVID-19 VACCINE Moderna 02/21/2021 12:00:00 AM EDT completed NYSIIS Vaccine Series Complete: YESThis Data wa s Submitted to [facility] Via [employer]. COVID-19, mRNA, LNP-S, PF, 100 mcg/0.5 mL dose 12/28/2020 05 :53:01 PM EST completed 10.5 mL SP ([facility]) COVID-19, mRNA, LNP-S, PF, 100 mcg/0.5 mL dose 12/28/2020 05 :53:01 PM EST completed .5 mL SP ([facility]) COVID-19 VACCINE Moderna 12/28/2020 12:00:00 AM EST completed MESIIS Vaccine Series Complete: NOThis Data was Submitted to [facility] [employer]. Medications Medication Brand Name Start Date Product Form Dose Route Admi nistrative Instructions Pharmacy Instructions Status Indications Reaction Description Data Source(s) Azithromycin 250 MG Oral Tablet Azithromycin 02/06/2021 12:00:00 AM EDT active [facility] ([facility]) benztropine mesylate 0.5 MG Oral Tablet Benztropine Mesylate 01/30/2021 12:00:00 AM EDT ORAL active MED[facility] ([facility]) Albuterol 0.833 MG/ML / Ipratropium [place] 0.167 MG/M L Inhalant Solution Ipratropium [place]/Albuterol Sulfate 01/23/2021 12:00:00 AM EDT active MEDENT ([facility]) 60 ACTUAT Budesonide 0.16 MG/ACTUAT / fo rmoterol fumarate 0.0045 MG/ACTUAT Metered Dose Inhaler [Symbicort] Symbicort 01/23/2021 12:00:00 AM EDT RESPIRATORY active MED[facility] ( [facility]) 1 ML paliperidone palmitate 156 MG/ML Prefilled Syring e [Invega] Invega Sustenna 01/23/2021 12:00:00 AM EDT active MED[facility] ([facility]) pantoprazole 40 MG Delayed Release Oral Tablet Pantoprazole Sodium 01/23/2021 12:00:00 AM EDT ORAL active M EDENT ([facility]) Sertraline 50 MG Oral Tablet sertraline 11/08/2020 12:00:00 AM EST 50 mg by mouth completed <td ID="Medica tionRxNorm_3">516520</td><td ID="MedicationMedication_3">sertraline</td><td ID="MedicationRoute_3">by mouth</td><td ID="MedicationRouteConcept_3">C65398</td><td ID="MedicationStartDate_3">11/08/2020</td><td ID="MedicationStopDate_3">02/06/2021</td><td ID="MedicationDosageFrequency_3">once a day</td><td ID="MedicationDuration_3">30</td><td ID="MedicationFormulaStrength_3">50 mg</td><td ID="MedicationDosageForm_3">tablet</td><td ID="MedicationDosageFormCode_3"></td><td ID="MedicationDosageDescription_3"></td><td ID="MedicationMedicationId_3">[id number]</td><td ID="MedicationAccount_3">[id number]</td><td ID="MedicationNpid_3">[id number]</td><td ID="MedicationAuthorFirstName_3">Joseline</td><td ID="MedicationAuthorLastName_3">Stacie</td><td ID="MedicationTaxonomyCode_3">[id number]</td><td ID="MedicationTaxonomyDesc_3">Psychiatric/Mental Health</td><td ID="MedicationPhoneNumber_3">[phone]</td> [facility] ([facility]) benztropine mesylate 1 MG Oral Tablet be nztropine 1 mg tablet TAKE ONE TABLET BY MOUTH TWICE DAILY benztropine 1 mg tablet TAKE ONE TABLET BY MOUTH TWICE DAILY completed benztropine me sylate 1 MG Oral Tablet SP ([facility]) Sertraline 50 MG Oral Tablet sertraline 50 mg tablet sertraline 50 mg tablet completed sertraline 50 MG Oral Tablet SP ([facility]) Budesonide 0.16 MG/ACTUAT / formoterol f umarate 0.0045 MG/ACTUAT Metered Dose Inhaler Symbicort 160 mcg-4.5 mcg/actuation HFA aerosol inhaler Symbicort 160 mcg-4.5 mcg/actuation HFA aerosol inhaler completed budesonide 0.16 MG/ACTUAT / formoterol fumarate 0.0045 MG/ACTUAT Metered Dose Inhaler SP ([facility]) Ondansetron 4 MG Oral Tablet ondansetron HCl 4 mg tablet TAKE ONE TABLET BY MOUTH EVERY SIX HOURS NEEDED FOR NAUSEA ondansetron HCl 4 mg tablet TAKE ONE TABLET BY MOUTH EVERY SIX HOURS NEEDED FOR NAUSEA completed ondansetron 4 MG Oral Tablet SP ([facility]) pantoprazole 40 MG Delayed Release Oral Tablet pantoprazole 40 mg tablet,delayed release pantoprazole 40 mg tablet,delayed release completed pantoprazole 40 MG Delayed Release Oral Tablet SP ([facility]) Insurance Providers Payer name Policy type / Coverage type Policy ID Covered democrat ID Covered democrat's relationship to burleson Policy Burleson Plan Information WELLCARE [id number] Patient is Insured [id number] MEDICARE [id number] Patient is Insured [id number] WELLCARE [id number] Patient is Insured [id number] [facility] [employer] [id number] Patient is Insu red [id number] [facility] [id number] Patient is Insured [id number] [facility] [id number] Patient is Insu red [id number] MEDICARE [id number] Patient is Insured 9 [id number] SELF PAY [id number] Patient is Insured [id number] MEDICARE [id number] Astrid [id number] C25 MEDICARE Med [id number] Self [id number] [id number] Medicare P [id number] S [id number] C25 MEDICARE A [id number] Self [id number] A MEDICARE [id number] SP [id number] A [facility] [id number] SP [id number] MEDICARE [id number] SP [id number] [facility] [id number] SP [id number] MEDICARE 4 [id number] 1 [id number] A MEDICARE PART A M [id number] S [id number] Medicare P [id number] S [id number] [place] [id number] Medicaid S [id number] S [id number] [place] [id number] SP [id number] EMEDNY [id number] SP [id number] MEDICAID [id number] SP [id number] Medicaid S [id number] S [id number] Medicaid S [id number] S [id number] MEDICAID [id number] Astrid [id number] INSURANCE COVID-19 COVID Astrid C OVID [id number] MEDICARE PART A -O/P [id number] 18 [id number] MEDICAID -[id number] EMERGENCY ROOM [id number] MEDICARE [id number] SP [id number] C25 [facility] DEPT.OF CORRECTIONAL [id number] SP [id number] [facility] DEPT [id number] SP [id number] EMEDNY [id number] SP [id number] MEDICARE C [id number] S [id number] C25 MEDICAID M [id number] S [id number] MEDICAID [id number] SP [id number] Medicare P [id number] S [id number] C25 Medicare P [id number] S [id number] A MEDICARE [id number] SP [id number] Self Pay P [id number] S [id number] MEDICARE [id number] SP [id number] MEDICARE C [id number] S [id number] A LJ GBA C [id number] Medicaid [place] Medigap Part B [id number] Self [id number] Medicare [place] Medicare Primary [id number] Self [id number] [employer], [facility] C [id number] S [id number] Medicaid S [id number] S [id number] Medicare [place] Medicare Primary [id number] Self [id number] Medicare [place] Medicare Primary [id number] Self [id number] [place] [id number] SP [id number] [place] [id number] SP [id number] [place] [id number] SP [id number] [facility] [id number] [id number] OTHER [facility] HMO [id number] SP [id number] OTHER [facility] HMO UNAVAILABLE UNAV AILABLE SELF PAY 2 UNAVAILABLE 1 UNAVAILA BLE MEDICARE OUTPATIENT M [id number] S [id number] [facility] FDC P UNAVAILABLE [id number] S UNAVAILABLE O UNAVAILABLE UNAVAILA BLE Problems, Conditions, and Diagnoses Code Display Name Description Problem Type Effective Dates Data Source(s) Y939 Activity, unspecified Activity, unspecified Diagnosis 06/18/2021 04:02:00 PM EDT [facility] X85451 CONTACT WITH AND SUSPECTED EXPOSURE TO C OVID-19 CONTACT WITH AND SUSPECTED EXPOSURE TO COVID-19 Diagnosis 06/18/2021 04:02:00 PM EDT [facility] X10603 Nicotine dependence, cigarettes, uncompl icated Nicotine dependence, cigarettes, uncomplicated Diagnosis 06/18/2021 04:02:00 PM EDT [facility] J449 Chronic obstructive pulmonary disease, u nspecified Chronic obstructive pulmonary disease, unspecified Diagnosis 06/18/2021 04:02:00 PM EDT [facility] M7041 Prepatellar bursitis, right knee Prepatellar bur sitis, right knee Diagnosis 06/18/2021 04:02:00 PM EDT [facility] J029 Acute pharyngitis, unspecified Acute pharyngitis, unsp ecified Diagnosis 06/18/2021 04:02:00 PM EDT [facility] R05 Cough Cough Diagnosis 06/18/2021 04:02:00 PM ED T [facility] K83.8 Other specified diseases of biliary trac t Other specified diseases of biliary trac Diagnosis 08/04/2020 12:06:[address] [facility] U07.1 COVID-19 COVID-19 Diagnosis 08/04/2020 12:06:[address] [facility] F25.9 Schizoaffective disorder, unspecified Schizoaffective Disorder Condition 05/09/2021 12:00:00 AM EDT [facility] ([facility]) F25.0 Schizoaffective disorder, bipolar type S chizoaffective Disorder, Bipolar type Condition 03/07/2021 12:00:00 AM EDT [facility] ([facility]) [id number] Diverticulosis of colon Diverticulosis of Colon Proble m 01/16/2021 12:00:00 AM EDT SP ([facility]) [id number] Mass of pancreas Mass of Pancreas Problem 01/16/2021 12 :00:00 AM EDT SP ([facility]) F12.20 Cannabis dependence, uncomplicated Cannabis Use Disorder, Severe Condition 01/05/2021 12:00:00 AM EDT [facility] ([facility]) F15.20 Other stimulant dependence, uncomplicate d Stimulant Use Disorder, Moderate: Amphetamine-type substance Condition 01/05/2021 12:00:00 AM EDT [facility] ([facility]) F17.200 Nicotine dependence, unspecified, uncomp licated Tobacco Use Disorder, Severe Condition 01/05/2021 12:00:00 AM EDT [facility] ([facility]) F43.10 Post-traumatic stress disorder, unspecif ied Posttraumatic Stress Disorder (includes Posttraumatic Stress Disorder for Children 6 Years and Younger) Condition 01/05/2021 12:00:00 AM EDT [facility] ([facility]) [id number] Wheezing Wheezing Problem 05/15/2020 12:0 0:00 AM EDT - 01/16/2021 12:00:00 AM EDT SP ([facility]) 74606616 Nausea and vomiting Nausea and Vomiting Problem 0 02/22/2020 12:00:00 AM EDT - 01/16/2021 12:00:00 AM EDT SP ([facility]) 40233633 Hypokalemia Hypokalemia Problem 02/22/2020 12:0 0:00 AM EDT - 01/16/2021 12:00:00 AM EDT SP ([facility]) 446748284 Hypo-osmolality and or hyponatremia Hypo -osmolality and or Hyponatremia Problem 02/22/2020 12:00:00 AM EDT - 01/22/2021 12:00:00 AM EDT [facility] ([facility]) [id number] Acute bronchitis Acute Bronchitis Problem 019 12:00:00 AM EDT - 01/16/2021 12:00:00 AM EDT PS ([facility]) [id number] Complete edentulism due to periodontal d isease 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 Problem 12/24/2018 12:00 :00 AM EST - 01/16/2021 12:00:00 AM EDT [facility] ([facility]) [id number] Evaluation procedure Evaluation Procedure Problem 03/26/2018 12:00:00 AM EDT - 01/16/2021 12:00:00 AM EDT SP ([facility]) [id number] Screening procedure Screening Procedure Problem 0 03/26/2018 12:00:00 AM EDT - 01/16/2021 12:00:00 AM EDT [facility] ([facility]) [id number] Endocrine/metabolic screening Endocrine/metabolic Scre ening Problem 03/26/2018 12:00:00 AM EDT - 01/16/2021 12:00:00 AM EDT [facility] ([facility]) [id number] Abdominal pain Abdominal Pain Problem 03/26/2018 12:00:00 AM EDT - 01/16/2021 12:00:00 AM EDT [facility] ([facility]) Surgeries/Procedures Procedure Description Date Indications Data Source(s) OFFICE OUTPATIENT VISIT 15 MINUTES 07/10/2021 12:00:00 AM EDT [facility] ([facility] ) THERAPEUTIC PROPHYLACTIC/DX INJECTION SUBQ/IM 05/09/2021 12:00:00 AM EDT - 05/09/2021 12:00:00 AM EDT [facility] ([facility]) THERAPEUTIC PROPHYLACTIC/DX INJECTION SUBQ/IM 05/09/20 12:00:00 AM EDT [facility] ([facility]) Psychiatric Diagnostic Evaluation (Non-Medical) 05/09/2021 12:00:00 AM EDT - 05/09/2021 12:00:00 AM EDT [facility] ([facility]) Psychiatric Diagnostic Evaluation (Non-Medical) 2020 12:00:00 AM EDT [facility] ([facility]) Brief Individual Psychotherapy - 30 min 03/07/2021 12:00:00 AM EDT - 03/07/2021 12:00:00 AM EDT [facility] ([facility]) Brief Individual Psychotherapy - 30 min 03/07/2021 12: 00:00 AM EDT [facility] ([facility]) MHC Telemed E/M Lvl 3--Est pt 03/01/2021 12:00:00 AM EDT - 03/01/2021 12:00:00 AM EDT [facility] ([facility]) MHC Telemed E/M Lvl 3--Est pt 03/01/2021 12:00:00 AM E DT [facility] ([facility]) Telemed Diagnostic Eval 01/30/2021 12:00 :00 AM EDT - 01/30/2021 12:00:00 AM EDT [facility] ([facility]) Telemed Diagnostic Eval 01/30/2021 12:00:00 AM EDT [facility] ([facility]) Comprehensive medication services, per 15 minutes 01/05/2021 12:00:00 AM EDT - 01/05/2021 12:00:00 AM EDT [facility] ([facility]) Comprehensive medication services, per 15 minutes 01/05/2021 12:00:00 AM EDT [facility] ([facility]) Extended Individual Psychotherapy - 45 min 12/15/2020 12:00:00 AM EST - 12/15/2020 12:00:00 AM EST [facility] ([facility]) Extended Individual Psychotherapy - 45 min 12:00:00 AM EST [facility] ([facility]) MHC Telemed E/M Lvl 3--Est pt 12/14/2020 12:00:00 AM EST - 12/14/2020 12:00:00 AM EST [facility] ([facility]) MHC Telemed E/M Lvl 3--Est pt 12/14/2020 12:00:[address] [facility] ([facility]) [id number]"Psychotherapy 12:00:00 AM EST - 12/08/2020 12:00:00 AM EST [facility] ([facility]) [id number]"Psychotherapy 12/08/2020 12:00:00 AM EST [facility] ([facility]) [id number]"Psychotherapy 12:00:00 AM EST - 11/28/2020 12:00:00 AM EST [facility] ([facility]) [id number]"Psychotherapy 11/28/2020 12:00:00 AM EST [facility] ([facility]) Comprehensive medication services, per 15 minutes 11/24/2020 12:00:00 AM EST - 11/24/2020 12:00:00 AM EST [facility] ([facility]) Comprehensive medication services, per 15 minutes 11/24/2020 12:00:00 AM EST [facility] ([facility]) MHC Telemed E/M Lvl 3--Est pt 11/08/2020 12:00:00 AM EST - 11/08/2020 12:00:00 AM EST [facility] ([facility]) Telemed A/O 30" 11/08/2020 12:00:00 AM EST [facility] ([facility]) MHC Telemed E/M Lvl 3--Est pt 11/08/2020 12:00:[address] [facility] ([facility]) Comprehensive medication services, per 15 minutes 10/27/2020 12:00:00 AM EST - 10/27/2020 12:00:00 AM EST [facility] ([facility]) Comprehensive medication services, per 15 minutes 10/27/2020 12:00:00 AM EST [facility] ([facility]) [id number]"Psychotherapy 12:00:00 AM EST - 10/26/2020 12:00:00 AM EST [facility] ([facility]) [id number]"Psychotherapy 10/26/2020 12:00:00 AM EST [facility] ([facility]) Extended Individual Psychotherapy - 45 min 10/25/2020 12:00:00 AM EST - 10/25/2020 12:00:00 AM EST [facility] ([facility]) Extended Individual Psychotherapy - 45 min 12:00:00 AM EST [facility] ([facility]) Brief Individual Psychotherapy - 30 min 10/10/2020 12:00:00 AM EST - 10/10/2020 12:00:00 AM EST [facility] ([facility]) Brief Individual Psychotherapy - 30 min 10/10/2020 12: 00:00 AM EST [facility] ([facility]) THERAPEUTIC PROPHYLACTIC/DX INJECTION SUBQ/IM 10/04/2020 12:00:00 AM EST - 10/04/2020 12:00:00 AM EST [facility] ([facility]) THERAPEUTIC PROPHYLACTIC/DX INJECTION SUBQ/IM 10/04/20 12:00:00 AM EST [facility] ([facility]) Extended Individual Psychotherapy - 45 min 10/04/2020 12:00:00 AM EST - 10/04/2020 12:00:00 AM EST [facility] ([facility]) Extended Individual Psychotherapy - 45 min 0 12:00:00 AM EST [facility] ([facility]) Extended Individual Psychotherapy - 45 min 10/02/2020 12:00:00 AM EST - 10/02/2020 12:00:00 AM EST [facility] ([facility]) [id number]"Psychotherapy 0 12:00:00 AM EST - 09/28/2020 12:00:00 AM EST [facility] ([facility]) OFFICE OUTPATIENT VISIT 15 MINUTES 09/28 12:00:00 AM EST - 09/28/2020 12:00:00 AM EST [facility] ([facility]) OFFICE OUTPATIENT VISIT 15 MINUTES 09/28/2020 12:00:00 AM EST [facility] ([facility]) [id number]"Psychotherapy 09/18/2020 12:00:00 AM EST [facility] ([facility]) Brief Individual Psychotherapy - 30 min 08/30/2020 12:00:00 AM EST - 08/30/2020 12:00:00 AM EST [facility] ([facility]) Brief Individual Psychotherapy - 30 min 08/30/2020 12: 00:00 AM EST [facility] ([facility]) Extended Individual Psychotherapy - 45 min 0 12:00:00 AM EST [facility] ([facility]) Comprehensive medication services, per 15 minutes 08/25/2020 12:00:00 AM EST - 08/25/2020 12:00:00 AM EST [facility] ([facility]) Comprehensive medication services, per 15 minutes 08/25/2020 12:00:00 AM EST [facility] ([facility]) Extended Individual Psychotherapy - 45 min 08/25/2020 12:00:00 AM EST - 08/25/2020 12:00:00 AM EST [facility] ([facility]) Extended Individual Psychotherapy - 45 min 0 12:00:00 AM EST [facility] ([facility]) TEMPMHCTelemed 30" Psychotherapy 020 12:00:00 AM EDT - 08/18/2020 12:00:00 AM EDT [facility] ([facility]) TEMPMHCTelemed 30" Psychotherapy 08/18/2020 12:00:00 A M EDT [facility] ([facility]) [id number]"Psychotherapy 0 12:00:00 AM EDT - 08/03/2020 12:00:00 AM EDT [facility] ([facility]) [id number]"Psychotherapy 08/03/2020 12:00:00 AM EDT [facility] ([facility]) Comprehensive medication services, per 15 minutes 08/03/2020 12:00:00 AM EDT - 08/03/2020 12:00:00 AM EDT [facility] ([facility]) Comprehensive medication services, per 15 minutes 08/03/2020 12:00:00 AM EDT [facility] ([facility]) Extended Individual Psychotherapy - 45 min 07/26/2020 12:00:00 AM EDT - 07/26/2020 12:00:00 AM EDT [facility] ([facility]) Extended Individual Psychotherapy - 45 min 0 12:00:00 AM EDT [facility] ([facility]) Brief Individual Psychotherapy - 20 min 07/21/2020 12:00:00 AM EDT - 07/21/2020 12:00:00 AM EDT [facility] ([facility]) Brief Individual Psychotherapy - 20 min 07/21/2020 12: 00:00 AM EDT [facility] ([facility]) Extended Individual Psychotherapy - 45 min 07/14/2020 12:00:00 AM EDT - 07/14/2020 12:00:00 AM EDT [facility] ([facility]) Extended Individual Psychotherapy - 45 min 0 12:00:00 AM EDT [facility] ([facility]) Comprehensive medication services, per 15 minutes 07/14/2020 12:00:00 AM EDT - 07/14/2020 12:00:00 AM EDT [facility] ([facility]) Comprehensive medication services, per 15 minutes 07/14/2020 12:00:00 AM EDT [facility] ([facility]) Brief Individual Psychotherapy - 30 min 07/07/2020 12:00:00 AM EDT - 07/07/2020 12:00:00 AM EDT [facility] ([facility]) Brief Individual Psychotherapy - 30 min 07/07/2020 12: 00:00 AM EDT [facility] ([facility]) Extended Individual Psychotherapy - 45 min 06/30/2020 12:00:00 AM EDT - 06/30/2020 12:00:00 AM EDT [facility] ([facility]) Extended Individual Psychotherapy - 45 min 0 12:00:00 AM EDT [facility] ([facility]) Results ID Date Data Source [id number] 06/18/2021 04:02:00 PM EDT [facility] 1 OrderSheet [facility] Emergency Department [address] [place] [address] Phone #: [phone]- [phone] 06/18/2021 15:42 Patient: DAVID CABALLERO Sex: M : 1965 Age: 56yWEIGHT:77.1 kg (S) HEIGHT:69 inches (S) BMI:25.1ALLERGIES: No Known Drug AllergyCHIEF COMPLAINT: cough, sore throatDIAGNOSIS: Upper respiratory infection, BursitisLAB ORDERSOrder Description Priority Entered Acknowledged InitialedRapid Strep Screen STAT 17:20 06/18/2021 Initialed: 17:26 Concha Buckley RN; Cancelled: Other 18:54 Chavo Burrows PACORONAVIRUS STAT 17:20 06/18/2021 17:26 LYNDSEY BuckleyID-19 Chavo NAYLOR; Concha WARD(Symptomatic asDefined by CDC)(06/18/2021) (FirstTest) (NotHospitalized) (Not) (NotResident inCongregate CareSetting) (NotEmployed inHealthcare Setting)DIAGNOSTIC STUDY ORDERSOrder Description Priority Entered Acknowledged InitialedKnee Complete STAT 17:20 06/18/2021 17:26 Right Chavo Buckley; Concha WARD(Oxygen?(No)) Reason for Study: atraumatic swelling R kneeChest 2 View STAT 17:20 06/18/2021 17:26 Marcio(Oxygen?(No)) Chavo Kern RN Reason for Study: CoughMEDICATION/IV/DRIP/FLUID ORDERSOrder Description Priority Entered Acknowledged InitialedGENERAL ORDERS 2 OrderSheet [facility] Emergency Department [address] [place] [address] Phone #: [phone] 06/18/2021 15:42 Patient: DAVID CABALLERO Sex: M : 1965 Age: 56yOrder Description Priority Entered Acknowledged InitialedAce Wrap (R knee) 18:48 06/18/2021 19:08 Chavo Buckley; Concha RN[Electronically signed by Concha Buckley RN (19:26 06/18/2021)][Electronically signed by Chavo Burrows (19:39 06/18/2021)][Electronically locked by Concha Buckley RN (19:26 06/18/2021)] Name Value Range Interpretation Code Description Data Maryellen rce(s) Supporting Document(s) ID Date Data Source [id number] 06/18/2021 04:02:00 PM EDT [facility] 1 Medication Reconciliation Report [facility] Emergency Department [address] [place] [address] Phone #: [phone]- [phone] 06/18/2021 15:42 [id number] Sex: M : 1965 Age: 56yWeight: 77.1 kgHeight/Length: 69 in.BMI: 25.1ALLERGIES: No Known Drug AllergyThe patient's Home Medications are listed below:CONTINUE TAKING THE FOLLOWING MEDICATIONS: Albuterol Sulfate Inhalation Invega Sustenna Intramuscular (156 mg/mL), once every 3 weeksThe source(s) of the original Home Medication information:Not obtained.The following Medications were given to the patient in the Emergency Department:None.The following Medications were prescribed to the patient:ibuprofen 600 mg tablet Take 1 tablet every eight hours as needed for pain for 5 days -- for R knee pain.Dispense 15 tablet. Refills: 0. Substitution permitted.[facility] #[id number] [phone]. .albuterol sulfate 2.5 mg/3 mL (0.083 %) solution for nebulization Inhale 1 vial four times a day as neededfor 14 days -- for wheezing, SOB. Dispense 3 ml. Refills: 0. Substitution permitted.[facility] HospitalAppsFundermer[facility] #[id number] [address] [place], [place] [phone]. Fa xNumber: .albuterol sulfate HFA 90 mcg/actuation aerosol inhaler Inhale 2 puff four times a day as needed for 14 days-- for wheezing, SOB. Dispense 18 gram. Refills: 0. Substitution permitted.[facility] Solutionsuniversity of washington medical centerRaynforestmercy health st[facility] #[id number] [address] [place], [place] [phone]. . -- DAYDAY Chou Name Value Range Interpretation Code Description Data Maryellen rce(s) Supporting Document(s) ID Date Data Source [id number] 06/18/2021 04:02:00 PM EDT [facility] 1 Medication Administration Record [facility] Emergency Department [address] [place] [address] Phone #: ext- [phone] 15:42 Patient: DAVID CABALLERO Sex: M : 1965 Age: 56yWeight: 77.1 kgHeight/Length: 69 inBMI: 25.1ALLERGIES: No Known Drug AllergyDate/Time Medication Administered Medication Ordered Name Value Range Interpretation Code Description Data Maryellen rce(s) Supporting Document(s) ID Date Data Source [id number] 06/18/2021 04:02:00 PM EDT [facility] 1 General Instructions [facility] Emergency Department [address] [place] [address] Phone #: ext [phone] 06/18/2021 15:42 Patient: DAVID CABALLERO Sex: M : 1965 Age: 56y Right prepatellar bursitis. No traumatic or gouty bursitis, bursitis with infection or buritis with abscess formation. Acute viral (presumed) pharyngitis. No airway obstruction.INSTRUCTIONS No strenuous activity until better. Rest at home today. Do not work (self quarantine at home until contacted by [facility] with COVID 19 test results.). Do not smoke. No alcohol. (self quarantine at home until contacted by [facility] with COVID 19 test results). Balaji palacio: Further evaluation is necessary. It is very important to follow up with a healthcare provider. GENERAL WARNINGS: Return or contact your physician immediately if your condition worsens or changes unexpectedly, if not improving as expected, or if other problems arise. Specifically return if pain, vomiting, bleeding, breathing difficulty or fever. Your Current Medications: Your current home medications have been reviewed. CONTINUE TAKING THE FOLLOWING MEDICATIONS: Albuterol Sulfate Inhalation. Invega Sustenna Intramuscular : Suspension Prefilled Syringe 156 mg/mL, once every 3 weeks. Prescription Medications: ibuprofen 600 mg tablet Take 1 tablet every eight hours as needed for pain for 5 days -- for R knee pain. Dispense 15 tablet. Refills: 0. Substitution permitted. [facility] #[id number] [place] [phone]. . albuterol sulfate 2.5 mg/3 mL (0.083 %) solution for nebulization Inhale 1 vial four times a day as needed for 14 days -- for wheezing, SOB. Dispense 3 ml. Refills: 0. Substitution permitted. [facility] #[id number] [address] [place], [place] [phone]. . albuterol sulfate HFA 90 mcg/actuation aerosol inhaler Inhale 2 puff four times a day as needed for 14 days -- for wheezing, SOB. Dispense 18 gram. Refills: 0. Substitution permitted. [facility] #[id number] [phone]. . Follow-up: 2 General Instructions [facility] Emergency Department [address] [place] [address] Phone #: [phone]- [phone] 06/18/2021 15:42 Patient: DAVID CABALLERO Sex: M : 1965 Age: 56y Follow up with your healthcare provider in three days even if well. Call for the next available appointment. Reason for referral: evaluation. Summary of care provided to patient via paper. Understanding of the discharge instructions verbalized by patient. Expected course of illness, discharge instructions, activity level, follow-up appointment and risks and benefits of treatment reviewed with patient and understanding verbalized. Agrees to plan of care. ADDITIONAL INFORMATIONBursitisYou have bursitis. This is an inflammation of the bursa. These are small, fluid-filled sacs that surroundthe larger joints of the body. The bursa help the muscles and tendons move smoothly over the joints.Bursitis often happens in the shoulder. But it can also affect the elbows, hips, pelvis, knees, toes, andheels. Bursitis can be caused by injury, overuse of the joint, or infection of the bursa. Symptomsinclude pain and tenderness over a joint. Symptoms get worse with movement.Bursitis is treated with an anti-inflammatory medicine and by resting the joint. More severe casesrequire injection of medicine directly into the bursa. In the case of infection, surgery and antibioticsmay be needed.Home care Rest the painful joint and protect it from movement. This will allow the inflammation to heal faster. Apply an ice pack over the injured area for no more than 15 to 20 minutes. Do this every 3 to 6 hours for the first 24 to 48 hours. Keep using ice packs 3 to 4 times a day until the pain and 3 General Instructions [facility] Emergency Department [address] [place] [address] Phone #: [phone] 06/18/2021 15:42 Patient: DAVID CABALLERO Sex: M : 1965 Age: 56y swelling improves. To make an ice pack, put ice cubes in a sealed plastic bag. Wrap the bag in a clean, thin towel or cloth. Never put ice or an ice pack directly on the skin. As the ice melts, be careful to not to get the wrap or splint wet. You may take cxgt-rio-jhpwklf pain medicine to treat pain and inflammation, unless another medicine was prescribed. Anti-inflammatory pain medicines may be more effective. Talk with your provider before using these medicines if you have chronic liver or kidney disease, or ever had a stomach ulcer or gastrointestinal bleeding. As your symptoms improve, slowly begin to move the joint. Don't overuse the joint. This may cause the symptoms to flare up again.When to seek medical adviceCall your healthcare provider right away if any of these occur: Redness or warmth over the painful area Increasing pain or swelling at the joint Fever of 100.4F (38C) or above lasting for 24 to 48 hours, or as advised Chills [phone] [employer]. [address] [place] [address], [place] [address]. All rights reserved. This information is not intended as asubstitute for professional medical care. Always follow your healthcare professional's instructions.Viral Upper Respiratory Illness (Adult) 4 General Instructions [facility] Emergency Department [address] [place] [address] Phone #: [phone]- [phone] 06/18/2021 15:42 Patient: DAVID CABALLERO Sex: M : 1965 Age: 56yYou have a viral upper respiratory illness (URI), which is another term for the common cold. Thisillness is contagious during the first few days. It is spread through the air by coughing and sneezing. Itmay also be spread by direct contact (touching the sick person and then touching your own eyes,nose, or mouth). Frequent handwashing will decrease risk of spread. Most viral illnesses go awaywithin 7 to 10 days with rest and simple home remedies. Sometimes the illness may last for severalweeks. Antibiotics will not kill a virus, and they are generally not prescribed for this condition.Home care If symptoms are s evere, rest at home for the first 2 to 3 days. When you resume activity, don't let yourself get too tired. 5 General Instructions [facility] Emergency Department [address] [place] [address] Phone #: ext- [phone] 06/18/2021 15:42 Patient: DAVID CABALLERO Sex: M : 1965 Age: 56y Don't smoke. If you need help stopping, talk with your healthcare provider. Avoid being exposed to cigarette smoke (yours or others'). You may use acetaminophen or ibuprofen to control pain and fever, unless another medicine was prescribed. If you have chronic liver or kidney disease, have ever had a stomach ulcer or gastrointestinal bleeding, or are taking blood-thinning medicines, talk with your healthcare provider before using these medicines. Aspirin should never be given to anyone under 18 years of age who is ill with a viral infection or fever. It may cause severe liver or brain damage. Your appetite may be poor, so a light diet is fine. Stay well hydrated by drinking 6 to 8 glasses of fluids per day (water, soft drinks, juices, tea, or soup). Extra fluids will help loosen secretions in the nose and lungs. Wwox-fvg-aqafiok cold medicines will not shorten the length of time you're sick, but they may be helpful for the following symptoms: cough, sore throat, and nasal and sinus congestion. If you take prescription medicines, ask your healthcare provider or pharmacist which ouhv-lye-ksabijq medicines are safe to use. (Note: Don't use decongestants if you have high blood pressure.)Follow-up careFollow up with your healthcare provider, or as advised.When to seek medical adviceCall your healthcare provider right away if any of these occur: Cough with lots of colored sputum (mucus) Severe headache; face, neck, or ear pain Difficulty swallowing due to throat pain Fever of 100.4F (38C) or higher, or as directed by your healthcare provider Call 911 Call 911 if any of these occur: Chest pain, shortness of breath, wheezing, or difficulty breathing Coughing up blood Very severe pain with swallowing, especially if it goes along with a muffled voice [phone] [employer]. [address] [place] [address], [place] [address]. All rights reserved. 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 Always follow your healthcare professional's instructions. Prevention steps for People with confirmed or suspected COVID-19 (including persons under investigation) who do not need to be hospitalized And People with confirmed COVID-19 who were hospitalized and determined to be medically stable to go home Your healthcare provider and public health staff will evaluate whether you can be cared for at home. If it isdetermined that you do not need to be hospitalized and can be isolated at home, you will be monitored by [facility] or state health department. You should follow the prevention steps below until a healthcare provider orlds hospital or state health department says you can return to your normal activities. Stay home except to get medical care People who are mildly ill with COVID-19 are able to isolate at home during their illness. You should restrict activities outside yourhome, except for getting medical care. Do not go to work, school, or public areas. Avoid using public transportation, ride-sharing, ortaxis. Separate yourself from other people and animals in your home People: As much as possible, you should stay in a specificroom and away from other people in your home. Also, you should use a separate bathroom, if available.Animals: You should restrict contact with pets and other animals while you are sick with COVID-19, just like you would around otherpeople. Although there have not been reports of pets or other animals becoming sick with COVID-19, it is still recommended thatpeople sick with COVID- 19 limit contact with animals until more information is known about the virus. When possible, have anothermember of your household care for your animals while you are sick. If you are sick with COVID-19, avoid contact with your pet,including petting, snuggling, being kissed or licked, and sharing food. If you must care for your pet or be around animals while you aresick, wash your hands before and after you interact with pets and wear a facemask. See https://www.cdc.gov/coronavirus/2019-ncov/faq.html#4930-tYuH-mel-animals for more information. Call ahead before visiting your doctor If you have a medical appointment, call the healthcare provider and tell them that you have or may have COVID-19. This will helpthe healthcare provider's office take steps to keep other people from getting infected or exposed. Wear a facemask You should wear a facemask when you are around other people {e.g., sharing a room or vehicle} or pets and before you enter [facility] office. If you are not able to wear a facemask {for example, because it causes trouble breathing}, thenpeople who live with you should not stay in the same room with you, or they should wear a facemask if they enter your room. Cover your coughs and sneezes Cover your mouth and nose with a tissue when you cough or sneeze. Throw used tissues in a lined trash can. Immediately washyour hands with soap and water for at least 20 seconds or, if soap and water are not available, clean your hands with analcohol-based hand heating and ventilating tender that contains at least 60% alcohol. Clean your hands often Wash your hands often with soap and water for at least 20 seconds, especially after blowing your nose, coughing, or sneezing;going to the bathroom; and before eating or preparing food. If soap and water are not readily available, use an alcohol-based handsanitizer with at least 60% alcohol, covering all surfaces of your hands and rubbing them together until they feel dry. Soap and water are the best option if hands are visibly dirty. Avoid touching your eyes, nose, and mouth with unwashedhands. 7 General Instructions [facility] Emergency Department [address] [place] [address] Phone #: ext- [phone] 06/18/2021 15:42 Patient: DAVID CABALLERO Sex: M : 1965 Age: 56yFlu Like Symptoms / Coronavirus Exposure - 30a Page 1 of 2Avoid sharing personal household itemsYou should not share dishes, drinking glasses, cups, eating utensils, towels, or bedding with other people or pets in yourhome. After using these items, they should be washed thoroughly with soap and water.Clean all "high-touch" surfaces everydayHigh touch surfaces include counters, tabletops, doorknobs, bathroom fixtures, toilets, phones, keyboards, tablets, and bedsidetables. Also, clean any surfaces that may have blood, stool, or body fluids on them. Use a household cleaning spray or wipe,according to the label instructions.Labels contain instructions for safe an d effective use of the cleaning product including precautions you should take when applyingthe product, such as wearing gloves and making sure you have good ventilation during use of the product.Monitor your symptomshttps://www.tsystem.com/index.php Seek prompt medical attention if your illness is worsening {e.g., difficulty breathing}. Before seeking care, call your healthcareprovider and tell them that you have, or are being evaluated for, COVID-19. Put on a facemask before you enter the facility.These steps will help the healthcare provider's office to keep other people in the office or waiting room from getting infected orexposed. Ask your healthcare provider to call the local or state health department. Persons who are placed under activemonitoring or facilitated self-monitoring should follow instructions provided by their local health department or occupational healthprofessionals, as appropriate. When working with your local health department check their available hours.If you have a medical emergency and need to call 911, notify the dispatch personnel that you have, or are being evaluated forCOVID-19. If possible, put on a facemask before emergency medical services arrive.Discontinuing home isolationPatients with confirmed COVID-19 should remain under home isolation precautions until the risk of secondary transmission toothers is thought to be low. The decision to discontinue home isolation precautions should be made on a yptb-mh-jlxk basis, inconsultation with healthcareproviders and state and local health departments.Contacts 2020 iMall.euOnline informationhttps://www.cdc.gov/coronavirus/2019- ncov/about/index.html Content source: National Center for Immunization and Respiratory Diseases (NCIRD), Division of Viral Diseases 8 General [facility] Emergency Department [address] [place] [address] Phone #: ext- [phone] 06/18/2021 15:42 Patient: DAVID CABALLERO Sex: M : 1965 Age: 56y Recommended precautions for household members, intimate partners, and caregivers in a nonhealthcare setting1 of A patient with symptomatic laboratory-confirmed COVID-19 or A patient under investigationHousehold members, intimate partners, and caregivers in a nonhealthcare setting may have close contact2 with aperson with symptomatic, laboratory-confirmed COVID-19 or a person under investigation. Close contacts shouldmonitor their health; they should call their healthcare provider right away if they develop symptoms suggestive of COVID-19 {e.g., fever, cough, shortness of breath} {see Interim [place] Guidance for Risk Assessment and Public Health Management of Persons with Potential Coronavirus Disease 2019 {COVID-19} Exposure in Travel-associated or Community Settings.}Close contacts should also follow these recommendations: Make sure that you understand and can help the patient follow their healthcare provider's instructions for medication{s} and care. You should help the patient with basic needs in the home and provide support for getting groceries, prescriptions, and other personal needs. Monitor the patient's symptoms. If the patient is getting sicker, call his or her healthcare provider and tell them that the patient has laboratory-confirmed COVID-19. This will help the healthcare provider's office take steps to keep other people in the office or waiting room from getting infected. Ask the healthcare provider to call the local or state health department for additional guidance. If the patient has a medical emergency and you need to call 911, notify the dispatch personnel that the patient has, or is being evaluated for COVID-19. Household members should stay in another room or be from the patient as much as possible. Household members should use a separate bedroom and bathroom, if available. Prohibit visitors who do not have an essential need to be in the home. Household members should care for any pets in the home. Do not handle pets or other animals while sick. For more information, see COVID-19 and Animals. Make sure that shared spaces in the home have good air flow, such as by an air conditioner or an opened window, weather permitting. Perform hand hygiene frequently. Wash your hands often with soap and water for at least 20 seconds or use an alcohol-based hand heating and ventilating tender that contains 60 to 95% alcohol, covering all surfaces of your hands and rubbing them together until they feel dry. Soap and water should be used preferentially if hands are visibly dirty.Avoid touching your eyes, nose, and mouth with unwashed hands. The patient should wear a facemask when around other people, except when unable {for example, because it causes trouble breathing}. You, as the caregiver should always wear a mask, regardless if the patient has one on or not whenever you are in the same room as the patient. Wear a disposable facemask and gloves when you touch or have contact with the patient's blood, stool, or body fluids, such as saliva, sputum, nasal mucus, vomit, urine. Throw out disposable facemasks and gloves after using them. Do not reuse. When removing personal protective equipment, first remove and dispose of gloves. Then, immediately clean your hands with soap and water or alcohol-based hand heating and ventilating tender. Next, remove and dispose of facemask, and immediately clean your hands again with soap and water or alcohol-based hand heating and ventilating tender. Avoid sharing household items with the patient. You should not share dishes, drinking glasses, cups, eating utensils, towels, bedding, or other items. After the patient uses these items, you should wash them thoroughly {see below "Wash laundry thoroughly"}. 9 General Instructions [facility] Emergency Department [address] [place] [address] Phone #: ext- [phone] 06/18/2021 15:42 Patient: DAVID CABALLERO Sex: M : 1965 Age: 56y Flu Like Symptoms / Coronavirus Exposure - 30a Page 2 of 2 Clean all "high-touch" surfaces, such as counters, tabletops, doorknobs, bathroom fixtures, toilets, phones, keyboards, tablets, and bedside tables, every day. Also, clean any surfaces that may have blood, stool, or body fluids on them. Use a household cleaning spray or wipe, according to the label instructions. Labels contain instructions for safe and effective use of the cleaning product including precautions you should take when applying the product, such as wearing gloves and making sure you have good ventilation during use of the product. Wash laundry thoroughly. Immediately remove and wash clothes or bedding that have blood, stool, or body fluids on them. Wear disposable gloves while handling soiled items and keep soiled items away from your body. Clean your hands {with soap and water or an alcohol-based hand heating and ventilating tender} immediately after removing your gloves. https://www.[employer]/index.php Read and follow directions on labels of laundry or clothing items and detergent. In general, using a normal laundry detergent according to washing machine instructions and dry thoroughly using the warmest temperatures recommended on the clothing label. Place all used disposable nimo ves, facemasks, and other contaminated items in a lined container before disposing of them with other household waste. Clean your hands {with soap and water or an alcohol-based hand heating and ventilating tender} immediately after handling these items. Soap and water should be used preferentially if hands are visibly dirty. Discuss any additional questions with your state or local health department or healthcare provider. Check available hours when contacting your local health department.Contacts 2019 [employer].Online information https://www.cdc.gov/coronavirus/2019-ncov/about/index.htmlContent source: National Center for Immunization and Respiratory Diseases (NCIRD), Division of Viral DiseasesFootnotes 1Home healthcare personnel should refer to I nterim Infection Prevention and Control Recommendations for Patients with Known or Patients Under Investigationfor Coronavirus Disease 2019 (COVID-19) in a Healthcare Setting. 2Close contact is defined as-1. being within approximately 6 feet (2 meters) of a COVID-19 case for a prolonged period of time; close contact can occur while caring for, living with, visiting, or sharing a health care waiting area or room with a COVID-19 case - or - 10 General Instructions [facility] Emergency Department [address] [place] [address] Phone #: [phone]- [phone] 06/18/2021 15:42 ----- Patient: DAVID CABALLERO Sex: M : 1965 Age: 56y2. having direct contact with infectious secretions of a COVID-19 case (e.g., being coughed on You have been given the following additional information: Bursitis URI, Viral, No Abx (Adult) COVID-19 No strenuous activity until better. Rest at home today. Do not work (self quarantine at home until contacted by [facility] with COVID 19 test results.).(Electronically signed by DAYDAY Chou 06/18/2021 19:39) Name Value Range Interpretation Code Description Data Maryellen rce(s) Supporting Document(s) ID Date Data Source [id number] 06/18/2021 04:02:00 PM EDT [facility] 1 Clinical Report - Nurses [facility] Emergency Department [address] [place] [address], [place] [address] Phone #: ext- [phone] 06/18/2021 15:42 Patient: DAVID CABALLERO Sex: M : 1965 Age: 56yTRIAGEArrived by private vehicle. Historian: patient.Acuity: LEVEL 4.Chief Complaint: SORE THROAT and COUGH (right knee swelling).Alert. No acute distress.Onset. (3 days). ( Pt reports 3 days ago he began having swelling to his right knee. He denies any injuryto the knee. He has also had a cough and sore throat for the past 3 days as well. 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 SEPSIS SCREEN NEGATIVE.No suspected or confirmed signs of infection present.SMITH COMA SCORE: 15- eyes open- spontaneous (4); best verbal response- oriented (5); bestmotor response- obeys commands (6). --15:50 06/18/21 Susan Dukes R.N.15:43 06/18/21. BP: 120/70. HR: 112. RR: 18. O2 saturation: 94%. Temp: 97.2 F. Pain level now 0/10.--15:50 06/18/21 Susan Dukes R.N.Weight: 77.1 kg stated. Height/Length: 69 inches Per Patient. BMI: 25.1. --15:47 06/18/21 Susan Dukes R.N.MedicationsInvega Sustenna Intramuscular (Suspension Prefilled Syringe 156 mg/mL) (once every 3 weeks). --15:4706/18/21 Susan Dukes R.N. Albuterol Sulfate Inhalation. --15:48 06/18/21 Susan Dukes R.N.AllergiesNo Known Drug Allergy. --15:47 06/18/21 Susan Dukes R.N.PROBLEMS:Bipolar Disorder.COPD - Chronic Obstructive Pulmonary Disease.Asthma. --15:48 06/18/21 Susan Dukes R.N.ADDITIONAL SURGERIES: 2 Clinical Report - Nurses [facility] [place] [address] Phone #: ext- [phone] 06/18/2021 15:42 Patient: DAVID CABALLERO Sex: M : 1965 Age: 56y Tumor removed from bladder. --15:48 06/18/21 Susan Dukes R.N. History SOCIAL HX: Heavy tobacco smoker- 1 pack per day. Drug use: marijuana. Recently used drugs just prior to arrival. No alcohol use. The patient was offered HIV testing but declined and hepatitis C testing but declined. The patient has not traveled outside the [place] Infectious disease exposure: The patient was not exposed to C- diff, MRSA, VRE, CRE or Coronavirus. SELF HARM ASSESSMENT: Self harm assessment was performed. The patient answered "no" to the question(s) "Have you recently felt down, depressed, or hopeless?", "Do you have thoughts of harming or killing yourself?", "Do you have a plan for harming or killing yourself?", "Have you recently had thoughts about harming or killing others?", "Do you have any dangerous items in your possession?", "Have you noticed less interest or pleasure in doing things?", "Are you here because you tried to hurt yourself?" and "Have you ever tried to hurt yourself before today?". ABUSE ASSESSMENT: No report of abuse. NUTRITIONAL RISK ASSESSMENT: The nutritional risk assessment revealed no deficiencies. FUNCTIONAL ASSESSMENT: Functional assessment: no impairments noted. LEARNING NEEDS ASSESSMENT: The learning needs assessment revealed no barriers. FALL RISK ASSESSMENT: Fall risk assessment completed. No risk factors identified. SKIN INTEGRITY ASSESSMENT: Skin integrity risk assessment completed. No skin integrity risk identified. --15:50 06/18/21 uSsan Dukes R.N. Interventions Identification band on patient. To waiting room. No allergy band on patient. --15:50 06/18/21 Susan Dukes R.N.PHYSICAL XJXOWGRMIS33:15 06/18/21. Ambulatory to room.GENERAL / NEURO / PSYCH: Alert. Oriented X 4. Appears in no acute distress.HEENT: Pharyngeal erythema.RESPIRATORY: Respirations not labored. Chest nontender. Breath sounds within normal limits.CVS: Capillary refill less than 2 seconds. Pulses within normal limits.GI / : Abdomen soft and nontender and normal bowel sounds.SKIN: Skin intact. Skin is warm and dry. Normal skin turgor. --19:06/18/21 Concha Buckley RN.NURSING PROGRESS NOTES17:06/18/21. BP: 116/87. HR: 91. RR: 17. O2 saturation: 99%. --17:06/18/21 [place] home restoration service cleaner,[facility] Tech1 3 Clinical Report - Nurses [facility] Emergency Department [address] [place] [address] Phone #: ext- [phone] 06/18/2021 15:42 Patient: DAVID CABALLERO Sex: M : 1965 Age: 56y 16:15 06/18/21. Reassurance given. Two patient identifiers checked. Bed placed in lowest position. Brakes of bed on. --19:08 06/18/21 Concha Buckley, ED 18:58 06/18/21. ( jewel applied to R knee). --19:06/18/21 Concha Buckley RN.DISPOSITION / DISCHARGE 18:58 06/18/21. BP: 131/76. HR: 72. RR: 16. O2 saturation: 95%. Temp: 97.9 F. Pain level now 12/27. --18:59 06/18/21 [facility] TechKenna ER Tech1 Departure time: 19:06 06/18/2021. --19:06 06/18/21 Concha Buckley RN Condition at departure: stable. No learning barriers present. Discharge instructions provided and reviewed with the patient. Reviewed medication(s) side effects, precautions, dosing and course information. Prescription(s) sent electronically to pharmacy. Reviewed referral to a primary care physician. Patient verbalized understanding. Written instructions provided in Croatian. The patient was discharged by the physician product development assistant. He was discharged home and accompanied by friend. He left ambulatory and via private vehicle. Driving (friend). --19:07 06/18/21 Concha Buckley RN.Locked/Released at 06/18/2021 19:26 by Concha Buckley RN Name Value Range Interpretation Code Description Data Maryellen rce(s) Supporting Document(s) ID Date Data Source [id number] 06/18/2021 04:02:00 PM EDT [facility] 1 Clinical Report - Physicians/Mid Levels [facility] Emergency Department [address] [place] [address] Phone #: ext- [phone] 06/18/2021 15:42 Patient: DAVID CABALLERO Sex: M : 1965 Age: 56y Time Seen: 17:14 06/18/2021. Arrived- By private vehicle. Historian- patient. Disposition decision: 18:54 06/18/2021.HISTORY OF PRESENT ILLNESS Chief Complaint: sore throat, cough, R knee pain. This started about 3 days ago; Increasing cough and sore throat x 3 days. No fever, no known sick contacts. No SOB. Atraumatic R knee swelling x 3 days, noticed after stacking firewood, resolving, no knee pain. At its maximum, severity described as 4 / 10. When seen in the E.D., severity described as 4 / 10. Modifying factors. Not worsened by anything. Not relieved by anything. No loss of appetite, weight loss, headache, visual disturbance or fatigue. No muscle aches or weakness. Denies sleep problem. No decreased urine output. Similar symptoms previously. None. Recent medical care: Not recently seen/assessed.REVIEW OF SYSTEMSNo fever, sinus drainage, nasal congestion, difficulty breathing or chest pain. No abdominal pain, nausea,vomiting, diarrhea or black stools. No bloody stools, chills, difficulty with urination, skin rash or back pain.No calf pain, headache, blackouts or double vision. The patient has had a sore throat and cough. Nodifficulty with ambulation.PAST HISTORYSee nurses notes. Problems: Bipolar Disorder. COPD - Chronic Obstructive Pulmonary Disease. Asthma. Additional Surgeries: Tumor removed from bladder. Medications: Albuterol Sulfate Inhalation. Invega Sustenna Intramuscular (Suspension Prefilled Syringe 156 mg/mL) (once every 3 weeks). Allergies: No Known Drug Allergy.SOCIAL HISTORYSmoker- current status unknown. Drug use: marijuana. Recently used drugs just prior to arrival. Noalcohol use. No recent travel. 2 Clinical Report - Physicians/Mid Levels [facility] Emergency Department [address] [place] [address] Phone #: ext - [phone] 06/18/2021 15:42 Patient: DAVID CABALLERO Sex: M : 1965 Age: 56yADDITIONAL NOTESThe nursing notes have been reviewed with agreement regarding the chief complaint, HPI, ROS, PMH andpatient medications and allergies.PHYSICAL EXAMVital Signs: 06/18/2021 15:43 BP: 120/70. MAP: 86. HR: 112. RR: 18. O2 saturation: 94%. Temp: 97.2 F.Have been reviewed as abnormal and appear to be correct. Blood pressure normal. Mean arterialpressure- normal. Tachycardic. Respiratory rate normal. Temperature normal. Oxygen saturation low.Appearance: Alert. No acute distress.Eyes: Pupils equal, round and reactive to light. Eyes normal inspection.ENT: Ears normal. Nose normal. Mild generalized pharyngeal erythema.Neck: Normal inspection. Neck supple.CVS: Normal heart rate and rhythm. Heart sounds normal. Pulses normal.Respiratory: No respiratory distress. Painless inspiration. Breath sounds normal. Chest nontender.Abdomen: No visible injury. Soft and nontender. Bowel sounds normal. No organomegaly. No mass.Back: Normal inspection.Skin: Skin warm and dry. Normal skin color. No rash. Normal skin turgor.Extremities: Extremities exhibit normal ROM. No lower e xtremity edema.Neuro: Oriented X 3. No motor deficit. No sensory deficit. Reflexes normal.LABS, X-RAYS, AND EKGChest X-ray: No acute disease. Views: PA and lateral. Technique: good. The X-rays wereindependently viewed by me and interpreted by the radiologist and contemporaneously by me.Interpretation time: 18:30 06/18/2021.Rt Knee X-ray: (no acute bony abnormality. suprapatellar joint effusion.). Technique: good. The X-rayswere independently viewed by me and interpreted by the radiologist and contemporaneously by me.Interpretation time: 18:30 06/18/2021.Laboratory Tests: Laboratory tests have been ordered, with results reviewed and considered in themedical decision making process. Knee Complete Right: (VIDAL: 06/18/2021 17:20) ( MsgRcvd 06/18/2021 18:21) In Progress KNEE COMPLETE-4 OR MORE VWS RT Reason(s): atraumatic swelling R knee TRANSPORTATION: WC IV? O2? Oxygen?(No) Room: ED Chest 2 View: (VIDAL: 06/18/2021 17:20) ( MsgRcvd 06/18/2021 18:21) In Progress CHEST 2 VIEWS Reason(s): Cough TRANSPORTATION: WC IV? O2? Oxygen?(No) Room: ED.PROGRESS AND PROCEDURESDisposition: Discharged home in good and improved condition. 3 Clinical Report - Physicians/Mid Levels [facility] Emergency Department [address] [place] [address] Phone #: ext- [phone] 06/18/2021 15:42 Patient: DAVID CABALLERO Sex: M : 1965 Age: 56y Discharge decision based on the following: patient's condition is improved; patient is ambulatory; patient is active; patient's exam is improved; improving condition on repeat evaluation; social support is adequate; transportation is available; follow-up is available; clinical impression is consistent with outpatient treatment.CLINICAL IMPRESSION Right prepatellar bursitis. No traumatic or gouty bursitis, bursitis with infection or buritis with abscess formation. Acute viral (presumed) pharyngitis (COVID 19 rule out). No airway obstruction.INSTRUCTIONS No strenuous activity until better. Rest at home today. Do not work (self quarantine at home until contacted by [facility] with COVID 19 test results.). Do not smoke. No alcohol. (self quarantine at home until contacted by [facility] with COVID 19 test results). Warnings: Further evaluation is necessary. It is very important to follow up with a healthcare provider. GENERAL WARNINGS: Return or contact your physician immediately if your condition worsens or changes unexpectedly, if not improving as expected, or if other problems arise. Specifically return if pain, vomiting, bleeding, breathing difficulty or fever. Your Current Medications: Your current home medications have been reviewed. CONTINUE TAKING THE FOLLOWING MEDICATIONS: Albuterol Sulfate Inhalation. Invega Sustenna Intramuscular : Suspension Prefilled Syringe 156 mg/mL, once every 3 weeks. Prescription Medications: ibuprofen 600 mg tablet Take 1 tablet every eight hours as needed for pain for 5 days -- for R knee pain. Dispense 15 tablet. Refills: 0. Substitution permitted. Pharmacy - [id number] - [address] [facility] ; [place], [place] [id number]. . albuterol sulfate 2.5 mg/3 mL (0.083 %) solution for nebulization Inhale 1 vial four times a day as needed for 14 days -- for wheezing, SOB. Dispense 3 ml. Refills: 0. Substitution permitted. Pharmacy [id number] - [address] [place], [place] [id number]. . albuterol sulfate HFA 90 mcg/actuation aerosol inhaler Inhale 2 puff four times a day as needed for 14 days -- for wheezing, SOB. Dispense 18 gram. Refills: 0. Substitution permitted. Pharmacy - [facility] #[id number] - [address] [place], [place] [id number]. . 4 Clinical Report - Physicians/Mid Levels [facility] Emergency Department [address] [place] [address] Phone #: [phone] ext- [phone] 06/18/2021 15:42 Patient: DAVID CABALLERO Sex: M : 1965 Age: 56y Follow-up: Follow up with your healthcare provider in three days even if well. Call for the next available appointment. Reason for referral: evaluation. Summary of care provided to patient via paper. Understanding of the discharge instructions verbalized by patient. Expected course of illness, discharge instructions, activity level, follow-up appointment and risks and benefits of treatment reviewed with patient and understanding verbalized. Agrees to plan of care.(Electronically signed by DAYDAY Chou 06/18/2021 19:39) Name Value Range Interpretation Code Description Data Maryellen rce(s) Supporting Document(s) ID Date Data Source [id number] 06/18/2021 04:02:00 PM EDT [facility] Addenda for DAVID CABALLERO VisitID: [id number] Date: 11:39Pt COVID test negative, called and made pt aware at 1138, no further intervention required(Electronically signed by Edyta Dao R.N. - 06/22/2021 11:39) Name Value Range Interpretation Code Description Data Maryellen rce(s) Supporting Document(s) ID Date Data Source [id number] 06/18/2021 09:24:00 PM EDT [facility] [address] [place] [address] PHONE: [phone] FAX: [phone] Name .................. : YANIRA Carpio Acct Number.................. : [id number] ROOM. ................. : VT-26 MR Number ................... : [id number] Stay type ............. : E/R Discharge Date......... ... : 06/18/21 Admit Date ....... .. : 06/18/21 Admit Phys .................... : LEO HUERTA Date of ....... : 1965 Family Phys ................... : NO PCP Phone .................. : [phone] Age ................................ : 56 Film# .................. .:[id number] Sex ................................. : M Unsigned transcriptions are preliminary reports and do not represent a medical or legal document KNEE COMPLETE-4 OR MORE VWS R [id number] COMPLETE:06/18/21 18:21 TASIA Reason(s): atraumatic swelling R knee RADIOGRAPHS OF THE RIGHT KNEE 4 VIEWS INDICATION: Atraumatic swelling right knee COMPARISON: None. FINDINGS: No acute fracture or dislocation. Joint space width is normal. No osteochondral lesions. No skeletal lesions. Moderate suprapatellar joint effusion. No soft tissue gas or radiopaque foreign body. IMPRESSION: No skeletal abnormality. Suprapatellar joint effusion. Electronically Reviewed and Signed By Marcelo Cason MD , 06/18/21 21:24, SCB Transcribe Initials: POLO , Transcribe Date: 06/18/21 20:46, Dictation Date: Copy for: NADYA Acosta via fax Copy for: EMERGENCY DEPT via modem Copy for: 710 MED REC DISCHARGED Page 1 of 1 Name Value Range Interpretation Code Description Data Maryellen rce(s) Supporting Document(s) ID Date Data Source [id number] 06/18/2021 09:24:00 [place] [address] PHONE: [phone] FAX: [phone] Name .................. : YANIRA Carpio Acct Number.................. : [id number] ROOM. ................. : VT-26 Number ................... : [id number] Stay type ............. : E/R Discharge Date......... ... : 06/18/21 Admit Date .... ..... : 06/18/21 Admit Phys .................... : LEO HUERTA Date of ....... : 1965 Family Phys ................... : NO PCP Phone .................. : [phone] Age ................................ : 56 Film# .................. .:[id number] Sex ................................. : M Unsigned transcriptions are preliminary reports and do not represent a medical or legal document CHEST 2 VIEWS [id number] COMPLETE:06/18/21 18:21 TASIA Reason(s): Cough FRONTAL AND LATERAL CHEST TWO VIEWS INDICATION: Cough COMPARISON: None FINDINGS: Mediastinal and hilar structures are normal. Cardiac silhouette is unremarkable. Lungs are clear. No pulmonary edema. No pleural effusions or pneumothorax. IMPRESSION: No acute cardiopulmonary abnormality. Electronically Reviewed and Signed By Marcelo Cason MD , 06/18/21 21:24, RHAEELB Transcribe Initials: DZ , Transcribe Date: 06/18/21 20:45, Dictation Date: Copy for: NADYA Acosta via fax Copy for: EMERGENCY DEPT via mode Copy for: 710 MED REC DISCHARGED Page 1 of 1 Name Value Range Interpretation Code Description Data Maryellen rce(s) Supporting Document(s) ID Date Data Source [id number] 06/18/2021 05:25:00 PM EDT [facility] Name Value Range Interpretation Code Description Data Maryellen rce(s) Supporting Document(s) SARS coronavirus 2 RNA Not Detected [facility] This lab was ordered by [facility] and reported by [facility]. ID Date Data Source [id number] 06/21/2021 10:36:00 AM EDT [facility] Name Value Range Interpretation Code Description Data Maryellen rce(s) Supporting Document(s) SARS-CoV-2, ROSEMARY Not Detected Not Detected [facility] This nucleic acid amplification test was developed and its performancecharacteristics determined by [facility]. Nucleic acidamplification tests include RT-PCR and TMA. This test has not beenFDA cleared or approved. This test has been authorized by FDA underan Emergency Use Authorization (EUA). This test is only authorizedfor the duration of time the declaration that circumstances existjustifying the authorization of the emergency use of in vitrodiagnostic tests for detection of SARS-CoV-2 virus and/or diagnosisof COVID-19 infection under section 564(b)(1) of the Act, 21 U.S.C.360bbb-3(b) (1), unless the authorization is terminated or revokedsooner.When diagnostic testing is negative, the possibility of a falsenegative result should be considered in the context of a patient'srecent exposures and the presence of clinical signs and symptomsconsistent with COVID- 19. An individual without symptoms of COVID-19and who is not shedding SARS-CoV-2 virus would expect to have anegative (not detected) result in this assay. ID Date Data Source [id number] 01/10/2021 01:15:00 AM EDT [facility] Name Value Range Interpretation Code Description Data Maryellen rce(s) Supporting Document(s) SARS coronavirus 2 RNA [Presence] in Res piratory specimen by ROSEMARY with probe detection NEGATIVE [facility] This lab was ordered by [facility] a nd reported by [facility]. ID Date Data Source [id number] 08/04/2020 02:14:14 PM EDT [facility]FORMATIONPatient [facility] Name Date of Age Gend*PT [id number] David Caballero 1965 55 years M OPPT Location Admission Date/Time Visit ID Attending Provider --- --- --- Jacek Man DO([id number]) EPI ID CSN Admitting Provider [id number] ---OUTPATIENT / OBSERVATIONAL SURGICAL OR INVASIVE PROCEDUREName: David Caballero : 1965 Sex: male Care Provider: Cadence Reyesending Physician: Dr. ManHISTORY OF PRESENT ILLNESS: Mr Caballero is a 55 years old white male with ahistory of schizophrenia, COPD, bladder cancer, kidney cancer, heavy smoker,duodenal papillary stenosis and biliary dyskinesia. He underwent multiple upperendoscopies in the past. Recently patient noted an increasing abdominal pain,nausea and vomiting mostly after eating. He also has lost approximately 30pounds in last 3 months. His appetite has been decreased. Denies any diarrhea,constipation, fever, chills, jaundice, or pruritus. [facility].PAST MEDICAL HISTORY:Past Medical History:Diagnosis Date Biliary dyskinesia Bladder cancer s/p surgery - BCG treatment Cancer of kidney, right right partial nephrectomy - 2012 COPD (chronic obstructive pulmonary disease) [facility]illary [facility]:Past Surgical History:Procedure Laterality Date BLADDER FULGURATION CHOLECYSTECTOMY COLONOSCOPY ERCP PANENDOSCOPY PARTIAL NEPHRECTOMY Right 2013ALLERGIES: No Known Drug All ergiesMEDICATIONS:Prior to Admission medicationsMedication Sig Start Date End Date Taking? Authorizing Provideripratropium-albuterol (DUO-NEB) 0.5-2.5 mg/mL nebulizer Inhale 3 mL every 6(six) hours Historical Provider, MDPaliperidone Palmitate ER (INVEGA SUSTENNA) 156 MG/ML JUAN LUIS Inject 156 mg intothe shoulder, thigh, or buttocks every 30 (thirty) days Historical Provider,MDSocial HistoryTobacco Use Smoking status: Current Every Day Smoker Packs/day: 1.00 Years: 27.00 Pack years: 27.00 Types: Cigarettes Smokeless tobacco: Never UsedSubstance Use Topics Alcohol use: Yes Drug use: Yes Types: Marijuana Comment: smokes all day everyday - last used 08/03/2020Family HistoryProblem Relation Age of Onset Lung cancer Mother Bone cancer Father Malig Hyperthermia Neg HxREVIEW OF SYSTEMS:Respiratory: Positive shortness of breath on exertion. Denies cough, yellowsputum production or wheezing.Cardiovascular: Denies any chest pain, pressure or tightness. Denies anyparoxysmal nocturnal dyspnea or orthopnea.GI: Positive nausea, vomiting and abdominal pain . Denies diarrhea,constipation or melena.Neurologic: Denies any numbness, tingling, tremors or syncope.Vascular: Denies any edema. Denies claudication.PHYSICAL EXAM:GENERAL: He is a 55 years old, pleasant white male, in no acute distress at timeof examination. Vitals on arrival to the office are BP 110/60 | Resp 18 | Ht1.727 m (5' 8") | Wt 72.6 kg (160 lb) | SpO2 96% | BMI 24.33 kg/m Body massindex is 24.33 kg/m ..Skin is pink, warm, and dry.NECK: He has a grade I airway. Neck is supple, midline, without cervicaladenopathy. No thyromegaly. No carotid bruits.MENTAL / NEUROLOGICAL STATUS: AAOx3. He is a poor historianLUNGS: Positive wheezes throughout the lung field. No rhonchi or crackles.HEART: Rate rhythm regular. S1, S2. No murmur, rub or gallop.ABDOMEN: Bowel sounds positive times four. Soft, non tender. No reboundtenderness. No hepatosplenomegaly. Negative CVAT.EXT REMITIES: Pulses are symmetrical. No edema.[facility]est[facility]: [facility] :: 3/10 Managing Well (medical problems are well controlled,but are not regularly active beyond routine walking).Stop Bang Questionnaire - Total Score:STOP-Bang Total Score: 2ASSESSMENT: Primary Diagnosis/Indication: Other specified diseases of biliarytractPLAN: Procedure: Mr. Caballero is a 55-year-old male with history of chronicbiliary dilation/dysfunction. He now has elected to undergo ULTRASOUND, UPPERGASTROINTESTINAL (GI) TRACT, ENDOSCOPIC on 2:14 Elaine Matos document or parts of this document, were dictated using [employer] speaking software. A reasonable attempt at proofreading has beenmade to minimize errors. Please call with any questions or corrections.* Name Value Range Interpretation Code Description Data [facility] Supporting Document(s) ID Date Data Source [id number] 08/04/2020 03:09:58 PM EDT [facility] [place] jostin QUINONEZ Name Value Range Interpretation Code Description Data [facility](s) Supporting Document(s) WBC 8.2 10*3/uL (4.1-11.0) [facility] [place] RBC 4.30 10*6/uL (4.60-6.10) L [facility] [place] [facility] QUINONEZ HGB 13.9 g/dL (13.5-18.0) [facility] [place] [facility] HCT 40.0 % (41.0-53.0) L [facility] [place] [facility] MCV 92.9 fL (80.0-95.0) [facility] [place] [facility] MCH 32.3 pg (27.0-32.0) H [facility] [place] [facility] [place] MCHC 34.7 g/dL (32.0-36.0) [facility] [place] [facility] RDW 13.7 % (10.5-14.5) [facility] [place] [facility] PLT 374 10*3/uL (150-450) [facility] [place] [facility] [place] MPV 7.6 fL (7.1-10.7) [facility] [place] [facility] QUINONEZ ID Date Data Source [id number] 08/04/2020 10:00:00 AM EDT [facility] Name Value Range Interpretation Code Description Data Maryellen rce(s) Supporting Document(s) SARS coronavirus 2 RNA [facility] This lab was ordered by [facility] [place] and reported by [facility]. ID Date Data Source [id number] 08/05/2020 01:07:40 PM EDT [facility] Name Value Range Interpretation Code Description Data Maryellen rce(s) Supporting Document(s) SARS-COV-2 [facility] [place] [facility] QUINONEZ Not DetectedReference range: Not Detecte d This nucleic acid amplification test was developed and its performance characteristics determined by [employer]. Nucleic acid amplification tests include PCR and TMA. This test has not been FDA cleared or approved. This test has been authorized by FDA under an Emergency Use Authorization (EUA). This test is only authorized for the duration of time the declaration that circumstances exist justifying the authorization of the emergency use of in vitro diagnostic tests for detection of SARS-CoV-2 virus and/or diagnosis of COVID-19 infection under section 564(b)(1) of the Act, 21 U.S.C. 360bbb-3(b) (1), unless the authorization is terminated or revoked sooner. When diagnostic testing is negative, the possibility of a false negative result should be considered in the context of a patient's recent exposures and the presence of clinical signs and symptoms consistent with COVID- 19. An individual without symptoms of COVID- 19 and who is not shedding SARS -CoV-2 virus would expect to have a negative (not detected) result in this assay. Performed At: [address] [id number] Jed Baer MD Ph:[phone] Procedure Social History Code Duration Value Status Description Data Source(s ) Smoking 05/09/2021 12:00:00 AM EDT Unknown if ever smoked comp leted Unknown if ever smoked [facility] ([facility]) Smoking 03/07/2021 12:00:00 AM EDT Unknown if ever smoked comp leted Unknown if ever smoked [facility] ([facility]) Smoking 03/01/2021 12:00:00 AM EDT Unknown if ever smoked comp leted Unknown if ever smoked [facility] ([facility]) Smoking 01/30/2021 12:00:00 AM EDT Unknown if ever smoked comp leted Unknown if ever smoked [facility] ([facility]) Smoking 01/05/2021 12:00:00 AM EDT Unknown if ever smoked comp leted Unknown if ever smoked [facility] ([facility]) Smoking 12/15/2020 12:00:00 AM EST Unknown if ever smoked comp leted Unknown if ever smoked [facility] ([facility]) Smoking 12/14/2020 12:00:00 AM EST Unknown if ever smoked comp leted Unknown if ever smoked [facility] ([facility]) Smoking 12/08/2020 12:00:00 AM EST Unknown if ever smoked comp leted Unknown if ever smoked [facility] ([facility]) Smoking 11/28/2020 12:00:00 AM EST Unknown if ever smoked comp leted Unknown if ever smoked [facility] ([facility]) Smoking 11/24/2020 12:00:00 AM EST Unknown if ever smoked comp leted Unknown if ever smoked [facility] ([facility]) Smoking 11/08/2020 12:00:00 AM EST Unknown if ever smoked comp leted Unknown if ever smoked [facility] ([facility]) Smoking 10/27/2020 12:00:00 AM EST Unknown if ever smoked comp leted Unknown if ever smoked [facility] ([facility]) Smoking 10/26/2020 12:00:00 AM EST Unknown if ever smoked comp leted Unknown if ever smoked [facility] ([facility]) Smoking 10/25/2020 12:00:00 AM EST Unknown if ever smoked comp leted Unknown if ever smoked [facility] ([facility]) Smoking 10/10/2020 12:00:00 AM EST Unknown if ever smoked comp leted Unknown if ever smoked [facility] ([facility]) Smoking 10/04/2020 12:00:00 AM EST Unknown if ever smoked comp leted Unknown if ever smoked [facility] ([facility]) Smoking 10/02/2020 12:00:00 AM EST Unknown if ever smoked comp leted Unknown if ever smoked [facility] ([facility]) Smoking 09/28/2020 12:00:00 AM EST Unknown if ever smoked comp leted Unknown if ever smoked [facility] ([facility]) Smoking 08/30/2020 12:00:00 AM EST Unknown if ever smoked comp leted Unknown if ever smoked [facility] ([facility]) Smoking 08/25/2020 12:00:00 AM EST Unknown if ever smoked comp leted Unknown if ever smoked [facility] ([facility]) Smoking 08/18/2020 12:00:00 AM EDT Unknown if ever smoked comp leted Unknown if ever smoked [facility] ([facility]) Smoking 08/03/2020 12:00:00 AM EDT Unknown if ever smoked comp leted Unknown if ever smoked [facility] ([facility]) Smoking 07/26/2020 12:00:00 AM EDT Unknown if ever smoked comp leted Unknown if ever smoked [facility] ([facility]) Smoking 07/21/2020 12:00:00 AM EDT Unknown if ever smoked comp leted Unknown if ever smoked [facility] ([facility]) Smoking 07/14/2020 12:00:00 AM EDT Unknown if ever smoked comp leted Unknown if ever smoked [facility] ([facility]) Smoking 07/07/2020 12:00:00 AM EDT Unknown if ever smoked comp leted Unknown if ever smoked [facility] ([facility]) Smoking 06/30/2020 12:00:00 AM EDT Unknown if ever smoked comp leted Unknown if ever smoked [facility] ([facility]) Vital Signs ID Date Data Source UNK Name Value Range Interpretation Code Description Data Source(s) [place] body weight 160 [lb_av] 160 [lb_av] MEDEN T ([facility], ) Body surface area Derived from formula 1.96 m2 1.96 m2 [facility] ([facility]) Body weight 80.457 kg 80.457 kg [facility] ([facility]) Body mass index (BMI) [Ratio] 26.2 kg/m2 26.2 k g/m2 [facility] ([facility]) Systolic blood pressure 128 mm[Hg] 128 mm[Hg] M EDENT ([facility]) Diastolic blood pressure 83 mm[Hg] 83 mm[Hg] [facility] Heart rate 91 /min 91 /min [facility] ([facility]) Body height 69 [in_i] 69 [in_i] MEDENT ([facility]) 5'9" Body weight 177.38 [lb_av] 177.38 [lb_av] MEDEN T ([facility]) Diastolic blood pressure 80 mm[Hg] 80 mm[Hg] SP ([facility]) Body height 69 [in_i] 69 [in_i] SP ([facility]) Body mass index (BMI) [Ratio] 26.6 kg/m2 26.6 k g/m2 SP ([facility]) Systolic blood pressure 125 mm[Hg] 125 mm[Hg] A THENA ([facility]) Body weight 2886 [oz_av] 2886 [oz_av] SP ([facility]) Body height 0.00 in Normal (applies to non-numeric resu lts) 0.00 in [facility] ([facility]) Body weight Measured 0.00 lbs Normal (applies to n on-numeric results) 0.00 lbs [facility] ([facility]) Body mass index (BMI) [Ratio] 0.00 kg/m2 No rmal (applies to non-numeric results) 0.00 kg/m2 [facility] ([facility]) Systolic blood pressure 0 mm[Hg] Normal (applies t o non-numeric results) 0 mm[Hg] [facility] ([facility]) Diastolic blood pressure 0 mm[Hg] Normal (applies to non-numeric results) 0 mm[Hg] [facility] ([facility]) Systolic blood pressure 0 mm[Hg] Normal (applies t o non-numeric results) 0 mm[Hg] [facility] Body height 0.00 in Normal (applies to non-numeric resu lts) 0.00 in [facility] ([facility]) Diastolic blood pressure 0 mm[Hg] Normal (applies to non-numeric results) 0 mm[Hg] [facility] ([facility]) Body weight Measured 0.00 lbs Normal (applies to n on-numeric results) 0.00 lbs [facility] ([facility]) Body mass index (BMI) [Ratio] 0.00 kg/m2 No rmal (applies to non-numeric results) 0.00 kg/m2 [facility] ([facility]) Respiratory rate 20 /min 20 /[facility] Body temperature 97.3 [degF] 97.3 [degF] [facility] Systolic blood pressure 137 mm[Hg] 137 mm[Hg] M EDENT ([facility]) Diastolic blood pressure 84 mm[Hg] 84 mm[Hg] MEDENT ([facility]) Heart rate 73 /min 73 /min [facility] Body weight 157.00 [lb_av] 157.00 [lb_av] MEDEN T ([facility]) Body height 0.00 in Normal (applies to non-numeric resu lts) 0.00 in [facility] ([facility]) Body weight Measured 0.00 lbs Normal (applies to n on-numeric results) 0.00 lbs [facility] ([facility]) Body mass index (BMI) [Ratio] 0.00 kg/m2 No rmal (applies to non-numeric results) 0.00 kg/m2 [facility] Systolic blood pressure 0 mm[Hg] Normal (applies t o non-numeric results) 0 mm[Hg] [facility] ([facility]) Diastolic blood pressure 0 mm[Hg] Normal (applies to non-numeric results) 0 mm[Hg] [facility] ([facility]) Systolic blood pressure 0 mm[Hg] Normal (applies t o non-numeric results) 0 mm[Hg] [facility] ([facility]) Diastolic blood pressure 0 mm[Hg] Normal (applies to non-numeric results) 0 mm[Hg] [facility] Body height 0.00 in Normal (applies to non-numeric resu lts) 0.00 in [facility] ([facility]) Body weight Measured 0.00 lbs Normal (applies to n on-numeric results) 0.00 lbs [facility] ([facility]) Body mass index (BMI) [Ratio] 0.00 kg/m2 No rmal (applies to non-numeric results) 0.00 kg/m2 [facility] ([facility]) Body height 0.00 in Normal (applies to non-numeric resu lts) 0.00 in [facility] ([facility]) Body weight Measured 0.00 lbs Normal (applies to n on-numeric results) 0.00 lbs [facility] ([facility]) Body mass index (BMI) [Ratio] 0.00 kg/m2 No rmal (applies to non-numeric results) 0.00 kg/m2 [facility] Systolic blood pressure 0 mm[Hg] Normal (applies t o non-numeric results) 0 mm[Hg] [facility] ([facility]) Diastolic blood pressure 0 mm[Hg] Normal (applies to non-numeric results) 0 mm[Hg] [facility] ([facility]) Patient Treatment Plan of Care Planned Activity Planned Date Details Description Data Source (s) Budesonide 0.16 MG/ACTUAT / formoterol f umarate 0.0045 MG/ACTUAT Metered Dose Inhaler SP ([facility]) Sertraline 50 MG Oral Tablet SP ([facility]) pantoprazole 40 MG Delayed Release Oral Tablet SP ([facility]) Ondansetron 4 MG Oral Tablet SP ([facility]) benztropine mesylate 1 MG Oral Tablet SP ([facility])
--- OUTSIDE RECORDS SUMMARY | 2021-08-28 04:37 | CCD ---
Author Author [facility] Organization [facility] Address Unknown Phone Unavailable Care Team Providers Care Fleece Tier Name Role Phone NO, PCP Unavailable Unavailable [...] Herr MD Unavailable Unavailable Díaz, R Seth PROGRAM MANAGEMENT ANALYST Unavailable Unavailable Díaz, R Seth PROGRAM MANAGEMENT ANALYST Unavailable Unavailable Díaz, R Seth PROGRAM MANAGEMENT ANALYST Unavailable Unavailable Rae Stephens Unavailable GoutremAida gomez Unavailable Arsen, A Viridiana DIRECTOR OF THERAPY SERVICES Unavailable Unavailable Arsen, A Viridiana DIRECTOR OF THERAPY SERVICES Unavailable Unavailable Arsen, A Viridiana DIRECTOR OF THERAPY SERVICES Unavailable Unavailable Arsen, A Viridiana DIRECTOR OF THERAPY SERVICES Unavailable Unavailable Arsen, A Viridiana DIRECTOR OF THERAPY SERVICES Unavailable Unavailable Savannah, A Viridiana DIRECTOR OF THERAPY SERVICES Unavailable Unavailable Savannah, A Viridiana DIRECTOR OF THERAPY SERVICES Unavailable Unavailable Savannah, A Viridiana DIRECTOR OF THERAPY SERVICES Unavailable Unavailable Savannah, A Viridiana DIRECTOR OF THERAPY SERVICES Unavailable Unavailable Savannah, A Viridiana DIRECTOR OF THERAPY SERVICES Unavailable Unavailable Savannah, A Viridiana DIRECTOR OF THERAPY SERVICES Unavailable Unavailable Savannah, A Viridiana DIRECTOR OF THERAPY SERVICES Unavailable Unavailable Savannah, A Viridiana DIRECTOR OF THERAPY SERVICES Unavailable Unavailable Savannah, A Viridiana DIRECTOR OF THERAPY SERVICES Unavailable Unavailable Savannah, A Viridiana DIRECTOR OF THERAPY SERVICES Unavailable Unavailable Savannah, A Viridiana DIRECTOR OF THERAPY SERVICES Unavailable Unavailable Savannah, A Viridiana DIRECTOR OF THERAPY SERVICES Unavailable Unavailable Savannah, A Viridiana DIRECTOR OF THERAPY SERVICES Unavailable Unavailable Savannah, A Viridiana DIRECTOR OF THERAPY SERVICES Unavailable Unavailable Savannah, A Viridiana DIRECTOR OF THERAPY SERVICES Unavailable Unavailable Savannah, A Viridiana DIRECTOR OF THERAPY SERVICES Unavailable Unavailable Savannah, A Viridiana DIRECTOR OF THERAPY SERVICES Unavailable Unavailable Savannah, A Viridiana DIRECTOR OF THERAPY SERVICES Unavailable Unavailable Savannah, A Viridiana DIRECTOR OF THERAPY SERVICES Unavailable Unavailable Savannah, A Viridiana DIRECTOR OF THERAPY SERVICES Unavailable Unavailable Savannah, A Viridiana DIRECTOR OF THERAPY SERVICES Unavailable Unavailable Savannah, A Viridiana DIRECTOR OF THERAPY SERVICES Unavailable Unavailable Savannah, A Viridiana DIRECTOR OF THERAPY SERVICES Unavailable Unavailable Savannah, A Viridiana DIRECTOR OF THERAPY SERVICES Unavailable Unavailable Savannah, A Viridiana DIRECTOR OF THERAPY SERVICES Unavailable Unavailable Savannah, A Viridiana DIRECTOR OF THERAPY SERVICES Unavailable Unavailable Rotella, Yadi Unavailable Unavailable Sun, [...] Unavailable BARAYUGA, Buffy DONOVAN MD Unavailable Unavailable StaciaNeeru Bauman Unavailable ALIASES , ORGANIZATION NPI Unavailable Unavailable [...] Unavailable ALIASES , ORGANIZATION NPI Unavailable Unavailable Savannah, A Viridiana DIRECTOR OF THERAPY SERVICES Unavailable Unavailable Savannah, A Viridiana DIRECTOR OF THERAPY SERVICES Unavailable Unavailable Savannah, A Viridiana DIRECTOR OF THERAPY SERVICES Unavailable Unavailable Savannah, A Viridiana DIRECTOR OF THERAPY SERVICES Unavailable Unavailable Savannah, A Viridiana DIRECTOR OF THERAPY SERVICES Unavailable Unavailable Savannah, A Viridiana DIRECTOR OF THERAPY SERVICES Unavailable Unavailable Savannah, A Viridiana DIRECTOR OF THERAPY SERVICES Unavailable Unavailable Savannah, A Viridiana DIRECTOR OF THERAPY SERVICES Unavailable Unavailable Savannah, A Viridiana DIRECTOR OF THERAPY SERVICES Unavailable Unavailable Savannah, A Viridiana DIRECTOR OF THERAPY SERVICES Unavailable Unavailable Savannah, A Viridiana DIRECTOR OF THERAPY SERVICES Unavailable Unavailable Savannah, A Viridiana DIRECTOR OF THERAPY SERVICES Unavailable Unavailable Savannah, A Viridiana DIRECTOR OF THERAPY SERVICES Unavailable Unavailable Savannah, A Viridiana DIRECTOR OF THERAPY SERVICES Unavailable Unavailable Savannah, A Viridiana DIRECTOR OF THERAPY SERVICES Unavailable Unavailable Savannah, A Viridiana DIRECTOR OF THERAPY SERVICES Unavailable Unavailable Savannah, A Viridiana DIRECTOR OF THERAPY SERVICES Unavailable Unavailable Savannah, A Viridiana DIRECTOR OF THERAPY SERVICES Unavailable Unavailable Arsen, A Viridiana DIRECTOR OF THERAPY SERVICES Unavailable Unavailable Arsen, A Viridiana DIRECTOR OF THERAPY SERVICES Unavailable Unavailable Arsen, A Viridiana DIRECTOR OF THERAPY SERVICES Unavailable Unavailable Arsen, A Viridiana DIRECTOR OF THERAPY SERVICES Unavailable Unavailable Arsen, A Viridiana DIRECTOR OF THERAPY SERVICES Unavailable Unavailable Arsen, A Viridiana DIRECTOR OF THERAPY SERVICES Unavailable Unavailable Arsen, A Viridiana DIRECTOR OF THERAPY SERVICES Unavailable Unavailable Arsen, A Viridiana DIRECTOR OF THERAPY SERVICES Unavailable Unavailable Arsne, A Viridiana DIRECTOR OF THERAPY SERVICES Unavailable Unavailable Arsen, A Viridiana DIRECTOR OF THERAPY SERVICES Unavailable Unavailable Arsen, A Viridiana DIRECTOR OF THERAPY SERVICES Unavailable Unavailable Arsen, A Viridiana DIRECTOR OF THERAPY SERVICES Unavailable Unavailable Arsen, A Viridiana DIRECTOR OF THERAPY SERVICES Unavailable Unavailable Trinh, Ivana Unavailable Abarca, Felicia Unavailable Alguire, Susan Unavailable TURRIN, FRANCIE Unavailable Unavailable TURRIN, FRANCIE Unavailable Unavailable TURRIN, FRANCIE Unavailable Unavailable TURRIN, FRANCIE Unavailable Unavailable Elberfeld, K Joseline PMH-PROGRAM MANAGEMENT ANALYST Unavailable Unavailable Elberfeld, K Joseline PMH-PROGRAM MANAGEMENT ANALYST Unavailable Unavailable Elberfeld, K Joseline PMH-PROGRAM MANAGEMENT ANALYST Unavailable Unavailable Elberfeld, K Joseline PMH-PROGRAM MANAGEMENT ANALYST Unavailable Unavailable Elberfeld, K Joseline PMH-PROGRAM MANAGEMENT ANALYST Unavailable Unavailable Stacie, K Joseline PMH-PROGRAM MANAGEMENT ANALYST Unavailable Unavailable Stacie, K Joseline PMH-PROGRAM MANAGEMENT ANALYST Unavailable Unavailable Stacie, K Joseline PMH-PROGRAM MANAGEMENT ANALYST Unavailable Unavailable Re-disclosure Warning The records that [...] is protected by Article 27-F of the [facility] Public Health law. If you continue you may have access to information: Regarding HIV / AIDS; Provided by facilities licensed or operated by the [facility] Office of Mental Health; or Provided by the [facility] Office for People With Developmental Disabilities. If such information is present, then the following [facility] mandated warning applies: This information has been [...] law may result in a fine or correction sentence or both. A general authorization for the release of medical or other information is NOT sufficient authorization for further disc losure. Allergies and Adverse Reactions Type Description Substance Reaction Status Data Source(s ) Propensity to adverse reactions NO KNOWN ALLERGIES NO KNOWN ALLERGIES [facility] Allergy to substance Allergy to substance Allergy to substance [place] ([facility]) Family History Family Member Name Family Member Gender Family Member Status Date o f Status Description Data Source(s) Unknown Unknown Problem [facility] Unknown Unknown Problem [facility] ([facility]) Encounters Encounter Providers Location Date Indications Data Source(s ) Outpatient Attender: VENUS Hernandez/Macario/Tomi/ Irvin 07/10/2021 10:15:00 AM EDT MED[facility] ([facility] SHIVANI Hernandez-BC: [address] [place] [address], Ph. Attender: Viridiana Leger [facility] 06/20/2021 12:00:00 AM EDT SP ([facility]) Emergency Attender: FRANCIE Hyattsultant: PCP NO 06/18/2021 04:02:00 PM EDT - 06/18/2021 07:08:00 PM EDT [facility] Patient discharged. Psychiatric Diagnostic Evaluation (Non-Medical) Attender: Remy L[facility]pez [facility] 05/09/2021 02:00:00 AM EDT - 05/09/2021 02:00:00 AM EDT [facility] ([facility]) Injectable Psychotropic Medication Administration (Inj ection Only) Attender: Yadi Leal [facility] 05/09/2021 01:45:00 AM EDT - 05/09/2021 01:45:00 AM EDT [facility] ([facility]) Attender: Yadi Leal 05/09/2021 12:00:00 AM EDT [facility] ([facility]) Attender: Aida López 05/09/2021 12:00:0 0 AM EDT [facility] ([facility]) Brief Individual Psychotherapy - 30 min Attender: Rae barraza [facility] 03/07/2021 02:00:00 AM EDT - 03/07/2021 02:00:00 AM EDT [facility] ([facility]) Attender: Rae Stephens 03/07/2021 12:00:00 AM E DT [facility] ([facility]) Outpatient Attender: Seth Díaz NP [facility] 03/01/2021 08:00:00 AM EDT - 03/01/2021 08:00:00 AM EDT [facility] ([facility]) Attender: Seth Díaz NP 03/01/2021 12:00:00 AM EDT [facility] ([facility]) Telemed Diagnostic Eval Attender: Seth Díaz NP [facility] 01/30/2021 08:00:00 AM EDT - 01/30/2021 08:00:00 AM EDT [facility] ([facility]) Attender: Seth Díaz NP 01/30/2021 12:00:00 AM EDT [facility] ([facility]) Injectable Medication Administration w/ Monitoring & E ducation Attender: Susan Hamilton [facility] 01/05/2021 09:30:00 AM EDT - 01/05/2021 09:30:00 AM EDT [facility] ([facility]) Attender: Susan Hamilton 01/05/2021 12:00:00 AM EDT [facility] ([facility]) Marcelo Herr MD: [address] [place] [address], Ph. Attender: Marcelo Herr MD [facility] Medical 12/28/2020 12:00:00 AM EST SP ([facility]) Marcelo Herr MD: [address] [place] [address], Ph. Attender: Marcelo Herr MD [facility] Medical 12/28/2020 12:00:00 AM EST SP ([facility]) Extended Individual Psychotherapy - 45 min Attender: Oralia dominguez [facility] 12/15/2020 09:00:00 AM EST - 12/15/2020 09:00:00 AM EST [facility] ([facility]) Attender: Ivana Trinh 12/15/2020 12:00:00 AM EST [facility] ([facility]) Outpatient Attender: Joseline Quinones [facility]-PROGRAM MANAGEMENT ANALYST [facility] 12/14/2020 09:15:00 AM EST - 12/14/2020 09:15:00 AM EST [facility] ([facility]) Attender: Joseline Quinones [facility]-PROGRAM MANAGEMENT ANALYST 12/14/2020 12: 00:00 AM EST [facility] ([facility]) [id number]"Psychotherapy Attender: Ivana Trinh [facility] 12/08/2020 09:00:00 AM EST - 12/08/2020 09:00:00 AM EST [facility] ([facility]) Attender: Ivana Trinh 12/08/2020 12:00:00 AM EST [facility] ([facility]) [id number]"Psychotherapy Attender: Ivana Trinh [facility] 11/28/2020 01:00:00 AM EST - 11/28/2020 01:00:00 AM EST [facility] ([facility]) Attender: Ivana Trinh 11/28/2020 12:00:00 AM EST [facility] ([facility]) Injectable Medication Administration w/ Monitoring & E ducation Attender: Neeru Cho [facility] 11/24/2020 12:30:00 PM EST - 11/24/2020 12:30:00 PM EST [facility] ([facility]) Attender: Neeru Cho 11/24/2020 12:00:00 AM EST [facility] ([facility]) Outpatient Attender: Joseline Quinones [facility]-PROGRAM MANAGEMENT ANALYST [facility] 11/08/2020 01:00:00 AM EST - 11/08/2020 01:00:00 AM EST [facility] ([facility]) Attender: Joseline Quinones [facility]-PROGRAM MANAGEMENT ANALYST 11/08/2020 12: 00:00 AM EST [facility] ([facility]) Injectable Medication Administration w/ Monitoring & E ducation Attender: ORGANIZATION NPI ALIASES [facility] 10/27/2020 01:00: 00 AM EST - 10/27/2020 01:00:00 AM EST [facility] ([facility]) Attender: ORGANIZATION NPI ALIASES * 10/27/2020 12:00:00 AM EST [facility] ([facility]) [id number]"Psychotherapy Attender: Ivana Trinh [facility] 10/26/2020 10:00:00 AM EST - 10/26/2020 10:00:00 AM EST [facility] ([facility]) Attender: Ivana Trinh 10/26/2020 12:00:00 AM EST [facility] ([facility]) Extended Individual Psychotherapy - 45 min [facility]25[facility]2020 07:00:00 AM EST - 10/25/2020 07:00:00 AM EST [facility] ([facility]) Attender: Ivana Trinh 10/25/2020 12:00:00 AM EST [facility] ([facility]) Brief Individual Psychotherapy - 30 min Attender: Ivana deutsch [facility] 10/10/2020 11:30:00 AM EST - 10/10/2020 11:30:00 AM EST [facility] ([facility]) Attender: Ivana Trinh 10/10/2020 12:00:00 AM EST [facility] ([facility]) Injectable Psychotropic Medication Administration (Inj ection Only) Attender: Yadi Leal [facility] 10/04/2020 03:00:00 AM EST - 10/04/2020 03:00:00 AM EST [facility] ([facility]) Extended Individual Psychotherapy - 45 min Attender: Oralia Branchoza [facility] 10/04/2020 02:00:00 AM EST - 10/04/2020 02:00:00 AM EST [facility] ([facility]) Attender: Yadi Leal 10/04/2020 12:00:00 AM EST [facility] ([facility]) Attender: Ivana Trinh 10/04/2020 12:00:00 AM EST [facility] ([facility]) Attender: Ivana Trinh 10/02/2020 12:00:00 AM EST [facility] ([facility]) Outpatient Attender: MARCELO ORTIZ MD [facility] 09/28/2020 04:30:00 AM EST - 09/28/2020 04:30:00 AM EST [facility] ([facility]) Attender: Iavna Trinh 09/28/2020 12:00:00 AM EST [facility] ([facility]) Attender: MARCELO ORTIZ MD 09/28/2020 12:00:00 A M EST [facility] ([facility]) [id number]"Psychotherapy Attender: Ivana Trinh [facility] 09/18/2020 11:00:00 AM EST - 09/18/2020 11:00:00 AM EST [facility] ([facility]) Brief Individual Psychotherapy - 30 min Attender: Ivana deutsch [facility] 08/30/2020 12:00:00 PM EST - 08/30/2020 12:00:00 PM EST [facility] ([facility]) Attender: Ivana Trinh 08/30/2020 12:00:00 AM EST [facility] ([facility]) Extended Individual Psychotherapy - 45 min Attender: Oralia alberto [facility] 08/25/2020 09:00:00 AM EST - 08/25/2020 09:00:00 AM EST [facility] ([facility]) Extended Individual Psychotherapy - 45 min Attender: Oralia alberto [facility] 08/25/2020 01:15:00 AM EST - 08/25/2020 01:15:00 AM EST [facility] ([facility]) Injectable Medication Administration w/ Monitoring & E ducation Attender: Felicia Abarca [facility] 08/25/2020 01:00:00 AM EST - 08/25/2020 01:00:00 AM EST [facility] ([facility]) Attender: Felicia Abarca 08/25/2020 12:00:00 AM EST [facility] ([facility]) Attender: Ivana Trinh 08/25/2020 12:00:00 AM EST [facility] ([facility]) [id number]" Psychotherapy Attender: Ivana Trinh [facility] 08/18/2020 09:00:00 AM EDT - 08/18/2020 09:00:00 AM EDT [facility] ([facility]) Attender: Ivana Trinh 08/18/2020 12:00:00 AM EDT [facility] ([facility]) Outpatient Referrer: Jacek Man DO MOB-MOB.PAT 08/04/2020 12:06:42 PM EDT - 08/04/2020 12:06:54 PM EDT [facility] Outpatient Attender: Jacek Hastingser: Jacek Man DO MOB-M OB.PAT 08/04/2020 12:00:00 AM EDT - 08/04/2020 11:40:36 AM EDT [facility] [id number]"Psychotherapy Attender: Ivana Melaraa [facility] 08/03/2020 11:00:00 AM EDT - 08/03/2020 11:00:00 AM EDT [facility] ([facility]) Injectable Medication Administration w/ Monitoring & E ducation Attender: Felicia Abarca [facility] 08/03/2020 10:45:00 AM EDT - 08/03/2020 10:45:00 AM EDT [facility] ([facility]) Attender: Ivana Trinh 08/03/2020 12:00:00 AM EDT [facility] ([facility]) Attender: Felicia Abarca 08/03/2020 12:00:00 AM EDT [facility] ([facility]) Outpatient Attender: Viridiana BUTCHERP FP 07/27/2020 11:3 5:03 AM EDT [facility] Extended Individual Psychotherapy - 45 min Att[facility]: [facility] 07/26/2020 12:00:00 PM EDT - 07/26/2020 12:00:00 PM EDT [facility] ([facility]) Attender: Ivana Trinh 07/26/2020 12:00:00 AM EDT [facility] ([facility]) Brief Individual Psychotherapy - 20 min Attender: Ivana deutsch [facility] 07/21/2020 08:30:00 AM EDT - 07/21/2020 08:30:00 AM EDT [facility] ([facility]) Attender: Ivana Trinh 07/21/2020 12:00:00 AM EDT [facility] ([facility]) Outpatient Attender: Jacek Man DOAdmitter: Jacek Man DO ES1-S J.EU 07/14/2020 11:53:01 AM EDT [facility] Injectable Medication Administration w/ Monitoring & E ducation Attender: Felicia Abarca [facility] 07/14/2020 09:30:00 AM EDT - 07/14/2020 09:30:00 AM EDT [facility] ([facility]) Extended Individual Psychotherapy - 45 min Attender: Oralia Trinh [facility] 07/14/2020 09:00:00 AM EDT - 07/14/2020 09:00:00 AM EDT [facility] ([facility]) Attender: Ivanasamuel Trinh 07/14/2020 12:00:00 AM EDT [facility] ([facility]) Attender: Felicia Tevin 07/14/2020 12:00:00 AM EDT [facility] ([facility]) Brief Individual Psychotherapy - 30 min Attender: Ivana deutsch [facility] 07/07/2020 09:00:00 AM EDT - 07/07/2020 09:00:00 AM EDT [facility] ([facility]) Attender: Ivana Trinh 07/07/2020 12:00:00 AM EDT [facility] ([facility]) Extended Individual Psychotherapy - 45 min Attender: Oralia Trinh [facility] 06/30/2020 09:00:00 AM EDT - 06/30/2020 09:00:00 AM EDT [facility] ([facility]) Attender: Ivana Trinh 06/30/2020 12:00:00 AM EDT [facility] ([facility]) Outpatient [address] [id number]-[id number] Integration Team 08/18/2019 03:30:00 PM EDT - 04/06/2021 11:00:00 AM EDT [facility] ([facility]) Discharge cancelled. Disregard status an d discharged date. Functional Status Immunizations Vaccine Date Status Description Data Source(s) COVID-19 VACCINE Moderna 02/21/2021 12:00:00 AM EDT completed [facility] Vaccine Series Complete: YESThis Data wa s Submitted to [facility] Via [employer] COVID-19, mRNA, LNP-S, PF, 100 mcg/0.5 mL dose 12/28/2020 05 :53:01 PM EST completed .5 mL SP ([facility]) COVID-19, mRNA, LNP-S, PF, 100 mcg/0.5 mL dose 12/28/2020 05 :53:01 PM EST completed .5 mL SP ([facility]) COVID-19 VACCINE Moderna 12/28/2020 12:00:00 AM EST completed [facility] Vaccine Series Complete: NOThis Data was Submitted to [facility] [employer] Medications Medication Brand Name Start Date Product Form Dose Route Admi nistrative Instructions Pharmacy Instructions Status Indications Reaction Description Data Source(s) Azithromycin 250 MG Oral Tablet Azithromycin 02/06/2021 12:00:00 AM EDT active MEDENT ([facility]) benztropine mesylate 0.5 MG Oral Tablet Benztropine Mesylate 01/30/2021 12:00:00 AM EDT ORAL active MEDENT ([facility]) Albuterol 0.833 MG/ML / Ipratropium Douglas 0.167 MG/M L Inhalant Solution Ipratropium Douglas/Albuterol Sulfate 01/23/2021 12:00:00 AM EDT active MEDENT ([facility]) 60 ACTUAT Budesonide 0.16 MG/ACTUAT / fo rmoterol fumarate 0.0045 MG/ACTUAT Metered Dose Inhaler [Symbicort] Symbicort 01/23/2021 12:00:00 AM EDT RESPIRATORY active MEDENT ( [facility]) 1 ML paliperidone palmitate 156 MG/ML Prefilled Syring e [Invega] Invega Sustenna 01/23/2021 12:00:00 AM EDT active MEDENT ([facility]) pantoprazole 40 MG Delayed Release Oral Tablet Pantoprazole Sodium 01/23/2021 12:00:00 AM EDT ORAL active M EDENT ([facility]) Sertraline 50 MG Oral Tablet sertraline 11/08/2020 12:00:00 AM EST 50 mg by mouth completed <td ID="Medica tionRxNorm_3">000059</td><td ID="MedicationMedication_3">sertraline</td><td ID="MedicationRoute_3">by mouth</td><td ID="MedicationRouteConcept_3">[id number]</td><td ID="MedicationStartDate_3">11/08/2020</td><td ID="MedicationStopDate_3">02/06/2021</td><td ID="MedicationDosageFrequency_3">once a day</td><td ID="MedicationDuration_3">30</td><td ID="MedicationFormulaStrength_3">50 mg</td><td ID="MedicationDosageForm_3">tablet</td><td ID="MedicationDosageFormCode_3"></td><td ID="MedicationDosageDescription_3"></td><td ID="MedicationMedicationId_3">[id number]</td><td ID="MedicationAccount_3">[id number]</td><td ID="MedicationNpid_3">[id number]</td><td ID="MedicationAuthorFirstName_3">Joseline</td><td ID="MedicationAuthorLastName_3">Stacie</td><td ID="MedicationTaxonomyCode_3">[id number]</td><td ID="MedicationTaxonomyDesc_3">Psychiatric/Mental Health</td><td ID="MedicationPhoneNumber_3">[phone]</td> [facility] ([facility]) benztropine mesylate 1 MG Oral Tablet be nztropine 1 mg tablet TAKE ONE TABLET BY MOUTH TWICE DAILY benztropine 1 mg tablet TAKE ONE TABLET BY MOUTH TWICE DAILY completed benztropine me sylate 1 MG Oral Tablet SP ([facility]) Sertraline 50 MG Oral Tablet sertraline 50 mg tablet sertraline 50 mg tablet completed sertraline 50 MG Oral Tablet SP ([facility]) Budesonide 0.16 MG/ACTUAT / formoterol f umarate 0.0045 MG/ACTUAT Metered Dose Inhaler Symbicort 160 mcg-4.5 mcg/actuation HFA aerosol inhaler Symbicort 160 mcg-4.5 mcg/actuation HFA aerosol inhaler completed budesonide 0.16 MG/ACTUAT / formoterol fumarate 0.0045 MG/ACTUAT Metered Dose Inhaler SP ([facility]) Ondansetron 4 MG Oral Tablet ondansetron HCl 4 mg tablet TAKE ONE TABLET BY MOUTH EVERY SIX HOURS NEEDED FOR NAUSEA ondansetron HCl 4 mg tablet TAKE ONE TABLET BY MOUTH EVERY SIX HOURS NEEDED FOR NAUSEA completed ondansetron 4 MG Oral Tablet SP ([facility]) pantoprazole 40 MG Delayed Release Oral Tablet pantoprazole 40 mg tablet,delayed release pantoprazole 40 mg tablet,delayed release completed pantoprazole 40 MG Delayed Release Oral Tablet SP ([facility]) Insurance Providers Payer name Policy type / Coverage type Policy ID Covered democrat ID Covered democrat's relationship to burleson Policy Bur[place]on Plan Information WELLCARE [id number] Patient is Insured [id number] MEDICARE [id number] Patient is Insured [id number] WELLCARE [id number] Patient is Insured [id number] [facility] Revizer [facility] [id number] Patient is Insu red [id number] WELLCARE [id number] Patient is Insured [id number] SELF PAY [id number] Patient is Insured [id number] MEDICARE [id number] Patient is Insured [id number] [facility] [place] [id number] Patient is Insu red [id number] MEDICARE Med [id number] Self [id number] MEDICARE A [id number] Self [id number] A MEDICARE [id number] SP [id number] [facility] [id number] SP [id number] MEDICARE [id number] SP [id number] [facility] [id number] SP [id number] MEDICARE 4 [id number] 1 [id number] A MEDICARE PART A M [id number] S [id number] MEDICARE [id number] Astrid [id number] [id number] Medicare P [id number] S [id number] [id number] Medicare P [id number] S [id number] [place] 3 [id number] 1 [id number] D Medicaid S [id number] S [id number] [place] [id number] SP [id number] MEDICAID [id number] SP [id number] [place] [id number] SP [id number] Medicaid S [id number] S [id number] Medicaid S [id number] S [id number] MEDICAID [id number] Astrid [id number] INSURANCE COVID-19 COVID Astrid C OVID O UNAVAILABLE UNAVAILA BLE [id number] A [id number] MEDICARE [id number] SP [id number] [facility] DEPT.OF CORRECTIONAL [id number] SP [id number] [facility] DEPT [id number] SP [id number] MEDICARE PART A -O/P [id number] 18 [id number] MEDICAID -O/P EMERGENCY ROOM [id number] 18 [id number] EMEDNY [id number] SP [id number] MEDICARE C [id number] S [id number] MEDICAID M [id number] S [id number] MEDICAID [id number] Medicare P [id number] S [id number] Medicare P [id number] S [id number] A MEDICARE [id number] SP [id number] A Self Pay P [id number] S [id number] MEDICARE [id number] SP [id number] MEDICARE C [id number] S [id number] A LJ GBA C [id number] S [id number] Medicaid [place] Medigap Part B [id number] Self [id number] Medicare [place]/NGS Medicare Primary [id number] Self [id number] [employer], [facility] C [id number] S [id number] Medicaid S [id number] S [id number] Medicare [place] Medicare Primary [id number] Self [id number] Medicare [place] Medicare Primary [id number] Self [id number] [place] [id number] SP [id number] [place] [id number] SP [id number] [place] [id number] SP [id number] [facility] [id number] [id number] [facility] [id number] SP [id number] OTHER [facility] HMO UNAVAILABLE UNAV AILABLE SELF PAY 2 UNAVAILABLE 1 UNAVAILA BLE MEDICARE OUTPATIENT M [id number] S [id number] [facility] P UNAVAILABLE [id number] S UNAVAILABLE Problems, Conditions, and Diagnoses Code Display Name Description Problem Type Effective Dates Data Source(s) Y939 Activity, unspecified Activity, unspecified Diagnosis 06/18/2021 04:02:00 PM EDT [facility] S50505 CONTACT WITH AND SUSPECTED EXPOSURE TO C OVID-19 CONTACT WITH AND SUSPECTED EXPOSURE TO COVID-19 Diagnosis 06/18/2021 04:02:00 PM EDT [facility] Z71252 Nicotine dependence, cigarettes, uncompl icated Nicotine dependence, cigarettes, uncomplicated Diagnosis 06/18/2021 04:02:00 PM EDT [facility] J449 Chronic obstructive pulmonary disease, u nspecified Chronic obstructive pulmonary disease, unspecified Diagnosis 06/18/2021 04:02:00 PM EDT [facility] M7041 Prepatellar bursitis, right knee Prepatellar bur sitis, right knee Diagnosis 06/18/2021 04:02:00 PM EDT [facility] J029 Acute pharyngitis, unspecified Acute pharyngitis, unsp ecified Diagnosis 06/18/2021 04:02:00 PM EDT [facility] R05 Cough Cough Diagnosis 06/18/2021 04:02:00 PM ED T [facility] K83.8 Other specified diseases of biliary trac t Other specified diseases of biliary trac Diagnosis 08/04/2020 12:06:42 PM EDT [facility] U07.1 COVID-19 COVID-19 Diagnosis 08/04/2020 12:06:42 PM ED T [facility] F25.9 Schizoaffective disorder, unspecified Schizoaffective Disorder Condition 05/09/2021 12:00:00 AM EDT [facility] ([facility]) F25.0 Schizoaffective disorder, bipolar type S chizoaffective Disorder, Bipolar type Condition 03/07/2021 12:00:00 AM EDT [facility] ([facility]) [id number] Diverticulosis of colon Diverticulosis of Colon Proble m 01/16/2021 12:00:00 AM EDT SP ([facility]) 333807130 Mass of pancreas Mass of Pancreas Problem 01/16/2021 12 :00:00 AM EDT SP ([facility]) F12.20 Cannabis dependence, uncomplicated Cannabis Use Disorder, Severe Condition 01/05/2021 12:00:00 AM EDT [facility] ([facility]) F15.20 Other stimulant dependence, uncomplicate d Stimulant Use Disorder, Moderate: Amphetamine-type substance Condition 01/05/2021 12:00:00 AM EDT [facility] ([facility]) F17.200 Nicotine dependence, unspecified, uncomp licated Tobacco Use Disorder, Severe Condition 01/05/2021 12:00:00 AM EDT [facility] ([facility]) F43.10 Post-traumatic stress disorder, unspecif ied Posttraumatic Stress Disorder (includes Posttraumatic Stress Disorder for Children 6 Years and Younger) Condition 01/05/2021 12:00:00 AM EDT [facility] ([facility]) 10470203 Wheezing Wheezing Problem 05/15/2020 12:0 0:00 AM EDT - 01/16/2021 12:00:00 AM EDT SP ([facility]) 22328948 Nausea and vomiting Nausea and Vomiting Problem 0 02/22/2020 12:00:00 AM EDT - 01/16/2021 12:00:00 AM EDT SP ([facility]) 83404385 Hypokalemia Hypokalemia Problem 02/22/2020 12:0 0:00 AM EDT - 01/16/2021 12:00:00 AM EDT SP ([facility]) [id number] Hypo-osmolality and or hyponatremia Hypo -osmolality and or Hyponatremia Problem 02/22/2020 12:00:00 AM EDT - 01/22/2021 12:00:00 AM EDT SP ([facility]) 95425737 Acute bronchitis Acute Bronchitis Problem 019 12:00:00 AM EDT - 01/16/2021 12:00:00 AM EDT SP ([facility]) [id number] Complete edentulism due to periodontal d isease 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 Problem 12/24/2018 12:00 :00 AM EST - 01/16/2021 12:00:00 AM EDT SP ([facility]) [id number] Evaluation procedure Evaluation Procedure Problem 03/26/2018 12:00:00 AM EDT - 01/16/2021 12:00:00 AM EDT SP ([facility]) 60258736 Screening procedure Screening Procedure Problem 0 03/26/2018 12:00:00 AM EDT - 01/16/2021 12:00:00 AM EDT SP ([facility]) [id number] Endocrine/metabolic screening Endocrine/metabolic Scre ening Problem 03/26/2018 12:00:00 AM EDT - 01/16/2021 12:00:00 AM EDT MUNDEN ([facility]) 92219298 Abdominal pain Abdominal Pain Problem 03/26/2018 12:00:00 AM EDT - 01/16/2021 12:00:00 AM EDT SP ([facility]) Surgeries/Procedures Procedure Description Date Indications Data Source(s) OFFICE OUTPATIENT VISIT 15 MINUTES 07/10/2021 12:00:00 AM EDT DEANNA ([facility], ) THERAPEUTIC PROPHYLACTIC/DX INJECTION SUBQ/IM 05/09/2021 12:00:00 AM EDT - 05/09/2021 12:00:00 AM EDT [facility] ([facility]) THERAPEUTIC PROPHYLACTIC/DX INJECTION SUBQ/IM 05/09/20 12:00:00 AM EDT [facility] ([facility]) Psychiatric Diagnostic Evaluation (Non-Medical) 05/09/2021 12:00:00 AM EDT - 05/09/2021 12:00:00 AM EDT [facility] ([facility]) Psychiatric Diagnostic Evaluation (Non-Medical) 2020 12:00:00 AM EDT [facility] ([facility]) Brief Individual Psychotherapy - 30 min 03/07/2021 12:00:00 AM EDT - 03/07/2021 12:00:00 AM EDT [facility] ([facility]) Brief Individual Psychotherapy - 30 min 03/07/2021 12: 00:00 AM EDT [facility] ([facility]) MHC Telemed E/M Lvl 3--Est pt 03/01/2021 12:00:00 AM EDT - 03/01/2021 12:00:00 AM EDT [facility] ([facility]) MHC Telemed E/M Lvl 3--Est pt 03/01/2021 12:00:00 AM E DT [facility] ([facility]) Telemed Diagnostic Eval 01/30/2021 12:00 :00 AM EDT - 01/30/2021 12:00:00 AM EDT [facility] ([facility]) Telemed Diagnostic Eval 01/30/2021 12:00:00 AM EDT [facility] ([facility]) Comprehensive medication services, per 15 minutes 01/05/2021 12:00:00 AM EDT - 01/05/2021 12:00:00 AM EDT [facility] ([facility]) Comprehensive medication services, per 15 minutes 01/05/2021 12:00:00 AM EDT [facility] ([facility]) Extended Individual Psychotherapy - 45 min 12/15/2020 12:00:00 AM EST - 12/15/2020 12:00:00 AM EST [facility] ([facility]) Extended Individual Psychotherapy - 45 min 12:00:00 AM EST [facility] ([facility]) MHC Telemed E/M Lvl 3--Est pt 12/14/2020 12:00:00 AM EST - 12/14/2020 12:00:00 AM EST [facility] ([facility]) MHC Telemed E/M Lvl 3--Est pt 12/14/2020 12:00:[address] [facility] ([facility]) [id number]"Psychotherapy 12:00:00 AM EST - 12/08/2020 12:00:00 AM EST [facility] ([facility]) [id number]"Psychotherapy 12/08/2020 12:00:00 AM EST [facility] ([facility]) [id number]"Psychotherapy 12:00:00 AM EST - 11/28/2020 12:00:00 AM EST [facility] ([facility]) [id number]"Psychotherapy 11/28/2020 12:00:00 AM EST [facility] ([facility]) Comprehensive medication services, per 15 minutes 11/24/2020 12:00:00 AM EST - 11/24/2020 12:00:00 AM EST [facility] ([facility]) Comprehensive medication services, per 15 minutes 11/24/2020 12:00:00 AM EST [facility] ([facility]) MHC Telemed E/M Lvl 3--Est pt 11/08/2020 12:00:00 AM EST - 11/08/2020 12:00:00 AM EST [facility] ([facility]) Telemed A/O 30" 11/08/2020 12:00:00 AM EST [facility] ([facility]) [facility] Telemed E/M Lvl 3--Est pt 11/08/2020 12:00:[address] [facility] ([facility]) Comprehensive medication services, per 15 minutes 10/27/2020 12:00:00 AM EST - 10/27/2020 12:00:00 AM EST [facility] ([facility]) Comprehensive medication services, per 15 minutes 10/27/2020 12:00:00 AM EST [facility] ([facility]) [id number]"Psychotherapy 12:00:00 AM EST - 10/26/2020 12:00:00 AM EST [facility] ([facility]) [id number]"Psychotherapy 10/26/2020 12:00:00 AM EST [facility] ([facility]) Extended Individual Psychotherapy - 45 min 10/25/2020 12:00:00 AM EST - 10/25/2020 12:00:00 AM EST [facility] ([facility]) Extended Individual Psychotherapy - 45 min 12:00:00 AM EST [facility] ([facility]) Brief Individual Psychotherapy - 30 min 10/10/2020 12:00:00 AM EST - 10/10/2020 12:00:00 AM EST [facility] ([facility]) Brief Individual Psychotherapy - 30 min 10/10/2020 12: 00:00 AM EST [facility] ([facility]) THERAPEUTIC PROPHYLACTIC/DX INJECTION SUBQ/IM 10/04/2020 12:00:00 AM EST - 10/04/2020 12:00:00 AM EST [facility] ([facility]) THERAPEUTIC PROPHYLACTIC/DX INJECTION SUBQ/IM 10/04/20 20 12:00:00 AM EST [facility] ([facility]) Extended Individual Psychotherapy - 45 min 10/04/2020 12:00:00 AM EST - 10/04/2020 12:00:00 AM EST [facility] ([facility]) Extended Individual Psychotherapy - 45 min 0 12:00:00 AM EST [facility] ([facility]) Extended Individual Psychotherapy - 45 min 10/02/2020 12:00:00 AM EST - 10/02/2020 12:00:00 AM EST [facility] ([facility]) [id number]"Psychotherapy 0 12:00:00 AM EST - 09/28/2020 12:00:00 AM EST [facility] ([facility]) OFFICE OUTPATIENT VISIT 15 MINUTES 09/28 12:00:00 AM EST - 09/28/2020 12:00:00 AM EST [facility] ([facility]) OFFICE OUTPATIENT VISIT 15 MINUTES 09/28/2020 12:00:00 AM EST [facility] ([facility]) [id number]"Psychotherapy 09/18/2020 12:00:00 AM EST [facility] ([facility]) Brief Individual Psychotherapy - 30 min 08/30/2020 12:00:00 AM EST - 08/30/2020 12:00:00 AM EST [facility] ([facility]) Brief Individual Psychotherapy - 30 min 08/30/2020 12: 00:00 AM EST [facility] ([facility]) Extended Individual Psychotherapy - 45 min 0 12:00:00 AM EST [facility] ([facility]) Comprehensive medication services, per 15 minutes 08/25/2020 12:00:00 AM EST - 08/25/2020 12:00:00 AM EST [facility] ([facility]) Comprehensive medication services, per 15 minutes 08/25/2020 12:00:00 AM EST [facility] ([facility]) Extended Individual Psychotherapy - 45 min 08/25/2020 12:00:00 AM EST - 08/25/2020 12:00:00 AM EST [facility] ([facility]) Extended Individual Psychotherapy - 45 min 0 12:00:00 AM EST [facility] ([facility]) TEMPMHCTelemed 30" Psychotherapy 020 12:00:00 AM EDT - 08/18/2020 12:00:00 AM EDT [facility] ([facility]) TEMPMHCTelemed 30" Psychotherapy 08/18/2020 12:00:00 A M EDT [facility] ([facility]) [id number]"Psychotherapy 0 12:00:00 AM EDT - 08/03/2020 12:00:00 AM EDT [facility] ([facility]) [id number]"Psychotherapy 08/03/2020 12:00:00 AM EDT [facility] ([facility]) Comprehensive medication services, per 15 minutes 08/03/2020 12:00:00 AM EDT - 08/03/2020 12:00:00 AM EDT [facility] ([facility]) Comprehensive medication services, per 15 minutes 08/03/2020 12:00:00 AM EDT [facility] ([facility]) Extended Individual Psychotherapy - 45 min 07/26/2020 12:00:00 AM EDT - 07/26/2020 12:00:00 AM EDT [facility] ([facility]) Extended Individual Psychotherapy - 45 min 0 12:00:00 AM EDT [facility] ([facility]) Brief Individual Psychotherapy - 20 min 07/21/2020 12:00:00 AM EDT - 07/21/2020 12:00:00 AM EDT [facility] ([facility]) Brief Individual Psychotherapy - 20 min 07/21/2020 12: 00:00 AM EDT [facility] ([facility]) Extended Individual Psychotherapy - 45 min 07/14/2020 12:00:00 AM EDT - 07/14/2020 12:00:00 AM EDT [facility] ([facility]) Extended Individual Psychotherapy - 45 min 0 12:00:00 AM EDT [facility] ([facility]) Comprehensive medication services, per 15 minutes 07/14/2020 12:00:00 AM EDT - 07/14/2020 12:00:00 AM EDT [facility] ([facility]) Comprehensive medication services, per 15 minutes 07/14/2020 12:00:00 AM EDT [facility] ([facility]) Brief Individual Psychotherapy - 30 min 07/07/2020 12:00:00 AM EDT - 07/07/2020 12:00:00 AM EDT [facility] ([facility]) Brief Individual Psychotherapy - 30 min 07/07/2020 12: 00:00 AM EDT [facility] ([facility]) Extended Individual Psychotherapy - 45 min 06/30/2020 12:00:00 AM EDT - 06/30/2020 12:00:00 AM EDT [facility] ([facility]) Extended Individual Psychotherapy - 45 min 0 12:00:00 AM EDT [facility] ([facility]) Results ID Date Data Source [id number] 06/18/2021 04:02:00 PM EDT [facility] 1 OrderSheet [facility] Emergency Department [address] [place] [address] Phone #: [phone] 06/18/2021 15:42 Patient: DAVID CABALLERO Sex: M [...] Acknowledged InitialedKnee Complete STAT 17:20 06/18/2021 17:26 Marcio,Right Chavo NAYLOR; Concha WARD(Oxygen?(No)) Reason for Study: atraumatic swelling R kneeChest 2 View STAT 17:20 06/18/2021 17:26 Marcio,(Oxygen?(No)) Chavo Kern RN Reason for Study: CoughMEDICATION/IV/DRIP/FLUID ORDERSOrder Description Priority Entered Acknowledged InitialedGENERAL ORDERS 2 OrderSheet [facility] Emergency Department [address] [place] [address] Phone #: [phone] 06/18/2021 15:42 Patient: DAVID CABALLERO Sex: M : 1965 Age: 56yOrder Description Priority Entered Acknowledged InitialedAce Wrap (R knee) 18:48 06/18/2021 19:08 Chavo Buckley; Concha WARD[Electronically signed by Concha Buckley RN (19:26 06/18/2021)][Electronically signed by Chavo Burrows (19:39 06/18/2021)][Electronically locked by Concha Buckley RN (19:26 06/18/2021)] Name Value Range Interpretation Code Description Data Maryellen rce(s) Supporting Document(s) ID Date Data Source [id number] 06/18/2021 04:02:00 PM EDT [facility] 1 Medication Reconciliation Report [facility] Emergency Department [address] [place] [address] Phone #: [phone]- [phone] 06/18/2021 15:42 Patient: [...] knee pain.Dispense 15 tablet. Refills: 0. Substitution permitted.[id number] [place] [phone]. .albuterol sulfate 2.5 mg/3 mL (0.083 %) solution for nebulization Inhale 1 vial four times a day as neededfor 14 days -- for wheezing, SOB. Dispense 3 ml. Refills: 0. Substitution permitted.[facility][id number] [place], [place] [phone]. Fa xNumber: .albuterol sulfate HFA 90 mcg/actuation aerosol inhaler Inhale 2 puff four times a day as needed for 14 days-- for wheezing, SOB. Dispense 18 gram. Refills: 0. Substitution permitted.[facility] #[id number] [place], [place] [phone]. . -- DAYDAY Chou Name Value Range Interpretation Code Description Data Maryellen rce(s) Supporting Document(s) ID Date Data Source [id number] 06/18/2021 04:02:00 PM EDT [facility] 1 Medication Administration Record [facility] Emergency Department [address] [place] [address] Phone #: ext- [phone] 15:42 Patient: DAVID CABALLERO Sex: M : 1965 Age: 56yWeight: 77.1 kgHeight/Length: 69 inBMI: 25.1ALLERGIES: No Known Drug AllergyDate/Time Medication Administered Medication Ordered Name Value Range Interpretation Code Description Data Maryellen rce(s) Supporting Document(s) ID Date Data Source [id number] 06/18/2021 04:02:00 PM EDT [facility] 1 General Instructions [facility] Emergency Department [address] [place] [address] Phone #: ext [phone] 06/18/2021 15:42 Patient: DAVID CABALLERO Sex: M : 1965 Age: 56y Right prepatellar bursitis. No traumatic or gouty bursitis, bursitis with infection or buritis with abscess formation. Acute viral (presumed) pharyngitis. No airway obstruction.INSTRUCTIONS No strenuous activity until better. Rest at home today. Do not work (self quarantine at home until contacted by [facility] with COVID 19 test results.). Do not smoke. No alcohol. (self quarantine at home until contacted by [facility] with COVID 19 test results). W pia: Further evaluation is necessary. It is very [...] Dispense 15 tablet. Refills: 0. Substitution permitted. [facility] #[id number] [place] [address]. . albuterol sulfate 2.5 mg/3 mL (0.083 %) solution for nebulization Inhale 1 vial four times a day as needed for 14 days -- for wheezing, SOB. Dispense 3 ml. Refills: 0. Substitution permitted. [facility] #[id number] [place], [place] [phone]. . albuterol sulfate HFA 90 mcg/actuation aerosol inhaler Inhale 2 puff four times a day as needed for 14 days -- for wheezing, SOB. Dispense 18 gram. Refills: 0. Substitution permitted. [facility] #[id number] [phone]. . Follow-up: 2 General Instructions [facility] Emergency Department [address] [place] [address] Phone #: ext- [phone] 06/18/2021 15:42 Patient: DAVID CABALLERO Sex: M [...] until the pain and 3 General Instructions [facility] Emergency Department [address] [place] [address] Phone #: [phone] 06/18/2021 15:42 Patient: DAVID CABALLERO Sex: M [...] wrap or splint wet. You may take ymst-cfj-tpbbzqv pain medicine to treat pain and inflammation, [...] to 48 hours, or as advised Chills [phone] [employer]. [address] [place] [address]. All rights reserved. This information is not intended as asubstitute for professional medical care. Always follow your healthcare professional's instructions.Viral Upper Respiratory Illness (Adult) 4 General Instructions [facility] Emergency Department [address] [place] [address] Phone #: ext- [phone] 06/18/2021 15:42 Patient: [...] yourself get too tired. 5 General Instructions [facility] Emergency Department [address] [place] [address] Phone #: ext- [phone] 06/18/2021 15:42 [id number] Sex: M : 1965 Age: 56y Don't [...] loosen secretions in the nose and lungs. Nhrl-vfr-bdlcuot cold medicines will not shorten the length of time you're sick, but they may be helpful for the following symptoms: cough, sore throat, and nasal and sinus congestion. If you take prescription medicines, ask your healthcare provider or pharmacist which kbbu-ezb-gxebbvd medicines are safe to use. (Note: Don't [...] it goes along with a muffled voice [employer]. [address] [place] [address], [place] [address]. All rights reserved. This information is not intended as a 6 General Instructions [facility] Emergency Department [address] [place] [address] Phone #: ext- [phone] 06/18/2021 15:42 Patient: [...] home, you will be monitored by [facility] or state health department. You should follow the prevention steps below until a healthcare provider [facility] or state health department says you can [...] with pets and wear a facemask. See https://www.cdc.gov/coronavirus/2019-ncov/faq.html#0257-uBxG-tlp-animals for more information. Call ahead before visiting [...] vehicle} or pets and before you [facility]. If you are not [...] available, clean your hands with analcohol-based hand division chief that contains at least 60% alcohol. Clean [...] and mouth with unwashedhands. 7 General Instructions [facility] Emergency Department [address] [place] [address] Phone #: ext- [phone] 06/18/2021 15:42 Patient: [...] isolation precautions should be made on a pyer-si-zxdx basis, inconsultation with healthcareproviders and state and local health departments.Contacts 2020 [employer] informationhttps://www.cdc.gov/coronavirus/2019- ncov/about/index.html Content source: National Center for Immunization and Respiratory Diseases (NCIRD), Division of Viral Diseases 8 General [facility] Emergency Department [address] [place] [address] Phone #: ext- [phone] 06/18/2021 15:42 Patient: [...] healthcare provider to call the local or [facility] department for additional guidance. If the [...] 20 seconds or use an alcohol-based hand division chief that contains 60 to 95% alcohol, covering [...] with soap and water or alcohol-based hand division chief. Next, remove and dispose of facemask, and immediately clean your hands again with soap and water or alcohol-based hand division chief. Avoid sharing household items with the patient. You should not share dishes, drinking glasses, cups, eating utensils, towels, bedding, or other items. After the patient uses these items, you should wash them thoroughly {see below "Wash laundry thoroughly"}. 9 General Instructions [facility] Emergency Department [address] [place] [address] Phone #: ext- [phone] 06/18/2021 15:42 Patient: [...] soap and water or an alcohol-based hand division chief} immediately after removing your gloves. https://www.[employer]index.php Read and follow directions on labels of [...] soap and water or an alcohol-based hand division chief} immediately after handling these items. Soap and water should be used preferentially if hands are visibly dirty. Discuss any additional questions with your state or local health department or healthcare provider. Check available hours when contacting your local health department.Contacts 2019 [employer]Online information https://www.cdc.gov/coronavirus/2019-ncov/about/index.htmlContent source: National Center for Immunization [...] case - or - 10 General Instructions [facility] Emergency Department [address] [address] Phone #: [phone]- [phone] 06/18/2021 15:42 ----- Patient: DAVID CABALLERO Sex: M : 1965 Age: 56y2. having direct contact with infectious secretions of a COVID-19 case (e.g., being coughed on You have been given the following additional information: Bursitis URI, Viral, No Abx (Adult) COVID-19 No strenuous activity until better. Rest at home today. 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 --15:4706/18/21 Dukes, Susan, R.N. Albuterol Sulfate Inhalation. --15:48 06/18/21 Susan Dukes R.N.AllergiesNo Known Drug Allergy. --15:47 06/18/21 Susan Dukes R.N.PROBLEMS:Bipolar Disorder.COPD - Chronic Obstructive Pulmonary Disease.Asthma. --15:48 06/18/21 Susan Dukes R.N.ADDITIONAL SURGERIES: 2 Clinical Report - Nurses [facility] [place] [address] Phone #: ext- [phone] 06/18/2021 15:42 Patient: [...] No skin integrity risk identified. --15:50 06/18/21 Susan Dukes R.N. Interventions Identification band on patient. To waiting room. No allergy band on patient. --15:50 06/18/21 Susan Dukes R.N.PHYSICAL IGYDKCYMIF20:15 06/18/21. Ambulatory to room.GENERAL / NEURO / [...] 91. RR: 17. O2 saturation: 99%. 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 Reassurance given. Two patient identifiers checked. Bed placed in lowest position. Brakes of bed on. --19:06/18/21 Concha Buckley RN 18:58 06/18/21. ( jewel applied to R knee). --19:06/18/21 Concha Buckley RN.DISPOSITION / DISCHARGE 18:58 06/18/21. BP: 131/76. HR: 72. RR: 16. O2 saturation: 95%. Temp: 97.9 F. Pain level now 12/27. --18:59 06/18/21 [facility] Kenna [facility] ER Tech1 Departure time: 19:06 06/18/2021. --19:06 06/18/21 Concha Buckley RN Condition at departure: stable. No learning barriers present. Discharge instructions provided and reviewed with the patient. Reviewed medication(s) side effects, precautions, dosing and course information. Prescription(s) sent electronically to pharmacy. Reviewed referral to a primary care physician. Patient verbalized understanding. Written instructions provided in Arabic. The patient was discharged by the physician leasing assistant. He was discharged home and accompanied by friend. He left ambulatory and via private vehicle. Driving (friend). --19:07 06/18/21 Concha Buckley RN.Locked/Released at 06/18/2021 19:26 by Concha Buckley RN Name Value Range Interpretation Code Description Data Maryellen rce(s) Supporting Document(s) ID Date Data Source [id number] 06/18/2021 04:02:00 PM EDT [facility] 1 Clinical Report - Physicians/Mid Levels [facility] Emergency Department [address] [place] [address] Phone #: ext- [phone] 06/18/2021 15:42 [id number] Sex: [facility] : 1965 Age: 56y Time [...] travel. 2 Clinical Report - Physicians/Mid Levels [facility] Emergency Department [address] [place] [address] Phone #: ext - [phone] 06/18/2021 15:42 Patient: DAVID CABALLERO Sex: M [...] Progress CHEST 2 VIEWS Reason(s): Cough TRANSPORTATION: IV? O2? Oxygen?(No) Room: ED.PROGRESS AND PROCEDURESDisposition: Discharged home in good and improved condition. 3 Clinical Report - Physicians/Mid Levels [facility] Emergency Department [address] [place] [address] Phone #: ext- [phone] 06/18/2021 15:42 Patient: DAVID CABALLERO Sex: M [...] (self quarantine at home until contacted by [facility] with COVID 19 test results.). Do not smoke. No alcohol. (self quarantine at home until contacted by [facility] with COVID 19 test results). Warnings: Further [...] Dispense 15 tablet. Refills: 0. [id number] [address] [place], [place] [id number]. . albuterol sulfate 2.5 mg/3 mL (0.083 %) solution for nebulization Inhale 1 vial four times a day as needed for 14 days -- for wheezing, SOB. Dispense 3 ml. Refills: 0. Substitution permitted. [id number] - [address] [place], [place] [id number]. . albuterol sulfate HFA 90 mcg/actuation aerosol inhaler Inhale 2 puff four times a day as needed for 14 days -- for wheezing, SOB. Dispense 18 gram. Refills: 0. Substitution permitted. [id number] [address] [place], [place] [id number]. . 4 Clinical Report - Physicians/Mid Levels [facility] Emergency Department [address] [place] [address] Phone #: [phone] 06/18/2021 15:42 Patient: DAVID CABALLERO [...] rce(s) Supporting Document(s) ID Date Data Source [id number] 06/18/2021 04:02:00 PM EDT [facility] Addenda for DAVID CABALLERO VisitID: [id number] Date: 11:39Pt COVID test negative, called and made pt aware at 1138, no further intervention required(Electronically signed by Edyta Dao R.N. - 06/22/2021 11:39) Name Value Range Interpretation Code Description Data Maryellen rce(s) Supporting Document(s) ID Date Data Source [id number] 06/18/2021 09:24:00 [place] [address] PHONE: [phone] FAX: [phone] Name .................. : YANIRA Carpio Acct Number.................. : [id number] ROOM. ................. : VT26 MR Number ................... : [id number] Stay type ............. : E/R Discharge Date......... ... : 06/18/21 Admit Date ....... .. : 06/18/21 Admit Phys .................... : LEO HUERTA Date of ....... : 1965 Family Phys ................... : NO PCP Phone .................. : [phone] Age ................................ : 56 Film# .................. .:[id number] Sex ................................. : M Unsigned transcriptions are preliminary reports and do not represent a medical or legal document KNEE COMPLETE-4 OR MORE VWS R [id number] COMPLETE:06/18/21 18:21 TASIA Reason(s): atraumatic swelling R [...] By Marcelo Cason MD , 06/18/21 21:24, JOSSUE Transcribe Initials: POLO , Transcribe Date: 06/18/21 20:46, Dictation Date: Copy for: NADYA Acosta via fax Copy for: EMERGENCY DEPT via modem Copy for: 710 MED REC DISCHARGED Page 1 of 1 Name Value Range Interpretation Code Description Data Maryellen rce(s) Supporting Document(s) ID Date Data Source [id number] 06/18/2021 09:24:00 [place] [address] PHONE: [phone] FAX: [phone] Name .................. : YANIRA Carpio Acct Number.................. : [id number] ROOM. ................. : VT-26 Number ................... : [id number] Stay type ............. : E/R Discharge Date......... ... : 06/18/21 Admit Date .... ..... : 06/18/21 Admit Phys .................... : LEO HUERTA Date of ....... : 1965 Family Phys ................... : NO PCP Phone .................. : [phone] Age ................................ : 56 Film# .................. .:[id number] Sex ................................. : M Unsigned transcriptions are preliminary reports and do not represent a medical or legal document CHEST 2 VIEWS [id number] COMPLETE:06/18/21 18:21 TASIA Reason(s): Cough FRONTAL AND LATERAL CHEST TWO VIEWS INDICATION: Cough COMPARISON: None FINDINGS: Mediastinal and hilar structures are normal. Cardiac silhouette is unremarkable. Lungs are clear. No pulmonary edema. No pleural effusions or pneumothorax. IMPRESSION: No acute cardiopulmonary abnormality. Electronically Reviewed and Signed By Marcelo Cason MD , 06/18/21 21:24, SCB Transcribe Initials: DZ , Transcribe Date: 06/18/21 20:45, Dictation Date: Copy for: NADYA Acosta via fax Copy for: EMERGENCY DEPT via [facility] Copy for: 710 MED REC DISCHARGED Page 1 of 1 Name Value Range Interpretation Code Description Data Maryellen rce(s) Supporting Document(s) ID Date Data Source [id number] 06/18/2021 05:25:00 PM EDT [facility] Name Value Range Interpretation Code Description Data Maryellen rce(s) Supporting Document(s) SARS coronavirus 2 RNA Not Detected [facility] This lab was ordered by [facility] macy and reported by [facility]. ID Date Data Source [id number] 06/21/2021 10:36:00 AM EDT [facility] Name Value Range Interpretation Code Description Data Maryellen rce(s) Supporting Document(s) SARS-CoV-2, ROSEMARY Not Detected Not Detected [facility] This nucleic acid amplification test was developed and its performancecharacteristics determined by [employer]. Nucleic acidamplification tests include RT-PCR and TMA. [...] in this assay. ID Date Data Source [id number] 01/10/2021 01:15:00 AM EDT [facility] Name Value Range Interpretation Code Description Data Maryellen rce(s) Supporting Document(s) SARS coronavirus 2 RNA [Presence] in Res piratory specimen by ROSEMARY with probe detection [facility]GATIVE [facility] This lab was ordered by [facility] a nd reported by [facility]. ID Date Data Source [id number] 08/04/2020 02:14:14 PM EDT [facility] NT INFORMATIONPatient MRN Name Date of Age Gend*PT [id number] David Caballero 1965 55 years M OPPT Location Admission Date/Time Visit ID Attending Provider --- --- --- Jacek Man DO([id number]) EPI ID CSN Admitting Provider [id number] ---OUTPATIENT / OBSERVATIONAL SURGICAL OR INVASIVE PROCEDUREName: David Caballero : 1965 Sex: male Care Provider: Eduardo Quiroga MDAttending Physician: Dr. SunHISTORY OF PRESENT ILLNESS: Mr Caballero is a [...] jaundice, or pruritus. [facility] and [facility].PAST MEDICAL HISTORY:Past Medical History:Diagnosis Date Biliary dyskinesia Bladder cancer s/p surgery - BCG treatment Cancer of kidney, right right partial nephrectomy - 2012 COPD (chronic obstructive pulmonary disease) Duodenal papillary stenosis Dr. Magda JohnstonPA SURGICAL HISTORY:Past Surgical History:Procedure Laterality Date BLADDER [...] REMITIES: Pulses are symmetrical. No edema.Anesthesia complications: DeniesCS Frailty Scale :: 3/10 Managing Well (medical [...] parts of this document, were dictated using Locai speaking software. A reasonable attempt at proofreading has beenmade to minimize errors. Please call with any questions or corrections.* Name Value Range Interpretation Code Description Data [facility](s) Supporting Document(s) ID Date Data Source [id number] 08/04/2020 03:09:58 PM EDT [facility]AR[facility] Name Value Range Interpretation Code Description Data [facility](s) Supporting Document(s) WBC 8.2 10*3/uL (4.1-11.0) [facility] Rebel LUU RBC 4.30 10*6/uL (4.60-6.10) L [facility] DEVI HGB 13.9 g/dL (13.5-18.0) [facility] Yan Kitchen HCT 40.0 % (41.0-53.0) L [facility] Yan Kitchen MCV 92.9 fL (80.0-95.0) [facility] Yan Kitchen MCH 32.3 pg (27.0-32.0) H [facility] Yan Kitchen MCHC 34.7 g/dL (32.0-36.0) [facility] Yan Kitchen RDW 13.7 % (10.5-14.5) [facility] Kitchen PLT 374 10*3/uL (150-450) [facility] Yan Kitchen MPV 7.6 fL (7.1-10.7) [facility] ID Date Data Source [id number] 08/04/2020 10:00:00 AM EDT [facility] Name Value Range Interpretation Code Description Data Maryellen rce(s) Supporting Document(s) SARS coronavirus 2 RNA [facility] This lab was ordered by [facility] and reported by [facility]. ID Date Data Source [id number] 08/05/2020 01:07:40 PM EDT [facility] Name Value Range Interpretation Code Description Data Maryellen rce(s) Supporting Document(s) SARS-COV-2 ROSEMARY [facility] Not DetectedReference range: Not Detecte d This nucleic acid amplification test was developed and its performance characteristics determined by [employer]. Nucleic acid amplification tests include PCR and [...] result in this assay. Performed At: [address] [id number] Jed Baer MD Ph:[phone] Procedure Social History Code Duration Value Status Description Data Source(s ) Smoking 05/09/2021 12:00:00 AM EDT Unknown if ever smoked comp leted Unknown if ever smoked [facility] ([facility]) Smoking 03/07/2021 12:00:00 AM EDT Unknown if ever smoked comp leted Unknown if ever smoked [facility] ([facility]) Smoking 03/01/2021 12:00:00 AM EDT Unknown if ever smoked comp leted Unknown if ever smoked [facility] ([facility]) Smoking 01/30/2021 12:00:00 AM EDT Unknown if ever smoked comp leted Unknown if ever smoked [facility] ([facility]) Smoking 01/05/2021 12:00:00 AM EDT Unknown if ever smoked comp leted Unknown if ever smoked [facility] ([facility]) Smoking 12/15/2020 12:00:00 AM EST Unknown if ever smoked comp leted Unknown if ever smoked [facility] ([facility]) Smoking 12/14/2020 12:00:00 AM EST Unknown if ever smoked comp leted Unknown if ever smoked [facility] ([facility]) Smoking 12/08/2020 12:00:00 AM EST Unknown if ever smoked comp leted Unknown if ever smoked [facility] ([facility]) Smoking 11/28/2020 12:00:00 AM EST Unknown if ever smoked comp leted Unknown if ever smoked [facility] ([facility]) Smoking 11/24/2020 12:00:00 AM EST Unknown if ever smoked comp leted Unknown if ever smoked [facility] ([facility]) Smoking 11/08/2020 12:00:00 AM EST Unknown if ever smoked comp leted Unknown if ever smoked [facility] ([facility]) Smoking 10/27/2020 12:00:00 AM EST Unknown if ever smoked comp leted Unknown if ever smoked [facility] ([facility]) Smoking 10/26/2020 12:00:00 AM EST Unknown if ever smoked comp leted Unknown if ever smoked [facility] ([facility]) Smoking 10/25/2020 12:00:00 AM EST Unknown if ever smoked comp leted Unknown if ever smoked [facility] ([facility]) Smoking 10/10/2020 12:00:00 AM EST Unknown if ever smoked comp leted Unknown if ever smoked [facility] ([facility]) Smoking 10/04/2020 12:00:00 AM EST Unknown if ever smoked comp leted Unknown if ever smoked [facility] ([facility]) Smoking 10/02/2020 12:00:00 AM EST Unknown if ever smoked comp leted Unknown if ever smoked [facility] ([facility]) Smoking 09/28/2020 12:00:00 AM EST Unknown if ever smoked comp leted Unknown if ever smoked [facility] ([facility]) Smoking 08/30/2020 12:00:00 AM EST Unknown if ever smoked comp leted Unknown if ever smoked [facility] ([facility]) Smoking 08/25/2020 12:00:00 AM EST Unknown if ever smoked comp leted Unknown if ever smoked [facility] ([facility]) Smoking 08/18/2020 12:00:00 AM EDT Unknown if ever smoked comp leted Unknown if ever smoked [facility] ([facility]) Smoking 08/03/2020 12:00:00 AM EDT Unknown if ever smoked comp leted Unknown if ever smoked [facility] ([facility]) Smoking 07/26/2020 12:00:00 AM EDT Unknown if ever smoked comp leted Unknown if ever smoked [facility] ([facility]) Smoking 07/21/2020 12:00:00 AM EDT Unknown if ever smoked comp leted Unknown if ever smoked [facility] ([facility]) Smoking 07/14/2020 12:00:00 AM EDT Unknown if ever smoked comp leted Unknown if ever smoked [facility] ([facility]) Smoking 07/07/2020 12:00:00 AM EDT Unknown if ever smoked comp leted Unknown if ever smoked [facility] ([facility]) Smoking 06/30/2020 12:00:00 AM EDT Unknown if ever smoked comp leted Unknown if ever smoked [facility] ([facility]) Vital Signs ID Date Data Source UNK Name Value Range Interpretation Code Description Data Source(s) Body mass index (BMI) [Ratio] 26.2 kg/m2 26.2 k g/m2 [facility] ([facility]) [place] body weight 160 [lb_av] 160 [lb_av] MEDEN T ([facility]) Body weight 80.457 kg 80.457 kg [facility] ([facility]) Body surface area Derived from formula 1.96 m2 1.96 m2 [facility] ([facility]) Systolic blood pressure 128 mm[Hg] 128 mm[Hg] M EDENT ([facility]) Diastolic blood pressure 83 mm[Hg] 83 mm[Hg] [facility] ([facility]) Heart rate 91 /min 91 /min [facility] ([facility]) Body height 69 [in_i] 69 [in_i] [facility] ([facility]) 5'9" Body weight 177.38 [lb_av] 177.38 [lb_av] MEDEN T ([facility]) Diastolic blood pressure 80 mm[Hg] 80 mm[Hg] SP ([facility]) Body height 69 [in_i] 69 [in_i] SP ([facility]) Body mass index (BMI) [Ratio] 26.6 kg/m2 26.6 k g/m2 SP ([facility]) Systolic blood pressure 125 mm[Hg] 125 mm[Hg] A THENA ([facility]) Body weight 2886 [oz_av] 2886 [oz_av] SP ([facility]) Body height 0.00 in Normal (applies to non-numeric resu lts) 0.00 in [facility] ([facility]) Body weight Measured 0.00 lbs Normal (applies to n on-numeric results) 0.00 lbs [facility] ([facility]) Body mass index (BMI) [Ratio] 0.00 kg/m2 No rmal (applies to non-numeric results) 0.00 kg/m2 [facility] ([facility]) Systolic blood pressure 0 mm[Hg] Normal (applies t o non-numeric results) 0 mm[Hg] [facility] ([facility]) Diastolic blood pressure 0 mm[Hg] Normal (applies to non-numeric results) 0 mm[Hg] [facility] ([facility]) Body weight Measured 0.00 lbs Normal (applies to n on-numeric results) 0.00 lbs [facility] ([facility]) Body height 0.00 in Normal (applies to non-numeric resu lts) 0.00 in [facility] ([facility]) Body mass index (BMI) [Ratio] 0.00 kg/m2 No rmal (applies to non-numeric results) 0.00 kg/m2 [facility] ([facility]) Systolic blood pressure 0 mm[Hg] Normal (applies t o non-numeric results) 0 mm[Hg] [facility] ([facility]) Diastolic blood pressure 0 mm[Hg] Normal (applies to non-numeric results) 0 mm[Hg] [facility] ([facility]) Respiratory rate 20 /min 20 /min [facility] ( [facility]) Body temperature 97.3 [degF] 97.3 [degF] [facility] Systolic blood pressure 137 mm[Hg] 137 mm[Hg] M [facility]ENT ([facility]) Diastolic blood pressure 84 mm[Hg] 84 mm[Hg] [facility] ([facility]) Heart rate 73 /min 73 /min [facility] ([facility]) Body weight 157.00 [lb_av] 157.00 [lb_av] MEDEN T ([facility]) Body height 0.00 in Normal (applies to non-numeric resu lts) 0.00 in [facility] ([facility]) Body weight Measured 0.00 lbs Normal (applies to n on-numeric results) 0.00 lbs [facility] ([facility]) Body mass index (BMI) [Ratio] 0.00 kg/m2 No rmal (applies to non-numeric results) 0.00 kg/m2 [facility] Systolic blood pressure 0 mm[Hg] Normal (applies t o non-numeric results) 0 mm[Hg] [facility] ([facility]) Diastolic blood pressure 0 mm[Hg] Normal (applies to non-numeric results) 0 mm[Hg] [facility] Systolic blood pressure 0 mm[Hg] Normal (applies t o non-numeric results) 0 mm[Hg] [facility] Diastolic blood pressure 0 mm[Hg] Normal (applies to non-numeric results) 0 mm[Hg] [facility] Body height 0.00 in Normal (applies to non-numeric resu lts) 0.00 in [facility] Body weight Measured 0.00 lbs Normal (applies to n on-numeric results) 0.00 lbs [facility] ([facility]) Body mass index (BMI) [Ratio] 0.00 kg/m2 No rmal (applies to non-numeric results) 0.00 kg/m2 [facility] ([facility]) Body height 0.00 in Normal (applies to non-numeric resu lts) 0.00 in [facility] ([facility]) Body weight Measured 0.00 lbs Normal (applies to n on-numeric results) 0.00 lbs [facility] ([facility]) Body mass index (BMI) [Ratio] 0.00 kg/m2 No rmal (applies to non-numeric results) 0.00 kg/m2 [facility]) Systolic blood pressure 0 mm[Hg] Normal (applies t o non-numeric results) 0 mm[Hg] [facility] ([facility]) Diastolic blood pressure 0 mm[Hg] Normal (applies to non-numeric results) 0 mm[Hg] [facility] ([facility]) Patient Treatment Plan of Care Planned Activity Planned Date Details Description Data Source (s) Budesonide 0.16 MG/ACTUAT / formoterol f umarate 0.0045 MG/ACTUAT Metered Dose Inhaler SP ([facility]) Sertraline 50 MG Oral Tablet SP ([facility]) pantoprazole 40 MG Delayed Release Oral Tablet SP ([facility]) Ondansetron 4 MG Oral Tablet SP ([facility]) benztropine mesylate 1 MG Oral Tablet SP ([facility])
== END 2021-08-28 04:30 | disposition left against medical advice (07) ==
LOC: M ED 03:20
DX: Z53.29 Procedure and treatment not carried out because of patient's decision for other reasons (principal)

== ENCOUNTER → 2023-03-20 | Outpatient (CLI) | payer MEDICARE, MEDICAID ==
[~2023-03-20] MED LIST changes: -BENZ-52 PO; +BENZ1TAB5 PO; +BENZ2TAB48 PO; -BENZ2TAB5 PO; -CEFD1CAP8; +CEFD300C41; +LIDO15SO PO; -LIDO2SOL17 PO
== END ==
LOC: M OUTALCOH 08:48
PROVIDERS: ATTEND Psychiatry & Neurology Psychiatry
DX: F10.10 Alcohol abuse, uncomplicated (principal)

== ENCOUNTER 2023-04-11 08:53 | Outpatient (RCR) | payer MEDICARE, MEDICAID | END 2023-04-18 | LOC: M OUTALCOH 08:53 | PROVIDERS: ATTEND Psychiatry & Neurology Psychiatry | DX: F12.20 Cannabis dependence, uncomplicated (principal); F15.20 Other stimulant dependence, uncomplicated; F17.200 Nicotine dependence, unspecified, uncomplicated ==

== ENCOUNTER → 2023-04-24 | Outpatient (CLI) | payer MEDICARE, MEDICAID ==
[2023-04-24 14:26] LABS: BASO # 0.1 10^3/uL (0.0-0.2); BASO % 0.8 % (0.0-1.0); EOS # 0.2 10^3/uL (0.0-0.5); EOS % 2.8 % (0.0-3.0); HEMATOCRIT 43.8 % (42.0-52.0); HEMOGLOBIN 14.4 g/dl (13.5-17.5); LYMPH % 31.1 % (24.0-44.0); MEAN CORPUSCULAR HEMOGLOBIN 31.5 pg (27.0-33.0); MEAN CORPUSCULAR HGB CONC 32.9 g/dl (32.0-36.5); MEAN CORPUSCULAR VOLUME 95.8 fl (80.0-96.0); MONO # 0.5 10^3/uL (0.0-0.8); MONO % 7.1 % (2.0-8.0); NEUTROPHILS # 3.8 10^3/uL (1.5-8.5); NEUTROPHILS % 57.7 % (36.0-66.0); PLATELET COUNT, AUTOMATED 330 10^3/uL (150-450); RED BLOOD COUNT 4.57 10^6/uL (4.30-6.10); WHITE BLOOD COUNT 6.5 10^3/uL (4.0-10.0)
[2023-04-24 14:56] LABS: HEMOGLOBIN A1c 5.2 % (4.0-6.0)
[2023-04-24 14:59] LABS: ALBUMIN 4.1 G/DL (3.2-5.2); ALKALINE PHOSPHATASE 108 U/L (46-116); ALT/SGPT < 9 U/L (7.0-40); AST/SGOT 17 U/L (<34); BILIRUBIN,TOTAL 0.7 MG/DL (0.3-1.2); BLOOD UREA NITROGEN 24 MG/DL (9-23); CALCIUM LEVEL 9.8 MG/DL (8.5-10.1); CARBON DIOXIDE LEVEL 27 MMOL/L (20-31); CHLORIDE LEVEL 106 MMOL/L (98-107); CHOLESTEROL LEVEL 131 MG/DL (<200); CHOLESTEROL RISK RATIO 2.64 (<5); CREATININE FOR GFR 0.75 MG/DL (0.70-1.30); GLOMERULAR FILTRATION RATE > 60.0 (>56); GLUCOSE, FASTING 93 MG/DL (60-100); HDL CHOLESTEROL 49.5 MG/DL (>40); LDL CHOLESTEROL 55.1 MG/DL (<100); NON-HDL-C 81.5 MG/DL; SODIUM LEVEL 137 MMOL/L (136-145); TRIGLYCERIDES LEVEL 132 MG/DL (<150)
== END ==
LOC: M PLALAB 08:54
PROVIDERS: ATTEND Psychiatry & Neurology Psychiatry
DX: F25.0 Schizoaffective disorder, bipolar type (principal); F60.2 Antisocial personality disorder; Z79.899 Other long term (current) drug therapy

== ENCOUNTER 2023-05-16 09:58 | Outpatient (RCR) | payer MEDICARE, MEDICAID | END 2023-05-19 | LOC: M OUTALCOH 09:58 | PROVIDERS: ATTEND Psychiatry & Neurology Psychiatry | DX: F12.20 Cannabis dependence, uncomplicated (principal); F15.20 Other stimulant dependence, uncomplicated; F17.200 Nicotine dependence, unspecified, uncomplicated ==

== ENCOUNTER 2023-05-30 10:00 | Outpatient (RCR) | payer MEDICARE, MEDICAID | END 2023-06-19 | LOC: M OUTALCOH 10:00 | PROVIDERS: ATTEND Psychiatry & Neurology Psychiatry | DX: F12.20 Cannabis dependence, uncomplicated (principal); F15.20 Other stimulant dependence, uncomplicated; F17.200 Nicotine dependence, unspecified, uncomplicated ==

== ENCOUNTER 2023-08-15 10:01 | Outpatient (RCR) | payer MEDICARE, MEDICAID ==
[~2023-08-15 10:01] MED LIST changes: -CEFD300C41; +CEFD300C42
== END 2023-08-19 ==
LOC: M OUTALCOH 10:01
PROVIDERS: ATTEND Psychiatry & Neurology Psychiatry
DX: F12.20 Cannabis dependence, uncomplicated (principal); F15.20 Other stimulant dependence, uncomplicated; F17.200 Nicotine dependence, unspecified, uncomplicated

== ENCOUNTER 2023-09-01 11:01 | Emergency (ER) | payer MEDICARE, MEDICAID ==
[~2023-09-01] VITALS: Ht 175.3 cm; Wt 77.7 kg
[2023-09-01] MEDS ORDERED: BUPR-71 (11:16)
[2023-09-01 14:10] VITALS: BP 118/76; TEMP 98.2; O2SAT 94
== END 2023-09-01 15:09 | disposition home or self-care (01) ==
LOC: M ED 11:01
DX: N49.2 Inflammatory disorders of scrotum (principal); Z85.51 Personal history of malignant neoplasm of bladder; Z85.528 Personal history of other malignant neoplasm of kidney; F17.200 Nicotine dependence, unspecified, uncomplicated; Z88.1 Allergy status to other antibiotic agents; Z88.8 Allergy status to other drugs, medicaments and biological substances; Z79.899 Other long term (current) drug therapy

== ENCOUNTER 2023-09-03 08:36 | Inpatient (IN) | payer MEDICARE, MEDICAID ==
[~2023-09-03] VITALS: Ht 175.3 cm; Wt 79.5 kg
[~2023-09-03 08:36] MED LIST changes: +BUPR-71 PO
[2023-09-03] MEDS ORDERED: NS 1,000 ML IV ONE ×2 (09:55→11:20)
[2023-09-03] MEDS ORDERED: ONDANSETRON 4MG 2ML VIAL IV ONE ×3 (09:55→14:00)
[2023-09-03 10:09] LABS: BASO # 0.1 10^3/uL (0.0-0.2); BASO % 0.3 % (0.0-1.0); EOS % 0.1 % (0.0-3.0); HEMATOCRIT 43.5 % (42.0-52.0); HEMOGLOBIN 15.1 g/dl (13.5-17.5); LYMPH % 5.6 % (24.0-44.0); MEAN CORPUSCULAR HEMOGLOBIN 31.4 pg (27.0-33.0); MEAN CORPUSCULAR HGB CONC 34.7 g/dl (32.0-36.5); MEAN CORPUSCULAR VOLUME 90.4 fl (80.0-96.0); MONO % 5.5 % (2.0-8.0); NEUTROPHILS # 30.8 10^3/uL (1.5-8.5); NEUTROPHILS % 85.9 % (36.0-66.0); PLATELET COUNT, AUTOMATED 357 10^3/uL (150-450); RED BLOOD COUNT 4.81 10^6/uL (4.30-6.10)
[2023-09-03] MEDS ORDERED: fentaNYL 100 MCG/2 ML INJECTION IV PRN (10:10)
[2023-09-03] MEDS ORDERED: PIPERACILLIN/TAZOBACTAM SOD 4.5 GM in D5W MINI-BAG PLUS 50 ML IV ONE (10:15)
[2023-09-03] MEDS ORDERED: VANCOMYCIN HCL 1,500 MG in NS 250 ML IV ONE (10:15)
[2023-09-03 10:19] LABS: INR 1.17; PROTHROMBIN TIME 14.5 SECONDS (12.5-14.5)
[2023-09-03 10:20] LABS: PARTIAL THROMBOPLASTIN TIME 29.6 SECONDS (24.8-34.2)
[2023-09-03 10:24] LABS: WHITE BLOOD COUNT 35.9 10^3/uL (4.0-10.0)
[2023-09-03] MEDS ORDERED: MED REC IN PROGRESS XX SCH (10:25)
[2023-09-03 10:29] LABS: CPK CREATINE PHOSPHOKINASE 75 U/L (46-171)
[2023-09-03 10:30] LABS: BLOOD UREA NITROGEN 29 MG/DL (9-23); CALCIUM LEVEL 9.6 MG/DL (8.5-10.1); CARBON DIOXIDE LEVEL 28 MMOL/L (20-31); CHLORIDE LEVEL 93 MMOL/L (98-107); CREATININE FOR GFR 0.84 MG/DL (0.70-1.30); GLOMERULAR FILTRATION RATE > 60.0 (>56); GLUCOSE, FASTING 132 MG/DL (60-100); POTASSIUM SERUM 4.3 MMOL/L (3.5-5.1); SODIUM LEVEL 129 MMOL/L (136-145)
[2023-09-03] MEDS ORDERED: FLUT1BLS8 PO (10:31)
[2023-09-03] MEDS ORDERED: IPRA0.00 NEB (10:31)
[2023-09-03] MEDS ORDERED: ISOVUE-370 76% 100ML VIAL As Ordered ONE (10:33)
[2023-09-03] MEDS ORDERED: HOME MED LIST COMPLETE! XX SCH (10:40)
[2023-09-03 10:41] LABS: ERYTHROCYTE SEDIMENTATION RATE 59 mm/hr (0-20)
[2023-09-03] MEDS ORDERED: VANCOMYCIN HCL 750 MG, VIAL MATE ADAPTER 1 EACH in D5W 250 ML IV ONE ×2 (11:00→12:00)
[2023-09-03] MEDS ORDERED: NS 2,320 ML in IV 1 EA IV ONE (11:15)
[2023-09-03] MEDS ORDERED: PERCOCET 5MG/325MG TAB PO PRN ×2 (11:20)
[2023-09-03] MEDS ORDERED: ACETAMINOPHEN TAB 650MG DOSE (2X325MG) PO PRN (11:20)
[2023-09-03] MEDS ORDERED: MORPHINE 2 MG/ML 1ML VIAL IV PRN (11:20)
[2023-09-03] MEDS ORDERED: KETOROLAC 30 MG/ML 1ML VIAL IV SCH (12:00)
[2023-09-03 12:07] LABS: PROCALCITONIN 0.71 ng/ml
[2023-09-03] MEDS: PERCOCET 5MG/325MG TAB PO PRN ×2 (12:24→16:55)
[2023-09-03] MEDS ORDERED: NICOTINE 21MG/24HR 1 EA TRANSDERMAL TD PRN (13:15)
[2023-09-03] MEDS ORDERED: PERCOCET 5MG/325MG TAB PO ONE (13:15)
[2023-09-03] MEDS ORDERED: NICOTINE POLACRILEX 2 MG GUM PO PRN (13:15)
[2023-09-03] MEDS ORDERED: ONDANSETRON 4MG 2ML VIAL IV PRN (13:15)
[2023-09-03] MEDS ORDERED: KETOROLAC 30 MG/ML 1ML VIAL IV ONE (14:00)
[2023-09-03] MEDS: PIPERACILLIN/TAZOBACTAM SOD 4.5 GM in D5W MINI-BAG PLUS 50 ML IV SCH ×2 (16:55→21:16)
[2023-09-03] MEDS: VANCOMYCIN HCL 750 MG, VIAL MATE ADAPTER 1 EACH in D5W 250 ML IV SCH (16:56)
[2023-09-03] MEDS: ENOXAPARIN 40MG/0.4ML SYRINGE (J1650 PER 10MG) SC SCH (16:56)
[2023-09-03] MEDS ORDERED: VANCOMYCIN HCL 1,000 MG, VIAL MATE ADAPTER 1 EACH in D5W 250 ML IV SCH (18:00)
[2023-09-03 19:16] VITALS: BP 131/66; TEMP 97.1; O2SAT 95
[2023-09-03] MEDS: KETOROLAC 30 MG/ML 1ML VIAL IV SCH (20:00)
[2023-09-03] MEDS ORDERED: MORPHINE 2 MG/ML 1ML VIAL IV ONE ×2 (20:45→23:00)
[2023-09-03] MEDS: ONDANSETRON 4MG 2ML VIAL IV PRN (21:31)
[2023-09-03] MEDS ORDERED: IPRATROPIUM 0.02% SOLN 0.5MG 2.5ML NEB INH PRN (22:05)
[2023-09-03] MEDS ORDERED: LEVALBUTEROL 1.25MG 0.5ML CONCENTRATE NEB INH PRN (22:05)
[2023-09-03 23:34] VITALS: BP 113/60; TEMP 99.4; O2SAT 96
[2023-09-04] MEDS: KETOROLAC 30 MG/ML 1ML VIAL IV SCH ×4 (01:25→20:34)
[2023-09-04] MEDS: VANCOMYCIN HCL 750 MG, VIAL MATE ADAPTER 1 EACH in D5W 250 ML IV SCH (01:30)
[2023-09-04] MEDS: PERCOCET 5MG/325MG TAB PO PRN (02:54)
[2023-09-04 04:00] VITALS: BP 101/59; TEMP 98; O2SAT 96
[2023-09-04] MEDS: PIPERACILLIN/TAZOBACTAM SOD 4.5 GM in D5W MINI-BAG PLUS 50 ML IV SCH ×4 (04:28→21:25)
[2023-09-04 04:56] LABS: HEMATOCRIT 34.9 % (42.0-52.0); MEAN CORPUSCULAR HEMOGLOBIN 31.4 pg (27.0-33.0); MEAN CORPUSCULAR HGB CONC 34.4 g/dl (32.0-36.5); MEAN CORPUSCULAR VOLUME 91.4 fl (80.0-96.0); PLATELET COUNT, AUTOMATED 295 10^3/uL (150-450); RED BLOOD COUNT 3.82 10^6/uL (4.30-6.10)
[2023-09-04 05:11] LABS: BLOOD UREA NITROGEN 13 MG/DL (9-23); CARBON DIOXIDE LEVEL 25 MMOL/L (20-31); CHLORIDE LEVEL 101 MMOL/L (98-107); CREATININE FOR GFR 0.77 MG/DL (0.70-1.30); GLOMERULAR FILTRATION RATE > 60.0 (>56); GLUCOSE, FASTING 104 MG/DL (60-100); POTASSIUM SERUM 3.7 MMOL/L (3.5-5.1); SODIUM LEVEL 133 MMOL/L (136-145)
[2023-09-04 05:19] LABS: WHITE BLOOD COUNT 31.9 10^3/uL (4.0-10.0)
[2023-09-04 05:25] LABS: LYMPHOCYTES 13 % (16-44); MONOCYTES 1 % (0-5); NEUTROPHILS 67 % (28-66)
[2023-09-04 05:26] LABS: PLATELET ESTIMATE NORMAL (NORMAL)
[2023-09-04 07:44] VITALS: BP 110/71; TEMP 98.4; O2SAT 96
[2023-09-04] MEDS ORDERED: NS 1,000 ML IV ONE ×2 (07:45→13:15)
[2023-09-04] MEDS ORDERED: MORPHINE 10 MG/ML 1ML VIAL IV ONE (07:45)
[2023-09-04] MEDS ORDERED: ONDANSETRON 4MG 2ML VIAL IV ONE (07:50)
[2023-09-04] MEDS ORDERED: methylPREDNISolone 125MG 2ML VIAL IV ONE (07:50)
[2023-09-04] MEDS ORDERED: PANTOPRAZOLE 40MG VIAL IV ONE (07:50)
[2023-09-04] MEDS ORDERED: NALOXONE INJ 0.4MG/1ML VIAL IV PRN (08:00)
[2023-09-04] MEDS ORDERED: flumazeniL 0.5MG/5ML VIAL IV PRN (08:00)
[2023-09-04] MEDS: diazePAM 5MG TABLET PO ONE ×2 (08:11→09:37)
[2023-09-04] MEDS: LEVALBUTEROL 1.25MG 0.5ML CONCENTRATE NEB INH SCH ×4 (09:18→19:59)
[2023-09-04] MEDS: VANCOMYCIN HCL 1,000 MG, VIAL MATE ADAPTER 1 EACH in D5W 250 ML IV SCH ×2 (09:30→18:53)
[2023-09-04 12:15] VITALS: BP 109/68; TEMP 97.5; O2SAT 95
[2023-09-04] MEDS: MORPHINE 10 MG/ML 1ML VIAL IV PRN ×2 (12:29→16:50)
[2023-09-04] MEDS: NS 1,000 ML IV SCH ×2 (14:23→23:20)
[2023-09-04] MEDS: LACTOBACILLUS ACIDOPHILUS CAP (BACID) PO SCH ×2 (14:24→18:52)
[2023-09-04] MEDS: MIDODRINE 5 MG TAB PO SCH ×2 (14:31→16:50)
[2023-09-04] MEDS: ACETAMINOPHEN 500 MG TAB PO SCH ×2 (14:31→20:34)
[2023-09-04] MEDS ORDERED: diazePAM 5MG TABLET PO ONE (15:00)
[2023-09-04] MEDS: CLINDAMYCIN 600 MG in IV 1 EA IV SCH ×2 (15:30→23:02)
[2023-09-04] MEDS: ENOXAPARIN 40MG/0.4ML SYRINGE (J1650 PER 10MG) SC SCH (18:53)
[2023-09-04] MEDS ORDERED: NS 1,000 ML IV SCH (20:00)
[2023-09-04] MEDS ORDERED: diphenhydrAMINE 50MG/ML VIAL IV PRN (20:00)
[2023-09-04] MEDS ORDERED: EPIDURAL/PCA KEYS XX PRN (20:00)
[2023-09-04] MEDS: PANTOPRAZOLE 40MG TAB (PROTONIX) PO SCH (20:34)
[2023-09-04 20:38] LABS: BASO # 0.1 10^3/uL (0.0-0.2); BASO % 0.2 % (0.0-1.0); HEMATOCRIT 32.5 % (42.0-52.0); HEMOGLOBIN 11.2 g/dl (13.5-17.5); LYMPH # 1.5 10^3/uL (1.5-5.0); LYMPH % 3.9 % (24.0-44.0); MEAN CORPUSCULAR HEMOGLOBIN 31.7 pg (27.0-33.0); MEAN CORPUSCULAR HGB CONC 34.5 g/dl (32.0-36.5); MEAN CORPUSCULAR VOLUME 92.1 fl (80.0-96.0); MONO # 0.9 10^3/uL (0.0-0.8); MONO % 2.4 % (2.0-8.0); NEUTROPHILS # 34.1 10^3/uL (1.5-8.5); NEUTROPHILS % 89.8 % (36.0-66.0); PLATELET COUNT, AUTOMATED 326 10^3/uL (150-450); RED BLOOD COUNT 3.53 10^6/uL (4.30-6.10)
[2023-09-04 20:46] LABS: ERYTHROCYTE SEDIMENTATION RATE 53 mm/hr (0-20)
[2023-09-04] MEDS: buPROPion **SR TABLET** (ZYBAN) 150MG PO SCH (21:00)
[2023-09-04] MEDS: methylPREDNISolone 125MG 2ML VIAL IV SCH (21:22)
[2023-09-04] MEDS: guaiFENesin ER TABLET 600 MG TAB PO SCH (21:22)
[2023-09-04 21:32] VITALS: BP 102/60; TEMP 97.9; O2SAT 93
[2023-09-05] MEDS: VANCOMYCIN HCL 1,000 MG, VIAL MATE ADAPTER 1 EACH in D5W 250 ML IV SCH (00:26)
[2023-09-05] MEDS: KETOROLAC 30 MG/ML 1ML VIAL IV SCH ×4 (01:20→21:12)
[2023-09-05] MEDS: methylPREDNISolone 125MG 2ML VIAL IV SCH ×4 (02:25→21:12)
[2023-09-05] MEDS: PIPERACILLIN/TAZOBACTAM SOD 4.5 GM in D5W MINI-BAG PLUS 50 ML IV SCH ×4 (03:16→22:33)
[2023-09-05] MEDS: LEVALBUTEROL 1.25MG 0.5ML CONCENTRATE NEB INH SCH ×7 (04:00→23:53)
[2023-09-05 05:45] VITALS: BP 118/72; TEMP 97.5; O2SAT 96
[2023-09-05] MEDS ORDERED: PERCOCET 5MG/325MG TAB PO ONE (06:00)
[2023-09-05] MEDS: CLINDAMYCIN 600 MG in IV 1 EA IV SCH ×3 (06:03→23:56)
[2023-09-05] MEDS: TIOTROPIUM INHALER/CAPSULE (SPIRIVA) INH SCH (06:19)
[2023-09-05] MEDS: ADVAIR HFA 230/21MCG INHALER INH SCH ×2 (06:19→19:55)
[2023-09-05] MEDS: LACTOBACILLUS ACIDOPHILUS CAP (BACID) PO SCH ×3 (08:00→17:19)
[2023-09-05 08:08] LABS: BASO # 0.1 10^3/uL (0.0-0.2); BASO % 0.2 % (0.0-1.0); HEMATOCRIT 32.4 % (42.0-52.0); HEMOGLOBIN 11.1 g/dl (13.5-17.5); LYMPH # 1.8 10^3/uL (1.5-5.0); LYMPH % 4.7 % (24.0-44.0); MEAN CORPUSCULAR HEMOGLOBIN 31.7 pg (27.0-33.0); MEAN CORPUSCULAR HGB CONC 34.3 g/dl (32.0-36.5); MEAN CORPUSCULAR VOLUME 92.6 fl (80.0-96.0); MONO # 1.2 10^3/uL (0.0-0.8); MONO % 3.1 % (2.0-8.0); NEUTROPHILS % 87.3 % (36.0-66.0); PLATELET COUNT, AUTOMATED 322 10^3/uL (150-450)
[2023-09-05 08:11] LABS: WHITE BLOOD COUNT 37.8 10^3/uL (4.0-10.0)
[2023-09-05 08:17] LABS: ERYTHROCYTE SEDIMENTATION RATE 54 mm/hr (0-20)
[2023-09-05 08:50] LABS: PROCALCITONIN 0.54 ng/ml
[2023-09-05 08:52] LABS: BLOOD UREA NITROGEN 26 MG/DL (9-23); CALCIUM LEVEL 8.2 MG/DL (8.5-10.1); CARBON DIOXIDE LEVEL 23 MMOL/L (20-31); CHLORIDE LEVEL 107 MMOL/L (98-107); CREATININE FOR GFR 0.83 MG/DL (0.70-1.30); GLOMERULAR FILTRATION RATE > 60.0 (>56); GLUCOSE, FASTING 182 MG/DL (60-100); POTASSIUM SERUM 4.2 MMOL/L (3.5-5.1); SODIUM LEVEL 138 MMOL/L (136-145)
[2023-09-05] MEDS: buPROPion **SR TABLET** (ZYBAN) 150MG PO SCH ×2 (09:00→21:00)
[2023-09-05] MEDS: VANCOMYCIN HCL 750 MG, VIAL MATE ADAPTER 1 EACH in D5W 250 ML IV SCH ×2 (09:21→18:37)
[2023-09-05] MEDS: MIDODRINE 5 MG TAB PO SCH ×3 (09:24→17:19)
[2023-09-05] MEDS: PANTOPRAZOLE 40MG TAB (PROTONIX) PO SCH ×2 (09:24→21:11)
[2023-09-05] MEDS: guaiFENesin ER TABLET 600 MG TAB PO SCH ×2 (09:25→21:11)
[2023-09-05] MEDS: ACETAMINOPHEN 500 MG TAB PO SCH ×2 (09:27→21:11)
[2023-09-05] MEDS ORDERED: HYDROMORPHONE HCL 0.5 MG/ 0.5 ML SYRINGE IV ONE (09:30)
[2023-09-05] MEDS ORDERED: ONDANSETRON 4MG 2ML VIAL IV PRN (09:35)
[2023-09-05] MEDS ORDERED: NALOXONE INJ 0.4MG/1ML VIAL IV PRN (09:35)
[2023-09-05] MEDS ORDERED: MORPHINE 1MG/ML IN 0.9% NACL 100ML IV BAG IV PRN (09:35)
[2023-09-05] MEDS ORDERED: EPIDURAL/PCA KEYS XX PRN (09:35)
[2023-09-05] MEDS ORDERED: diphenhydrAMINE 50MG/ML VIAL IV PRN (09:35)
[2023-09-05] MEDS ORDERED: NS 1,000 ML IV SCH (09:35)
[2023-09-05] MEDS ORDERED: NALBUPHINE HCL 1MG/0.1ML (100MG/10ML) MDV IV PRN (09:35)
[2023-09-05] MEDS: MORPHINE 1MG/ML IN 0.9% NACL 100ML IV BAG IV PRN (10:14)
[2023-09-05] MEDS: VANCOMYCIN HCL 500 MG in D5W MINI-BAG PLUS 100 ML IV SCH ×2 (10:34→21:05)
[2023-09-05] MEDS: NS 1,000 ML IV SCH (11:52)
[2023-09-05 12:53] VITALS: BP 110/65
[2023-09-05 14:00] VITALS: BP 128/94; TEMP 97; O2SAT 93
[2023-09-05] MEDS: ENOXAPARIN 40MG/0.4ML SYRINGE (J1650 PER 10MG) SC SCH (17:19)
[2023-09-05 22:00] VITALS: BP 140/75; TEMP 97.2; O2SAT 94
[2023-09-06] MEDS: VANCOMYCIN HCL 750 MG, VIAL MATE ADAPTER 1 EACH in D5W 250 ML IV SCH ×2 (02:00→08:17)
[2023-09-06] MEDS: methylPREDNISolone 125MG 2ML VIAL IV SCH ×2 (02:10→08:14)
[2023-09-06] MEDS: KETOROLAC 30 MG/ML 1ML VIAL IV SCH ×4 (02:10→20:58)
[2023-09-06] MEDS: VANCOMYCIN HCL 500 MG in D5W MINI-BAG PLUS 100 ML IV SCH (02:58)
[2023-09-06] MEDS: LEVALBUTEROL 1.25MG 0.5ML CONCENTRATE NEB INH SCH ×6 (03:00→23:21)
[2023-09-06] MEDS: PIPERACILLIN/TAZOBACTAM SOD 4.5 GM in D5W MINI-BAG PLUS 50 ML IV SCH ×4 (04:27→21:05)
[2023-09-06 06:00] VITALS: BP 141/78; TEMP 97.5; O2SAT 93
[2023-09-06 06:06] LABS: BASO # 0.1 10^3/uL (0.0-0.2); BASO % 0.3 % (0.0-1.0); HEMATOCRIT 31.2 % (42.0-52.0); HEMOGLOBIN 10.6 g/dl (13.5-17.5); LYMPH # 1.4 10^3/uL (1.5-5.0); LYMPH % 4.6 % (24.0-44.0); MEAN CORPUSCULAR HEMOGLOBIN 31.3 pg (27.0-33.0); MONO # 0.8 10^3/uL (0.0-0.8); MONO % 2.7 % (2.0-8.0); NEUTROPHILS # 27.4 10^3/uL (1.5-8.5); NEUTROPHILS % 88.1 % (36.0-66.0); PLATELET COUNT, AUTOMATED 347 10^3/uL (150-450); RED BLOOD COUNT 3.39 10^6/uL (4.30-6.10)
[2023-09-06 06:12] LABS: WHITE BLOOD COUNT 31.1 10^3/uL (4.0-10.0)
[2023-09-06] MEDS: IPRATROPIUM 0.5MG/ALBUTEROL 2.5MG INH SOL UD 3ML (DUONEB) NEB PRN (06:17)
[2023-09-06] MEDS: CLINDAMYCIN 600 MG in IV 1 EA IV SCH ×3 (06:24→22:11)
[2023-09-06 06:30] LABS: BLOOD UREA NITROGEN 29 MG/DL (9-23); CALCIUM LEVEL 8.3 MG/DL (8.5-10.1); CARBON DIOXIDE LEVEL 23 MMOL/L (20-31); CHLORIDE LEVEL 106 MMOL/L (98-107); CREATININE FOR GFR 0.84 MG/DL (0.70-1.30); GLOMERULAR FILTRATION RATE > 60.0 (>56); GLUCOSE, FASTING 179 MG/DL (60-100); POTASSIUM SERUM 4.3 MMOL/L (3.5-5.1); SODIUM LEVEL 136 MMOL/L (136-145)
[2023-09-06] MEDS: LACTOBACILLUS ACIDOPHILUS CAP (BACID) PO SCH ×3 (08:15→17:15)
[2023-09-06] MEDS: guaiFENesin ER TABLET 600 MG TAB PO SCH ×2 (08:15→20:57)
[2023-09-06] MEDS: MIDODRINE 5 MG TAB PO SCH ×3 (08:15→17:15)
[2023-09-06] MEDS: PANTOPRAZOLE 40MG TAB (PROTONIX) PO SCH ×2 (08:16→20:58)
[2023-09-06] MEDS: buPROPion **SR TABLET** (ZYBAN) 150MG PO SCH ×2 (08:16→21:00)
[2023-09-06] MEDS: ACETAMINOPHEN 500 MG TAB PO SCH ×2 (08:16→20:57)
[2023-09-06] MEDS: TIOTROPIUM INHALER/CAPSULE (SPIRIVA) INH SCH (08:34)
[2023-09-06] MEDS: ADVAIR HFA 230/21MCG INHALER INH SCH ×2 (08:34→19:50)
[2023-09-06] MEDS: MORPHINE 1MG/ML IN 0.9% NACL 100ML IV BAG IV PRN (11:02)
[2023-09-06] MEDS ORDERED: VANCOMYCIN HCL 750 MG, VIAL MATE ADAPTER 1 EACH in D5W 250 ML IV ONE (12:00)
[2023-09-06] MEDS: NS 1,000 ML IV SCH ×2 (13:11→13:47)
[2023-09-06 14:00] VITALS: BP 167/89; TEMP 97; O2SAT 96
[2023-09-06] MEDS: VANCOMYCIN HCL 1,000 MG, VIAL MATE ADAPTER 1 EACH in D5W 250 ML IV SCH ×2 (17:15→23:25)
[2023-09-06] MEDS: ENOXAPARIN 40MG/0.4ML SYRINGE (J1650 PER 10MG) SC SCH (17:17)
[2023-09-06 18:00] VITALS: BP 167/90; TEMP 97.7; O2SAT 97
[2023-09-06] MEDS: predniSONE 20 MG TAB PO SCH (20:57)
[2023-09-06] MEDS: ONDANSETRON 4MG 2ML VIAL IV PRN (21:09)
[2023-09-06 22:00] VITALS: BP 149/86; TEMP 97.7; O2SAT 90
[2023-09-07 02:00] VITALS: BP 149/90; TEMP 97; O2SAT 90
[2023-09-07] MEDS: KETOROLAC 30 MG/ML 1ML VIAL IV SCH ×4 (02:13→20:08)
[2023-09-07] MEDS: NS 1,000 ML IV SCH ×3 (02:17→17:15)
[2023-09-07] MEDS: LEVALBUTEROL 1.25MG 0.5ML CONCENTRATE NEB INH SCH ×5 (03:09→20:00)
[2023-09-07] MEDS: PIPERACILLIN/TAZOBACTAM SOD 4.5 GM in D5W MINI-BAG PLUS 50 ML IV SCH ×4 (03:38→22:51)
[2023-09-07 06:00] VITALS: BP 152/91; TEMP 97.2; O2SAT 95
[2023-09-07] MEDS: CLINDAMYCIN 600 MG in IV 1 EA IV SCH ×2 (06:00→15:06)
[2023-09-07 06:28] LABS: BASO % 0.2 % (0.0-1.0); HEMATOCRIT 32.9 % (42.0-52.0); LYMPH # 1.2 10^3/uL (1.5-5.0); LYMPH % 4.7 % (24.0-44.0); MEAN CORPUSCULAR HEMOGLOBIN 31.1 pg (27.0-33.0); MEAN CORPUSCULAR HGB CONC 33.4 g/dl (32.0-36.5); MEAN CORPUSCULAR VOLUME 92.9 fl (80.0-96.0); MONO # 0.9 10^3/uL (0.0-0.8); MONO % 3.3 % (2.0-8.0); NEUTROPHILS # 23.2 10^3/uL (1.5-8.5); NEUTROPHILS % 87.2 % (36.0-66.0); PLATELET COUNT, AUTOMATED 381 10^3/uL (150-450); RED BLOOD COUNT 3.54 10^6/uL (4.30-6.10); WHITE BLOOD COUNT 26.6 10^3/uL (4.0-10.0)
[2023-09-07] MEDS: VANCOMYCIN HCL 1,000 MG, VIAL MATE ADAPTER 1 EACH in D5W 250 ML IV SCH (06:45)
[2023-09-07 06:53] LABS: BLOOD UREA NITROGEN 25 MG/DL (9-23); CALCIUM LEVEL 7.8 MG/DL (8.5-10.1); CARBON DIOXIDE LEVEL 23 MMOL/L (20-31); CHLORIDE LEVEL 103 MMOL/L (98-107); CREATININE FOR GFR 0.78 MG/DL (0.70-1.30); GLOMERULAR FILTRATION RATE > 60.0 (>56); GLUCOSE, FASTING 174 MG/DL (60-100); POTASSIUM SERUM 4.3 MMOL/L (3.5-5.1); SODIUM LEVEL 136 MMOL/L (136-145)
[2023-09-07 07:00] LABS: PROCALCITONIN 0.25 ng/ml
[2023-09-07 07:21] LABS: ERYTHROCYTE SEDIMENTATION RATE 44 mm/hr (0-20)
[2023-09-07] MEDS: TIOTROPIUM INHALER/CAPSULE (SPIRIVA) INH SCH (07:44)
[2023-09-07] MEDS: ADVAIR HFA 230/21MCG INHALER INH SCH ×2 (07:44→20:00)
[2023-09-07] MEDS: buPROPion **SR TABLET** (ZYBAN) 150MG PO SCH ×3 (09:00→20:06)
[2023-09-07] MEDS: predniSONE 20 MG TAB PO SCH (09:02)
[2023-09-07] MEDS: LACTOBACILLUS ACIDOPHILUS CAP (BACID) PO SCH ×3 (09:02→17:16)
[2023-09-07] MEDS: ACETAMINOPHEN 500 MG TAB PO SCH ×2 (09:03→20:07)
[2023-09-07] MEDS: guaiFENesin ER TABLET 600 MG TAB PO SCH ×2 (09:03→20:06)
[2023-09-07 10:00] VITALS: BP 155/92; TEMP 97.7; O2SAT 95
[2023-09-07] MEDS: MORPHINE 1MG/ML IN 0.9% NACL 100ML IV BAG IV PRN (11:32)
[2023-09-07 14:00] VITALS: BP 171/92; TEMP 97.3; O2SAT 94
[2023-09-07] MEDS ORDERED: ISOSORBIDE DIN. (ISORDIL) 30 MG TAB PO ONE (17:00)
[2023-09-07] MEDS: ENOXAPARIN 40MG/0.4ML SYRINGE (J1650 PER 10MG) SC SCH (17:17)
[2023-09-07 18:00] VITALS: BP 138/74; TEMP 97.5; O2SAT 94
[2023-09-07] MEDS ORDERED: VANCOMYCIN HCL 750 MG, VIAL MATE ADAPTER 1 EACH in D5W 250 ML IV SCH (21:00)
[2023-09-07 22:00] VITALS: BP 142/75; TEMP 97.9; O2SAT 93
[2023-09-07] MEDS ORDERED: VANCOMYCIN HCL 500 MG in D5W MINI-BAG PLUS 100 ML IV SCH (22:00)
[2023-09-08] MEDS: KETOROLAC 30 MG/ML 1ML VIAL IV SCH ×4 (01:46→20:45)
[2023-09-08 02:00] VITALS: BP 156/90; TEMP 97.7; O2SAT 94
[2023-09-08] MEDS: PIPERACILLIN/TAZOBACTAM SOD 4.5 GM in D5W MINI-BAG PLUS 50 ML IV SCH ×4 (03:36→22:11)
[2023-09-08] MEDS: LEVALBUTEROL 1.25MG 0.5ML CONCENTRATE NEB INH SCH ×7 (03:56→23:40)
[2023-09-08 06:00] VITALS: BP 158/74; TEMP 97.9; O2SAT 92
[2023-09-08] MEDS: MORPHINE 1MG/ML IN 0.9% NACL 100ML IV BAG IV PRN (06:38)
[2023-09-08] MEDS: ADVAIR HFA 230/21MCG INHALER INH SCH ×2 (07:55→20:00)
[2023-09-08] MEDS: TIOTROPIUM INHALER/CAPSULE (SPIRIVA) INH SCH (07:56)
[2023-09-08] MEDS: guaiFENesin ER TABLET 600 MG TAB PO SCH ×2 (08:18→20:44)
[2023-09-08] MEDS: LACTOBACILLUS ACIDOPHILUS CAP (BACID) PO SCH ×3 (08:18→18:18)
[2023-09-08] MEDS: buPROPion **SR TABLET** (ZYBAN) 150MG PO SCH ×2 (08:18→20:27)
[2023-09-08] MEDS: ACETAMINOPHEN 500 MG TAB PO SCH ×2 (08:18→20:45)
[2023-09-08] MEDS: predniSONE 20 MG TAB PO SCH (08:19)
[2023-09-08 09:21] LABS: BLOOD UREA NITROGEN 17 MG/DL (9-23); CALCIUM LEVEL 8.2 MG/DL (8.5-10.1); CARBON DIOXIDE LEVEL 30 MMOL/L (20-31); CHLORIDE LEVEL 103 MMOL/L (98-107); CREATININE FOR GFR 0.72 MG/DL (0.70-1.30); GLOMERULAR FILTRATION RATE > 60.0 (>56); GLUCOSE, FASTING 87 MG/DL (60-100); POTASSIUM SERUM 4.1 MMOL/L (3.5-5.1); SODIUM LEVEL 138 MMOL/L (136-145)
[2023-09-08 09:30] LABS: BASO # 0.1 10^3/uL (0.0-0.2); BASO % 0.2 % (0.0-1.0); EOS % 0.2 % (0.0-3.0); HEMATOCRIT 34.6 % (42.0-52.0); HEMOGLOBIN 11.6 g/dl (13.5-17.5); LYMPH # 2.8 10^3/uL (1.5-5.0); LYMPH % 12.7 % (24.0-44.0); MEAN CORPUSCULAR HEMOGLOBIN 30.9 pg (27.0-33.0); MEAN CORPUSCULAR HGB CONC 33.5 g/dl (32.0-36.5); MEAN CORPUSCULAR VOLUME 92.3 fl (80.0-96.0); MONO % 4.3 % (2.0-8.0); NEUTROPHILS % 77.5 % (36.0-66.0); PLATELET COUNT, AUTOMATED 412 10^3/uL (150-450); RED BLOOD COUNT 3.75 10^6/uL (4.30-6.10); WHITE BLOOD COUNT 21.9 10^3/uL (4.0-10.0)
[2023-09-08] MEDS: VANCOMYCIN HCL 1,000 MG, VIAL MATE ADAPTER 1 EACH in D5W 250 ML IV SCH ×2 (09:37→18:19)
[2023-09-08] MEDS ORDERED: MORPHINE 1MG/ML IN 0.9% NACL 100ML IV BAG IV PRN (10:00)
[2023-09-08] MEDS ORDERED: NS 1,000 ML IV SCH (10:00)
[2023-09-08] MEDS ORDERED: diphenhydrAMINE 50MG/ML VIAL IV PRN (10:00)
[2023-09-08 10:21] VITALS: BP 160/82; TEMP 97.5; O2SAT 94
[2023-09-08 10:43] LABS: PROCALCITONIN 0.15 ng/ml
[2023-09-08 10:46] LABS: ERYTHROCYTE SEDIMENTATION RATE 37 mm/hr (0-20)
[2023-09-08 14:00] VITALS: BP 162/92; TEMP 97.5; O2SAT 93
[2023-09-08] MEDS: ENOXAPARIN 40MG/0.4ML SYRINGE (J1650 PER 10MG) SC SCH (18:18)
[2023-09-08 20:54] VITALS: BP 139/77; TEMP 97.7; O2SAT 93
[2023-09-09] MEDS: KETOROLAC 30 MG/ML 1ML VIAL IV SCH (01:56)
[2023-09-09] MEDS: VANCOMYCIN HCL 1,000 MG, VIAL MATE ADAPTER 1 EACH in D5W 250 ML IV SCH ×3 (01:57→18:30)
[2023-09-09 02:00] VITALS: BP 135/74; TEMP 97.6; O2SAT 93
[2023-09-09] MEDS: LEVALBUTEROL 1.25MG 0.5ML CONCENTRATE NEB INH SCH ×6 (03:22→23:31)
[2023-09-09 05:13] VITALS: BP 137/80; TEMP 97.7; O2SAT 93
[2023-09-09] MEDS: PIPERACILLIN/TAZOBACTAM SOD 4.5 GM in D5W MINI-BAG PLUS 50 ML IV SCH ×4 (05:27→23:10)
[2023-09-09 06:28] LABS: ERYTHROCYTE SEDIMENTATION RATE 49 mm/hr (0-20)
[2023-09-09 06:40] LABS: BLOOD UREA NITROGEN 16 MG/DL (9-23); CALCIUM LEVEL 8.4 MG/DL (8.5-10.1); CARBON DIOXIDE LEVEL 31 MMOL/L (20-31); CHLORIDE LEVEL 101 MMOL/L (98-107); CREATININE FOR GFR 0.62 MG/DL (0.70-1.30); GLOMERULAR FILTRATION RATE > 60.0 (>56); GLUCOSE, FASTING 82 MG/DL (60-100); POTASSIUM SERUM 4.2 MMOL/L (3.5-5.1); SODIUM LEVEL 137 MMOL/L (136-145)
[2023-09-09 06:47] LABS: PROCALCITONIN 0.12 ng/ml
[2023-09-09 07:24] LABS: HEMATOCRIT 36.5 % (42.0-52.0); HEMOGLOBIN 12.5 g/dl (13.5-17.5); MEAN CORPUSCULAR HEMOGLOBIN 31.1 pg (27.0-33.0); MEAN CORPUSCULAR HGB CONC 34.2 g/dl (32.0-36.5); MEAN CORPUSCULAR VOLUME 90.8 fl (80.0-96.0); PLATELET COUNT, AUTOMATED 439 10^3/uL (150-450); RED BLOOD COUNT 4.02 10^6/uL (4.30-6.10); WHITE BLOOD COUNT 20.8 10^3/uL (4.0-10.0)
[2023-09-09 07:29] LABS: ATYPICAL LYMPH 12 % (0-5); EOSINOPHILS 1 % (0-3); LYMPHOCYTES 11 % (16-44); METAMYELOCYTES 1 % (0-0); MONOCYTES 7 % (0-5); NEUTROPHILS 66 % (28-66)
[2023-09-09 07:30] LABS: PLATELET ESTIMATE INCREASED (NORMAL)
[2023-09-09 07:31] LABS: POLYCHROMASIA 1+; TOXIC VACUOLATION 1+
[2023-09-09] MEDS: TIOTROPIUM INHALER/CAPSULE (SPIRIVA) INH SCH (08:00)
[2023-09-09] MEDS: ADVAIR HFA 230/21MCG INHALER INH SCH ×2 (08:00→19:56)
[2023-09-09] MEDS: guaiFENesin ER TABLET 600 MG TAB PO SCH ×2 (08:43→20:25)
[2023-09-09] MEDS: buPROPion **SR TABLET** (ZYBAN) 150MG PO SCH ×2 (08:44→20:26)
[2023-09-09] MEDS: LACTOBACILLUS ACIDOPHILUS CAP (BACID) PO SCH ×3 (08:44→17:29)
[2023-09-09] MEDS: predniSONE 20 MG TAB PO SCH (08:44)
[2023-09-09] MEDS: ACETAMINOPHEN 500 MG TAB PO SCH ×2 (08:44→20:25)
[2023-09-09] MEDS: LIDOCAINE 4% CREAM 5GM (LMX4) TOP SCH ×2 (09:00→20:26)
[2023-09-09] MEDS ORDERED: DICLOFENAC EPOLAMINE 1.3% PATCH TOP SCH (10:10)
[2023-09-09] MEDS ORDERED: PERCOCET 5MG/325MG TAB PO PRN (10:10)
[2023-09-09 14:00] VITALS: BP 129/88; TEMP 97.5; O2SAT 94
[2023-09-09] MEDS: ENOXAPARIN 40MG/0.4ML SYRINGE (J1650 PER 10MG) SC SCH (17:29)
[2023-09-09 19:42] VITALS: BP 157/88; TEMP 97.9; O2SAT 93
[2023-09-10] MEDS: ONDANSETRON 4MG 2ML VIAL IV PRN ×2 (01:21→12:53)
[2023-09-10] MEDS: LEVALBUTEROL 1.25MG 0.5ML CONCENTRATE NEB INH SCH (01:51)
[2023-09-10] MEDS: VANCOMYCIN HCL 1,000 MG, VIAL MATE ADAPTER 1 EACH in D5W 250 ML IV SCH ×2 (02:00→10:48)
[2023-09-10] MEDS ORDERED: PROMETHAZINE 25MG/ML 1ML VIAL IM ONE (02:50)
[2023-09-10 04:48] VITALS: BP 145/91; TEMP 97.2; O2SAT 94
[2023-09-10] MEDS: PIPERACILLIN/TAZOBACTAM SOD 4.5 GM in D5W MINI-BAG PLUS 50 ML IV SCH ×5 (05:25→22:01)
[2023-09-10 05:38] LABS: HEMATOCRIT 39.1 % (42.0-52.0); HEMOGLOBIN 13.7 g/dl (13.5-17.5); MEAN CORPUSCULAR HEMOGLOBIN 31.1 pg (27.0-33.0); MEAN CORPUSCULAR VOLUME 88.9 fl (80.0-96.0); PLATELET COUNT, AUTOMATED 503 10^3/uL (150-450); WHITE BLOOD COUNT 27.5 10^3/uL (4.0-10.0)
[2023-09-10 05:57] LABS: ATYPICAL LYMPH 1 % (0-5); LYMPHOCYTES 12 % (16-44); METAMYELOCYTES 1 % (0-0); MONOCYTES 7 % (0-5); NEUTROPHILS 77 % (28-66); PLATELET ESTIMATE INCREASED (NORMAL)
[2023-09-10 05:59] LABS: POLYCHROMASIA 1+
[2023-09-10 06:00] LABS: TOXIC VACUOLATION 1+
[2023-09-10 06:02] LABS: BLOOD UREA NITROGEN 17 MG/DL (9-23); CALCIUM LEVEL 8.9 MG/DL (8.5-10.1); CARBON DIOXIDE LEVEL 26 MMOL/L (20-31); CHLORIDE LEVEL 99 MMOL/L (98-107); GLOMERULAR FILTRATION RATE > 60.0 (>56); GLUCOSE, FASTING 113 MG/DL (60-100); POTASSIUM SERUM 4.2 MMOL/L (3.5-5.1); SODIUM LEVEL 134 MMOL/L (136-145)
[2023-09-10] MEDS: LACTOBACILLUS ACIDOPHILUS CAP (BACID) PO SCH ×3 (08:00→17:02)
[2023-09-10 08:08] LABS: ERYTHROCYTE SEDIMENTATION RATE 59 mm/hr (0-20)
[2023-09-10] MEDS ORDERED: MORPHINE 2 MG/ML 1ML VIAL IV ONE (10:25)
[2023-09-10 10:46] VITALS: BP 156/109
[2023-09-10] MEDS: guaiFENesin ER TABLET 600 MG TAB PO SCH ×2 (10:47→21:00)
[2023-09-10] MEDS: buPROPion **SR TABLET** (ZYBAN) 150MG PO SCH ×2 (10:47→21:00)
[2023-09-10] MEDS: ACETAMINOPHEN 500 MG TAB PO SCH ×2 (10:48→21:00)
[2023-09-10] MEDS: LIDOCAINE 4% CREAM 5GM (LMX4) TOP SCH ×2 (10:49→21:00)
[2023-09-10] MEDS ORDERED: NS 1,000 ML IV ONE (13:10)
[2023-09-10] MEDS ORDERED: PROMETHAZINE 25MG/ML 1ML VIAL IV ONE (13:10)
[2023-09-10 14:00] VITALS: BP 145/89; TEMP 98.6; O2SAT 89
[2023-09-10] MEDS ORDERED: PALIPERIDONE PALMITATE 156 MG/1 ML IM ONE (14:00)
[2023-09-10] MEDS ORDERED: PALIPERIDONE PAL 156MG/1ML INJ(INVEGA)(FREE PSY INPT ONLY) IM ONE (14:00)
[2023-09-10] MEDS: MORPHINE 2 MG/ML 1ML VIAL IV PRN ×2 (15:28→22:02)
[2023-09-10] MEDS: SIMETHICONE 80MG CHEW TAB PO SCH ×2 (16:06→21:00)
[2023-09-10] MEDS: ENOXAPARIN 40MG/0.4ML SYRINGE (J1650 PER 10MG) SC SCH (16:29)
[2023-09-10 19:27] VITALS: BP 130/79; TEMP 98.6; O2SAT 93
[2023-09-11] MEDS: PIPERACILLIN/TAZOBACTAM SOD 4.5 GM in D5W MINI-BAG PLUS 50 ML IV SCH (04:38)
[2023-09-11] MEDS: MORPHINE 2 MG/ML 1ML VIAL IV PRN ×5 (04:58→22:13)
[2023-09-11 05:27] VITALS: BP 149/87; TEMP 97.5; O2SAT 91
[2023-09-11 05:37] LABS: ERYTHROCYTE SEDIMENTATION RATE 61 mm/hr (0-20)
[2023-09-11 06:06] LABS: PROCALCITONIN <0.04 ng/ml
[2023-09-11] MEDS: LACTOBACILLUS ACIDOPHILUS CAP (BACID) PO SCH ×4 (08:25→18:20)
[2023-09-11 08:36] LABS: HEMATOCRIT 38.7 % (42.0-52.0); HEMOGLOBIN 13.5 g/dl (13.5-17.5); MEAN CORPUSCULAR HEMOGLOBIN 31.3 pg (27.0-33.0); MEAN CORPUSCULAR HGB CONC 34.9 g/dl (32.0-36.5); MEAN CORPUSCULAR VOLUME 89.8 fl (80.0-96.0); PLATELET COUNT, AUTOMATED 552 10^3/uL (150-450); RED BLOOD COUNT 4.31 10^6/uL (4.30-6.10); WHITE BLOOD COUNT 23.3 10^3/uL (4.0-10.0)
[2023-09-11 08:55] LABS: ANISOCYTOSIS 1+; ATYPICAL LYMPH 2 % (0-5); LYMPHOCYTES 21 % (16-44); MONOCYTES 4 % (0-5); NEUTROPHILS 73 % (28-66); PLATELET ESTIMATE INCREASED (NORMAL); POIKILOCYTOSIS 1+
[2023-09-11] MEDS: ACETAMINOPHEN 500 MG TAB PO SCH ×2 (09:00→20:42)
[2023-09-11] MEDS: LIDOCAINE 4% CREAM 5GM (LMX4) TOP SCH ×2 (09:00→20:43)
[2023-09-11] MEDS: buPROPion **SR TABLET** (ZYBAN) 150MG PO SCH ×2 (09:00→20:42)
[2023-09-11] MEDS: guaiFENesin ER TABLET 600 MG TAB PO SCH ×2 (09:00→20:41)
[2023-09-11] MEDS: SIMETHICONE 80MG CHEW TAB PO SCH ×3 (09:43→20:41)
[2023-09-11] MEDS: IPRATROPIUM 0.5MG/ALBUTEROL 2.5MG INH SOL UD 3ML (DUONEB) NEB PRN (10:02)
[2023-09-11] MEDS: LevoFLOXacin 750 MG TABLET PO SCH (11:23)
[2023-09-11 14:00] VITALS: BP 129/78; TEMP 97.9; O2SAT 92
[2023-09-11] MEDS: ENOXAPARIN 40MG/0.4ML SYRINGE (J1650 PER 10MG) SC SCH (18:21)
[2023-09-11 22:00] VITALS: BP 138/102; TEMP 97.2; O2SAT 94
[2023-09-12] MEDS: MORPHINE 2 MG/ML 1ML VIAL IV PRN ×3 (02:22→10:24)
[2023-09-12] MEDS: LevoFLOXacin 750 MG TABLET PO SCH (05:56)
[2023-09-12 06:00] VITALS: BP 151/90; TEMP 97.9; O2SAT 93
[2023-09-12 07:21] LABS: HEMATOCRIT 39.2 % (42.0-52.0); HEMOGLOBIN 13.6 g/dl (13.5-17.5); MEAN CORPUSCULAR HEMOGLOBIN 31.3 pg (27.0-33.0); MEAN CORPUSCULAR HGB CONC 34.7 g/dl (32.0-36.5); MEAN CORPUSCULAR VOLUME 90.3 fl (80.0-96.0); PLATELET COUNT, AUTOMATED 548 10^3/uL (150-450); RED BLOOD COUNT 4.34 10^6/uL (4.30-6.10)
[2023-09-12 07:42] LABS: BLOOD UREA NITROGEN 12 MG/DL (9-23); CALCIUM LEVEL 8.7 MG/DL (8.5-10.1); CARBON DIOXIDE LEVEL 24 MMOL/L (20-31); CHLORIDE LEVEL 101 MMOL/L (98-107); CREATININE FOR GFR 0.65 MG/DL (0.70-1.30); GLOMERULAR FILTRATION RATE > 60.0 (>56); GLUCOSE, FASTING 119 MG/DL (60-100); MAGNESIUM LEVEL 2.1 MG/DL (1.8-2.4); SODIUM LEVEL 131 MMOL/L (136-145)
[2023-09-12 08:06] LABS: ANISOCYTOSIS 1+; ATYPICAL LYMPH 2 % (0-5); EOSINOPHILS 1 % (0-3); LYMPHOCYTES 14 % (16-44); MONOCYTES 6 % (0-5); MYELOCYTES 3 % (0-0); NEUTROPHILS 73 % (28-66); PLATELET ESTIMATE NORMAL (NORMAL)
[2023-09-12] MEDS: LIDOCAINE 4% CREAM 5GM (LMX4) TOP SCH (09:00)
[2023-09-12] MEDS: buPROPion **SR TABLET** (ZYBAN) 150MG PO SCH (09:32)
[2023-09-12] MEDS: SIMETHICONE 80MG CHEW TAB PO SCH (09:32)
[2023-09-12] MEDS: LACTOBACILLUS ACIDOPHILUS CAP (BACID) PO SCH ×2 (09:32→12:30)
[2023-09-12 09:33] VITALS: BP 146/89
[2023-09-12] MEDS: guaiFENesin ER TABLET 600 MG TAB PO SCH (09:33)
[2023-09-12] MEDS: ACETAMINOPHEN 500 MG TAB PO SCH (09:34)
[2023-09-12] MEDS ORDERED: AMLO1TAB25 PO (11:53)
[2023-09-12] MEDS ORDERED: LEVO1TAB40 PO (11:53)
[2023-09-12] MEDS ORDERED: PERC7.5T11 PO ×2 (11:58→13:29)
[2023-09-13] MEDS ORDERED: PALIPERIDONE PAL 156MG/1ML INJ(INVEGA)(FREE PSY INPT ONLY) IM ONE (09:00)
== END 2023-09-12 13:51 | disposition home health service (06) | DRG 872 ==
LOC: M ED 08:36 → M ED INP 11:16 → ENRESERV 14:42 → M PCU 15:34 → M MSPAV 09-04 12:15
PROVIDERS: ADMIT General Practice; ATTEND Student in an Organized Health Care Education/Training Program
DX: A41.9 Sepsis, unspecified organism (principal); K31.5 Obstruction of duodenum; L03.315 Cellulitis of perineum; E87.1 Hypo-osmolality and hyponatremia; F31.9 Bipolar disorder, unspecified; J45.909 Unspecified asthma, uncomplicated; F17.200 Nicotine dependence, unspecified, uncomplicated; R74.01 Elevation of levels of liver transaminase levels; Z85.528 Personal history of other malignant neoplasm of kidney; Z85.51 Personal history of malignant neoplasm of bladder; N49.2 Inflammatory disorders of scrotum; Z79.899 Other long term (current) drug therapy; Z88.1 Allergy status to other antibiotic agents; Z88.5 Allergy status to narcotic agent

== ENCOUNTER 2023-10-03 09:56 | Outpatient (RCR) | payer MEDICARE, MEDICAID ==
[~2023-10-03 09:56] MED LIST changes: +AMLO1TAB25 PO; +CEFD1CAP9; -CEFD300C42; +FLUT1BLS8 PO; +LEVO1TAB40 PO; +PERC7.5T11 PO
== END 2023-10-19 ==
LOC: M OUTALCOH 09:56
PROVIDERS: ATTEND Psychiatry & Neurology Psychiatry
DX: F12.20 Cannabis dependence, uncomplicated (principal); F15.20 Other stimulant dependence, uncomplicated; F17.200 Nicotine dependence, unspecified, uncomplicated

== ENCOUNTER 2023-11-04 10:00 | Outpatient (RCR) | payer MEDICARE, MEDICAID | END 2023-11-19 | LOC: M OUTALCOH 10:00 | PROVIDERS: ATTEND Psychiatry & Neurology Psychiatry | DX: F15.20 Other stimulant dependence, uncomplicated (principal); F12.20 Cannabis dependence, uncomplicated; F17.200 Nicotine dependence, unspecified, uncomplicated ==

== ENCOUNTER 2024-01-02 10:04 | Outpatient (RCR) | payer MEDICARE, MEDICAID ==
[~2024-01-02 10:04] MED LIST changes: -LIDO15SO PO; +LIDO15SO8 PO
== END 2024-01-18 ==
LOC: M OUTALCOH 10:04
PROVIDERS: ATTEND Psychiatry & Neurology Psychiatry
DX: F12.20 Cannabis dependence, uncomplicated (principal); F15.20 Other stimulant dependence, uncomplicated; F17.200 Nicotine dependence, unspecified, uncomplicated

== ENCOUNTER 2024-03-22 14:56 | Inpatient (IN) | payer MEDICARE, MEDICAID ==
[~2024-03-22] VITALS: Ht 170.2 cm; Wt 71.4 kg
[~2024-03-22 14:56] MED LIST changes: +ONDA-282 PO; -ONDA4TAB6 PO
[2024-03-22 15:41] LABS: HEMATOCRIT 38.7 % (42.0-52.0); HEMOGLOBIN 13.1 g/dl (13.5-17.5); MEAN CORPUSCULAR HGB CONC 33.9 g/dl (32.0-36.5); MEAN CORPUSCULAR VOLUME 94.6 fl (80.0-96.0); PLATELET COUNT, AUTOMATED 372 10^3/uL (150-450); RED BLOOD COUNT 4.09 10^6/uL (4.30-6.10)
[2024-03-22 16:12] LABS: METHADONE URINE NEGATIVE (NEGATIVE); OPIATES URINE NEGATIVE (NEGATIVE); PHENCYCLIDINE URINE NEGATIVE (NEGATIVE)
[2024-03-22 16:13] LABS: BARBITURATES URINE NEGATIVE (NEGATIVE); BENZODIAZEPINES URINE NEGATIVE (NEGATIVE); COCAINE METABOLITE URINE NEGATIVE (NEGATIVE); ETHYL ALCOHOL (ETHANOL) 0.066 % (0.000-0.010)
[2024-03-22 16:15] LABS: ALBUMIN 3.5 G/DL (3.2-5.2); ALKALINE PHOSPHATASE 100 U/L (46-116); ALT/SGPT 47 U/L (7.0-40); AST/SGOT 31 U/L (<34); BILIRUBIN,DIRECT 0.1 MG/DL (<0.4); BILIRUBIN,TOTAL 0.4 MG/DL (0.3-1.2); BLOOD UREA NITROGEN 20 MG/DL (9-23); CALCIUM LEVEL 9.9 MG/DL (8.5-10.1); CARBON DIOXIDE LEVEL 22 MMOL/L (20-31); CHLORIDE LEVEL 110 MMOL/L (98-107); CREATININE FOR GFR 0.74 MG/DL (0.70-1.30); GLOMERULAR FILTRATION RATE > 60.0 (>56); GLUCOSE, FASTING 81 MG/DL (60-100); POTASSIUM SERUM 4.2 MMOL/L (3.5-5.1); SALICYLATE LEVEL < 3.0 MG/DL (<30); SODIUM LEVEL 139 MMOL/L (136-145); TOTAL PROTEIN 6.2 G/DL (5.7-8.2)
[2024-03-22 16:17] LABS: THYROID STIMULATING HORMONE 3.167 uIU/ML (0.55-4.78)
[2024-03-22 16:25] LABS: AMPHETAMINES LEVEL URINE POSITIVE (NEGATIVE); CANNABINOIDS URINE POSITIVE (NEGATIVE)
[2024-03-22] MEDS ORDERED: MAALOX 30 ML SUSP *UDC PO PRN (19:45)
[2024-03-22] MEDS ORDERED: traZODone 50 MG TAB PO PRN (19:45)
[2024-03-22] MEDS ORDERED: MOM 30ML SUSPENSION UDC PO PRN (19:45)
[2024-03-22] MEDS ORDERED: ACETAMINOPHEN TAB 650MG DOSE (2X325MG) PO PRN (19:45)
[2024-03-22] MEDS ORDERED: diphenhydrAMINE 25MG CAP PO PRN (19:45)
[2024-03-22] MEDS: LORazepam 1 MG TAB PO PRN (22:08)
[2024-03-22] MEDS: IPRATROPIUM 0.5MG/ALBUTEROL 2.5MG INH SOL UD 3ML (DUONEB) NEB PRN (22:54)
[2024-03-23] MEDS: FOLIC ACID 1MG TAB PO SCH (09:00)
[2024-03-23] MEDS: MULTIVITAMINS/MINERALS THERAP 1 TAB PO SCH (09:00)
[2024-03-23] MEDS: THIAMINE 100 MG TAB PO SCH (15:16)
[2024-03-24] MEDS: LIDOCAINE 5% (LIDODERM) PATCH TD SCH (09:00)
[2024-03-24] MEDS: OLANZapine ORAL DISINTEGRATING TAB 5MG PO PRN (17:34)
[2024-03-25] MEDS: PALIPERIDONE PAL 234MG/1.5ML INJ (INVEGA)(FREE PSY INPT ONLY) IM ONE (09:00)
[2024-03-25] MEDS ORDERED: ONDA-282 PO (10:07)
[2024-03-25] MEDS ORDERED: ALBU8.5H PO (10:07)
[2024-03-25] MEDS ORDERED: HOME MED LIST COMPLETE! XX SCH (10:10)
[2024-03-25] MEDS: PALIPERIDONE PAL 156MG/1ML INJ(INVEGA)(FREE PSY INPT ONLY) IM ONE (10:12)
[2024-03-25 18:49] VITALS: BP 129/83; TEMP 98.1; O2SAT 98
[2024-03-26] MEDS: IBUPROFEN 400MG TAB PO PRN (05:25)
[2024-03-26 06:06] VITALS: BP 120/78; TEMP 98; O2SAT 97
[2024-03-26 08:42] LABS: CHOLESTEROL RISK RATIO 2.87 (<5); HDL CHOLESTEROL 53.3 MG/DL (>40); LDL CHOLESTEROL 83.1 MG/DL (<100); NON-HDL-C 99.7 MG/DL
[2024-03-26] MEDS ORDERED: OLAN5ZYD PO (09:52)
== END 2024-03-26 10:09 | disposition home or self-care (01) | DRG 885 ==
LOC: M ED 14:56 → M ED INP 19:44 → M PSY 21:24
PROVIDERS: ADMIT Student in an Organized Health Care Education/Training Program; ATTEND Student in an Organized Health Care Education/Training Program
DX: F25.0 Schizoaffective disorder, bipolar type (principal); F15.150 Other stimulant abuse with stimulant-induced psychotic disorder with delusions; F12.10 Cannabis abuse, uncomplicated; F60.2 Antisocial personality disorder; F60.89 Other specific personality disorders; Z65.2 Problems related to release from prison; Z56.0 Unemployment, unspecified; J45.909 Unspecified asthma, uncomplicated; J44.9 Chronic obstructive pulmonary disease, unspecified; Z79.899 Other long term (current) drug therapy; Z88.1 Allergy status to other antibiotic agents; Z88.5 Allergy status to narcotic agent; F10.20 Alcohol dependence, uncomplicated; M54.6 Pain in thoracic spine

== ENCOUNTER 2024-04-09 09:00 | Outpatient (RCR) | payer MEDICARE, MEDICAID ==
[~2024-04-09 09:00] MED LIST changes: +ALBU8.5H PO; +OLAN5ZYD PO
== END 2024-04-18 ==
LOC: M OUTALCOH 09:00
PROVIDERS: ATTEND Psychiatry & Neurology Psychiatry
DX: F12.20 Cannabis dependence, uncomplicated (principal); F15.20 Other stimulant dependence, uncomplicated; F17.200 Nicotine dependence, unspecified, uncomplicated

== ENCOUNTER 2024-05-04 08:52 | Outpatient (RCR) | payer MEDICARE, MEDICAID | END 2024-05-19 | LOC: M OUTALCOH 08:52 | PROVIDERS: ATTEND Psychiatry & Neurology Psychiatry | DX: F15.20 Other stimulant dependence, uncomplicated (principal); F12.20 Cannabis dependence, uncomplicated; F17.200 Nicotine dependence, unspecified, uncomplicated ==

== ENCOUNTER → 2024-05-04 | Outpatient (CLI) | payer MEDICARE, MEDICAID | LOC: M OUTALCOH 09:49 | PROVIDERS: ATTEND Psychiatry & Neurology Psychiatry | DX: F12.20 Cannabis dependence, uncomplicated (principal); F15.20 Other stimulant dependence, uncomplicated; F17.200 Nicotine dependence, unspecified, uncomplicated ==

== ENCOUNTER 2024-06-04 11:00 | Outpatient (RCR) | payer MEDICARE, MEDICAID | END 2024-06-19 | LOC: M OUTALCOH 11:00 | PROVIDERS: ATTEND Psychiatry & Neurology Psychiatry | DX: F15.20 Other stimulant dependence, uncomplicated (principal); F12.20 Cannabis dependence, uncomplicated; F17.200 Nicotine dependence, unspecified, uncomplicated | CPT/HCPCS: 90834; G0397 ==

== ENCOUNTER 2024-07-02 08:57 | Outpatient (RCR) | payer MEDICARE, MEDICAID | END 2024-07-19 | LOC: M OUTALCOH 08:57 | PROVIDERS: ATTEND Psychiatry & Neurology Psychiatry | DX: F15.20 Other stimulant dependence, uncomplicated (principal); F12.20 Cannabis dependence, uncomplicated; F17.200 Nicotine dependence, unspecified, uncomplicated ==

== ENCOUNTER 2024-07-05 18:45 | Emergency (ER) | payer MEDICARE, MEDICAID ==
[~2024-07-05] VITALS: Ht 175.3 cm; Wt 75.0 kg
[2024-07-05 18:52] VITALS: BP 124/78; TEMP 98.9; O2SAT 96
== END 2024-07-06 00:22 | disposition left against medical advice (07) ==
LOC: EDBD 18:45 → M ED 18:45
DX: Z53.21 Procedure and treatment not carried out due to patient leaving prior to being seen by health care provider (principal)

== ENCOUNTER 2024-07-06 01:55 | Emergency (ER) | payer MEDICARE, MEDICAID ==
[~2024-07-06] VITALS: Ht 175.3 cm; Wt 73.4 kg
[2024-07-06 01:56] VITALS: BP 160/94; TEMP 98.6; O2SAT 94
== END 2024-07-06 05:32 | disposition left against medical advice (07) ==
LOC: M ED 01:55
DX: Z53.21 Procedure and treatment not carried out due to patient leaving prior to being seen by health care provider (principal)

== ENCOUNTER 2024-08-06 10:00 | Outpatient (RCR) | payer MEDICARE, MEDICAID | END 2024-08-19 | LOC: M OUTALCOH 10:00 | PROVIDERS: ATTEND Psychiatry & Neurology Psychiatry | DX: F15.20 Other stimulant dependence, uncomplicated (principal); F12.20 Cannabis dependence, uncomplicated; F17.200 Nicotine dependence, unspecified, uncomplicated ==

== ENCOUNTER 2024-09-09 10:00 | Outpatient (RCR) | payer MEDICARE, MEDICAID | END 2024-09-18 | LOC: M OUTALCOH 10:00 | PROVIDERS: ATTEND Psychiatry & Neurology Psychiatry | DX: F15.20 Other stimulant dependence, uncomplicated (principal); F12.20 Cannabis dependence, uncomplicated; F17.200 Nicotine dependence, unspecified, uncomplicated ==

== ENCOUNTER 2024-10-07 10:46 | Outpatient (RCR) | payer MEDICARE, MEDICAID ==
[~2024-10-07 10:46] MED LIST changes: -ADV250INH INH; +ADVA1AER9 INH
== END 2024-10-19 ==
LOC: M OUTALCOH 10:46
PROVIDERS: ATTEND Psychiatry & Neurology Psychiatry
DX: F15.20 Other stimulant dependence, uncomplicated (principal); F12.20 Cannabis dependence, uncomplicated; F17.200 Nicotine dependence, unspecified, uncomplicated

== ENCOUNTER → 2024-11-19 | Outpatient (RCR) | payer MEDICARE, MEDICAID | LOC: M OUTALCOH 09:00 | PROVIDERS: ATTEND Psychiatry & Neurology Psychiatry | DX: F15.20 Other stimulant dependence, uncomplicated (principal); F12.20 Cannabis dependence, uncomplicated; F17.200 Nicotine dependence, unspecified, uncomplicated ==

== ENCOUNTER 2024-12-17 13:13 | Inpatient (IN) | payer MEDICAID, MEDICARE, OTHER ==
[~2024-12-17] VITALS: Ht 170.2 cm; Wt 69.7 kg
[~2024-12-17 13:13] MED LIST changes: +ALBU8.5H INH; -ALBU8.5H PO
[2024-12-17 14:02] LABS: HEMATOCRIT 37.6 % (42.0-52.0); HEMOGLOBIN 12.9 g/dl (13.5-17.5); MEAN CORPUSCULAR HEMOGLOBIN 31.9 pg (27.0-33.0); MEAN CORPUSCULAR HGB CONC 34.3 g/dl (32.0-36.5); MEAN CORPUSCULAR VOLUME 92.8 fl (80.0-96.0); PLATELET COUNT, AUTOMATED 310 10^3/uL (150-450); RED BLOOD COUNT 4.05 10^6/uL (4.30-6.10); WHITE BLOOD COUNT 8.2 10^3/uL (4.0-10.0)
[2024-12-17 14:27] LABS: BARBITURATES URINE NEGATIVE (NEGATIVE); BENZODIAZEPINES URINE NEGATIVE (NEGATIVE); COCAINE METABOLITE URINE NEGATIVE (NEGATIVE); METHADONE URINE NEGATIVE (NEGATIVE); OPIATES URINE NEGATIVE (NEGATIVE); PHENCYCLIDINE URINE NEGATIVE (NEGATIVE)
[2024-12-17 14:31] LABS: ETHYL ALCOHOL (ETHANOL) 0.005 % (0.000-0.010)
[2024-12-17 14:32] LABS: AMPHETAMINES LEVEL URINE POSITIVE (NEGATIVE); CANNABINOIDS URINE POSITIVE (NEGATIVE)
[2024-12-17 14:33] LABS: ALBUMIN 3.4 G/DL (3.2-5.2); ALKALINE PHOSPHATASE 118 U/L (40-129); ALT/SGPT 37 U/L (7.0-40); AST/SGOT 32 U/L (<34); BILIRUBIN,DIRECT 0.2 MG/DL (<0.4); BILIRUBIN,TOTAL 0.5 MG/DL (0.3-1.2); BLOOD UREA NITROGEN 20 MG/DL (9-23); CALCIUM LEVEL 9.8 MG/DL (8.5-10.1); CARBON DIOXIDE LEVEL 28 MMOL/L (20-31); CHLORIDE LEVEL 105 MMOL/L (98-107); CREATININE FOR GFR 0.64 MG/DL (0.70-1.30); GLOMERULAR FILTRATION RATE > 60.0 (>56); GLUCOSE, FASTING 98 MG/DL (60-100); POTASSIUM SERUM 4.3 MMOL/L (3.5-5.1); SALICYLATE LEVEL < 3.0 MG/DL (<30); SODIUM LEVEL 142 MMOL/L (136-145); TOTAL PROTEIN 6.5 G/DL (5.7-8.2)
[2024-12-17 14:34] LABS: THYROID STIMULATING HORMONE 4.431 uIU/ML (0.55-4.78)
[2024-12-17] MEDS ORDERED: diphenhydrAMINE 25MG CAP PO PRN (20:15)
[2024-12-17] MEDS ORDERED: IBUPROFEN 400MG TAB PO PRN (20:15)
[2024-12-17] MEDS ORDERED: traZODone 50 MG TAB PO PRN (20:15)
[2024-12-17] MEDS ORDERED: MOM 30ML SUSPENSION UDC PO PRN (20:15)
[2024-12-17] MEDS ORDERED: ACETAMINOPHEN 325 MG TAB PO PRN (20:15)
[2024-12-17 21:58] VITALS: TEMP 96.1
[2024-12-18] MEDS ORDERED: HOME MED LIST COMPLETE! XX SCH (03:25)
[2024-12-18 06:44] VITALS: BP 118/63; TEMP 97; O2SAT 99
[2024-12-18] MEDS: ALBUTEROL 90 MCG/ACT 8GM HFA INHALER INH PRN (09:59)
[2024-12-19] MEDS: ALBUTEROL 90 MCG/ACT 8GM HFA INHALER INH PRN (05:12)
[2024-12-19] MEDS: OLANZapine ORAL DISINTEGRATING TAB 5MG PO PRN (07:48)
[2024-12-19] MEDS: IPRATROPIUM 0.5MG/ALBUTEROL 2.5MG INH SOL UD 3ML (DUONEB) INH PRN (10:14)
[2024-12-19 16:42] VITALS: BP 156/91; TEMP 96.7; O2SAT 99
[2024-12-20] MEDS: MAALOX 30 ML SUSP *UDC PO PRN (00:51)
[2024-12-20] MEDS: LORazepam 2 MG TAB PO ONE (09:35)
[2024-12-20] MEDS: PALIPERIDONE 3MG ER TAB (INVEGA) PO SCH (09:35)
[2024-12-20 16:40] VITALS: BP 127/71; TEMP 98.8; O2SAT 96
[2024-12-21 15:38] VITALS: BP 114/62; TEMP 98.7; O2SAT 94
[2024-12-22 06:28] VITALS: BP 135/74; TEMP 98.3; O2SAT 99
[2024-12-22] MEDS ORDERED: PALI1TAB2 PO (10:45)
[2024-12-22] MEDS ORDERED: OLAN5ZYD PO (11:09)
== END 2024-12-22 11:07 | disposition home or self-care (01) | DRG 885 ==
LOC: M ED 13:13 → M ED INP 20:15 → M PSY 21:48
PROVIDERS: ADMIT Psychiatry & Neurology Neurology; ATTEND Psychiatry & Neurology Psychiatry
DX: F25.0 Schizoaffective disorder, bipolar type (principal); F17.200 Nicotine dependence, unspecified, uncomplicated; F60.2 Antisocial personality disorder; Z88.1 Allergy status to other antibiotic agents; Z88.5 Allergy status to narcotic agent; F15.10 Other stimulant abuse, uncomplicated; F12.10 Cannabis abuse, uncomplicated; Z79.899 Other long term (current) drug therapy

== ENCOUNTER → 2025-01-26 | Outpatient (REF) | payer MEDICAID ==
[~2025-01-26] MED LIST changes: +PALI1TAB2 PO
[2025-01-26 17:51] LABS: APPEARANCE, URINE HAZY (CLEAR); BACTERIA, URINE AUTO NEGATIVE (NEGATIVE); BILIRUBIN, URINE AUTO NEGATIVE (NEGATIVE); BLOOD, URINE BLOOD 2+ (NEGATIVE); COLOR, URINE YELLOW (YELLOW); GLUCOSE, URINE (UA) AUTO NEGATIVE (NEGATIVE); KETONE, URINE AUTO NEGATIVE (NEGATIVE); LEUKOCYTE ESTERASE, URINE AUTO TRACE (NEGATIVE); MUCUS, URINE SMALL (NEGATIVE); NITRITE, URINE AUTO NEGATIVE (NEGATIVE); PROTEIN, URINE AUTO NEGATIVE (NEGATIVE); RBC, URINE AUTO 10 /HPF (0-3); SPECIFIC GRAVITY URINE AUTO 1.018 (1.002-1.035); SQUAMOUS EPITHELIAL CELL UR AU 0 /HPF (0-6); UROBILINOGEN, URINE AUTO 0.2 mg/dL (0.0-2.0); WBC, URINE AUTO 2 /HPF (0-3)
== END ==
LOC: M LAB REF 17:16
PROVIDERS: ATTEND Nurse Practitioner Family
DX: R30.0 Dysuria (principal); Z11.9 Encounter for screening for infectious and parasitic diseases, unspecified

== ENCOUNTER 2025-02-09 08:45 | Emergency (ER) | payer MEDICARE, MEDICAID ==
[~2025-02-09] VITALS: Ht 175.3 cm; Wt 160.0 kg
[~2025-02-09 08:45] MED LIST changes: +FLUT1BLS8 INH; -FLUT1BLS8 PO; -HYDR28CR33 TOP; +HYDR28CR52 TOP
[2025-02-09 08:55] VITALS: TEMP 97.8
[2025-02-09] MEDS: ONDANSETRON 4MG 2ML VIAL IV ONE (09:33)
[2025-02-09] MEDS: ACETAMINOPHEN 325 MG TAB PO ONE (09:33)
[2025-02-09] MEDS: LIDOCAINE 5% (LIDODERM) PATCH TD ONE (09:33)
[2025-02-09 10:02] LABS: BASO % 0.1 % (0.0-1.0); EOS % 0.1 % (0.0-3.0); HEMATOCRIT 46.8 % (42.0-52.0); HEMOGLOBIN 16.3 g/dl (13.5-17.5); LYMPH # 2.8 10^3/uL (1.5-5.0); LYMPH % 14.8 % (24.0-44.0); MEAN CORPUSCULAR HEMOGLOBIN 31.8 pg (27.0-33.0); MEAN CORPUSCULAR HGB CONC 34.8 g/dl (32.0-36.5); MEAN CORPUSCULAR VOLUME 91.4 fl (80.0-96.0); MONO # 1.4 10^3/uL (0.0-0.8); MONO % 7.6 % (2.0-8.0); NEUTROPHILS # 14.5 10^3/uL (1.5-8.5); PLATELET COUNT, AUTOMATED 361 10^3/uL (150-450); RED BLOOD COUNT 5.12 10^6/uL (4.30-6.10); WHITE BLOOD COUNT 18.8 10^3/uL (4.0-10.0)
[2025-02-09 10:43] LABS: ALBUMIN 3.7 G/DL (3.2-5.2); ALKALINE PHOSPHATASE 135 U/L (40-129); ALT/SGPT 23 U/L (7.0-40); AST/SGOT 21 U/L (<34); BILIRUBIN,TOTAL 1.1 MG/DL (0.3-1.2); BLOOD UREA NITROGEN 21 MG/DL (9-23); CALCIUM LEVEL 10.1 MG/DL (8.5-10.1); CARBON DIOXIDE LEVEL 35 MMOL/L (20-31); CHLORIDE LEVEL 87 MMOL/L (98-107); CREATININE FOR GFR 0.77 MG/DL (0.70-1.30); GLOMERULAR FILTRATION RATE > 90.0 (>56); GLUCOSE, FASTING 111 MG/DL (60-100); POTASSIUM SERUM 3.2 MMOL/L (3.5-5.1); SODIUM LEVEL 131 MMOL/L (136-145); TOTAL PROTEIN 7.2 G/DL (5.7-8.2)
[2025-02-09 11:04] LABS: ETHYL ALCOHOL (ETHANOL) < 0.003 % (0.000-0.010)
[2025-02-09] MEDS ORDERED: ISOVUE-370 76% 100ML VIAL As Ordered ONE (11:15)
[2025-02-09 11:40] LABS: KETONE, URINE AUTO RFX NEGATIVE (NEGATIVE); LEUKOCYTE ESTERASE UR AUTO RFX NEGATIVE (NEGATIVE); MUCUS, URINE RFX SMALL (NEGATIVE); NITRITE, URINE AUTO RFX NEGATIVE (NEGATIVE); RBC, URINE AUTO RFX 6 /HPF (0-3); SQUAM EPITHELIAL CELL UR AURFX 0 /HPF (0-6); WBC, URINE AUTO RFX 2 /HPF (0-3)
[2025-02-09 11:45] VITALS: BP 149/83; O2SAT 92
[2025-02-09 11:49] LABS: AMPHETAMINES LEVEL URINE NEGATIVE (NEGATIVE); BARBITURATES URINE NEGATIVE (NEGATIVE); BENZODIAZEPINES URINE NEGATIVE (NEGATIVE); COCAINE METABOLITE URINE NEGATIVE (NEGATIVE); METHADONE URINE NEGATIVE (NEGATIVE); OPIATES URINE NEGATIVE (NEGATIVE); PHENCYCLIDINE URINE NEGATIVE (NEGATIVE)
[2025-02-09 12:00] LABS: CANNABINOIDS URINE POSITIVE (NEGATIVE)
[2025-02-09] MEDS ORDERED: PALI1TAB2 PO (12:26)
[2025-02-09] MEDS ORDERED: OLAN5ZYD PO (12:26)
[2025-02-09] MEDS ORDERED: HOME MED LIST COMPLETE! XX SCH (12:30)
[2025-02-09 12:40] LABS: Trichomonas vaginalis (AMP) NOT DETECTED (NEGATIVE)
[2025-02-09] MEDS: POTASSIUM CHLORIDE 10MEQ SR TABLET PO ONE (12:43)
[2025-02-09 13:03] LABS: GC DNA AMPLIFICATION NEGATIVE (NEGATIVE)
[2025-02-09] MEDS: PALIPERIDONE PALMITATE 156 MG/1 ML IM ONE (15:25)
[2025-02-09] MEDS ORDERED: LIDO5DIS41 TOP (15:57)
== END 2025-02-09 16:22 | disposition home or self-care (01) ==
LOC: M ED 08:45 → EDBD 08:45 → M ED 16:22
DX: M54.50 Low back pain, unspecified (principal); Z87.19 Personal history of other diseases of the digestive system; J44.9 Chronic obstructive pulmonary disease, unspecified; Z85.528 Personal history of other malignant neoplasm of kidney; F17.200 Nicotine dependence, unspecified, uncomplicated; F12.10 Cannabis abuse, uncomplicated
CPT/HCPCS: 74177; 76775; 80053; 80307; 81001; 82077; 85025; 86780; 87661; 87810; 87850; 96372; 96374; 99285; J2405; J2426; Q9967

== ENCOUNTER 2025-04-25 10:41 | Emergency (ER) | payer MEDICARE, MEDICAID ==
[~2025-04-25] VITALS: Ht 170.2 cm; Wt 66.0 kg
[~2025-04-25 10:41] MED LIST changes: +LIDO1ADH93 TOP
[2025-04-25 11:32] LABS: PLATELET COUNT, AUTOMATED 413 10^3/uL (150-450)
[2025-04-25 11:55] LABS: METHADONE URINE NEGATIVE (NEGATIVE); OPIATES URINE NEGATIVE (NEGATIVE); PHENCYCLIDINE URINE NEGATIVE (NEGATIVE)
[2025-04-25 11:56] LABS: BARBITURATES URINE NEGATIVE (NEGATIVE); BENZODIAZEPINES URINE NEGATIVE (NEGATIVE); COCAINE METABOLITE URINE NEGATIVE (NEGATIVE)
[2025-04-25 11:57] LABS: AMPHETAMINES LEVEL URINE POSITIVE (NEGATIVE); CANNABINOIDS URINE POSITIVE (NEGATIVE)
[2025-04-25 11:57] LABS: ETHYL ALCOHOL (ETHANOL) 0.004 % (0.000-0.010)
[2025-04-25 11:59] LABS: ALT/SGPT 22 U/L (7.0-40); AST/SGOT 23 U/L (<34); CALCIUM LEVEL 10.2 MG/DL (8.5-10.1); CARBON DIOXIDE LEVEL 24 MMOL/L (20-31); CHLORIDE LEVEL 106 MMOL/L (98-107); CREATININE FOR GFR 0.70 MG/DL (0.70-1.30); GLOMERULAR FILTRATION RATE > 90.0 (>56); POTASSIUM SERUM 4.1 MMOL/L (3.5-5.1); SALICYLATE LEVEL < 3.0 MG/DL (<30); SODIUM LEVEL 141 MMOL/L (136-145)
[2025-04-25] MEDS: COMBIVENT RESPIMAT 100-20 MCG INHALER 4 GM INH PRN (16:21)
[2025-04-25 17:29] VITALS: BP 122/75; TEMP 97.4; O2SAT 99
== END 2025-04-25 17:48 | disposition home or self-care (01) ==
LOC: M ED 10:41
DX: F43.20 Adjustment disorder, unspecified (principal); I10 Essential (primary) hypertension; J44.9 Chronic obstructive pulmonary disease, unspecified; K21.9 Gastro-esophageal reflux disease without esophagitis; F25.9 Schizoaffective disorder, unspecified; F15.10 Other stimulant abuse, uncomplicated; F17.200 Nicotine dependence, unspecified, uncomplicated; Z79.899 Other long term (current) drug therapy; Z88.1 Allergy status to other antibiotic agents; Z88.5 Allergy status to narcotic agent

== ENCOUNTER 2025-07-28 09:30 | Emergency (ER) | payer MEDICARE, MEDICAID ==
[~2025-07-28] VITALS: Ht 172.7 cm; Wt 77.8 kg
[~2025-07-28 09:30] MED LIST changes: +FLUP25VI3 IM; -FLUP25VL IM; -IBUP-1022 PO; +IBUP600T42 PO
[2025-07-28 11:20] VITALS: BP 133/81; TEMP 97.3; O2SAT 99
[2025-07-28] MEDS: PALIPERIDONE PALMITATE 156 MG/1 ML IM ONE (11:24)
== END 2025-07-28 11:28 | disposition home or self-care (01) ==
LOC: M ED 09:30
DX: Z23 Encounter for immunization (principal); F17.200 Nicotine dependence, unspecified, uncomplicated; F12.10 Cannabis abuse, uncomplicated; Z79.899 Other long term (current) drug therapy; Z88.1 Allergy status to other antibiotic agents; Z88.5 Allergy status to narcotic agent
CPT/HCPCS: 96372; 99283; J2426

== ENCOUNTER 2025-07-31 11:29 | Emergency (ER) | payer MEDICARE, MEDICAID ==
[~2025-07-31] VITALS: Ht 172.7 cm; Wt 76.2 kg
[2025-07-31 11:32] VITALS: TEMP 97.9
[2025-07-31 12:35] LABS: BARBITURATES URINE NEGATIVE (NEGATIVE); BENZODIAZEPINES URINE NEGATIVE (NEGATIVE); COCAINE METABOLITE URINE NEGATIVE (NEGATIVE); METHADONE URINE NEGATIVE (NEGATIVE); OPIATES URINE NEGATIVE (NEGATIVE); PHENCYCLIDINE URINE NEGATIVE (NEGATIVE)
[2025-07-31 12:39] LABS: AMPHETAMINES LEVEL URINE POSITIVE (NEGATIVE); CANNABINOIDS URINE POSITIVE (NEGATIVE)
[2025-07-31 13:40] VITALS: BP 117/77; O2SAT 96
[2025-07-31] MEDS ORDERED: DIPH50CA31 PO (13:44)
[2025-07-31] MEDS ORDERED: OVERDOSE RESCUE KIT XX SCH (14:10)
== END 2025-07-31 14:06 | disposition home or self-care (01) ==
LOC: M ED 11:29
DX: F15.120 Other stimulant abuse with intoxication, uncomplicated (principal); F12.10 Cannabis abuse, uncomplicated; F31.9 Bipolar disorder, unspecified; F25.9 Schizoaffective disorder, unspecified; Z88.1 Allergy status to other antibiotic agents; Z88.5 Allergy status to narcotic agent; Z79.52 Long term (current) use of systemic steroids; Z79.899 Other long term (current) drug therapy

== ENCOUNTER 2025-08-10 17:00 | Inpatient (IN) | payer MEDICARE, MEDICAID ==
[~2025-08-10] VITALS: Ht 172.7 cm; Wt 68.1 kg
[~2025-08-10 17:00] MED LIST changes: +DIPH50CA31 PO
[2025-08-10 17:49] LABS: PLATELET COUNT, AUTOMATED 381 10^3/uL (150-450)
[2025-08-10 18:03] LABS: AMPHETAMINES LEVEL URINE POSITIVE (NEGATIVE); BARBITURATES URINE NEGATIVE (NEGATIVE); BENZODIAZEPINES URINE NEGATIVE (NEGATIVE); CANNABINOIDS URINE POSITIVE (NEGATIVE); COCAINE METABOLITE URINE NEGATIVE (NEGATIVE); METHADONE URINE NEGATIVE (NEGATIVE); OPIATES URINE NEGATIVE (NEGATIVE); PHENCYCLIDINE URINE NEGATIVE (NEGATIVE)
[2025-08-10 18:05] LABS: ETHYL ALCOHOL (ETHANOL) < 0.003 % (0.000-0.010)
[2025-08-10 18:07] LABS: ALT/SGPT 21 U/L (7.0-40); AST/SGOT 23 U/L (<34); CALCIUM LEVEL 10.3 MG/DL (8.5-10.1); CARBON DIOXIDE LEVEL 28 MMOL/L (20-31); CHLORIDE LEVEL 108 MMOL/L (98-107); CREATININE FOR GFR 0.76 MG/DL (0.70-1.30); GLOMERULAR FILTRATION RATE > 90.0 (>56); POTASSIUM SERUM 4.2 MMOL/L (3.5-5.1); SALICYLATE LEVEL < 3.0 MG/DL (<30); SODIUM LEVEL 146 MMOL/L (136-145)
[2025-08-10] MEDS ORDERED: ACETAMINOPHEN 325 MG TAB PO PRN (21:15)
[2025-08-10] MEDS ORDERED: MOM 30 ML SUSPENSION UDC PO PRN (21:15)
[2025-08-10] MEDS ORDERED: IBUPROFEN 400 MG TAB PO PRN (21:15)
[2025-08-10] MEDS ORDERED: traZODone 50 MG TAB PO PRN (21:15)
[2025-08-10] MEDS ORDERED: MAALOX 30 ML SUSP *UDC PO PRN (21:15)
[2025-08-10] MEDS ORDERED: MED REC IN PROGRESS XX SCH (22:20)
[2025-08-11 06:32] VITALS: BP 99/58; TEMP 97.7; O2SAT 97
[2025-08-11] MEDS ORDERED: ALBUTEROL 90 MCG/ACT 8 GM HFA INHALER INH PRN (08:05)
[2025-08-11] MEDS ORDERED: HOME MED LIST COMPLETE! XX SCH (09:50)
[2025-08-11] MEDS: SYMBICORT 80/4.5MCG INHALER 6GM INH SCH (10:16)
[2025-08-11] MEDS: PALIPERIDONE 3MG ER TAB PO SCH (10:17)
[2025-08-11] MEDS: TIOTROPIUM BROM 2.5MCG/ACTUATION 4GM INH INH SCH (10:17)
[2025-08-11 21:19] VITALS: BP 99/58; TEMP 97.7; O2SAT 97
[2025-08-12 06:37] VITALS: BP 123/72; TEMP 98.1; O2SAT 100
[2025-08-12] MEDS ORDERED: PALIPERIDONE PAL 156MG/1ML INJ (FREE PSY INPT ONLY) IM ONE (09:20)
[2025-08-12] MEDS: PALIPERIDONE PAL 156MG/1ML INJ (FREE PSY INPT ONLY) IM ONE (11:18)
[2025-08-12 15:42] VITALS: BP 114/65; TEMP 97.4; O2SAT 97
[2025-08-13] MEDS: OLANZapine 5 MG TAB PO PRN (14:35)
[2025-08-13] MEDS: LORazepam 1 MG TAB PO PRN (15:32)
[2025-08-13] MEDS: NICOTINE 21 MG/24 HR 1 EA TRANSDERMAL TD SCH (16:27)
[2025-08-14 22:10] VITALS: BP 114/65; TEMP 97.4; O2SAT 97
[2025-08-15] MEDS ORDERED: PALI1TAB2 PO (09:38)
[2025-08-15] MEDS ORDERED: HYDR-3363 PO (09:40)
== END 2025-08-15 10:43 | disposition home or self-care (01) | DRG 885 ==
LOC: M ED 17:00 → M ED INP 21:13 → M PSY 22:40
PROVIDERS: ADMIT Psychiatry & Neurology Neurology; ATTEND Psychiatry & Neurology Psychiatry
DX: F25.0 Schizoaffective disorder, bipolar type (principal); Z59.00 Homelessness unspecified; F15.10 Other stimulant abuse, uncomplicated; F12.10 Cannabis abuse, uncomplicated; F60.2 Antisocial personality disorder; Z79.899 Other long term (current) drug therapy; Z88.1 Allergy status to other antibiotic agents; Z88.5 Allergy status to narcotic agent; M25.561 Pain in right knee; J44.9 Chronic obstructive pulmonary disease, unspecified; K21.9 Gastro-esophageal reflux disease without esophagitis; F17.210 Nicotine dependence, cigarettes, uncomplicated; F41.9 Anxiety disorder, unspecified; Z91.148 Patient's other noncompliance with medication regimen for other reason

== ENCOUNTER 2025-08-24 11:08 | Inpatient (IN) | payer MEDICARE, MEDICAID ==
[~2025-08-24] VITALS: Ht 172.7 cm; Wt 68.2 kg
[~2025-08-24 11:08] MED LIST changes: +HYDR-3363 PO
[2025-08-24 11:15] VITALS: TEMP 97.9
[2025-08-24 11:50] LABS: PLATELET COUNT, AUTOMATED 371 10^3/uL (150-450)
[2025-08-24 12:10] LABS: BARBITURATES URINE NEGATIVE (NEGATIVE); BENZODIAZEPINES URINE NEGATIVE (NEGATIVE); COCAINE METABOLITE URINE NEGATIVE (NEGATIVE); METHADONE URINE NEGATIVE (NEGATIVE); OPIATES URINE NEGATIVE (NEGATIVE); PHENCYCLIDINE URINE NEGATIVE (NEGATIVE)
[2025-08-24 12:12] LABS: ETHYL ALCOHOL (ETHANOL) 0.003 % (0.000-0.010)
[2025-08-24 12:14] LABS: ALT/SGPT 22 U/L (7.0-40); AST/SGOT 22 U/L (<34); CALCIUM LEVEL 9.4 MG/DL (8.5-10.1); CARBON DIOXIDE LEVEL 26 MMOL/L (20-31); CHLORIDE LEVEL 105 MMOL/L (98-107); CREATININE FOR GFR 0.65 MG/DL (0.70-1.30); GLOMERULAR FILTRATION RATE > 90.0 (>56); POTASSIUM SERUM 4.2 MMOL/L (3.5-5.1); SALICYLATE LEVEL < 3.0 MG/DL (<30); SODIUM LEVEL 137 MMOL/L (136-145)
[2025-08-24 12:17] LABS: AMPHETAMINES LEVEL URINE POSITIVE (NEGATIVE); CANNABINOIDS URINE POSITIVE (NEGATIVE)
[2025-08-24] MEDS ORDERED: HOME MED LIST COMPLETE! XX SCH (14:25)
[2025-08-24] MEDS ORDERED: IBUPROFEN 400 MG TAB PO PRN (14:45)
[2025-08-24] MEDS ORDERED: MOM 30 ML SUSPENSION UDC PO PRN (14:45)
[2025-08-24] MEDS ORDERED: traZODone 50 MG TAB PO PRN (14:45)
[2025-08-24] MEDS ORDERED: ACETAMINOPHEN 325 MG TAB PO PRN (14:45)
[2025-08-24] MEDS ORDERED: MAALOX 30 ML SUSP *UDC PO PRN (14:45)
[2025-08-24 16:40] VITALS: BP 127/78; O2SAT 97
[2025-08-25] MEDS: LORazepam 1 MG TAB PO ONE ×2 (06:35→14:20)
[2025-08-25] MEDS: ALBUTEROL 90 MCG/ACT 8 GM HFA INHALER INH PRN (06:35)
[2025-08-25] MEDS ORDERED: PALIPERIDONE 3MG ER TAB PO SCH (09:00)
[2025-08-25] MEDS: HALOPERIDOL 5 MG TAB PO ONE (14:20)
[2025-08-26] MEDS ORDERED: OLAN1TAB16 PO (09:14)
== END 2025-08-26 09:51 | DRG 885 ==
LOC: M ED 11:08 → M ED INP 14:45 → M PSY 17:02
PROVIDERS: ADMIT General Practice; ATTEND General Practice
DX: F25.0 Schizoaffective disorder, bipolar type (principal); F60.89 Other specific personality disorders; F15.90 Other stimulant use, unspecified, uncomplicated; F12.90 Cannabis use, unspecified, uncomplicated; K21.9 Gastro-esophageal reflux disease without esophagitis; I10 Essential (primary) hypertension; J44.9 Chronic obstructive pulmonary disease, unspecified; R45.850 Homicidal ideations; F17.210 Nicotine dependence, cigarettes, uncomplicated; Z79.899 Other long term (current) drug therapy; Z88.0 Allergy status to penicillin; Z88.1 Allergy status to other antibiotic agents; Z88.8 Allergy status to other drugs, medicaments and biological substances; Z65.3 Problems related to other legal circumstances

== ENCOUNTER 2025-09-28 18:03 | Emergency (ER) | payer MEDICARE, MEDICAID ==
[~2025-09-28] VITALS: Ht 172.7 cm; Wt 77.1 kg
[~2025-09-28 18:03] MED LIST changes: +OLAN1TAB16 PO
[2025-09-28 20:31] LABS: PLATELET COUNT, AUTOMATED 428 10^3/uL (150-450)
[2025-09-28 20:51] LABS: ETHYL ALCOHOL (ETHANOL) < 0.003 % (0.000-0.010)
[2025-09-28 20:52] LABS: SALICYLATE LEVEL < 3.0 MG/DL (<30)
[2025-09-28 20:53] LABS: ALT/SGPT 27 U/L (7.0-40); AST/SGOT 35 U/L (<34); CALCIUM LEVEL 9.8 MG/DL (8.5-10.1); CARBON DIOXIDE LEVEL 23 MMOL/L (20-31); CHLORIDE LEVEL 102 MMOL/L (98-107); CREATININE FOR GFR 0.74 MG/DL (0.70-1.30); GLOMERULAR FILTRATION RATE > 90.0 (>56); POTASSIUM SERUM 4.0 MMOL/L (3.5-5.1); SODIUM LEVEL 135 MMOL/L (136-145)
[2025-09-28 22:22] LABS: BARBITURATES URINE NEGATIVE (NEGATIVE); BENZODIAZEPINES URINE NEGATIVE (NEGATIVE); COCAINE METABOLITE URINE NEGATIVE (NEGATIVE); METHADONE URINE NEGATIVE (NEGATIVE); OPIATES URINE NEGATIVE (NEGATIVE); PHENCYCLIDINE URINE NEGATIVE (NEGATIVE)
[2025-09-28 22:24] LABS: AMPHETAMINES LEVEL URINE POSITIVE (NEGATIVE); CANNABINOIDS URINE POSITIVE (NEGATIVE)
[2025-09-29] MEDS: OLANZapine INTRAMUSCULAR 10MG VIAL IM STA (02:17)
[2025-09-29 09:18] VITALS: BP 101/66; TEMP 98.3; O2SAT 97
[2025-09-29] MEDS: PALIPERIDONE PALMITATE 156 MG/1 ML IM ONE (09:20)
== END 2025-09-29 09:37 | disposition home or self-care (01) ==
LOC: M ED 18:03
DX: F25.0 Schizoaffective disorder, bipolar type (principal); Z59.00 Homelessness unspecified; Z79.899 Other long term (current) drug therapy; Z88.1 Allergy status to other antibiotic agents; Z88.5 Allergy status to narcotic agent
CPT/HCPCS: 80048; 80076; 80143; 80307; 82077; 84443; 85027; 96372; 99284; J2359; J2426